=== PATIENT | male | born 1940 | race Caucasian/White ===

== ENCOUNTER 2016-10-28 09:34 | Emergency (ER) | payer MEDICARE, OTHER ==
[~2016-10-28] VITALS: Ht 177.8 cm; Wt 84.0 kg
[~2016-10-28 09:34] MED LIST: ALBU17I INH; AMIO200T PO; ATEN-102 PO; LEVA750T9 PO; RIVA20 PO; SM A81CH CHEW
[2016-10-28 09:35] VITALS: BP 172/98; PULSE 98; RESP 20; TEMP 97.5; O2SAT 95
[2016-10-28 10:19] VITALS: BP 131/88; PULSE 80; RESP 15; TEMP 98.4; O2SAT 97
--- NOTE | 2016-10-28 10:35 | PD ---
HPI Chief Complaint: Back/ Neck Pain or Injury Time Seen by Provider: 10:19 Travel History International Travel<30 days: No Contact w/Intl Traveler<30days: No Traveled to known affect area: No History of Present Illness HPI 75yo M with PMH of afib on eliquis presents to the ED with c/o right lower back pain for 5 days. Pt was pushing and lifting heavy furniture 5 days ago and then felt pain in right lower back that radiates to right hip. Pain is sharp, worst with movement. Denies any fever, trauma, weakness, numbness, chest pain, sob, n/v, abdominal pain. Pt took advil with no relief. PFSH Past Medical History Hx Anticoagulant Therapy: Yes (Eliquis) Asthma: Yes Atrial Fibrillation: Yes Cardiovascular Problems: Yes (atrial fibrillation) Diminished Hearing: No Hypertension: Yes Social History Alcohol Use: Yes (6 BEERS A DAY) Tobacco Use: No Substance Use: No Allergies-Medications (Allergen,Severity, Reaction): Coded Allergies: No Known Allergies (Verified , 05/29/13) Reported Meds & Prescriptions Reported Meds & Active Scripts Active Reported Eliquis (Apixaban) 2.5 Mg Tab 2.5 PO BID Review of Systems Except as stated in HPI: all other systems reviewed are Neg Physical Exam Narrative GENERAL: 75yo M not in distress. SKIN: Warm and dry. HEAD: Atraumatic. Normocephalic. CARDIOVASCULAR: Regular rate and rhythm. No murmur appreciated. RESPIRATORY: No accessory muscle use. Clear to auscultation. Breath sounds equal bilaterally. GASTROINTESTINAL: Abdomen soft, non-tender, nondistended. BACK: No midline ttp thoracic or lumbar spine. +TTP right paraspinal L4-5 with movement. MUSCULOSKELETAL: Right hip: No ttp. No ecchymoses or erythema. However, pt states pain is there with movement. Sensation intact. Distal pulses intact. NEUROLOGICAL: Awake and alert. No obvious cranial nerve deficits. Motor grossly within normal limits. Normal speech. Negative straight leg test. PSYCHIATRIC: Appropriate mood and affect; insight and judgment normal. Data Data Last Documented VS Vital Signs Date Time Temp Pulse Resp B/P Pulse Ox O2 Delivery O2 Flow Rate FiO2 10/28/16 10:19 98.4 80 15 131/88 97 10/28/16 09:35 Room Air Orders Spine, Lumbar - Ltd (Ap & Lat) (10/28/16 ) Hip, Uni(Ap&Lat) W Ap Pelvis (10/28/16 ) Diazepam (Valium) (10/28/16 10:45) Ketorolac Inj (Toradol Inj) (10/28/16 10:45) MDM Medical Decision Making Medical Screen Exam Complete: Yes Emergency Medical Condition: Yes Differential Diagnosis Muscle sprain vs. osteoarthritis vs. occult fracture Narrative Course 75yo M with right back pain that seems very musculoskeletal after moving heavy furniture. Xray right hip showed moderate degenerative changes. No fracture. Xray LS showed moderate degenerative changes. No fracture. Pt given toradol 15mg IM and valium 2mg PO with little relieve. Lortab 5mg given. Return precautions given. Diagnosis Primary Impression: Back pain Qualified Code: M54.5 - Acute right-sided low back pain without sciatica Patient Instructions: General Instructions Departure Forms: Tests/Procedures Additional Instructions: Please follow up with your PMD in 1-2 days. Return to the ED if symptoms worsen. Med/Other Pt SpecificInfo: Prescription(s) given Scripts Ibuprofen 600 Mg Pml700 Mg PO Q8HR PRN (PAIN) #20 TAB Ref 0 Prov:Martha Singh DO 10/28/16 Disposition: 01 DISCHARGE HOME Condition: Stable Martha Singh DO Oct 28, 2016 10:35
[2016-10-28] MEDS ORDERED: DIAZEPAM 2 MG TAB PO ONE (10:45)
[2016-10-28] MEDS ORDERED: KETOROLAC TROMETHAMINE 60 MG/2 ML (IM) VIAL IM ONE (10:45)
[2016-10-28] MEDS ORDERED: APIX2.5T PO (11:23)
--- NOTE | 2016-10-28 11:36 | RADRPT ---
EXAM DATE/TIME: 10/28/2016 10:59 [facility] COMPARISON: No previous studies available for comparison. INDICATIONS : Patient moved furniture five days ago and now back and hip have pain. MEDICAL HISTORY : None. SURGICAL HISTORY : Knee surgery. ENCOUNTER: Initial ACUITY: 4 - 6 days PAIN SCORE: 10/10 LOCATION: Right Hip FINDINGS: Examination of the right hip was performed with AP Pelvis. The primary and secondary trabecular karly roseanna of the femoral neck is intact. Degenerative changes present at the lumbosacral junction. There is enthesopathy at the level of the iliac wings bilaterally. The hip joint is of normal width without significant sclerosis or bony hypertrophy on the right. The acetabulum is grossly intact. On the le ft side there is superior narrowing of the joint space with sclerosis characteristic of osteoarthriti s. CONCLUSION: 1. Moderate degenerative changes as described above. There is no evidence of acute fracture. Aramis Sheets MD on October 28, 2016 at 11:33 Board Certified Radiologist. This report was verified electronically.
--- NOTE | 2016-10-28 11:37 | RADRPT ---
EXAM DATE/TIME: 10/28/2016 11:03 [facility] COMPARISON: No previous studies available for comparison. INDICATIONS : Patient moved furniture five days ago and now back and hip have pain. MEDICAL HISTORY : None. SURGICAL HISTORY : Knee surgery. ENCOUNTER: Initial ACUITY: 4 - 6 days PAIN SCORE: 6/10 LOCATION: L-spine. FINDINGS: There is anterolisthesis likely related to facet arthritis at L3-L4 4-5 mm. There is multilevel disc space narrowing and marginal osteophyte formation maximal at L5-S1. There is multilevel facet arthrit is maximal at L5-S1. There is no evidence of acute fracture. Bony mineralization is normal. CONCLUSION: 1. Moderate degenerative changes as described above. There is no evidence of acute fracture. Aramis Sheets MD on October 28, 2016 at 11:35 Board Certified Radiologist. This report was verified electronically.
[2016-10-28] MEDS ORDERED: ACETAMINOPHEN/HYDROcodone 325 MG/5 MG TAB PO ONE (13:00)
[2016-10-28] MEDS ORDERED: IBUP-232 PO (13:01)
== END 2016-10-28 13:38 | disposition home or self-care (01) ==
LOC: NEPC 09:34
DX: M54.5 Low back pain (principal); M25.551 Pain in right hip; I48.91 Unspecified atrial fibrillation; I10 Essential (primary) hypertension; Z79.01 Long term (current) use of anticoagulants; Z87.09 Personal history of other diseases of the respiratory system; X50.9XXA Other and unspecified overexertion or strenuous movements or postures, initial encounter
CPT/HCPCS: 72100; 73502; 96372; 99283; J1885

== ENCOUNTER 2017-02-15 11:48 | Day surgery (SDC) | payer MEDICARE, OTHER ==
[~2017-02-15 11:48] MED LIST changes: -ALBU17I INH; -AMIO200T PO; +APIX2.5T PO; -ATEN-102 PO; +IBUP-232 PO; -LEVA750T9 PO; -RIVA20 PO; -SM A81CH CHEW
[2017-02-15] MEDS ORDERED: LACTATED RINGER'S 1000 ML IV PRN (12:15)
[2017-02-15] MEDS ORDERED: METOPROLOL TARTRATE 25 MG TAB PO PRN (12:15)
[2017-02-15] MEDS ORDERED: CHLORHEXIDINE GLUCONATE 2 % 1 PACK (2 CLOTHS) TOPICAL PRN (12:15)
[2017-02-15] MEDS ORDERED: SODIUM CHLORID 0.9% 500 ML IV PRN (12:15)
[2017-02-15] MEDS ORDERED: POVIDONE IODINE 5% (ANTISEPSIS KIT) 4 APPLICATIONS EACH NARE PRN (12:15)
[2017-02-15] MEDS ORDERED: INSULIN HUMAN REGULAR 1,000 UNITS/10 ML VIAL SQ PRN (12:15)
[2017-02-15] MEDS ORDERED: AMIO1TAB (13:02)
[2017-02-15] MEDS ORDERED: MULTTAB26 (13:02)
[2017-02-15] MEDS ORDERED: LIDOCAINE HCL 1% 50 ML VIAL ONE (14:17)
[2017-02-15] MEDS ORDERED: LIDOCAINE HCL 2% 100 MG/5 ML SYRINGE ONE (14:17)
--- NOTE | 2017-02-16 13:06 | CF ---
cc: TASNEEM MCKAY M.D.[facility] DATE February 15, 2017 PROCEDURE PERFORMED Transesophageal echocardiogram. INDICATION Atrial fibrillation. PLAN Plan to proceed with cardioversion. CONSENT A full, informed consent was obtained prior to the procedure. The risks of , bleeding, myocardial infarction, perforation, aspiration, foreseen and unforeseen complications were reviewed. The patient fully appeared to understand the risks. PROCEDURE The patient was prepped and draped in the usual manner. A full JONA was performed. Anesthesia was given as per the Anesthesia Department. FINDINGS 1. The interatrial septum was intact. 2. The mitral valve moved normally. 3. The tricuspid valve moved normally. 4. There was evidence of mild mitral regurgitation. 5. The left atrial appendage was free of thrombus. CONCLUSION No evidence of left atrial appendage thrombus. PLAN Proceed with cardioversion. Tasneem Mckay MD, FRCP,[facility]AL[facility] /2:49 PM /1:01 PM
--- NOTE | 2017-02-16 13:06 | MR ---
cc: MADONNA JACOBO HUMAYUN A. M.D. DATE 02/15/2017 PROCEDURE PERFORMED Cardioversion INDICATION Atrial fibrillation PROCEDURE The patient had a full JONA performed. Left atrial appendage was free of thrombus. The patient was given a synchronized 200 joules shock and was converted to sinus rhythm. CONCLUSIONS Successful cardioversion from atrial fibrillation to sinus rhythm. Tasneem Mckay MD, CP,[facility] /2:51 PM /1:01 PM
--- NOTE | 2017-02-16 14:02 | EKG ---
Date Performed: 02/15/2017 Time Performed: 12:10:46 PTAGE: 76 years EKG: Atrial fibrillation ST junctional depression is nonspecific Compared to prior tracing no si gnificant change Abnormal ECG PREVIOUS TRACING : 03/25/2016 16.55 DOCTOR: Irma Taylor Interpretating Date/Time 02/16/2017 13:53:31
--- NOTE | 2017-02-16 14:33 | EKG ---
Date Performed: 02/15/2017 Time Performed: 14:39:02 PTAGE: 76 years EKG: Sinus rhythm Normal ECG Compared to PREVIOUS TRACING , atrial fibrillation has resolved. The ST segment change has resolved. Clinical correlation advised. PREVIOUS TRACIN02/15/2017 12.10 DOCTOR: Irma Taylor Interpretating Date/Time 02/16/2017 14:32:39
== END 2017-02-15 15:14 | disposition home or self-care (01) ==
LOC: HSDC 11:48 → HDIC 11:50 → HSDC 15:14
PROVIDERS: ATTEND Internal Medicine Cardiovascular Disease
DX: I48.91 Unspecified atrial fibrillation (principal)
CPT/HCPCS: 92960; 93005; 93312; 93320; 93325

== ENCOUNTER 2017-09-06 12:33 | Emergency (ER) | payer MEDICARE, OTHER ==
[~2017-09-06 12:33] MED LIST changes: +AMIO1TAB; +MULTTAB26
[2017-09-06 12:57] VITALS: BP 148/75; PULSE 94; RESP 20; TEMP 101; O2SAT 98
[2017-09-06 14:23] LABS: BILIRUBIN, URINE NEG (NEG); BLOOD, URINE NEG (NEG); GLUCOSE,URINE NEG (NEG); KETONE, URINE 15 mg/dL (NEG); NITRITE,URINE NEG (NEG); URINE LEUKOCYTE ESTERASE NEG (NEG)
[2017-09-06 14:32] LABS: URINE COLOR YELLOW (YELLW/STRAW)
[2017-09-06 14:33] LABS: AMORPHOUS SEDIMENT, URINE FEW; RBC, URINE 0-3 /hpf (0-3); SQUAMOUS EPITHELIAL CELL URINE 0-5 /hpf (0-5); WBC, URINE 0-2 /hpf (0-5)
[2017-09-06] MEDS ORDERED: ACETAMINOPHEN 500 MG CPLT PO ONE (15:15)
--- NOTE | 2017-09-06 15:22 | PD ---
HPI Chief Complaint: Cold / Flu Symptoms Time Seen by Provider: 15:00 Travel History International Travel<30 days: No Contact w/Intl Traveler<30days: No Traveled to known affect area: No History of Present Illness HPI This patient has had 3 days of cough and congestion and fever. He complains of generalized weakness. Symptoms severity is moderate. No alleviating factors. No exacerbating factors. He has some dementia and his provides history and review of systems. No vomiting or diarrhea or abdominal pain or chest pain. PFSH Past Medical History Hx Anticoagulant Therapy: Yes (ELIQUIS ) Asthma: Yes Atrial Fibrillation: Yes Cardiovascular Problems: Yes (atrial fibrillation) Diminished Hearing: No Hypertension: Yes Social History Alcohol Use: Yes (daily) Tobacco Use: No Substance Use: No Allergies-Medications (Allergen,Severity, Reaction): Coded Allergies: No Known Allergies (Verified Adverse Reaction, Unknown, 09/06/17) Reported Meds & Prescriptions Reported Meds & Active Scripts Active Ventolin Hfa 18 GM Inh (Albuterol Sulfate) 90 Mcg/Act Aer 2 Puff INH Q4H PRN Reported Ferrous Sulfate 325 Mg (65 Mg Iron) Tablet 325 Mg PO TIDPC Calcium Carbonate (Antacid) 500 Mg Chew 500 Mg CHEW PRN Vitamin B-1 (Thiamine HCl) 100 Mg Tab 100 Mg PO DAILY Docusate Sodium 100 Mg Cap 100 Mg PO BID Multaq (Dronedarone) 400 Mg Tab 400 Mg PO BID Multi Complete/Iron (Multiple Vitamins W/ Minerals) 1 Tab Tab Eliquis (Apixaban) 2.5 Mg Tab 2.5 PO BID Review of Systems General / Constitutional: Positive: Fever Eyes: No: Visual changes HENT: Positive: Congestion, No: Headaches Cardiovascular: No: Chest Pain or Discomfort Respiratory: Positive: Cough, No: Shortness of Breath Gastrointestinal: No: Abdominal Pain Genitourinary: No: Dysuria Musculoskeletal: Positive: Weakness, No: Pain Skin: No Rash Neurologic: Positive: Weakness Psychiatric: No: Depression Endocrine: No: Polydipsia Hematologic/Lymphatic: No: Easy Bruising Physical Exam Narrative GENERAL: Well-nourished, well-developed patient in no apparent distress. SKIN: Focused skin assessment reveals no rash and nodules. Skin is Warm and dry. HEAD: Atraumatic. Normocephalic. EYES: Pupils equal and round. No scleral icterus. No injection or drainage. ENT: No nasal bleeding or discharge. Mucous membranes pink and moist. Throat clear NECK: Trachea midline. No JVD. No meningeal signs CARDIOVASCULAR: Regular rate and rhythm. No murmur appreciated. RESPIRATORY: No accessory muscle use. Clear to auscultation. Breath sounds equal bilaterally. GASTROINTESTINAL: Abdomen soft, non-tender, nondistended. Hepatic and splenic margins not palpable. MUSCULOSKELETAL: No obvious deformities. No clubbing. No cyanosis. No edema. NEUROLOGICAL: Awake and alert. No obvious cranial nerve deficits. Motor grossly within normal limits. Normal speech. PSYCHIATRIC: Appropriate mood and affect; insight and judgment reduced from dementia . Data Data Last Documented VS Vital Signs Date Time Temp Pulse Resp B/P (MAP) Pulse Ox O2 Delivery O2 Flow Rate FiO2 09/06/17 17:26 99.5 88 18 120/60 (80) 94 09/06/17 15:44 Room Air Orders Orders Urinalysis - C+S If Indicated (09/06/17 14:07) Influenzae A/B Antigen (09/06/17 14:42) Iv Access Insert/Monitor (09/06/17 15:14) Complete Blood Count With Diff (09/06/17 15:14) Comprehensive Metabolic Panel (09/06/17 15:14) Acetaminophen (Tylenol) (09/06/17 15:15) Chest, Single Ap (09/06/17 ) Labs Laboratory Tests Test 09/06/17 14:15 09/06/17 15:30 Urine Collection Type CLEAN CATCH Urine Color YELLOW Urine Turbidity CLEAR Urine pH 7.0 Urine Specific Bradford 1.021 Urine Protein TRACE mg/dL Urine Glucose (UA) NEG mg/dL Urine Ketones 15 mg/dL Urine Occult Blood NEG Urine Nitrite NEG Urine Bilirubin NEG Urine Leukocyte Esterase NEG Urine RBC 0-3 /hpf Urine WBC 0-2 /hpf Urine Squamous Epithelial Cells 0-5 /hpf Urine Amorphous Sediment FEW Microscopic Urinalysis Comment CULT NOT INDICATED Urine Collection Time 1415 White Blood Count 7.6 TH/MM3 Red Blood Count 4.02 MIL/MM3 Hemoglobin 11.8 GM/DL Hematocrit 35.9 % Mean Corpuscular Volume 89.2 FL Mean Corpuscular Hemoglobin 29.2 PG Mean Corpuscular Hemoglobin Concent 32.8 % Red Cell Distribution Width 16.2 % Platelet Count 238 TH/MM3 Mean Platelet Volume 7.0 FL Neutrophils (%) (Auto) 87.9 % Lymphocytes (%) (Auto) 4.3 % Monocytes (%) (Auto) 5.8 % Eosinophils (%) (Auto) 1.3 % Basophils (%) (Auto) 0.7 % Neutrophils # (Auto) 6.7 TH/MM3 Lymphocytes # (Auto) 0.3 TH/MM3 Monocytes # (Auto) 0.4 TH/MM3 Eosinophils # (Auto) 0.1 TH/MM3 Basophils # (Auto) 0.1 TH/MM3 CBC Comment DIFF FINAL Differential Comment Blood Urea Nitrogen 10 MG/DL Creatinine 0.89 MG/DL Random Glucose 102 MG/DL Total Protein 7.5 GM/DL Albumin 3.2 GM/DL Calcium Level 8.3 MG/DL Alkaline Phosphatase 81 U/L Aspartate Amino Transf (AST/SGOT) 27 U/L Alanine Aminotransferase (ALT/SGPT) 24 U/L Total Bilirubin 0.6 MG/DL Sodium Level 133 MEQ/L Potassium Level 3.6 MEQ/L Chloride Level 98 MEQ/L Carbon Dioxide Level 28.4 MEQ/L Anion Gap 7 MEQ/L Estimat Glomerular Filtration Rate 83 ML/MIN [facility] Medical Decision Making Medical Screen Exam Complete: Yes Emergency Medical Condition: Yes Medical Record Reviewed: Yes Differential Diagnosis Pneumonia, flu syndrome, electrolyte abnormality Narrative Course I have reviewed the patient's electronic medical record. IV placed CBC is normal metabolic profile normal LFTs are normal I reviewed his chest x-ray which is negative I gave him Tylenol for fever Urinalysis is normal Influenza swab is positive for influenza A This would explain his congestion cough fever etc. No indication for antibiotics Supportive care discussed I did write him an albuterol inhaler to use as needed The patient was advised to follow up with their physician and return if they worsen. Diagnosis Primary Impression: Influenza Additional Impression: Generalized weakness Additional Instructions: The patient was advised to follow up with their physician and return if they worsen. Med/Other Pt SpecificInfo: Prescription(s) given Scripts Albuterol 18 GM Inh (Ventolin Hfa 18 GM Inh) 90 Mcg/Act Aer 2 PUFF INH Q4H Y for SHORTNESS OF BREATH, #1 INHALER 0 Refills Prov: Thai Elliott MD 09/06/17 Disposition: 01 DISCHARGE HOME Condition: Stable Thai Elliott MD Sep 06, 2017 15:22
--- NOTE | 2017-09-06 15:28 | RADRPT ---
EXAM DATE/TIME: 09/06/2017 15:17 [facility] COMPARISON: No previous studies available for comparison. INDICATIONS : Fever. MEDICAL HISTORY : Cardiovascular disease. Hypertension. SURGICAL HISTORY : None. ENCOUNTER: Initial ACUITY: 1 day PAIN SCORE: 0/10 LOCATION: Bilateral chest FINDINGS: A single view of the chest demonstrates the lungs to be symmetrically aerated without evidence of mas s, infiltrate or effusion. The cardiomediastinal contours are unremarkable. Osseous structures are intact. CONCLUSION: No acute disease. Abhinav Allen MD on September 06, 2017 at 15:25 Board Certified Radiologist. This report was verified electronically.
[2017-09-06 15:37] LABS: AUTOMATED NEUTROPHIL # 6.7 TH/MM3 (1.8-7.7); BASOPHIL # 0.1 TH/MM3 (0-0.2); BASOPHIL % 0.7 % (0.0-2.0); EOSINOPHIL # 0.1 TH/MM3 (0-0.4); EOSINOPHIL % 1.3 % (0.0-4.0); HEMATOCRIT 35.9 % (39.0-51.0); HEMOGLOBIN 11.8 GM/DL (13.0-17.0); LYMPH % 4.3 % (9.0-44.0); LYMPHOCYTE # 0.3 TH/MM3 (1.0-4.8); MEAN CELL VOLUME 89.2 FL (80.0-100.0); MEAN CORPUSCULAR HEMOGLOBIN 29.2 PG (27.0-34.0); MEAN CORPUSCULAR HGB CONC 32.8 % (32.0-36.0); MONO % 5.8 % (0.0-8.0); MONOCYTE # 0.4 TH/MM3 (0-0.9); NEUT % 87.9 % (16.0-70.0); PLATELET COUNT 238 TH/MM3 (150-450); RED BLOOD COUNT 4.02 MIL/MM3 (4.50-5.90); RED CELL DISTRIBUTION WIDTH 16.2 % (11.6-17.2); WHITE BLOOD COUNT 7.6 TH/MM3 (4.0-11.0)
[2017-09-06 15:44] VITALS: BP 142/77; PULSE 93; RESP 18; TEMP 100.9; O2SAT 95
[2017-09-06 15:45] LABS: CHLORIDE 98 MEQ/L (98-107); SODIUM (NA) 133 MEQ/L (136-145)
[2017-09-06 15:48] LABS: CALCIUM 8.3 MG/DL (8.5-10.1)
[2017-09-06 15:49] LABS: ALBUMIN 3.2 GM/DL (3.4-5.0); BICARBONATE 28.4 MEQ/L (21.0-32.0); BLOOD UREA NITROGEN 10 MG/DL (7-18); GLUCOSE,RANDOM 102 MG/DL (74-106)
[2017-09-06 15:52] LABS: ALT (GPT) 24 U/L (12-78); AST (GOT) 27 U/L (15-37); CREATININE 0.89 MG/DL (0.60-1.30); GLOMERULAR FILTRATION RATE 83 ML/MIN (>89)
[2017-09-06 15:54] LABS: TOTAL BILIRUBIN ADULT 0.6 MG/DL (0.2-1.0); TOTAL PROTEIN 7.5 GM/DL (6.4-8.2)
[2017-09-06 15:55] LABS: ALKALINE PHOSPHATASE 81 U/L (45-117)
[2017-09-06] MEDS ORDERED: VITA100T54 PO (15:56)
[2017-09-06] MEDS ORDERED: MULT400T PO (15:56)
[2017-09-06] MEDS ORDERED: DOCU100C15 PO (15:56)
[2017-09-06] MEDS ORDERED: FERR325T18 PO (15:56)
[2017-09-06] MEDS ORDERED: CALC500C16 CHEW (15:56)
[2017-09-06 17:26] VITALS: BP 120/60; TEMP 99.5
[2017-09-06] MEDS ORDERED: VENTAER INH (17:29)
== END 2017-09-06 17:45 | disposition home or self-care (01) ==
LOC: PHED 12:33
DX: J11.1 Influenza due to unidentified influenza virus with other respiratory manifestations (principal); R53.1 Weakness; J45.909 Unspecified asthma, uncomplicated; I48.91 Unspecified atrial fibrillation; Z79.01 Long term (current) use of anticoagulants
CPT/HCPCS: 71045; 80053; 81001; 85025; 87804; 99284

== ENCOUNTER 2017-09-11 14:55 | Inpatient (IN) | payer MEDICARE ==
[~2017-09-11] VITALS: Ht 177.8 cm; Wt 77.8 kg
[2017-09-11] VITALS (7 sets, daily range): BP systolic 107–194; BP diastolic 51–93; PULSE 87–100; RESP 18–22; TEMP 98.2–103.1; O2SAT 91–96
[~2017-09-11 14:55] MED LIST changes: -AMIO1TAB; +CALC500C16 CHEW; +DOCU100C15 PO; +FERR325T18 PO; -IBUP-232 PO; +MULT400T PO; +VENTAER INH; +VITA100T54 PO
[2017-09-11] MEDS ORDERED: CO Q100C9 PO (15:31)
[2017-09-11] MEDS ORDERED: ONDANSETRON HCL 4 MG/2 ML VIAL IV PUSH ONE (16:15)
[2017-09-11] MEDS ORDERED: SODIUM CHLOR 0.9% 1000 ML INJ 1,000 ML IV ONE (16:15)
--- NOTE | 2017-09-11 16:29 | RADRPT ---
EXAM DATE/TIME: 09/11/2017 16:11 [facility] COMPARISON: CHEST SINGLE AP, September 06, 2017, 15:17. INDICATIONS : Cough, weakness. MEDICAL HISTORY : Hypertension. Cardiovascular disease. SURGICAL HISTORY : None. ENCOUNTER: Initial ACUITY: 1 week PAIN SCORE: 0/10 LOCATION: Bilateral chest FINDINGS: A single view of the chest demonstrates the lungs to be symmetrically aerated without evidence of mas s, infiltrate or effusion. The cardiomediastinal contours are unremarkable. Osseous structures are intact. CONCLUSION: No acute disease. No significant change has occurred. Gregory Campbell MD on September 11, 2017 at 16:26 Board Certified Radiologist. This report was verified electronically.
[2017-09-11] MEDS: RESP: ALBUTEROL 2.5 MG/IPRATROPIUM 0.5 MG NEB (SCH) INH (16:32)
[2017-09-11 16:51] LABS: CHLORIDE 101 MEQ/L (98-107); SODIUM (NA) 137 MEQ/L (136-145)
[2017-09-11 16:54] LABS: CALCIUM 7.9 MG/DL (8.5-10.1)
[2017-09-11 16:55] LABS: ALBUMIN 2.9 GM/DL (3.4-5.0); BICARBONATE 25.1 MEQ/L (21.0-32.0); BLOOD UREA NITROGEN 7 MG/DL (7-18); GLUCOSE,RANDOM 121 MG/DL (74-106)
[2017-09-11 16:57] LABS: AUTOMATED NEUTROPHIL # 8.1 TH/MM3 (1.8-7.7); BASOPHIL % 0.4 % (0.0-2.0); EOSINOPHIL % 0.2 % (0.0-4.0); HEMATOCRIT 35.2 % (39.0-51.0); HEMOGLOBIN 11.6 GM/DL (13.0-17.0); LYMPHOCYTE # 0.4 TH/MM3 (1.0-4.8); MEAN CELL VOLUME 88.6 FL (80.0-100.0); MEAN CORPUSCULAR HEMOGLOBIN 29.1 PG (27.0-34.0); MEAN CORPUSCULAR HGB CONC 32.9 % (32.0-36.0); MEAN PLATELET VOLUME 7.4 FL (7.0-11.0); MONO % 4.8 % (0.0-8.0); MONOCYTE # 0.4 TH/MM3 (0-0.9); NEUT % 89.6 % (16.0-70.0); PLATELET COUNT 235 TH/MM3 (150-450); RED BLOOD COUNT 3.97 MIL/MM3 (4.50-5.90); RED CELL DISTRIBUTION WIDTH 15.4 % (11.6-17.2); WHITE BLOOD COUNT 8.9 TH/MM3 (4.0-11.0)
[2017-09-11 16:58] LABS: ALT (GPT) 32 U/L (12-78); AST (GOT) 62 U/L (15-37); CREATININE 0.68 MG/DL (0.60-1.30); GLOMERULAR FILTRATION RATE 113 ML/MIN (>89)
[2017-09-11 17:00] LABS: TOTAL BILIRUBIN ADULT 0.4 MG/DL (0.2-1.0)
[2017-09-11 17:01] LABS: ALKALINE PHOSPHATASE 69 U/L (45-117)
[2017-09-11 17:03] LABS: TROPONIN I LESS THAN 0.02 NG/ML (0.02-0.05)
[2017-09-11] MEDS ORDERED: ACETAMINOPHEN 325 MG TAB PO ONE (17:15)
[2017-09-11] MEDS ORDERED: POTASSIUM CHLORIDE 10 MEQ CONTROLLED RELEASE TAB PO ONE (17:30)
--- NOTE | 2017-09-11 18:26 | PD ---
HPI Chief Complaint: Cold / Flu Symptoms Time Seen by Provider: 15:40 Travel History International Travel<30 days: No Contact w/Intl Traveler<30days: No Traveled to known affect area: No History of Present Illness HPI Patient is a 76-year-old male who comes in complaining of fevers, body aches, shortness of breath, cough. He was here on September 06 and was positive for the flu. He was discharged with an albuterol inhaler. He does have history of asthma. He says he has been feeling as if he is getting worse and set of better. He says his shortness of breath and his coughing has increased. He has tried [id number] cough medicines, without relief. He denies nausea or vomiting, but has not been eating or drinking much. PFSH Past Medical History Hx Anticoagulant Therapy: Yes (ELIQUIS ) Anemia: Yes Asthma: Yes Atrial Fibrillation: Yes Cardiovascular Problems: Yes (atrial fibrillation) Diminished Hearing: Yes (bilat aids) Hypertension: Yes Tetanus Vaccination: Unknown Influenza Vaccination: No Past Surgical History Joint Replacement: Yes (right knee ) Social History Alcohol Use: Yes (daily, moderate) Tobacco Use: No Substance Use: No Allergies-Medications (Allergen,Severity, Reaction): Coded Allergies: No Known Allergies (Verified Adverse Reaction, Unknown, 09/11/17) Reported Meds & Prescriptions Reported Meds & Active Scripts Active Ventolin Hfa 18 GM Inh (Albuterol Sulfate) 90 Mcg/Act Aer 2 Puff INH Q4H PRN Reported Co Q 10 (Coenzyme Q10 (Ubidecarenone)) 100 Mg-5 Unit Cap 1 Tab PO DAILY Ferrous Sulfate 325 Mg (65 Mg Iron) Tablet 325 Mg PO TIDPC Calcium Carbonate (Antacid) 500 Mg Chew 500 Mg CHEW PRN Docusate Sodium 100 Mg Cap 100 Mg PO BID Multaq (Dronedarone) 400 Mg Tab 400 Mg PO BID Multi Complete/Iron (Multiple Vitamins W/ Minerals) 1 Tab Tab Review of Systems Except as stated in HPI: all other systems reviewed are Neg General / Constitutional: Positive: Fever, Chills HENT: No: Headaches, Lightheadedness Cardiovascular: No: Chest Pain or Discomfort Respiratory: Positive: Cough, Shortness of Breath Gastrointestinal: No: Vomiting, Abdominal Pain Genitourinary: No: Dysuria Musculoskeletal: Positive: Myalgias Skin: No Rash, No Change in Pigmentation Neurologic: No: Weakness, Dizziness Physical Exam Narrative GENERAL: Awake and alert, in no acute distress. SKIN: Focused skin assessment warm/dry. HEAD: Atraumatic. Normocephalic. EYES: Pupils equal and round. No scleral icterus. ENT:Mucous membranes pink and moist. NECK: Trachea midline. No JVD. CARDIOVASCULAR: Regular rate and rhythm. No murmur appreciated. RESPIRATORY: No accessory muscle use. Decreased breath sounds and diffuse wheezing. Breath sounds equal bilaterally. GASTROINTESTINAL: Abdomen soft, non-tender, nondistended. MUSCULOSKELETAL: No obvious deformities. No clubbing. No cyanosis. No edema. NEUROLOGICAL: Awake and alert. No obvious cranial nerve deficits. Motor grossly within normal limits. Normal speech. PSYCHIATRIC: Appropriate mood and affect; insight and judgment normal. Data Data Last Documented VS Vital Signs Date Time Temp Pulse Resp B/P (MAP) Pulse Ox O2 Delivery O2 Flow Rate FiO2 09/11/17 18:18 95 Nasal Cannula 2.00 09/11/17 18:06 100.7 95 19 119/52 (74) Orders Orders Electrocardiogram (09/11/17 16:05) Complete Blood Count With Diff (09/11/17 16:05) Comprehensive Metabolic Panel (09/11/17 16:05) Lactic Acid Sepsis Protocol (09/11/17 16:05) Troponin I (09/11/17 16:05) Urinalysis - C+S If Indicated (09/11/17 16:05) Blood Culture (09/11/17 16:05) Chest, Single Ap (09/11/17 16:05) Blood Glucose (09/11/17 16:05) Ecg Monitoring (09/11/17 16:05) Iv Access Insert/Monitor (09/11/17 16:05) Oximetry (09/11/17 16:05) Oxygen Administration (09/11/17 16:05) Albuterol-Ipratropium Neb (Duoneb Neb) (09/11/17 16:15) Sodium Chlor 0.9% 1000 Ml Inj (Ns 1000 M (09/11/17 16:15) Ondansetron Inj (Zofran Inj) (09/11/17 16:15) Lactic Acid (09/11/17 17:02) Acetaminophen (Tylenol) (09/11/17 17:15) Potassium Chloride (Kcl) (09/11/17 17:30) Admit Order (Ed Use Only) (09/11/17 ) Labs Laboratory Tests Test 09/11/17 16:30 09/11/17 18:15 White Blood Count 8.9 TH/MM3 Red Blood Count 3.97 MIL/MM3 Hemoglobin 11.6 GM/DL Hematocrit 35.2 % Mean Corpuscular Volume 88.6 FL Mean Corpuscular Hemoglobin 29.1 PG Mean Corpuscular Hemoglobin Concent 32.9 % Red Cell Distribution Width 15.4 % Platelet Count 235 TH/MM3 Mean Platelet Volume 7.4 FL Neutrophils (%) (Auto) 89.6 % Lymphocytes (%) (Auto) 5.0 % Monocytes (%) (Auto) 4.8 % Eosinophils (%) (Auto) 0.2 % Basophils (%) (Auto) 0.4 % Neutrophils # (Auto) 8.1 TH/MM3 Lymphocytes # (Auto) 0.4 TH/MM3 Monocytes # (Auto) 0.4 TH/MM3 Eosinophils # (Auto) 0.0 TH/MM3 Basophils # (Auto) 0.0 TH/MM3 CBC Comment DIFF FINAL Differential Comment Blood Urea Nitrogen 7 MG/DL Creatinine 0.68 MG/DL Random Glucose 121 MG/DL Total Protein 7.0 GM/DL Albumin 2.9 GM/DL Calcium Level 7.9 MG/DL Alkaline Phosphatase 69 U/L Aspartate Amino Transf (AST/SGOT) 62 U/L Alanine Aminotransferase (ALT/SGPT) 32 U/L Total Bilirubin 0.4 MG/DL Sodium Level 137 MEQ/L Potassium Level 3.0 MEQ/L Chloride Level 101 MEQ/L Carbon Dioxide Level 25.1 MEQ/L Anion Gap 11 MEQ/L Estimat Glomerular Filtration Rate 113 ML/MIN Lactic Acid Level 1.2 mmol/L 1.7 mmol/L Troponin I LESS THAN 0.02 NG/ML MDM Medical Decision Making Medical Screen Exam Complete: Yes Emergency Medical Condition: Yes Medical Record Reviewed: Yes Interpretation(s) ECG shows normal sinus rhythm at 85, no ST elevation or depression Differential Diagnosis Influenza versus pneumonia versus electrolyte abnormality versus dehydration versus sepsis Narrative Course Patient is a 76-year-old male comes in complaining of fever, cough, shortness of breath. He was previously diagnosed with the flu. IV established, labs sent. Labs show a potassium of 3.0, this was replaced. Chest x-ray shows no acute abnormalities. Patient was given 3 duo nebs as well as Solu-Medrol with some improvement of his symptoms. His oxygen saturation is still 91% on room air. Patient IV fluids and Tylenol. I believe the influenza is triggering his asthma. I believe as this is his second visit for the same thing, he would benefit from an observation stay and continue treatment of his asthma flare. He'll be placed in observation for further management. Diagnosis Primary Impression: Influenza Additional Impression: Asthma Qualified Codes: J45.901 - Unspecified asthma with (acute) exacerbation Admitting Information Admitting Physician Requests: Observation Francheska Harding MD Sep 11, 2017 18:26
[2017-09-11] MEDS ORDERED: ACETAMINOPHEN 325 MG TAB PO PRN (19:00)
[2017-09-11] MEDS: RESP: ALBUTEROL 2.5 MG/IPRATROPIUM 0.5 MG NEB (SCH) NEB (19:21)
[2017-09-11] MEDS: THIAMINE HCL 100 MG TAB PO SCH (19:48)
[2017-09-11] MEDS: D5-1/2 NS + KCL 20 MEQ INJ 1,000 ML IV SCH (19:51)
--- NOTE | 2017-09-11 20:29 | MH ---
cc: VANDANA SANCHEZ M.D. DATE OF ADMISSION 09/11/2017 ADMISSION DIAGNOSES 1. Influenza with persistent fever and weakness. 2. Asthma with mild exacerbation and slight hypoxia. 3. Paroxysmal atrial fibrillation on antiarrhythmic medication and Eliquis. 4. Chronic alcohol abuse. PERTINENT HISTORY This is a 76-year-old white male who was diagnosed in the ED on 09/06/2017 with influenza type A. He came in then with about a 3-day history of cough, congestion, fever, weakness. He had no vomiting or diarrhea. He was sent home then on no medication, a temperature of 101 in the ED then his white count was 7.6, hemoglobin 11.8, sodium 133, potassium 3.6. He was sent home with a Ventolin inhaler. He however, over the next 5 days has still had persistent cough and has been having a little bit of trouble breathing even with the inhaler. It helps for awhile when he uses it. He had asthma when he was younger but used to use Primatene Mist for several years but had not used any medication in awhile until he came to the ED the other day. He is still running a fever and had a temperature up to 103.1 in the ED. His white count though is only 8.9 with little change from of the other day when it was 7.6. His BUN and creatinine are good. He is not dehydrated. He states he has had some loose bowel movements last couple days, just still feeling weak. He in the ED has been given some breathing treatments because his O2 sat was down to 91%. That seems to help some but he is being admitted for more breathing treatments and some IV steroids. A blood culture was drawn but is preliminary diagnosis is persistent influenza type A. In regard to his fever or infectious symptoms his chest x-ray showed no acute process. MEDICAL HISTORY 1. He has had atrial fibrillation and had cardioversion twice. The second time he was able to be cardioverted and then he has been on an antiarrhythmic drug Multaq 400 mg twice a day. He sees Dr. Mckay. He is on Eliquis as well. He denies any heart attack, angina, diabetes. Denies any hypertension, liver disease, kidney disease. Denies any stroke or seizures. No colon disease or peptic ulcer disease. 2. He is a heavy drinker, has drank alcohol for years. 3. He apparently had some knee replacement back in May and he was just a little confused for a couple days after the surgery. 4. He has never had any alcohol withdrawal seizure. He states he had not had any alcohol this past week. PAST SURGICAL HISTORY 1. He has had arthroscopy of the right knee in 1991. 2. And a right total knee replacement May 2017. He has had no other surgeries. ALLERGIES None. MEDICATIONS 1. He is on Multaq 400 milligrams twice a day. 2. Eliquis 2.5 mg twice a day. 3. Ferrous sulfate 325 mg one a day. He was put on it three times after his knee surgery. 4. He is on docusate 100 milligrams twice a day for bowel regularity. 5. Multivitamin once a day. 6. Recently given a Ventolin inhaler. FAMILY HISTORY His mother in her 70s heart disease. Father in his 70s sounds like COPD. SOCIAL HISTORY He is retired. 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 He has not smoked since around age 28. He smoked from up to three packs per day at one time, started smoking age 14, quit around age 28. He drinks six to eight beers a day, one to two glasses of wine a day and two drinks of either scotch or bourbon a day. REVIEW OF SYSTEMS GENERAL: He had generalized weakness, fever, chills at times. He has had cough. HEENT: He has had no sore throat. No current runny nose. CARDIOVASCULAR: No chest pain, orthopnea, PND. PULMONARY He has had the cough, gets a little bit of mucus up. He has had no hemoptysis. He has been wheezing a little bit. GASTROINTESTINAL: No nausea, no vomiting. No abdominal pain. He has had some loose bowels the last couple days. No rectal bleeding. GENITOURINARY: Without complaints. SKIN: Without rash. NEUROLOGIC: No headache. No focal weakness or confusion. Denies any history of dementia or stroke. PHYSICAL EXAMINATION GENERAL: Pleasant, white male who is alert and oriented. VITAL SIGNS: His O2 saturation is down as low as 91%. He is now on room air and is 95%. His temperature when he came in the ED earlier was 100.5, then at one time it was 103.1. The most recent measurement was 100.7. His BP has ranged from 194/93 on admission now down to 119/52. His pulse is been in the 90s, respirations 18-20. HEENT: TMs clear. Nose negative. Mouth without inflammation. NECK: Without bruits, JVD. HEART: Regular rate and rhythm with some premature beats on the monitor. It looks like sinus was some PACs. LUNGS: Just some slight decreased breath sounds and some occasional rhonchi that improved with a little cough, just some slight wheeze. ABDOMEN: Soft, nontender, no masses. EXTREMITIES: No edema. Pulses are palpated. SKIN: Negative. NEUROLOGIC: Oriented x3. Motor strength symmetrical, sensation intact. LABORATORY DATA White count 8.9, hemoglobin 11.6, hematocrit 35.2, platelets were 235. He had 89.6 neutrophils, 5% lymphocytes. Sodium 137. His potassium was 3.0. Lactic acid 1.2, 1.7. Glucose 121. AST was 62, ALT 32, alkaline phosphatase normal. Troponin less than 0.02. Protein was 7.0, albumin 2.9, GFR 113, BUN 7, creatinine 0.68. ASSESSMENT As noted. PLAN He will be given some potassium for his low potassium. We will give him some IV fluids at a gentle rate. He will be maintained on Eliquis which will cover him for DVT prophylaxis as well. We will give him acetaminophen for his fever. Will give him some Solu-Medrol for his breathing and DuoNeb nebulizer treatments. He will be maintained on oxygen for now. A blood culture was ordered but this appears to be all still persistent influenza infection, especially since his white count has not gone up any. MD JORDAN Al/JAYY /7:10 PM /7:53 PM
[2017-09-11] MEDS: APIXABAN 2.5 MG TABLET PO SCH (22:11)
[2017-09-11] MEDS: DRONEDARONE 400 MG TAB PO SCH (22:11)
[2017-09-11] MEDS: DOCUSATE SODIUM 100 MG CAP PO SCH (22:12)
[2017-09-11 22:46] LABS: BILIRUBIN, URINE NEG (NEG); BLOOD, URINE NEG (NEG); GLUCOSE,URINE NEG (NEG); KETONE, URINE 40 mg/dL (NEG); NITRITE,URINE NEG (NEG); URINE LEUKOCYTE ESTERASE NEG (NEG)
[2017-09-11 22:54] LABS: URINE COLOR YELLOW (YELLW/STRAW)
[2017-09-11 22:56] LABS: MUCUS URINE FEW /lpf (OCC)
[2017-09-11 22:57] LABS: RBC, URINE 0-3 /hpf (0-3); SQUAMOUS EPITHELIAL CELL URINE 0-5 /hpf (0-5); WBC, URINE 0-2 /hpf (0-5)
[2017-09-12] VITALS (8 sets, daily range): BP systolic 124–145; BP diastolic 69–81; PULSE 75–95; RESP 18–22; TEMP 96.7–99.9; O2SAT 91–97
[2017-09-12] MEDS: methylPREDNISolone SOD SUCC 40 MG/1 ML VIAL IV PUSH SCH ×5 (00:10→23:10)
[2017-09-12 06:23] LABS: AUTOMATED NEUTROPHIL # 9.4 TH/MM3 (1.8-7.7); EOSINOPHIL % 0.1 % (0.0-4.0); HEMATOCRIT 32.8 % (39.0-51.0); HEMOGLOBIN 10.7 GM/DL (13.0-17.0); LYMPHOCYTE # 0.6 TH/MM3 (1.0-4.8); MEAN CELL VOLUME 88.7 FL (80.0-100.0); MEAN CORPUSCULAR HEMOGLOBIN 28.9 PG (27.0-34.0); MEAN CORPUSCULAR HGB CONC 32.6 % (32.0-36.0); MEAN PLATELET VOLUME 7.6 FL (7.0-11.0); MONO % 2.8 % (0.0-8.0); MONOCYTE # 0.3 TH/MM3 (0-0.9); NEUT % 91.1 % (16.0-70.0); PLATELET COUNT 221 TH/MM3 (150-450); RED CELL DISTRIBUTION WIDTH 15.5 % (11.6-17.2); WHITE BLOOD COUNT 10.3 TH/MM3 (4.0-11.0)
[2017-09-12 06:41] LABS: CALCIUM 7.8 MG/DL (8.5-10.1)
[2017-09-12 06:45] LABS: CREATININE 0.58 MG/DL (0.60-1.30)
[2017-09-12] MEDS: RESP: ALBUTEROL 2.5 MG/IPRATROPIUM 0.5 MG NEB (SCH) NEB ×4 (07:29→19:16)
[2017-09-12] MEDS: D5-1/2 NS + KCL 20 MEQ INJ 1,000 ML IV SCH ×3 (07:54→23:10)
--- NOTE | 2017-09-12 08:12 | HHI.PR ---
Subjective Remarks Patient still having trouble coughing up mucus and congestion in his chest. Still a little short of breath. His fever is improved. Objective Vitals Vital Signs Date Time Temp Pulse Resp B/P (MAP) Pulse Ox O2 Delivery O2 Flow Rate FiO2 09/12/17 07:33 97 Nasal Cannula 2.00 09/12/17 00:00 99.9 89 22 142/81 (101) 93 09/11/17 21:15 98.2 99 22 161/84 (109) 96 09/11/17 20:50 09/11/17 20:05 87 20 107/51 (69) 95 Nasal Cannula 2.00 09/11/17 19:05 99.9 100 20 115/52 (73) 96 Nasal Cannula 2.00 09/11/17 18:18 95 Nasal Cannula 2.00 09/11/17 18:06 100.7 95 19 119/52 (74) 91 Room Air 09/11/17 16:43 103.1 93 18 154/74 (100) 94 09/11/17 16:33 94 Room Air 09/11/17 16:33 94 09/11/17 15:31 90 18 90 Room Air 09/11/17 15:02 100.5 94 20 194/93 (126) 91 Result Diagram: 09/12/17 0507 09/12/17 0507 Other Results Laboratory Tests Test 09/11/17 16:30 09/11/17 18:15 09/11/17 20:35 09/12/17 05:07 White Blood Count 8.9 TH/MM3 10.3 TH/MM3 Red Blood Count 3.97 MIL/MM3 3.70 MIL/MM3 Hemoglobin 11.6 GM/DL 10.7 GM/DL Hematocrit 35.2 % 32.8 % Mean Corpuscular Volume 88.6 FL 88.7 FL Mean Corpuscular Hemoglobin 29.1 PG 28.9 PG Mean Corpuscular Hemoglobin Concent 32.9 % 32.6 % Red Cell Distribution Width 15.4 % 15.5 % Platelet Count 235 TH/MM3 221 TH/MM3 Mean Platelet Volume 7.4 FL 7.6 FL Neutrophils (%) (Auto) 89.6 % 91.1 % Lymphocytes (%) (Auto) 5.0 % 6.0 % Monocytes (%) (Auto) 4.8 % 2.8 % Eosinophils (%) (Auto) 0.2 % 0.1 % Basophils (%) (Auto) 0.4 % 0.0 % Neutrophils # (Auto) 8.1 TH/MM3 9.4 TH/MM3 Lymphocytes # (Auto) 0.4 TH/MM3 0.6 TH/MM3 Monocytes # (Auto) 0.4 TH/MM3 0.3 TH/MM3 Eosinophils # (Auto) 0.0 TH/MM3 0.0 TH/MM3 Basophils # (Auto) 0.0 TH/MM3 0.0 TH/MM3 CBC Comment DIFF FINAL DIFF FINAL Differential Comment Blood Urea Nitrogen 7 MG/DL 6 MG/DL Creatinine 0.68 MG/DL 0.58 MG/DL Random Glucose 121 MG/DL 148 MG/DL Total Protein 7.0 GM/DL Albumin 2.9 GM/DL Calcium Level 7.9 MG/DL 7.8 MG/DL Alkaline Phosphatase 69 U/L Aspartate Amino Transf (AST/SGOT) 62 U/L Alanine Aminotransferase (ALT/SGPT) 32 U/L Total Bilirubin 0.4 MG/DL Sodium Level 137 MEQ/L 138 MEQ/L Potassium Level 3.0 MEQ/L 3.5 MEQ/L Chloride Level 101 MEQ/L 104 MEQ/L Carbon Dioxide Level 25.1 MEQ/L 27.0 MEQ/L Anion Gap 11 MEQ/L 7 MEQ/L Estimat Glomerular Filtration Rate 113 ML/MIN 136 ML/MIN Lactic Acid Level 1.2 mmol/L 1.7 mmol/L Troponin I LESS THAN 0.02 NG/ML Urine Color YELLOW Urine Turbidity CLEAR Urine pH 6.0 Urine Specific [place] 1.016 Urine Protein 30 mg/dL Urine Glucose (UA) NEG mg/dL Urine Ketones 40 mg/dL Urine Occult Blood NEG Urine Nitrite NEG Urine Bilirubin NEG Urine Leukocyte Esterase NEG Urine RBC 0-3 /hpf Urine WBC 0-2 /hpf Urine Squamous Epithelial Cells 0-5 /hpf Urine Mucus FEW /lpf Microscopic Urinalysis Comment CULT NOT INDICATED Urine Collection Time Imaging Last Impressions Chest X-Ray 09/11/17 1605 Signed Impressions: Service Date/Time: Monday, September 11, 2017 16:11 - CONCLUSION: No acute disease. No significant change has occurred. Gregory Campbell MD Objective Remarks Exam: Pleasant white male in no distress. HEENT: pupils equal, no scleral icterus, mouth negative Neck: No JVD Heart: RRR with occasional premature beat Lungs: Scattered rhonchi and occasional wheeze Abdomen: Soft,nontender Ext: No edema Neuro: Alert, oriented A/P Assessment and Plan Assessment: --Influenza type A --Asthma exacerbation with slight hypoxia --Paroxysmal atrial fibrillation --Chronic alcohol abuse Plan: Continue oxygen Continue Duoneb treatments Continue Solu-Medrol IV Patient on Eliquis for his a-fib and will also cover for DVT prophylaxis. Will add Pantoprazole because of the steroids Will give Mucinex Eric Macdonald MD Sep 12, 2017 08:11
[2017-09-12] MEDS: DOCUSATE SODIUM 100 MG CAP PO SCH ×2 (09:00→20:40)
[2017-09-12] MEDS: DRONEDARONE 400 MG TAB PO SCH ×2 (09:17→20:40)
[2017-09-12] MEDS: THIAMINE HCL 100 MG TAB PO SCH (09:17)
[2017-09-12] MEDS: APIXABAN 2.5 MG TABLET PO SCH ×2 (09:17→20:39)
[2017-09-12] MEDS: guaiFENesin E.R. 600 MG TAB PO SCH ×2 (09:18→20:39)
[2017-09-12] MEDS ORDERED: PNEUMOCOCCAL POLYVALENT INJ 25 MCG/0.5 ML SYR IM ONE (10:00)
[2017-09-12] MEDS ORDERED: INFLUENZA VIRUS VACCINE (QUADRIVALENT) 0.5 ML SYR IM ONE (10:00)
--- NOTE | 2017-09-12 16:02 | EKG ---
Date Performed: 09/11/2017 Time Performed: 16:24:06 PTAGE: 76 years EKG: Sinus rhythm WITH OCCASIONAL ECTOPIC PREMATURE COMPLEXES Since previous tracing, no significant change noted [facility] ECG PREVIOUS TRACING : 02/15/2017 14.39 DOCTOR: Irma Taylor Interpretating Date/Time 09/12/2017 16:00:46
[2017-09-13] VITALS (7 sets, daily range): BP systolic 127–144; BP diastolic 63–77; PULSE 83–98; RESP 18–20; TEMP 96.2–98.2; O2SAT 92–96
[2017-09-13] MEDS: LORazepam 1 MG TAB PO PRN ×2 (04:18→20:21)
[2017-09-13] MEDS: methylPREDNISolone SOD SUCC 40 MG/1 ML VIAL IV PUSH SCH (06:13)
--- NOTE | 2017-09-13 06:55 | HHI.PR ---
Subjective Remarks Patient agitated and confused during the night. Given Lorazepam. Has history of drinking 10-12 drinks of alcohol a day. His reported that when he was in the hospital for knee surgery last year he may have had some alcohol withdrawal because he got confused then. Still confused this morning. Objective Vitals Vital Signs Date Time Temp Pulse Resp B/P (MAP) Pulse Ox O2 Delivery O2 Flow Rate FiO2 09/13/17 00:00 96.2 89 20 144/75 (98) 94 09/12/17 20:40 91 Nasal Cannula 2.00 09/12/17 20:40 91 Nasal Cannula 2.00 09/12/17 20:00 96.7 95 20 133/69 (90) 91 09/12/17 19:16 94 21 09/12/17 16:00 98.5 75 18 124/78 (93) 94 09/12/17 12:00 97.7 81 18 145/79 (101) 96 09/12/17 08:00 97.8 90 18 137/73 (94) 93 09/12/17 07:33 97 Nasal Cannula 2.00 Result Diagram: 09/12/17 0507 09/12/17 0507 Other Results Laboratory Tests Test 09/11/17 16:30 09/11/17 18:15 09/11/17 20:35 09/12/17 05:07 White Blood Count 8.9 TH/MM3 10.3 TH/MM3 Red Blood Count 3.97 MIL/MM3 3.70 MIL/MM3 Hemoglobin 11.6 GM/DL 10.7 GM/DL Hematocrit 35.2 % 32.8 % Mean Corpuscular Volume 88.6 FL 88.7 FL Mean Corpuscular Hemoglobin 29.1 PG 28.9 PG Mean Corpuscular Hemoglobin Concent 32.9 % 32.6 % Red Cell Distribution Width 15.4 % 15.5 % Platelet Count 235 TH/MM3 221 TH/MM3 Mean Platelet Volume 7.4 FL 7.6 FL Neutrophils (%) (Auto) 89.6 % 91.1 % Lymphocytes (%) (Auto) 5.0 % 6.0 % Monocytes (%) (Auto) 4.8 % 2.8 % Eosinophils (%) (Auto) 0.2 % 0.1 % Basophils (%) (Auto) 0.4 % 0.0 % Neutrophils # (Auto) 8.1 TH/MM3 9.4 TH/MM3 Lymphocytes # (Auto) 0.4 TH/MM3 0.6 TH/MM3 Monocytes # (Auto) 0.4 TH/MM3 0.3 TH/MM3 Eosinophils # (Auto) 0.0 TH/MM3 0.0 TH/MM3 Basophils # (Auto) 0.0 TH/MM3 0.0 TH/MM3 CBC Comment DIFF FINAL DIFF FINAL Differential Comment Blood Urea Nitrogen 7 MG/DL 6 MG/DL Creatinine 0.68 MG/DL 0.58 MG/DL Random Glucose 121 MG/DL 148 MG/DL Total Protein 7.0 GM/DL Albumin 2.9 GM/DL Calcium Level 7.9 MG/DL 7.8 MG/DL Alkaline Phosphatase 69 U/L Aspartate Amino Transf (AST/SGOT) 62 U/L Alanine Aminotransferase (ALT/SGPT) 32 U/L Total Bilirubin 0.4 MG/DL Sodium Level 137 MEQ/L 138 MEQ/L Potassium Level 3.0 MEQ/L 3.5 MEQ/L Chloride Level 101 MEQ/L 104 MEQ/L Carbon Dioxide Level 25.1 MEQ/L 27.0 MEQ/L Anion Gap 11 MEQ/L 7 MEQ/L Estimat Glomerular Filtration Rate 113 ML/MIN 136 ML/MIN Lactic Acid Level 1.2 mmol/L 1.7 mmol/L Troponin I LESS THAN 0.02 NG/ML Urine Color YELLOW Urine Turbidity CLEAR Urine pH 6.0 Urine Specific [place] 1.016 Urine Protein 30 mg/dL Urine Glucose (UA) NEG mg/dL Urine Ketones 40 mg/dL Urine Occult Blood NEG Urine Nitrite NEG Urine Bilirubin NEG Urine Leukocyte Esterase NEG Urine RBC 0-3 /hpf Urine WBC 0-2 /hpf Urine Squamous Epithelial Cells 0-5 /hpf Urine Mucus FEW /lpf Microscopic Urinalysis Comment CULT NOT INDICATED Urine Collection Time Imaging Last Impressions Chest X-Ray 09/11/17 1605 Signed Impressions: Service Date/Time: Monday, September 11, 2017 16:11 - CONCLUSION: No acute disease. No significant change has occurred. Gregory Campbell MD Objective Remarks Exam: Confused white male HEENT: pupils equal, no scleral icterus, mouth negative Neck: No JVD Heart: RRR with occasional premature beat Lungs: Rhonchi and wheezes better Abdomen: Soft,nontender Ext: No edema Neuro: He is confused this morning and shaky A/P Assessment and Plan Assessment: --Influenza type A --Asthma exacerbation with slight hypoxia --Paroxysmal atrial fibrillation --Chronic alcohol abuse with likely withdrawal symptoms Plan: Continue oxygen Continue Duoneb treatments Change Solu-Medrol IV to oral Prednisone Patient on Eliquis for his a-fib and will also cover for DVT prophylaxis. Continue Pantoprazole because of the steroids Will give Mucinex I will put him on Librium 25mg three times a day Eric Macdonald MD Sep 13, 2017 06:55
[2017-09-13] MEDS: RESP: ALBUTEROL 2.5 MG/IPRATROPIUM 0.5 MG NEB (SCH) NEB ×4 (07:35→20:45)
[2017-09-13] MEDS ORDERED: LORazepam 2 MG TAB PO PRN (08:30)
[2017-09-13] MEDS ORDERED: LORazepam 1 MG TAB PO PRN (08:30)
[2017-09-13] MEDS ORDERED: FLUMAZENIL 0.5 MG/5 ML VIAL IV PUSH PRN (08:30)
[2017-09-13] MEDS ORDERED: LORazepam 2 MG/ML VIAL IV PUSH PRN (08:30)
[2017-09-13 08:35] LABS: AUTOMATED NEUTROPHIL # 10.5 TH/MM3 (1.8-7.7); BASOPHIL % 0.1 % (0.0-2.0); CALCIUM 8.2 MG/DL (8.5-10.1); HEMATOCRIT 32.8 % (39.0-51.0); HEMOGLOBIN 10.6 GM/DL (13.0-17.0); LYMPH % 6.7 % (9.0-44.0); LYMPHOCYTE # 0.8 TH/MM3 (1.0-4.8); MEAN CELL VOLUME 90.7 FL (80.0-100.0); MEAN CORPUSCULAR HEMOGLOBIN 29.2 PG (27.0-34.0); MEAN CORPUSCULAR HGB CONC 32.2 % (32.0-36.0); MEAN PLATELET VOLUME 7.6 FL (7.0-11.0); MONO % 3.1 % (0.0-8.0); MONOCYTE # 0.4 TH/MM3 (0-0.9); NEUT % 90.1 % (16.0-70.0); PLATELET COUNT 226 TH/MM3 (150-450); RED BLOOD COUNT 3.62 MIL/MM3 (4.50-5.90); RED CELL DISTRIBUTION WIDTH 16.1 % (11.6-17.2); WHITE BLOOD COUNT 11.7 TH/MM3 (4.0-11.0)
[2017-09-13 08:36] LABS: BICARBONATE 25.5 MEQ/L (21.0-32.0)
[2017-09-13 08:39] LABS: CREATININE 0.59 MG/DL (0.60-1.30)
[2017-09-13] MEDS: THIAMINE HCL 100 MG TAB PO SCH (08:51)
[2017-09-13] MEDS: predniSONE 20 MG TAB PO SCH (08:51)
[2017-09-13] MEDS: chlordiazePOXIDE 25 MG CAP PO SCH ×3 (08:51→18:25)
[2017-09-13] MEDS: DOCUSATE SODIUM 100 MG CAP PO SCH ×2 (08:51→21:23)
[2017-09-13] MEDS: guaiFENesin E.R. 600 MG TAB PO SCH ×2 (08:51→21:23)
[2017-09-13] MEDS: APIXABAN 2.5 MG TABLET PO SCH ×2 (08:51→21:23)
[2017-09-13] MEDS: DRONEDARONE 400 MG TAB PO SCH ×2 (08:51→21:23)
[2017-09-13 12:19] LABS: FOLATE 16.1 NG/ML (3.1-17.5)
[2017-09-13] MEDS: D5-1/2 NS + KCL 20 MEQ INJ 1,000 ML IV SCH (13:04)
[2017-09-14] VITALS (9 sets, daily range): BP systolic 125–167; BP diastolic 64–96; PULSE 87–109; RESP 18–27; TEMP 96.7–101.1; O2SAT 92–97
[2017-09-14] MEDS: guaiFENesin/CODEINE SYRUP 200 MG/20 MG/10 ML CUP PO PRN ×2 (01:47→04:35)
[2017-09-14] MEDS: LORazepam 1 MG TAB PO PRN (03:43)
[2017-09-14] MEDS: RESP: ALBUTEROL 2.5 MG/IPRATROPIUM 0.5 MG NEB (SCH) NEB ×4 (07:18→21:28)
[2017-09-14 08:28] LABS: AUTOMATED NEUTROPHIL # 10.2 TH/MM3 (1.8-7.7); BASOPHIL % 0.3 % (0.0-2.0); HEMATOCRIT 32.5 % (39.0-51.0); HEMOGLOBIN 10.5 GM/DL (13.0-17.0); LYMPH % 10.8 % (9.0-44.0); LYMPHOCYTE # 1.3 TH/MM3 (1.0-4.8); MEAN CELL VOLUME 90.6 FL (80.0-100.0); MEAN CORPUSCULAR HEMOGLOBIN 29.2 PG (27.0-34.0); MEAN CORPUSCULAR HGB CONC 32.2 % (32.0-36.0); MEAN PLATELET VOLUME 7.4 FL (7.0-11.0); MONO % 6.2 % (0.0-8.0); MONOCYTE # 0.8 TH/MM3 (0-0.9); NEUT % 82.7 % (16.0-70.0); PLATELET COUNT 296 TH/MM3 (150-450); RED BLOOD COUNT 3.59 MIL/MM3 (4.50-5.90); RED CELL DISTRIBUTION WIDTH 16.4 % (11.6-17.2); WHITE BLOOD COUNT 12.3 TH/MM3 (4.0-11.0)
[2017-09-14 08:48] LABS: BICARBONATE 27.7 MEQ/L (21.0-32.0); CALCIUM 8.2 MG/DL (8.5-10.1)
[2017-09-14 08:51] LABS: CREATININE 0.65 MG/DL (0.60-1.30)
[2017-09-14] MEDS: DOCUSATE SODIUM 100 MG CAP PO SCH ×2 (09:00→21:00)
[2017-09-14] MEDS: guaiFENesin E.R. 600 MG TAB PO SCH ×2 (09:00→21:00)
[2017-09-14] MEDS: predniSONE 20 MG TAB PO SCH (09:00)
[2017-09-14] MEDS: THIAMINE HCL 100 MG TAB PO SCH (09:00)
[2017-09-14] MEDS: APIXABAN 2.5 MG TABLET PO SCH ×2 (09:00→21:00)
[2017-09-14] MEDS: chlordiazePOXIDE 25 MG CAP PO SCH ×3 (09:00→16:43)
[2017-09-14] MEDS: DRONEDARONE 400 MG TAB PO SCH ×2 (09:00→21:00)
--- NOTE | 2017-09-14 10:11 | RADRPT ---
EXAM DATE/TIME: 09/14/2017 09:55 [facility] COMPARISON: CHEST SINGLE AP, September 06, 2017, 15:17. CHEST SINGLE AP, September 11, 2017, 16:11. INDICATIONS : Cough, congestion, possible aspiration. MEDICAL HISTORY : Hypertension. Cardiovascular disease. SURGICAL HISTORY : None. ENCOUNTER: Subsequent ACUITY: 1 week PAIN SCORE: 0/10 LOCATION: Bilateral chest FINDINGS: There is a rounded slightly less than 2 cm nodular density overlying the left lateral midlung. This w as not seen previously and may be an area of the developing infiltrate. Parenchymal mass is not exclu ded. The cardiac mediastinal contours are stable and satisfactory. There is no evidence of effusion. CONCLUSION: Left lung density. Recommend CT chest for further evaluation Jayant Soto MD on September 14, 2017 at 10:07 Board Certified Radiologist. This report was verified electronically.
[2017-09-14] MEDS ORDERED: Vancomycin Consult Pharmacy 1 EA OTHER SCH (12:30)
[2017-09-14] MEDS: LORazepam 2 MG/ML VIAL IV PUSH PRN ×3 (12:47→20:58)
--- NOTE | 2017-09-14 13:41 | RADRPT ---
EXAM DATE/TIME: 09/14/2017 13:00 [facility] COMPARISON: CHEST SINGLE AP, September 14, 2017, 9:55. INDICATIONS : Short of breath. Cough. Abnormal chest x-ray. RADIATION DOSE: 16.99 CTDIvol (mGy) MEDICAL HISTORY : Cardiovascular disease. Hypertension. Asthma. SURGICAL HISTORY : None. ENCOUNTER: Initial ACUITY: 4 - 6 days PAIN SCALE: 0/10 LOCATION: Left chest TECHNIQUE: Volumetric scanning of the chest was performed. Using automated exposure control and adjustment of t he mA and/or kV according to patient size, radiation dose was kept as low as reasonably achievable to obtain optimal diagnostic quality images. DICOM format image data is available electronically for r eview and comparison. Follow-up recommendations for detected pulmonary nodules are based at a minimum on nodule size and pa tient risk factors according to Fleischner Society Guidelines. FINDINGS: LUNGS: There a few small patchy areas of infiltrate in the left lung. There is a small nodular area of infil trate in the lingula. There is small nodule infiltrate the left lung base measuring 2 cm across. The apices are relatively clear. PLEURAE: There is no pleural thickening or pleural effusion. MEDIASTINUM: The heart and great vessels demonstrate no acute abnormality. There is no mediastinal or hilar lymph adenopathy. AXILLAE: Within normal limits. No lymphadenopathy. MUSCULOSKELETAL: Within normal limits for patient age. MISCELLANEOUS: The visualized upper abdominal organs demonstrate no acute abnormality. CONCLUSION: Small nodular areas of airspace disease both in the lingula and the left lung base. Right lung is rel atively clear. The mediastinum is unremarkable. Adrian Martinez MD on September 14, 2017 at 13:37 Board Certified Radiologist. This report was verified electronically.
[2017-09-14] MEDS: LEVOFLOXACIN 500 MG PREMIX INJ 100 ML IV SCH (15:16)
--- NOTE | 2017-09-14 16:12 | HHI.PR ---
Subjective Remarks I saw the patient earlier this morning and again at noon today. He had increased pulmonary congestion this morning and very confused. The nurse had received a report at shift change this morning from his night nurse who was concerned he may have choked when given some medication this morning. I sent him for a chest x-ray which showed a questionable mass vs infiltrate which was new from his admission chest x-ray. I was concerned about aspiration so I started him on Vancomycin, Levaquin, and Zosyn IV. I have consulted Dr Naylor also. Objective Vitals Vital Signs Date Time Temp Pulse Resp B/P (MAP) Pulse Ox O2 Delivery O2 Flow Rate FiO2 09/14/17 12:00 99.5 91 20 165/91 (115) 95 09/14/17 11:10 94 Nasal Cannula 2.00 09/14/17 08:00 96.7 87 20 144/78 (100) 95 09/14/17 07:20 92 Nasal Cannula 2.00 09/14/17 04:20 89 20 147/87 (107) 97 09/14/17 00:48 92 09/14/17 00:00 97.2 93 18 125/70 (88) 94 09/13/17 20:45 94 Nasal Cannula 2.00 09/13/17 20:00 96.9 98 19 127/63 (84) 93 Result Diagram: 09/14/17 0815 09/14/17 0815 Other Results Laboratory Tests Test 09/13/17 08:20 09/14/17 08:15 White Blood Count 11.7 TH/MM3 12.3 TH/MM3 Red Blood Count 3.62 MIL/MM3 3.59 MIL/MM3 Hemoglobin 10.6 GM/DL 10.5 GM/DL Hematocrit 32.8 % 32.5 % Mean Corpuscular Volume 90.7 FL 90.6 FL Mean Corpuscular Hemoglobin 29.2 PG 29.2 PG Mean Corpuscular Hemoglobin Concent 32.2 % 32.2 % Red Cell Distribution Width 16.1 % 16.4 % Platelet Count 226 TH/MM3 296 TH/MM3 Mean Platelet Volume 7.6 FL 7.4 FL Neutrophils (%) (Auto) 90.1 % 82.7 % Lymphocytes (%) (Auto) 6.7 % 10.8 % Monocytes (%) (Auto) 3.1 % 6.2 % Eosinophils (%) (Auto) 0.0 % 0.0 % Basophils (%) (Auto) 0.1 % 0.3 % Neutrophils # (Auto) 10.5 TH/MM3 10.2 TH/MM3 Lymphocytes # (Auto) 0.8 TH/MM3 1.3 TH/MM3 Monocytes # (Auto) 0.4 TH/MM3 0.8 TH/MM3 Eosinophils # (Auto) 0.0 TH/MM3 0.0 TH/MM3 Basophils # (Auto) 0.0 TH/MM3 0.0 TH/MM3 CBC Comment DIFF FINAL DIFF FINAL Differential Comment Blood Urea Nitrogen 7 MG/DL 8 MG/DL Creatinine 0.59 MG/DL 0.65 MG/DL Random Glucose 167 MG/DL 88 MG/DL Calcium Level 8.2 MG/DL 8.2 MG/DL Sodium Level 141 MEQ/L 143 MEQ/L Potassium Level 3.4 MEQ/L 3.6 MEQ/L Chloride Level 108 MEQ/L 109 MEQ/L Carbon Dioxide Level 25.5 MEQ/L 27.7 MEQ/L Anion Gap 8 MEQ/L 6 MEQ/L Estimat Glomerular Filtration Rate 133 ML/MIN 119 ML/MIN Vitamin B12 Level 825 PG/ML Folate 16.1 NG/ML Imaging Last Impressions Chest X-Ray 09/14/17 0000 Signed Impressions: Service Date/Time: August 09:55 - CONCLUSION: Left lung density. Recommend CT chest for further evaluation Jayant Soto MD Chest CT 09/14/17 0000 Signed Impressions: Service Date/Time: August 13:00 - CONCLUSION: Small nodular areas of airspace disease both in the lingula and the left lung base. Right lung is relatively clear. The mediastinum is unremarkable. Adrian Martinez MD Last Impressions Chest X-Ray 09/11/17 1605 Signed Impressions: Service Date/Time: Monday, September 11, 2017 16:11 - CONCLUSION: No acute disease. No significant change has occurred. Gregory Campbell MD Objective Remarks Exam: Confused white male HEENT: pupils equal, no scleral icterus, mouth negative Neck: No JVD Heart: RRR with occasional premature beat Lungs: Increased rhonchi and occasional wheezes Abdomen: Soft,nontender Ext: No edema Neuro: He is confused this morning and shaky A/P Assessment and Plan Assessment: --Influenza type A --New pulmonary infiltrates--possible aspiration pneumonia --Asthma exacerbation with slight hypoxia --Paroxysmal atrial fibrillation --Chronic alcohol abuse with alcohol withdrawal symptoms Plan: Continue oxygen Continue Duoneb treatments. Change back to Solumedrol IV Patient on Eliquis for his a-fib and will also cover for DVT prophylaxis. Continue Pantoprazole because of steroid use Patient started on Vancomycin, Levaquin, Zosyn Pulmonary consult ordered. Eric Macdonald MD Sep 14, 2017 16:12
[2017-09-14] MEDS: VANCOMYCIN INJ 1,500 MG in SODIUM CHLORID 0.9% 500 ML INJ 500 ML IV SCH (16:40)
[2017-09-14] MEDS: PIPERACIL-TAZO 3.375 GM PREMIX 50 ML IV SCH ×2 (16:40→20:59)
[2017-09-14] MEDS: methylPREDNISolone SOD SUCC 40 MG/1 ML VIAL IV PUSH SCH (16:40)
--- NOTE | 2017-09-14 19:23 | MB ---
cc: XUAN PICHARDO DATE OF CONSULTATION 09/14/[address] Eric Macdonald REASON FOR CONSULTATION Pneumonia and possible aspiration. HISTORY OF PRESENT ILLNESS Mr. Benedict is a 76-year-old male with a history of paroxysmal atrial fibrillation, asthma, alcohol use and history of right knee replacement. The patient was brought to the hospital with complaint of not feeling well for more than eight days or so. About eight days ago he was seen in the emergency room and was told that he had the flu and was let go on inhaler. He did not get better, kept on having congestion in his chest, difficulty breathing and had fever. Because of this, he brought back to the emergency room. He had a workup done. CBC - white cell count 12.3, hemoglobin 10.5, hematocrit 32.5, MCV 90, platelet count 121. Sodium 140, potassium 3.2, chloride 109, CO2 27, BUN 8, creatinine 0.65. Blood cultures so far are negative. Last night, he had an episode of possible choking and he had a CT scan of the chest done which showed that he has small patchy infiltrate in the left lung and small nodular area of infiltrate in the lingula. Currently, the patient is confused. His daughter and son are at the bedside. He does admit that the patient has history of drinking and he has been through much worse delirium tremens before. PAST MEDICAL HISTORY 1. Hypertension, 2. Paroxysmal atrial fibrillation. 3. Bronchial asthma. 4. Delirium tremens 5. Alcohol use. 6. Knee surgery. MEDICATIONS Currently taking 1. Vancomycin IV 2. Solu-Medrol 40 mg q 8 hr. 3. Zosyn IV. 4. Levaquin IV. 5. Robitussin AC cough syrup. 6. Librium 25 mg three times a day. 7. Colace twice a day 8. Ativan p.r.n. 9. Eliquis 2.5 mg twice a day. 10. Albuterol Atrovent nebulizer treatment ALLERGIES NO KNOWN DRUG ALLERGIES. SOCIAL HISTORY He is , has history of smoking which he quit 30 years ago. He used to drink heavily up to 18 pack of beer a day which he has cut down to a few beers, wine and a shot of scotch. FAMILY HISTORY He had five children, one . REVIEW OF SYSTEMS Normally the patient is up, around and active. 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 No DVT or pulmonary embolism, no seizure, stroke or epilepsy. No malignancy. PHYSICAL EXAMINATION GENERAL: An elderly male confused, congested and sleepy. VITAL SIGNS: Blood pressure 165/91, heart rate 91, respirations 20, temperature 98.5 HEENT: Pupils are equal and reactive to light. oral mucosa, nasal mucosa normal. NECK: Supple. JVP not raised. CHEST: He has rhonchi and rales. CARDIOVASCULAR: S1 and S2 normal ABDOMEN: Benign. EXTREMITIESl: No edema. MEDICAL COORDINATOR PESTICIDE USE: He is confused and agitated, restrained. IMPRESSION 1. Lingular lung infiltrate which is new, possible aspiration. 2. Delirium tremens 3. Bronchial asthma 4. atrial defibrillation 5. Hypertension. PLAN I discussed with the patient's daughter and son at the bedside. We will get speech therapy evaluation. Continue present antibiotic, aerosol treatment. I will add Femotidine 20 mg twice a day. Continue Eliquis. Supplement oxygen to keep the saturation greater than 92%. Further treatment will depend on the course in the hospital. Thank you, Dr. Eric Macdonald, for this consultation. MD RAS Garnett/ /5:08 PM /6:57 PM MTDD
[2017-09-14] MEDS: FAMOTIDINE 20 MG/2 ML VIAL IV PUSH SCH (20:58)
[2017-09-15] VITALS (18 sets, daily range): BP systolic 87–185; BP diastolic 53–102; PULSE 90–120; RESP 23–46; TEMP 98.3–98.9; O2SAT 92–98
[2017-09-15] MEDS: methylPREDNISolone SOD SUCC 40 MG/1 ML VIAL IV PUSH SCH ×3 (00:35→17:00)
[2017-09-15] MEDS: SODIUM CHLOR 0.9% 1000 ML INJ 1,000 ML IV SCH ×2 (01:15→14:35)
[2017-09-15] MEDS: PIPERACIL-TAZO 3.375 GM PREMIX 50 ML IV SCH ×2 (02:39→08:35)
[2017-09-15] MEDS: LORazepam 2 MG/ML VIAL IV PUSH PRN ×2 (04:41→08:31)
[2017-09-15 05:02] LABS: AUTOMATED NEUTROPHIL # 8.6 TH/MM3 (1.8-7.7); BASOPHIL % 0.1 % (0.0-2.0); HEMATOCRIT 34.6 % (39.0-51.0); HEMOGLOBIN 11.3 GM/DL (13.0-17.0); LYMPH % 5.7 % (9.0-44.0); LYMPHOCYTE # 0.5 TH/MM3 (1.0-4.8); MEAN CELL VOLUME 88.1 FL (80.0-100.0); MEAN CORPUSCULAR HEMOGLOBIN 28.7 PG (27.0-34.0); MEAN CORPUSCULAR HGB CONC 32.6 % (32.0-36.0); MEAN PLATELET VOLUME 7.3 FL (7.0-11.0); MONO % 2.4 % (0.0-8.0); MONOCYTE # 0.2 TH/MM3 (0-0.9); NEUT % 91.8 % (16.0-70.0); PLATELET COUNT 322 TH/MM3 (150-450); RED BLOOD COUNT 3.92 MIL/MM3 (4.50-5.90); RED CELL DISTRIBUTION WIDTH 15.6 % (11.6-17.2); WHITE BLOOD COUNT 9.3 TH/MM3 (4.0-11.0)
[2017-09-15 05:14] LABS: CALCIUM 8.2 MG/DL (8.5-10.1)
[2017-09-15 05:19] LABS: BICARBONATE 28.4 MEQ/L (21.0-32.0); CREATININE 0.55 MG/DL (0.60-1.30)
[2017-09-15] MEDS: VANCOMYCIN INJ 1,500 MG in SODIUM CHLORID 0.9% 500 ML INJ 500 ML IV SCH ×2 (05:57→18:00)
--- NOTE | 2017-09-15 07:09 | HHI.PR ---
Subjective Remarks The nurse mentioned she suctioned a lot of food particles from the back of his throat and lungs during the night. He is resting this morning but was still confused during the night according to the nurse. The nurse stated that after she suctioned his lung sounds improved considerably. Objective Vitals Vital Signs Date Time Temp Pulse Resp B/P (MAP) Pulse Ox O2 Delivery O2 Flow Rate FiO2 09/15/17 04:00 111 09/15/17 04:00 98.8 111 37 185/82 (116) 93 09/15/17 00:00 98.7 117 31 182/92 (122) 92 09/15/17 00:00 117 09/14/17 21:28 94 Nasal Cannula 4.00 09/14/17 20:00 109 09/14/17 20:00 94 Nasal Cannula 3.00 09/14/17 20:00 99.0 109 27 161/64 (96) 94 09/14/17 16:00 101.1 101 20 167/96 (119) 95 09/14/17 12:00 99.5 91 20 165/91 (115) 95 09/14/17 11:10 94 Nasal Cannula 2.00 09/14/17 08:00 96.7 87 20 144/78 (100) 95 09/14/17 07:20 92 Nasal Cannula 2.00 Result Diagram: 09/15/17 0441 09/15/17 0441 Other Results Laboratory Tests Test 09/13/17 08:20 09/14/17 08:15 09/15/17 04:41 White Blood Count 11.7 TH/MM3 12.3 TH/MM3 9.3 TH/MM3 Red Blood Count 3.62 MIL/MM3 3.59 MIL/MM3 3.92 MIL/MM3 Hemoglobin 10.6 GM/DL 10.5 GM/DL 11.3 GM/DL Hematocrit 32.8 % 32.5 % 34.6 % Mean Corpuscular Volume 90.7 FL 90.6 FL 88.1 FL Mean Corpuscular Hemoglobin 29.2 PG 29.2 PG 28.7 PG Mean Corpuscular Hemoglobin Concent 32.2 % 32.2 % 32.6 % Red Cell Distribution Width 16.1 % 16.4 % 15.6 % Platelet Count 226 TH/MM3 296 TH/MM3 322 TH/MM3 Mean Platelet Volume 7.6 FL 7.4 FL 7.3 FL Neutrophils (%) (Auto) 90.1 % 82.7 % 91.8 % Lymphocytes (%) (Auto) 6.7 % 10.8 % 5.7 % Monocytes (%) (Auto) 3.1 % 6.2 % 2.4 % Eosinophils (%) (Auto) 0.0 % 0.0 % 0.0 % Basophils (%) (Auto) 0.1 % 0.3 % 0.1 % Neutrophils # (Auto) 10.5 TH/MM3 10.2 TH/MM3 8.6 TH/MM3 Lymphocytes # (Auto) 0.8 TH/MM3 1.3 TH/MM3 0.5 TH/MM3 Monocytes # (Auto) 0.4 TH/MM3 0.8 TH/MM3 0.2 TH/MM3 Eosinophils # (Auto) 0.0 TH/MM3 0.0 TH/MM3 0.0 TH/MM3 Basophils # (Auto) 0.0 TH/MM3 0.0 TH/MM3 0.0 TH/MM3 CBC Comment DIFF FINAL DIFF FINAL DIFF FINAL Differential Comment Blood Urea Nitrogen 7 MG/DL 8 MG/DL 10 MG/DL Creatinine 0.59 MG/DL 0.65 MG/DL 0.55 MG/DL Random Glucose 167 MG/DL 88 MG/DL 104 MG/DL Calcium Level 8.2 MG/DL 8.2 MG/DL 8.2 MG/DL Sodium Level 141 MEQ/L 143 MEQ/L 138 MEQ/L Potassium Level 3.4 MEQ/L 3.6 MEQ/L 3.3 MEQ/L Chloride Level 108 MEQ/L 109 MEQ/L 101 MEQ/L Carbon Dioxide Level 25.5 MEQ/L 27.7 MEQ/L 28.4 MEQ/L Anion Gap 8 MEQ/L 6 MEQ/L 9 MEQ/L Estimat Glomerular Filtration Rate 133 ML/MIN 119 ML/MIN 144 ML/MIN Vitamin B12 Level 825 PG/ML Folate 16.1 NG/ML Imaging Last Impressions Chest X-Ray 09/14/17 0000 Signed Impressions: Service Date/Time: August 09:55 - CONCLUSION: Left lung density. Recommend CT chest for further evaluation Jayant Soto MD Chest CT 09/14/17 0000 Signed Impressions: Service Date/Time: August 13:00 - CONCLUSION: Small nodular areas of airspace disease both in the lingula and the left lung base. Right lung is relatively clear. The mediastinum is unremarkable. Adrian Martinez MD Last Impressions Chest X-Ray 09/11/17 1605 Signed Impressions: Service Date/Time: Monday, September 11, 2017 16:11 - CONCLUSION: No acute disease. No significant change has occurred. Gregory Campbell MD Objective Remarks Exam: Patient is currently sleeping comfortably so I did no awaken him. HEENT: pupils equal, no scleral icterus, mouth negative Neck: No JVD Heart: RRR with occasional premature beat Lungs: breath sounds not near as congested this morning. Only an occasional wheeze. Abdomen: Soft,nontender Ext: No edema Neuro: Sleeping currently A/P Assessment and Plan Assessment: --Influenza type A --New pulmonary infiltrates-- aspiration pneumonia --Asthma exacerbation with slight hypoxia --Paroxysmal atrial fibrillation --Chronic alcohol abuse with alcohol withdrawal symptoms and delirium Plan: Continue oxygen Continue Duoneb treatments. Continue Solumedrol IV Patient on Eliquis for his a-fib and will also cover for DVT prophylaxis. Continue Pantoprazole because of steroid use Continue on Vancomycin, Levaquin, Zosyn Eric Macdonald MD Sep 15, 2017 07:09
[2017-09-15] MEDS: RESP: ALBUTEROL 2.5 MG/IPRATROPIUM 0.5 MG NEB (SCH) NEB ×4 (07:53→19:53)
[2017-09-15] MEDS: FAMOTIDINE 20 MG/2 ML VIAL IV PUSH SCH ×2 (08:31→21:34)
[2017-09-15] MEDS: DOCUSATE SODIUM 100 MG CAP PO SCH ×2 (08:31→21:00)
[2017-09-15] MEDS: DRONEDARONE 400 MG TAB PO SCH ×2 (08:32→21:00)
[2017-09-15] MEDS: guaiFENesin E.R. 600 MG TAB PO SCH ×2 (08:32→21:00)
[2017-09-15] MEDS: chlordiazePOXIDE 25 MG CAP PO SCH ×3 (08:32→18:00)
[2017-09-15] MEDS: THIAMINE HCL 100 MG TAB PO SCH (08:32)
[2017-09-15] MEDS: APIXABAN 2.5 MG TABLET PO SCH ×2 (08:32→21:00)
--- NOTE | 2017-09-15 11:23 | EKG ---
Date Performed: 09/15/2017 Time Performed: 05:43:21 PTAGE: 76 years EKG: There is significant artifact present. I think the underlying rhythm is probably Sinus rhyt hm with premature atrial and ventricular contractions. ABNORMAL RHYTHM ECG Within the constraints of ar tifact, I think there is probably no significant change but rhythm is difficult to assess. PREVIOUS TRACING : 09/11/2017 16.24 DOCTOR: Pacheco Guerrero Interpretating Date/Time 09/15/2017 11:22:37
[2017-09-15] MEDS: LEVOFLOXACIN 500 MG PREMIX INJ 100 ML IV SCH (13:46)
[2017-09-15] MEDS: PIPERACILLIN/TAZ 3.375 GM VIAL 3.375 GM in SODIUM CHLORIDE 0.9% INJ 100 ML IV SCH ×2 (15:09→21:26)
--- NOTE | 2017-09-15 16:38 | HHI.PR ---
Subjective Remarks 76 YOWM with Br Asthma, Flu, Pn, Aspiration Was tr to [facility] noted food particles on coughing, suctioning Daughter at BS pt Confused, gets agitated Objective Vital Signs Vital Signs Date Time Temp Pulse Resp B/P (MAP) Pulse Ox O2 Delivery O2 Flow Rate FiO2 09/15/17 14:00 94 09/15/17 14:00 94 46 100/62 (75) 09/15/17 13:00 110 32 141/77 (98) 09/15/17 13:00 110 09/15/17 12:00 102 23 177/97 (123) 97 09/15/17 12:00 102 09/15/17 08:00 110 09/15/17 08:00 98.9 110 32 177/97 (123) 98 09/15/17 07:56 98 Nasal Cannula 4.00 09/15/17 07:00 95 Nasal Cannula 3.00 09/15/17 04:00 111 09/15/17 04:00 98.8 111 37 185/82 (116) 93 09/15/17 00:00 98.7 117 31 182/92 (122) 92 09/15/17 00:00 117 09/14/17 21:28 94 Nasal Cannula 4.00 09/14/17 20:00 109 09/14/17 20:00 94 Nasal Cannula 3.00 09/14/17 20:00 99.0 109 27 161/64 (96) 94 I/O 09/14/17 09/14/17 09/14/17 09/15/17 09/15/17 09/15/17 06:59 14:59 22:59 06:59 14:59 22:59 Intake Total 200 ml 576 ml 500 ml Output Total 300 ml Balance -100 ml 576 ml 500 ml Intake Oral 0 ml IV Total 200 ml 576 ml 500 ml Output Urine Total 300 ml # Voids 2 1 10 # Bowel Movements 1 Result Diagram: 09/15/1744009/15/17440 Objective Remarks GENERAL: Elderly male, mild sob, congested SKIN: Warm and dry. HEAD: Normocephalic. EYES: No scleral icterus. No injection or drainage. NECK: Supple, trachea midline. No JVD or lymphadenopathy. CARDIOVASCULAR: Regular rate and rhythm without murmurs, gallops, or rubs. RESPIRATORY: Breath sounds equal bilaterally. No accessory muscle use. Scattered coarse rhonchi GASTROINTESTINAL: Abdomen soft, non-tender, nondistended. MUSCULOSKELETAL: No cyanosis, or edema. BACK: Nontender without obvious deformity. No CVA tenderness. A/P Assessment and Plan Pneumonia Aspiration Bronchial asthma Alcohal withdrawl AF HTN PLAN: DW Daughter at BS Abx Zosyn, vanco and Levaquin Aerosol nbes Librium for alcohal withdrawl [employer] eval Supplement 02 Beltran Naylor MD Sep 15, 2017 16:38
[2017-09-16] VITALS (15 sets, daily range): BP systolic 94–175; BP diastolic 53–89; PULSE 86–114; RESP 22–35; TEMP 97.6–98.1; O2SAT 92–98
[2017-09-16] MEDS: methylPREDNISolone SOD SUCC 40 MG/1 ML VIAL IV PUSH SCH ×3 (00:26→16:52)
[2017-09-16] MEDS: SODIUM CHLOR 0.9% 1000 ML INJ 1,000 ML IV SCH (01:56)
[2017-09-16] MEDS: PIPERACILLIN/TAZ 3.375 GM VIAL 3.375 GM in SODIUM CHLORIDE 0.9% INJ 100 ML IV SCH ×4 (03:01→19:27)
[2017-09-16] MEDS: LORazepam 2 MG/ML VIAL IV PUSH PRN ×6 (03:05→21:25)
[2017-09-16] MEDS: VANCOMYCIN INJ 1,500 MG in SODIUM CHLORID 0.9% 500 ML INJ 500 ML IV SCH ×2 (05:42→16:52)
[2017-09-16] MEDS ORDERED: PHARMACY ORDERED LAB ONE (05:45)
[2017-09-16] MEDS: guaiFENesin E.R. 600 MG TAB PO SCH ×2 (07:29→19:27)
[2017-09-16] MEDS: APIXABAN 2.5 MG TABLET PO SCH (07:29)
[2017-09-16] MEDS: chlordiazePOXIDE 25 MG CAP PO SCH ×3 (07:29→16:50)
[2017-09-16] MEDS: DOCUSATE SODIUM 100 MG CAP PO SCH ×2 (07:29→19:27)
[2017-09-16] MEDS: DRONEDARONE 400 MG TAB PO SCH ×2 (07:29→19:28)
[2017-09-16] MEDS: THIAMINE HCL 100 MG TAB PO SCH (07:29)
[2017-09-16] MEDS: FAMOTIDINE 20 MG/2 ML VIAL IV PUSH SCH ×2 (08:01→19:26)
--- NOTE | 2017-09-16 08:04 | HHI.PR ---
Subjective Remarks Pt still somewhat sedated with Ativan re: alcohol w/d as he becomes agitated easily. He is easily rousable this AM and is asking for water. Doesn't comprehend when I try to explain to him about his trouble swallowing. BP still a bit erratic. Objective Vitals Vital Signs Date Time Temp Pulse Resp B/P (MAP) Pulse Ox O2 Delivery O2 Flow Rate FiO2 09/16/17 07:00 94 Nasal Cannula 2.00 09/16/17 04:00 101 09/16/17 04:00 98.0 86 30 94/53 (67) 95 09/16/17 02:00 106 28 148/81 (103) 09/16/17 00:00 100 09/16/17 00:00 97.6 100 24 143/76 (98) 94 09/15/17 23:00 100 24 128/76 (93) 09/15/17 22:04 90 23 112/67 (82) 09/15/17 22:00 90 23 87/53 (64) 09/15/17 22:00 90 09/15/17 21:00 100 33 113/53 (73) 09/15/17 20:00 120 09/15/17 20:00 98.3 106 28 136/72 (93) 95 09/15/17 20:00 95 Nasal Cannula 2.00 09/15/17 19:53 95 Nasal Cannula 2.00 09/15/17 19:00 112 29 184/98 (126) 09/15/17 18:00 28 159/88 (111) 09/15/17 17:51 106 35 150/86 (107) 09/15/17 17:00 108 38 181/93 (122) 09/15/17 16:00 114 46 173/102 (125) 09/15/17 16:00 102 09/15/17 14:00 94 09/15/17 14:00 94 46 100/62 (75) 09/15/17 13:00 110 32 141/77 (98) 09/15/17 13:00 110 09/15/17 12:00 102 23 177/97 (123) 97 09/15/17 12:00 102 09/15/17 08:00 110 09/15/17 08:00 98.9 110 32 177/97 (123) 98 09/15/17 07:56 98 Nasal Cannula 4.00 GENERAL: awake, easily agitated, lying in bed, soft restraints on UE. SKIN: Warm and dry. HEAD: Normocephalic. EYES: No scleral icterus. No injection or drainage. NECK: Supple, trachea midline. No JVD or lymphadenopathy. CARDIOVASCULAR: Regular rate and rhythm without murmurs, gallops, or rubs. RESPIRATORY: Breath sounds equal bilaterally. Few bronchovesicular sounds bilat with some improvement with cough. GASTROINTESTINAL: Abdomen soft, non-tender, nondistended. BS wnl. MUSCULOSKELETAL: No cyanosis, or edema. soft restraints in place UE. BACK: Nontender without obvious deformity. No CVA tenderness. Result Diagram: 09/15/17 0441 09/15/17 0441 Imaging Last Impressions Chest X-Ray 09/14/17 0000 Signed Impressions: Service Date/Time: August 09:55 - CONCLUSION: Left lung density. Recommend CT chest for further evaluation Jayant Soto MD Chest CT 09/14/17 0000 Signed Impressions: Service Date/Time: August 13:00 - CONCLUSION: Small nodular areas of airspace disease both in the lingula and the left lung base. Right lung is relatively clear. The mediastinum is unremarkable. Adrian Martinez MD Last Impressions Chest X-Ray 09/11/17 1605 Signed Impressions: Service Date/Time: Monday, September 11, 2017 16:11 - CONCLUSION: No acute disease. No significant change has occurred. Gregory Campbell MD Urinary Catheter: Yes Assessment to: Continue Lyons insert reason: Prolonged Immobilization Vascular Central Line Catheter: No A/P Problem List: (1) Influenza ICD Codes: J11.1 - Influenza due to unidentified influenza virus with other respiratory manifestations Status: Acute Plan: Influenza A with secondary pneumonia. Continue abx (vanco, levo, zosyn) No recent fever. Continue supportive care. (2) Asthma ICD Codes: J45.909 - Unspecified asthma, uncomplicated Status: Acute Plan: continue current tx. Minimal wheeze on exam. Appreciate pulm input. (3) Alcohol withdrawal delirium ICD Codes: F10.231 - Alcohol dependence with withdrawal delirium Status: Acute Plan: Still with periods of agitation and risk for aspiration. Swallow eval pending, but pt too sedated at this point. Will provide IVF. May need NGT for nutrition if not improving over next 24 hrs. Continue CIWA protocol. If more sedation needed, will d/w CCM. Currently on Pepcid IV for GI prophylaxis. (4) Chronic alcohol abuse ICD Codes: F10.10 - Alcohol abuse, uncomplicated Status: Chronic Plan: Discussed need for cessation, but pt not coherent. I did d/w his family yesterday afternoon (2 daughters and ). (5) Paroxysmal atrial fibrillation ICD Codes: I48.0 - Paroxysmal atrial fibrillation Status: Chronic Plan: Continue Eliquis. Rate relatively well controlled currently. Some tachycardia likely a/w his w/d. Eliquis will provide DVT proph as well. Discharge Planning will d/c when more stable from EtOH w/d Problem Qualifiers (1) Asthma: Qualified Codes: J45.901 - Unspecified asthma with (acute) exacerbation Melecio Kelly MD PhD Sep 16, 2017 08:04
[2017-09-16] MEDS: D5-1/2 NS + KCL 10 MEQ INJ 1,000 ML IV SCH ×2 (09:58→19:27)
[2017-09-16] MEDS: LEVOFLOXACIN 500 MG PREMIX INJ 100 ML IV SCH (12:38)
--- NOTE | 2017-09-16 13:46 | HHI.PR ---
Subjective Remarks 76 YOWM with Br Asthma, Flu, Pn, Aspiration Was tr to [facility] noted food particles on coughing, suctioning pt Confused, gets agitated On RA Objective Vital Signs Vital Signs Date Time Temp Pulse Resp B/P (MAP) Pulse Ox O2 Delivery O2 Flow Rate FiO2 09/16/17 12:00 110 09/16/17 12:00 108 31 159/78 (105) 95 09/16/17 10:35 110 33 159/80 (106) 94 09/16/17 10:00 106 28 166/84 (111) 93 09/16/17 08:00 114 09/16/17 08:00 92 22 131/89 (103) 94 09/16/17 07:17 97.6 102 35 162/89 (113) 09/16/17 07:00 94 Nasal Cannula 2.00 09/16/17 04:00 101 09/16/17 04:00 98.0 86 30 94/53 (67) 95 09/16/17 02:00 106 28 148/81 (103) 09/16/17 00:00 100 09/16/17 00:00 97.6 100 24 143/76 (98) 94 09/15/17 23:00 100 24 128/76 (93) 09/15/17 22:04 90 23 112/67 (82) 09/15/17 22:00 90 23 87/53 (64) 09/15/17 22:00 90 09/15/17 21:00 100 33 113/53 (73) 09/15/17 20:00 120 09/15/17 20:00 98.3 106 28 136/72 (93) 95 09/15/17 20:00 95 Nasal Cannula 2.00 09/15/17 19:53 95 Nasal Cannula 2.00 09/15/17 19:00 112 29 184/98 (126) 09/15/17 18:00 28 159/88 (111) 09/15/17 17:51 106 35 150/86 (107) 09/15/17 17:00 108 38 181/93 (122) 09/15/17 16:00 114 46 173/102 (125) 09/15/17 16:00 102 09/15/17 14:00 94 09/15/17 14:00 94 46 100/62 (75) I/O 09/15/17 09/15/17 09/15/17 09/16/17 09/16/17 09/16/17 06:59 14:59 22:59 06:59 14:59 22:59 Intake Total 576 ml 500 ml 0 ml 0 ml 2332 ml Balance 576 ml 500 ml 0 ml 0 ml 2332 ml Intake Oral 0 ml 0 ml 0 ml IV Total 576 ml 500 ml 2332 ml # Voids 10 2 6 # Bowel Movements 1 0 Result Diagram: 09/15/1744009/15/17440 Objective Remarks GENERAL: Elderly male, mild sob, congested SKIN: Warm and dry. HEAD: Normocephalic. EYES: No scleral icterus. No injection or drainage. NECK: Supple, trachea midline. No JVD or lymphadenopathy. CARDIOVASCULAR: Regular rate and rhythm without murmurs, gallops, or rubs. RESPIRATORY: Breath sounds equal bilaterally. No accessory muscle use. Scattered coarse rhonchi GASTROINTESTINAL: Abdomen soft, non-tender, nondistended. MUSCULOSKELETAL: No cyanosis, or edema. BACK: Nontender without obvious deformity. No CVA tenderness. A/P Assessment and Plan Pneumonia Aspiration Bronchial asthma Alcohal withdrawl AF HTN PLAN: Abx Zosyn, vanco and Levaquin Aerosol nbes Librium for alcohal withdrawl ROUND UP RING HAND eval Supplement 02 eBltran Naylor MD Sep 16, 2017 13:46
[2017-09-16] MEDS: ENALAPRILAT 1.25 MG/ML VIAL IV PUSH PRN (13:54)
[2017-09-16] MEDS: ENOXAPARIN SODIUM 80 MG/0.8 ML SYRINGE SQ SCH (16:52)
[2017-09-16] MEDS ORDERED: DEXMEDETOMIDINE 200 MCG in NS 48 ML IV PRN (21:00)
[2017-09-16 22:09] LABS: BILIRUBIN, URINE NEG (NEG); BLOOD, URINE SMALL (NEG); GLUCOSE,URINE NEG (NEG); KETONE, URINE 40 mg/dL (NEG); NITRITE,URINE NEG (NEG); URINE LEUKOCYTE ESTERASE NEG (NEG)
[2017-09-16 22:16] LABS: URINE COLOR STRAW (YELLW/STRAW)
[2017-09-16 22:17] LABS: SQUAMOUS EPITHELIAL CELL URINE 0-5 /hpf (0-5); WBC, URINE 0-2 /hpf (0-5)
[2017-09-16] MEDS: DEXMEDETOMIDINE INJ 400 MCG in SODIUM CHLORIDE 0.9% INJ 96 ML IV PRN (23:31)
[2017-09-17] VITALS (11 sets, daily range): BP systolic 145–195; BP diastolic 74–93; PULSE 36–110; RESP 13–43; TEMP 97.9–98.5; O2SAT 94–98
[2017-09-17] MEDS: methylPREDNISolone SOD SUCC 40 MG/1 ML VIAL IV PUSH SCH ×3 (00:21→20:34)
[2017-09-17] MEDS: PIPERACILLIN/TAZ 3.375 GM VIAL 3.375 GM in SODIUM CHLORIDE 0.9% INJ 100 ML IV SCH ×4 (02:35→20:34)
[2017-09-17] MEDS: DEXMEDETOMIDINE INJ 400 MCG in SODIUM CHLORIDE 0.9% INJ 96 ML IV PRN ×2 (04:32→22:00)
[2017-09-17] MEDS: VANCOMYCIN INJ 1,500 MG in SODIUM CHLORID 0.9% 500 ML INJ 500 ML IV SCH ×2 (04:33→17:19)
[2017-09-17 06:50] LABS: ALBUMIN 2.3 GM/DL (3.4-5.0); ALKALINE PHOSPHATASE 55 U/L (45-117); ALT (GPT) 39 U/L (12-78); AST (GOT) 29 U/L (15-37); BICARBONATE 29.9 MEQ/L (21.0-32.0); BLOOD UREA NITROGEN 13 MG/DL (7-18); CALCIUM 8.1 MG/DL (8.5-10.1); CHLORIDE 109 MEQ/L (98-107); CREATININE 0.51 MG/DL (0.60-1.30); GLOMERULAR FILTRATION RATE 157 ML/MIN (>89); GLUCOSE,RANDOM 200 MG/DL (74-106); SODIUM (NA) 146 MEQ/L (136-145); TOTAL BILIRUBIN ADULT 0.9 MG/DL (0.2-1.0); TOTAL PROTEIN 6.5 GM/DL (6.4-8.2)
--- NOTE | 2017-09-17 07:06 | HHI.PR ---
Subjective Remarks A she remained somewhat agitated yesterday Presedex drip was initiated. This has helped with his agitation quite well. Low heart rate noted since on drip. Lyons added as pt was having trouble with leakage around condom cath. Objective Vitals Vital Signs Date Time Temp Pulse Resp B/P (MAP) Pulse Ox O2 Delivery O2 Flow Rate FiO2 09/17/17 04:00 97.9 42 21 166/93 (117) 96 09/17/17 00:00 98.4 50 24 158/74 (102) 96 09/16/17 22:48 96 Nasal Cannula 2.00 09/16/17 20:36 95 21 09/16/17 20:00 100 09/16/17 20:00 98.1 100 26 175/87 (116) 93 09/16/17 19:00 Nasal Cannula 2.00 21 09/16/17 16:01 102 25 152/79 (103) 92 09/16/17 16:00 101 09/16/17 14:06 112 34 155/89 (111) 95 09/16/17 13:40 114 31 172/85 (114) 09/16/17 12:00 110 09/16/17 12:00 108 31 159/78 (105) 95 09/16/17 10:35 110 33 159/80 (106) 94 09/16/17 10:00 106 28 166/84 (111) 93 09/16/17 08:00 98 Nasal Cannula 2.00 09/16/17 08:00 114 09/16/17 08:00 92 22 131/89 (103) 94 09/16/17 07:17 97.6 102 35 162/89 (113) GENERAL: Sedated, her strength 4 extremities, resting well. SKIN: Warm and dry. No obvious wounds or rash noted around restraints. HEAD: Normocephalic. EYES: No scleral icterus. No injection or drainage. NECK: Supple, trachea midline. No JVD or lymphadenopathy. CARDIOVASCULAR: Regular rate and rhythm without murmurs, gallops, or rubs. RESPIRATORY: Breath sounds equal bilaterally. Good air movement. No wheeze or crackle. GASTROINTESTINAL: Abdomen soft, non-tender, nondistended. BS wnl. MUSCULOSKELETAL: No cyanosis, or edema. soft restraints in place UE. Had been moving all 4 extremities prior to sedation drip. Result Diagram: 09/15/17 0441 09/17/17 0605 Imaging Last Impressions Chest X-Ray 09/14/17 0000 Signed Impressions: Service Date/Time: August 09:55 - CONCLUSION: Left lung density. Recommend CT chest for further evaluation Jayant Soto MD Chest CT 09/14/17 0000 Signed Impressions: Service Date/Time: August 13:00 - CONCLUSION: Small nodular areas of airspace disease both in the lingula and the left lung base. Right lung is relatively clear. The mediastinum is unremarkable. Adrian Martinez MD Last Impressions Chest X-Ray 09/11/17 1605 Signed Impressions: Service Date/Time: Monday, September 11, 2017 16:11 - CONCLUSION: No acute disease. No significant change has occurred. Gregory Campbell MD Urinary Catheter: Yes Assessment to: Continue Vascular Central Line Catheter: No A/P Problem List: (1) Influenza ICD Codes: J11.1 - Influenza due to unidentified influenza virus with other respiratory manifestations Status: Acute Plan: Influenza A with secondary pneumonia. Continue abx (vanco, levo, zosyn) No recent fever. Continue supportive care. Respiratory status is improved greatly. (2) Asthma ICD Codes: J45.909 - Unspecified asthma, uncomplicated Status: Acute Plan: continue current tx. Minimal wheeze on exam. We will decrease prednisone dose. Appreciate pulm input. (3) Alcohol withdrawal delirium ICD Codes: F10.231 - Alcohol dependence with withdrawal delirium Status: Acute Plan: Still with periods of agitation and risk for aspiration. Swallow eval pending, but pt too sedated at this point. Will provide IVF. Will try sedation vacation later today. If still not able to take by mouth, we'll have to place an NG tube. Currently on Pepcid IV for GI prophylaxis. (4) Chronic alcohol abuse ICD Codes: F10.10 - Alcohol abuse, uncomplicated Status: Chronic Plan: Discussed need for cessation, but pt not coherent. I did d/w his again yesterday. (5) Paroxysmal atrial fibrillation ICD Codes: I48.0 - Paroxysmal atrial fibrillation Status: Chronic Plan: Currently using Lovenox as patient is not able to take oral input. Rate relatively well controlled currently. Rate somewhat bradycardic on current drip. Not on Mutlaq as he isn't taking by mouth. Discharge Planning will d/c when more stable from EtOH w/d Problem Qualifiers (1) Asthma: Qualified Codes: J45.901 - Unspecified asthma with (acute) exacerbation Melecio Kelly MD PhD Sep 17, 2017 07:06
[2017-09-17] MEDS: NS + KCL 20 MEQ INJ 1,000 ML IV SCH ×2 (07:51→20:33)
[2017-09-17] MEDS: FAMOTIDINE 20 MG/2 ML VIAL IV PUSH SCH ×2 (07:54→20:34)
[2017-09-17] MEDS ORDERED: POTASSIUM CHLOR 20 MEQ PREMIX 100 ML IV ONE ×2 (08:00→11:30)
[2017-09-17] MEDS: chlordiazePOXIDE 25 MG CAP PO SCH ×3 (08:05→17:19)
[2017-09-17] MEDS: DOCUSATE SODIUM 100 MG CAP PO SCH ×2 (08:05→20:34)
[2017-09-17] MEDS: guaiFENesin E.R. 600 MG TAB PO SCH ×2 (08:05→20:34)
[2017-09-17] MEDS: DRONEDARONE 400 MG TAB PO SCH ×2 (08:06→20:34)
[2017-09-17] MEDS: THIAMINE HCL 100 MG TAB PO SCH (08:06)
--- NOTE | 2017-09-17 11:40 | HHI.PR ---
Subjective Remarks 76 YOWM with Br Asthma, Flu, Pn, Aspiration noted food particles on coughing, suctioning Pt Confused, gets agitated On Precedex, sedated Had Bradycardia, better now Objective Vital Signs Vital Signs Date Time Temp Pulse Resp B/P (MAP) Pulse Ox O2 Delivery O2 Flow Rate FiO2 09/17/17 04:00 97.9 42 21 166/93 (117) 96 09/17/17 00:00 98.4 50 24 158/74 (102) 96 09/16/17 22:48 96 Nasal Cannula 2.00 09/16/17 20:36 95 21 09/16/17 20:00 100 09/16/17 20:00 98.1 100 26 175/87 (116) 93 09/16/17 19:00 Nasal Cannula 2.00 21 09/16/17 16:01 102 25 152/79 (103) 92 09/16/17 16:00 101 09/16/17 14:06 112 34 155/89 (111) 95 09/16/17 13:40 114 31 172/85 (114) 09/16/17 12:00 110 09/16/17 12:00 108 31 159/78 (105) 95 I/O 09/16/17 09/16/17 09/16/17 09/17/17 09/17/17 09/17/17 07:00 15:00 23:00 07:00 15:00 23:00 Intake Total 0 ml 2432 ml 772 ml 1670 ml Output Total 1600 ml Balance 0 ml 2432 ml 772 ml 70 ml Intake Oral 0 ml IV Total 2432 ml 772 ml 1670 ml Output Urine Total 1600 ml # Voids 6 5 # Bowel Movements 0 Result Diagram: 09/15/17 0441 09/17/17 0605 Objective Remarks GENERAL: Elderly male, mild sob, congested SKIN: Warm and dry. HEAD: Normocephalic. EYES: No scleral icterus. No injection or drainage. NECK: Supple, trachea midline. No JVD or lymphadenopathy. CARDIOVASCULAR: Regular rate and rhythm without murmurs, gallops, or rubs. RESPIRATORY: Breath sounds equal bilaterally. No accessory muscle use. Scattered coarse rhonchi GASTROINTESTINAL: Abdomen soft, non-tender, nondistended. MUSCULOSKELETAL: No cyanosis, or edema. BACK: Nontender without obvious deformity. No CVA tenderness. A/P Assessment and Plan Pneumonia Aspiration Bronchial asthma Alcohal withdrawl AF HTN PLAN: Abx Zosyn, vanco and Levaquin Aerosol nbes Librium for alcohal withdrawl Precedex for sedation Supplement 02 Beltran Naylor MD Sep 17, 2017 11:40
[2017-09-17] MEDS: LEVOFLOXACIN 500 MG PREMIX INJ 100 ML IV SCH (14:20)
[2017-09-17] MEDS: ENALAPRILAT 1.25 MG/ML VIAL IV PUSH PRN (14:21)
[2017-09-17 15:50] LABS: MAGNESIUM 2.2 MG/DL (1.5-2.5)
[2017-09-17] MEDS ORDERED: POTASSIUM CHLORIDE 10 MEQ CONTROLLED RELEASE TAB PO ONE (16:45)
[2017-09-17] MEDS: ENOXAPARIN SODIUM 80 MG/0.8 ML SYRINGE SQ SCH (17:18)
[2017-09-17] MEDS: LORazepam 2 MG/ML VIAL IV PUSH PRN (20:32)
[2017-09-17] MEDS ORDERED: POTASSIUM CHLORIDE 20 MEQ PWD PACKET NG ONE (22:15)
--- NOTE | 2017-09-17 22:58 | RADRPT ---
EXAM DATE/TIME: 09/17/2017 22:34 [facility] COMPARISON: No previous studies available for comparison. INDICATIONS : NG tube placement. MEDICAL HISTORY : None. SURGICAL HISTORY : None. ENCOUNTER: Initial ACUITY: 1 day PAIN SCORE: Non-responsive. LOCATION: upper quadrant abdomen. FINDINGS: Examination of the abdomen demonstrates a normal bowel gas pattern. Nasogastric tube with tip coiled in stomach. No free air is identified. No organomegaly is evident. Osseous structures are intact. CONCLUSION: Nasogastric tube with tip coiled in stomach. Abhinav Allen MD on September 17, 2017 at 22:55 Board Certified Radiologist. This report was verified electronically.
[2017-09-18] VITALS (32 sets, daily range): BP systolic 118–185; BP diastolic 59–101; PULSE 60–110; RESP 14–32; TEMP 97.2–99.4; O2SAT 92–100
[2017-09-18] MEDS ORDERED: LACTULOSE SYRUP 20 GM/30 ML CUP PO ONE (00:30)
[2017-09-18] MEDS: PIPERACILLIN/TAZ 3.375 GM VIAL 3.375 GM in SODIUM CHLORIDE 0.9% INJ 100 ML IV SCH ×4 (02:59→21:34)
[2017-09-18 05:34] LABS: BICARBONATE 27.2 MEQ/L (21.0-32.0)
[2017-09-18 05:38] LABS: AUTOMATED NEUTROPHIL # 9.8 TH/MM3 (1.8-7.7); BASOPHIL # 0.1 TH/MM3 (0-0.2); BASOPHIL % 0.8 % (0.0-2.0); CREATININE 0.83 MG/DL (0.60-1.30); HEMATOCRIT 36.5 % (39.0-51.0); LYMPH % 5.8 % (9.0-44.0); LYMPHOCYTE # 0.6 TH/MM3 (1.0-4.8); MEAN CELL VOLUME 88.5 FL (80.0-100.0); MEAN CORPUSCULAR HEMOGLOBIN 29.1 PG (27.0-34.0); MEAN CORPUSCULAR HGB CONC 32.9 % (32.0-36.0); MEAN PLATELET VOLUME 7.7 FL (7.0-11.0); MONO % 3.9 % (0.0-8.0); MONOCYTE # 0.4 TH/MM3 (0-0.9); NEUT % 89.5 % (16.0-70.0); PLATELET COUNT 443 TH/MM3 (150-450); RED BLOOD COUNT 4.12 MIL/MM3 (4.50-5.90); RED CELL DISTRIBUTION WIDTH 15.5 % (11.6-17.2); WHITE BLOOD COUNT 10.9 TH/MM3 (4.0-11.0)
[2017-09-18] MEDS: VANCOMYCIN INJ 1,500 MG in SODIUM CHLORID 0.9% 500 ML INJ 500 ML IV SCH ×2 (05:39→17:52)
--- NOTE | 2017-09-18 07:41 | HHI.PR ---
Subjective Remarks Still a bit agitated at times when not on sedation. Attempted swallow eval yesterday when sedation was held and patient still had some coughing after attempting to swallow. NG tube was placed overnight. Objective Vitals Vital Signs Date Time Temp Pulse Resp B/P (MAP) Pulse Ox O2 Delivery O2 Flow Rate FiO2 09/18/17 06:00 66 09/18/17 06:00 66 20 159/88 (111) 99 09/18/17 05:00 64 27 147/81 (103) 99 09/18/17 04:00 97.4 64 19 167/92 (117) 99 09/18/17 04:00 64 09/18/17 03:00 64 32 140/59 (86) 99 09/18/17 02:00 62 14 176/90 (118) 98 09/18/17 02:00 62 09/18/17 01:00 60 21 138/65 (89) 95 09/18/17 00:00 107 09/18/17 00:00 98.3 80 26 164/87 (112) 92 09/17/17 23:00 110 28 163/80 (107) 96 09/17/17 22:00 102 39 195/88 (123) 95 09/17/17 21:01 104 27 183/82 (115) 94 09/17/17 20:35 97 Nasal Cannula 2.00 09/17/17 20:00 98.5 100 43 145/78 (100) 97 09/17/17 20:00 97 Nasal Cannula 2.00 09/17/17 20:00 103 09/17/17 16:00 98.5 56 18 152/83 (106) 95 09/17/17 16:00 72 09/17/17 12:00 98.4 56 18 152/83 (106) 95 09/17/17 12:00 56 09/17/17 08:00 36 09/17/17 08:00 98.5 37 13 178/85 (116) 97 09/17/17 07:55 98 Nasal Cannula 2.00 GENERAL: Partially Sedated, soft restraints 4 extremities, resting well. Appears a bit restless at times moving lower extremities. SKIN: Warm and dry. No obvious wounds or rash noted around restraints. HEAD: Normocephalic. EYES: No scleral icterus. No injection or drainage. Extraocular motions intact. Pupils equal bilaterally. NECK: Supple, trachea midline. No JVD or lymphadenopathy. CARDIOVASCULAR: Regular rate and rhythm without murmurs, gallops, or rubs. RESPIRATORY: Breath sounds equal bilaterally. Good air movement. No wheeze or crackle. GASTROINTESTINAL: Abdomen soft, non-tender, nondistended. BS wnl. MUSCULOSKELETAL: No cyanosis, or edema. soft restraints in place 4 extremities. Moves all extremities Result Diagram: 09/18/17 0450 09/18/17 0450 Imaging Last Impressions Chest X-Ray 09/14/17 0000 Signed Impressions: Service Date/Time: August 09:55 - CONCLUSION: Left lung density. Recommend CT chest for further evaluation Jayant Soto MD Chest CT 09/14/17 0000 Signed Impressions: Service Date/Time: August 13:00 - CONCLUSION: Small nodular areas of airspace disease both in the lingula and the left lung base. Right lung is relatively clear. The mediastinum is unremarkable. Adrian Martinez MD Last Impressions Chest X-Ray 09/11/17 1605 Signed Impressions: Service Date/Time: Monday, September 11, 2017 16:11 - CONCLUSION: No acute disease. No significant change has occurred. Gregory Campbell MD Urinary Catheter: Yes Assessment to: Continue Lyons insert reason: Measure Accurate Output Vascular Central Line Catheter: No A/P Problem List: (1) Influenza ICD Codes: J11.1 - Influenza due to unidentified influenza virus with other respiratory manifestations Status: Acute Plan: Influenza A with secondary pneumonia. Continue abx (vanco, levo, zosyn) No recent fever. Continue supportive care. Respiratory status is improved greatly. Decrease steroids dose yesterday. (2) Asthma ICD Codes: J45.909 - Unspecified asthma, uncomplicated Status: Acute Plan: continue current tx. Minimal wheeze on exam. We will decrease prednisone dose. Appreciate pulm input. (3) Alcohol withdrawal delirium ICD Codes: F10.231 - Alcohol dependence with withdrawal delirium Status: Acute Plan: Still with periods of agitation and risk for aspiration. Swallow eval pending, but pt too sedated at this point. NG tube placed. Medication list reviewed and adjusted for oral intake as appropriate. We'll continue Precedex for now. Higher doses tend to generate significant bradycardia in this patient so we'll continue mild sedation. (4) Chronic alcohol abuse ICD Codes: F10.10 - Alcohol abuse, uncomplicated Status: Chronic Plan: Discussed need for cessation, but pt not coherent. I did d/w his again yesterday. (5) Paroxysmal atrial fibrillation ICD Codes: I48.0 - Paroxysmal atrial fibrillation Status: Chronic Plan: We'll convert Lovenox back to Eliquis as he has NG tube in place now. Rate somewhat bradycardic on current drip. Hold Multaq due to some bradycardic episodes. Discharge Planning will d/c when more stable from EtOH w/d Problem Qualifiers (1) Asthma: Qualified Codes: J45.901 - Unspecified asthma with (acute) exacerbation Melecio Kelly MD PhD Sep 18, 2017 07:41
[2017-09-18] MEDS ORDERED: POTASSIUM CHLORIDE 25 MEQ EFFERVESCENT TAB PO ONE (08:00)
[2017-09-18] MEDS: DEXMEDETOMIDINE INJ 400 MCG in SODIUM CHLORIDE 0.9% INJ 96 ML IV PRN (08:02)
[2017-09-18] MEDS: THIAMINE HCL 100 MG TAB PO SCH (08:35)
[2017-09-18] MEDS: LACTULOSE SYRUP 20 GM/30 ML CUP PO SCH (08:35)
[2017-09-18] MEDS: FAMOTIDINE 40 MG/5 ML LIQ 50 ML BTL NG SCH ×2 (08:36→21:00)
[2017-09-18] MEDS: methylPREDNISolone SOD SUCC 40 MG/1 ML VIAL IV PUSH SCH ×2 (08:36→21:33)
[2017-09-18] MEDS: chlordiazePOXIDE 25 MG CAP PO SCH ×3 (08:36→21:34)
[2017-09-18] MEDS: ENALAPRILAT 1.25 MG/ML VIAL IV PUSH PRN (11:13)
[2017-09-18] MEDS: LEVOFLOXACIN 500 MG PREMIX INJ 100 ML IV SCH (13:18)
[2017-09-18] MEDS: amLODIPine BESYLATE 5 MG TAB NG SCH (15:00)
[2017-09-18] MEDS ORDERED: LACTULOSE SYRUP 20 GM/30 ML CUP NG ONE (17:45)
[2017-09-18] MEDS ORDERED: BETHANECHOL CHL 10 MG TAB NG ONE (17:45)
[2017-09-18] MEDS: APIXABAN 2.5 MG TABLET PO SCH (21:42)
[2017-09-19] VITALS (31 sets, daily range): BP systolic 105–167; BP diastolic 56–91; PULSE 60–148; RESP 16–27; TEMP 98–100.4; O2SAT 95–100
[2017-09-19] MEDS: DEXMEDETOMIDINE INJ 400 MCG in SODIUM CHLORIDE 0.9% INJ 96 ML IV PRN (00:46)
[2017-09-19] MEDS: PIPERACILLIN/TAZ 3.375 GM VIAL 3.375 GM in SODIUM CHLORIDE 0.9% INJ 100 ML IV SCH ×4 (02:39→21:57)
[2017-09-19] MEDS: chlordiazePOXIDE 25 MG CAP PO SCH ×3 (05:08→22:17)
[2017-09-19] MEDS: VANCOMYCIN INJ 1,500 MG in SODIUM CHLORID 0.9% 500 ML INJ 500 ML IV SCH ×2 (05:09→18:47)
--- NOTE | 2017-09-19 06:17 | HHI.PR ---
Subjective Remarks Less agitated this AM. Precedex stopped earlier this AM due to bradycardia. Pt more arousable and alert. +BM x2. Good UOP. Still with some residuals on TF. Objective Vitals Vital Signs Date Time Temp Pulse Resp B/P (MAP) Pulse Ox O2 Delivery O2 Flow Rate FiO2 09/19/17 05:07 60 18 115/75 (88) 100 09/19/17 04:07 98.4 60 20 120/65 (83) 100 09/19/17 04:00 66 09/19/17 03:07 64 23 105/61 (76) 98 09/19/17 02:07 68 24 137/72 (93) 98 09/19/17 02:00 72 09/19/17 01:20 88 Nasal Cannula 2.00 09/19/17 01:07 86 24 140/70 (93) 96 09/19/17 00:02 100.4 88 22 140/74 (96) 97 09/19/17 00:00 88 09/18/17 23:07 110 25 165/82 (109) 98 09/18/17 22:01 104 23 131/78 (95) 98 09/18/17 22:00 104 09/18/17 21:24 99 21 09/18/17 21:01 96 26 150/90 (110) 98 09/18/17 20:01 99.4 98 19 140/88 (105) 99 09/18/17 20:00 96 Room Air 09/18/17 20:00 98 09/18/17 19:01 100 20 118/83 (95) 100 09/18/17 18:00 82 09/18/17 18:00 82 18 173/90 (117) 98 09/18/17 17:01 84 18 159/85 (109) 97 09/18/17 16:00 97.2 78 19 166/94 (118) 96 09/18/17 16:00 78 09/18/17 15:01 72 20 174/101 (125) 97 09/18/17 14:01 68 18 159/78 (105) 99 09/18/17 14:00 68 09/18/17 13:01 64 15 178/88 (118) 93 09/18/17 12:00 62 09/18/17 12:00 97.5 64 14 169/98 (121) 97 09/18/17 11:01 66 15 183/90 (121) 97 09/18/17 10:00 66 20 172/92 (118) 95 09/18/17 10:00 66 09/18/17 09:01 70 14 150/81 (104) 94 09/18/17 08:39 97 21 09/18/17 08:01 64 22 155/89 (111) 99 09/18/17 08:00 64 09/18/17 08:00 96 Room Air 09/18/17 07:01 97.6 64 19 165/91 (115) 97 GENERAL: Less sedated, more responsive. Follows some simple commands. Cough noted. SKIN: Warm and dry. No wounds or rash noted around restraints. HEAD: Normocephalic. EYES: No scleral icterus. No injection or drainage. Extraocular motions intact. Pupils equal bilaterally. NECK: Supple, trachea midline. No JVD or lymphadenopathy. CARDIOVASCULAR: Regular rate and rhythm without murmurs, gallops, or rubs. RESPIRATORY: Breath sounds equal bilaterally. Good air movement. Course BS in bases. GASTROINTESTINAL: Abdomen soft, non-tender, nondistended. BS wnl. MUSCULOSKELETAL: No cyanosis, or edema. soft restraints in place 2 upper extremities. Moves all extremities to command. Dry Ice Maker bilat to command. Opened eyes to command. Result Diagram: 09/18/17 0450 09/18/17 0450 Imaging Last Impressions Chest X-Ray 09/14/17 0000 Signed Impressions: Service Date/Time: August 09:55 - CONCLUSION: Left lung density. Recommend CT chest for further evaluation Jayant Soto MD Chest CT 09/14/17 0000 Signed Impressions: Service Date/Time: August 13:00 - CONCLUSION: Small nodular areas of airspace disease both in the lingula and the left lung base. Right lung is relatively clear. The mediastinum is unremarkable. Adrian Martinez MD Last Impressions Chest X-Ray 09/11/17 1605 Signed Impressions: Service Date/Time: Monday, September 11, 2017 16:11 - CONCLUSION: No acute disease. No significant change has occurred. Gregory Campbell MD Urinary Catheter: Yes Assessment to: Continue Lyons insert reason: Measure Accurate Output Vascular Central Line Catheter: No A/P Problem List: (1) Influenza ICD Codes: J11.1 - Influenza due to unidentified influenza virus with other respiratory manifestations Status: Acute Plan: Influenza A with secondary pneumonia. Continue abx (vanco, levo, zosyn) No recent fever. Continue supportive care. Respiratory status is improved greatly, but he has dry cough likely a/w NGT irritation. Decreased steroids on 09/17/17. (2) Asthma ICD Codes: J45.909 - Unspecified asthma, uncomplicated Status: Acute Plan: continue current tx. No wheeze today. Appreciate pulm input. (3) Alcohol withdrawal delirium ICD Codes: F10.231 - Alcohol dependence with withdrawal delirium Status: Acute Plan: Still with periods of agitation and risk for aspiration. NGT in place now. Some residuals with TF. Will continue to run slowly. Good UOP. Continue free water. Medication list reviewed and adjusted for oral intake as appropriate. Precedex stopped. Continue librium. Seems to be awakening a bit more and less agitated today. MAEW. Following simple commands. Reportedly had significant w/d in the past after he had knee surgery per family report. (4) Chronic alcohol abuse ICD Codes: F10.10 - Alcohol abuse, uncomplicated Status: Chronic Plan: Discussed need for cessation, but pt not coherent. (5) Paroxysmal atrial fibrillation ICD Codes: I48.0 - Paroxysmal atrial fibrillation Status: Chronic Plan: converted Lovenox back to Eliquis as he has NG tube in place now. Hold Multaq due to some bradycardic episodes. Discharge Planning will d/c when more stable from EtOH w/d Problem Qualifiers (1) Asthma: Qualified Codes: J45.901 - Unspecified asthma with (acute) exacerbation Melecio Kelly MD PhD Sep 19, 2017 06:17
[2017-09-19 06:27] LABS: ALBUMIN 2.3 GM/DL (3.4-5.0); ALKALINE PHOSPHATASE 51 U/L (45-117); ALT (GPT) 49 U/L (12-78); AST (GOT) 30 U/L (15-37); BICARBONATE 30.8 MEQ/L (21.0-32.0); BLOOD UREA NITROGEN 25 MG/DL (7-18); CHLORIDE 110 MEQ/L (98-107); CREATININE 0.94 MG/DL (0.60-1.30); GLOMERULAR FILTRATION RATE 78 ML/MIN (>89); GLUCOSE,RANDOM 168 MG/DL (74-106); SODIUM (NA) 147 MEQ/L (136-145); TOTAL BILIRUBIN ADULT 1.4 MG/DL (0.2-1.0); TOTAL PROTEIN 6.1 GM/DL (6.4-8.2)
[2017-09-19] MEDS ORDERED: POTASSIUM CHLORIDE 25 MEQ EFFERVESCENT TAB PO ONE (07:00)
[2017-09-19] MEDS: methylPREDNISolone SOD SUCC 40 MG/1 ML VIAL IV PUSH SCH ×2 (08:32→19:37)
[2017-09-19] MEDS: FAMOTIDINE 40 MG/5 ML LIQ 50 ML BTL NG SCH ×2 (08:32→19:36)
[2017-09-19] MEDS: amLODIPine BESYLATE 5 MG TAB NG SCH (08:33)
[2017-09-19] MEDS: THIAMINE HCL 100 MG TAB PO SCH (08:33)
[2017-09-19] MEDS: LACTULOSE SYRUP 20 GM/30 ML CUP PO SCH (09:00)
[2017-09-19] MEDS: guaiFENesin/CODEINE SYRUP 200 MG/20 MG/10 ML CUP PO PRN (10:04)
[2017-09-19] MEDS: APIXABAN 2.5 MG TABLET PO SCH ×2 (10:05→19:37)
[2017-09-19] MEDS: LORazepam 2 MG/ML VIAL IV PUSH PRN (13:19)
[2017-09-19] MEDS: LEVOFLOXACIN 500 MG PREMIX INJ 100 ML IV SCH (13:20)
[2017-09-19] MEDS: DRONEDARONE 400 MG TAB PO SCH ×2 (14:43→21:57)
[2017-09-19] MEDS: ICU - POTASSIUM CHLORIDE/AQUEOUS SOLN 20 MEQ/100 ML IVPB IV PRN ×4 (14:44→21:36)
[2017-09-19] MEDS ORDERED: ICU - MAGNESIUM SULFATE 4 GM/NS 100 ML IV PRN ×2 (15:00)
[2017-09-19] MEDS ORDERED: ICU - MAGNESIUM SULFATE 2 GM/NS 100 ML IV PRN ×2 (15:00)
[2017-09-19] MEDS ORDERED: ICU - POTASSIUM PHOSPHATE 30 MMOL/NS 250 ML IV PRN ×2 (15:00)
[2017-09-19] MEDS ORDERED: ICU - D/C ICU ELECTROLYTE ORDERS PRN (15:00)
[2017-09-19] MEDS ORDERED: ICU - POTASSIUM CHLORIDE/AQUEOUS SOLN 40 MEQ/100 ML IVPB IV PRN (15:00)
[2017-09-19] MEDS ORDERED: ICU - MAGNESIUM OXIDE 400 MG TAB PO PRN (15:00)
[2017-09-19] MEDS ORDERED: ICU - POTASSIUM PHOSPHATE MONOBASIC 500 MG TAB PO PRN (15:00)
[2017-09-19] MEDS ORDERED: ICU - CALL ORDERING PHYSICIAN PRN (15:00)
[2017-09-19] MEDS ORDERED: ICU - SODIUM PHOSPHATE 30 MMOL/NS 250 ML IV PRN ×2 (15:00)
[2017-09-19] MEDS ORDERED: POTASSIUM CHLORIDE 25 MEQ EFFERVESCENT TAB PO PRN (15:00)
--- NOTE | 2017-09-19 17:39 | MB ---
cc: HARSHAL JOHNS M.D. DATE OF CONSULTATION: 09/19/2017 REASON FOR REFERRAL High residual on tube feeding. HISTORY OF PRESENT ILLNESS: Thank you for the consultation 76-year-old male who came to the emergency room with cough, fever, weakness and found to have flu. The patient had with look like alcohol withdrawal and he was transferred to the ICU. He is a heavy drinker in the past even though he said he according to the chart. He did not drink the last week but seems that he is in DT now, he is in the ICU. I was asked to see him because he has high residuals tube feeding on NG tube. The patient unable to give any history. He has a NG tube, he is lethargic. ALLERGIES NONE. MEDICATIONS Reviewed in the chart. FAMILY HISTORY Significant for coronary artery disease, COPD. SOCIAL HISTORY He denied tobacco for at least 30 years according to the chart and he drinks six to eight beers a day, one to two glasses of wine a day and [place] or [place]. REVIEW OF SYSTEMS The patient is laying in bed, seems to be comfortable but he is lethargic, unable to obtain more than that from him. PAST MEDICAL HISTORY: Significant for atrial fibrillation. 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 PHYSICAL EXAMINATION The patient is laying in bed, seems to be comfortable, confused. VITAL SIGNS: Vital signs: Stable. HEENT: Clear to auscultation. Pupils are round and reactive. NECK: Supple: CHEST: Decreased breathing sounds bilaterally. ABDOMEN: Soft, nondistended, nontender. EXTREMITIES: No edema, clubbing or cyanosis. NEUROLOGICALLY: Arousable but lethargic. The patient has a nasogastric tube in place. LABORATORY DATA White count 10.9, hemoglobin 12.0, platelets 443, potassium 2.8 that was yesterday. ASSESSMENT AND PLAN: 76-year-old male was who is here because of respiratory infection. The patient also has significant alcohol withdrawal. He is lethargic, I was asked to see him because apparently he had high gastric output from NG tube. Most likely this is related to his medication and his current status, I would not give him Reglan or anything else, I might reduce the flow basked on trying to avoid residual or hold it from time to time. The patient has DT with alcohol withdrawal. He seems to be lethargic but is slightly doing better according to what I read in the note and from the nursing staff. He will need to be watched and once he is more awake the tube feeding can be stopped and a regular diet can be started. We will follow up with you and see how he is doing. MD RYLEY Lynn/gera /4:42 PM /5:27 PM
[2017-09-19] MEDS ORDERED: DILTIAZEM HCL 25 MG/5 ML VIAL IV ONE (18:00)
--- NOTE | 2017-09-19 19:09 | HHI.PR ---
Subjective Remarks 76 YOWM with Br Asthma, Flu, Pn, Aspiration noted food particles on coughing, suctioning Pt Confused, gets agitated Had Bradycardia, Precedex dc'd has Tachcardia, getting cardiazem bolus Objective Vital Signs Vital Signs Date Time Temp Pulse Resp B/P (MAP) Pulse Ox O2 Delivery O2 Flow Rate FiO2 09/19/17 18:00 136 21 105/68 (80) 99 09/19/17 18:00 136 09/19/17 17:00 146 22 127/75 (92) 100 09/19/17 16:00 98.7 148 21 133/91 (105) 100 09/19/17 16:00 136 09/19/17 15:00 136 23 142/71 (94) 98 09/19/17 14:00 124 09/19/17 14:00 124 21 121/56 (77) 95 09/19/17 13:00 130 18 140/76 (97) 97 09/19/17 12:00 112 09/19/17 12:00 98.0 120 19 159/79 (105) 95 09/19/17 11:00 94 20 167/86 (113) 97 09/19/17 10:00 88 09/19/17 10:00 110 27 135/76 (95) 95 09/19/17 09:00 96 17 131/73 (92) 100 09/19/17 08:00 76 09/19/17 08:00 86 27 148/60 (89) 100 09/19/17 07:00 100 Nasal Cannula 2.00 09/19/17 07:00 98.9 80 16 157/69 (98) 100 09/19/17 06:07 68 19 128/59 (82) 100 09/19/17 06:00 65 09/19/17 05:07 60 18 115/75 (88) 100 09/19/17 04:07 98.4 60 20 120/65 (83) 100 09/19/17 04:00 66 09/19/17 03:07 64 23 105/61 (76) 98 09/19/17 02:07 68 24 137/72 (93) 98 09/19/17 02:00 72 09/19/17 01:20 88 Nasal Cannula 2.00 09/19/17 01:07 86 24 140/70 (93) 96 09/19/17 00:02 100.4 88 22 140/74 (96) 97 09/19/17 00:00 88 09/18/17 23:07 110 25 165/82 (109) 98 09/18/17 22:01 104 23 131/78 (95) 98 09/18/17 22:00 104 09/18/17 21:24 99 21 09/18/17 21:01 96 26 150/90 (110) 98 09/18/17 20:01 99.4 98 19 140/88 (105) 99 09/18/17 20:00 96 Room Air 09/18/17 20:00 98 I/O 09/18/17 09/18/17 09/18/17 09/19/17 09/19/17 09/19/17 07:00 15:00 23:00 07:00 15:00 23:00 Intake Total 1987 ml 239 ml 1200 ml 1330 ml 200 ml 515 ml Output Total 650 ml 1450 ml 2950.0 ml 950 ml 200.0 ml 1150 ml Balance 1337 ml -1211 ml -1750.0 ml 380 ml 0 ml -635 ml Intake Oral 0 ml IV Total 1624 ml 239 ml 615 ml 715 ml 200 ml 100 ml Tube Feeding 163 ml 265 ml 415 ml 215 ml Other 200 ml 320 ml 200 ml 200 ml Output Urine Total 650 ml 1450 ml 1950 ml 950 ml 1150 ml Gastric Drainage Total 500 ml 0 ml Tube Feeding Residual Discard 500.0 ml 200.0 ml # Bowel Movements 1 1 4 Result Diagram: 09/18/17 0450 09/19/17 1326 Objective Remarks GENERAL: Elderly male, mild sob, congested SKIN: Warm and dry. HEAD: Normocephalic. EYES: No scleral icterus. No injection or drainage. NECK: Supple, trachea midline. No JVD or lymphadenopathy. CARDIOVASCULAR: Regular rate and rhythm without murmurs, gallops, or rubs. RESPIRATORY: Breath sounds equal bilaterally. No accessory muscle use. Scattered coarse rhonchi GASTROINTESTINAL: Abdomen soft, non-tender, nondistended. MUSCULOSKELETAL: No cyanosis, or edema. BACK: Nontender without obvious deformity. No CVA tenderness. A/P Assessment and Plan Pneumonia Aspiration Bronchial asthma Alcohal withdrawl AF HTN PLAN: Abx Zosyn, vanco and Levaquin Aerosol nbes Librium for alcohal withdrawl Cardiazem for rate controll Supplement 02 DW [facility] at [facility] N[facility] MD Sep 19, 2017 19:09
[2017-09-19] MEDS ORDERED: HALOPERIDOL LACTATE 5 MG/ML AMP IV ONE (20:00)
[2017-09-19] MEDS ORDERED: cloNIDine HCL 0.1 MG TAB NG ONE (21:15)
[2017-09-20] VITALS (25 sets, daily range): BP systolic 81–160; BP diastolic 53–92; PULSE 64–88; RESP 18–33; TEMP 97.9–98.9; O2SAT 94–100
[2017-09-20] MEDS: PIPERACILLIN/TAZ 3.375 GM VIAL 3.375 GM in SODIUM CHLORIDE 0.9% INJ 100 ML IV SCH ×4 (02:53→21:48)
[2017-09-20 03:04] LABS: PHOSPHORUS 2.5 MG/DL (2.5-4.9)
[2017-09-20] MEDS: ICU - POTASSIUM CHLORIDE/AQUEOUS SOLN 20 MEQ/100 ML IVPB IV PRN ×4 (03:18→09:54)
[2017-09-20] MEDS: chlordiazePOXIDE 25 MG CAP PO SCH ×3 (05:23→23:53)
[2017-09-20] MEDS: VANCOMYCIN INJ 1,500 MG in SODIUM CHLORID 0.9% 500 ML INJ 500 ML IV SCH ×2 (05:24→18:10)
--- NOTE | 2017-09-20 06:10 | HHI.PR ---
Subjective Remarks Patient had episodes of loose stool yesterday with high residual. His tube feed rate has been turned down somewhat and he has no residual currently. Patient had episodes of agitation with tachycardia last night. He responded well to one dose of Haldol and clonidine. We'll use clonidine per NG tube as blood pressure allows. Vitals look good this morning. Patient slept well with less cough overnight. Objective Vitals Vital Signs Date Time Temp Pulse Resp B/P (MAP) Pulse Ox O2 Delivery O2 Flow Rate FiO2 09/20/17 04:00 64 09/20/17 03:00 98.9 72 19 93/55 (68) 97 09/20/17 02:00 78 19 130/85 (100) 100 09/20/17 02:00 84 09/20/17 01:19 78 19 138/78 (98) 100 09/20/17 00:19 98.0 68 20 86/53 (64) 99 09/20/17 00:00 80 09/19/17 23:19 88 21 125/64 (84) 100 09/19/17 22:30 96 21 121/87 (98) 99 09/19/17 22:00 94 09/19/17 21:19 100 23 138/74 (95) 100 09/19/17 21:00 100 21 09/19/17 20:37 99.7 90 24 140/77 (98) 100 09/19/17 20:00 125 09/19/17 19:00 99 Room Air 09/19/17 19:00 128 20 134/72 (92) 100 09/19/17 18:00 136 21 105/68 (80) 99 09/19/17 18:00 136 09/19/17 17:00 146 22 127/75 (92) 100 09/19/17 16:00 98.7 148 21 133/91 (105) 100 09/19/17 16:00 136 09/19/17 15:00 136 23 142/71 (94) 98 09/19/17 14:00 124 09/19/17 14:00 124 21 121/56 (77) 95 09/19/17 13:00 130 18 140/76 (97) 97 09/19/17 12:00 112 09/19/17 12:00 98.0 120 19 159/79 (105) 95 09/19/17 11:00 94 20 167/86 (113) 97 09/19/17 10:00 88 09/19/17 10:00 110 27 135/76 (95) 95 09/19/17 09:00 96 17 131/73 (92) 100 09/19/17 08:00 76 09/19/17 08:00 86 27 148/60 (89) 100 09/19/17 07:00 100 Nasal Cannula 2.00 09/19/17 07:00 98.9 80 16 157/69 (98) 100 09/19/17 06:07 68 19 128/59 (82) 100 GENERAL: Arouses to voice and tactile stimulation. Intermittently Follows some simple commands. Less cough appreciated. SKIN: Warm and dry. No wounds or rash noted around restraints. HEAD: Normocephalic. NG tube remains in place. EYES: No scleral icterus. No injection or drainage. Extraocular motions intact. Pupils equal bilaterally. NECK: Supple, trachea midline. No JVD or lymphadenopathy. CARDIOVASCULAR: Regular rate and rhythm without murmurs, gallops, or rubs. RESPIRATORY: Breath sounds equal bilaterally. Good air movement. Course BS in bases. No wheeze. GASTROINTESTINAL: Abdomen soft, non-tender, nondistended. BS wnl. MUSCULOSKELETAL: No cyanosis, or edema. soft restraints in place 4extremities. Moves all extremities to command. Manager Integrated bilat with more strength on the right. Opens eyes to command. Result Diagram: 09/18/17 0450 09/20/17 0230 Imaging Last Impressions Chest X-Ray 09/14/17 0000 Signed Impressions: Service Date/Time: August 09:55 - CONCLUSION: Left lung density. Recommend CT chest for further evaluation Jayant Soto MD Chest CT 09/14/17 0000 Signed Impressions: Service Date/Time: August 13:00 - CONCLUSION: Small nodular areas of airspace disease both in the lingula and the left lung base. Right lung is relatively clear. The mediastinum is unremarkable. Adrian Martinez MD Last Impressions Chest X-Ray 09/11/17 1605 Signed Impressions: Service Date/Time: Monday, September 11, 2017 16:11 - CONCLUSION: No acute disease. No significant change has occurred. Gregory Campbell MD Urinary Catheter: Yes Assessment to: Continue Lyons insert reason: Measure Accurate Output Vascular Central Line Catheter: No A/P Problem List: (1) Influenza ICD Codes: J11.1 - Influenza due to unidentified influenza virus with other respiratory manifestations Status: Acute Plan: Influenza A with secondary pneumonia. Continue abx (vanco, levo, zosyn) No recent fever. Continue supportive care. Respiratory status is improved greatly, but he has dry cough likely a/w NGT irritation and reactive airway. Decreased steroids on 09/17/17. Pulmonary input appreciated. Can likely stop some of the antibiotics tomorrow. (2) Asthma ICD Codes: J45.909 - Unspecified asthma, uncomplicated Status: Acute Plan: continue current tx. No wheeze today. Appreciate pulm input. (3) Alcohol withdrawal delirium ICD Codes: F10.231 - Alcohol dependence with withdrawal delirium Status: Acute Plan: Still with periods of agitation and risk for aspiration. NGT in place now. Some residuals with TF but improving. Will continue to run slowly. Good UOP. Continue free water. Medication list reviewed and adjusted for oral intake as appropriate. Continue librium. Seems to be awakening a bit more day by day. MAEW. Intermittently following simple commands. Reportedly had significant w/d in the past after he had knee surgery per family report. (4) Chronic alcohol abuse ICD Codes: F10.10 - Alcohol abuse, uncomplicated Status: Chronic Plan: Discussed need for cessation. Patient a bit more coherent last 2 days. (5) Paroxysmal atrial fibrillation ICD Codes: I48.0 - Paroxysmal atrial fibrillation Status: Chronic Plan: converted Lovenox back to Eliquis as he has NG tube in place now. Multaq resumed September 19. We will try to keep potassium and for above. Discharge Planning will d/c when more stable from EtOH w/d Problem Qualifiers (1) Asthma: Qualified Codes: J45.901 - Unspecified asthma with (acute) exacerbation Melecio Kelly MD PhD Sep 20, 2017 06:10
[2017-09-20] MEDS: amLODIPine BESYLATE 5 MG TAB NG SCH ×2 (07:31→09:00)
[2017-09-20] MEDS ORDERED: amLODIPine BESYLATE 5 MG TAB NG SCH (09:00)
[2017-09-20] MEDS: FAMOTIDINE 40 MG/5 ML LIQ 50 ML BTL NG SCH ×2 (09:54→21:49)
[2017-09-20] MEDS: predniSONE 20 MG TAB PO SCH ×2 (09:54→21:49)
[2017-09-20] MEDS: cloNIDine HCL 0.1 MG TAB PO SCH ×2 (09:55→21:49)
[2017-09-20] MEDS: THIAMINE HCL 100 MG TAB PO SCH (09:55)
[2017-09-20] MEDS: APIXABAN 2.5 MG TABLET PO SCH ×2 (09:59→21:49)
[2017-09-20] MEDS: DRONEDARONE 400 MG TAB PO SCH ×2 (09:59→21:49)
[2017-09-20 12:04] LABS: CHLORIDE 116 MEQ/L (98-107); SODIUM (NA) 148 MEQ/L (136-145)
[2017-09-20 12:07] LABS: CALCIUM 7.8 MG/DL (8.5-10.1)
[2017-09-20 12:08] LABS: ALBUMIN 1.9 GM/DL (3.4-5.0); BICARBONATE 26.9 MEQ/L (21.0-32.0); BLOOD UREA NITROGEN 30 MG/DL (7-18); GLUCOSE,RANDOM 122 MG/DL (74-106)
[2017-09-20 12:11] LABS: ALT (GPT) 46 U/L (12-78); AST (GOT) 25 U/L (15-37); CREATININE 0.93 MG/DL (0.60-1.30); GLOMERULAR FILTRATION RATE 79 ML/MIN (>89)
[2017-09-20 12:13] LABS: TOTAL BILIRUBIN ADULT 0.7 MG/DL (0.2-1.0); TOTAL PROTEIN 5.3 GM/DL (6.4-8.2)
[2017-09-20 12:14] LABS: ALKALINE PHOSPHATASE 47 U/L (45-117)
[2017-09-20] MEDS: LEVOFLOXACIN 500 MG PREMIX INJ 100 ML IV SCH (15:49)
--- NOTE | 2017-09-20 19:41 | HHI.GIFU ---
Subjective Remarks Patient is laying in bed, still agitated and lethargic, NG tube in place, at bedside, nursing staff stated that did not have any residual as far as feeding today and yesterday evening Objective Vitals I&O Vital Signs Date Time Temp Pulse Resp B/P (MAP) Pulse Ox O2 Delivery O2 Flow Rate FiO2 09/20/17 16:00 97.9 09/20/17 12:00 80 09/20/17 11:00 98.5 09/20/17 10:00 80 09/20/17 08:00 74 09/20/17 08:00 99 21 09/20/17 08:00 97.9 09/20/17 07:00 80 30 118/66 (83) 100 09/20/17 06:27 70 09/20/17 06:00 82 23 91/54 (66) 98 09/20/17 05:00 88 26 134/87 (103) 99 09/20/17 04:00 64 09/20/17 04:00 64 20 96/60 (72) 94 09/20/17 03:00 98.9 72 19 93/55 (68) 97 09/20/17 02:00 78 19 130/85 (100) 100 09/20/17 02:00 84 09/20/17 01:19 78 19 138/78 (98) 100 09/20/17 00:19 98.0 68 20 86/53 (64) 99 09/20/17 00:00 80 09/19/17 23:19 88 21 125/64 (84) 100 09/19/17 22:30 96 21 121/87 (98) 99 09/19/17 22:00 94 09/19/17 21:19 100 23 138/74 (95) 100 09/19/17 21:00 100 21 09/19/17 20:37 99.7 90 24 140/77 (98) 100 09/19/17 20:00 125 I/O 09/19/17 09/19/17 09/19/17 09/20/17 09/20/17 09/20/17 07:00 15:00 23:00 07:00 15:00 23:00 Intake Total 1330 ml 200 ml 1130 ml 600 ml 1220 ml Output Total 950 ml 200.0 ml 1600 ml 350 ml 900 ml Balance 380 ml 0 ml -470 ml 250 ml 1220 ml -900 ml Intake Oral 0 ml 0 ml IV Total 715 ml 200 ml 715 ml 100 ml 1220 ml Tube Feeding 415 ml 215 ml 300 ml Other 200 ml 200 ml 200 ml Output Urine Total 950 ml 1600 ml 350 ml 900 ml Gastric Drainage Total 0 ml Tube Feeding Residual Discard 200.0 ml # Bowel Movements 1 4 1 Laboratory Laboratory Tests Test 09/20/17 02:30 09/20/17 11:41 Potassium Level 3.1 3.7 Phosphorus Level 2.5 Blood Urea Nitrogen 30 Creatinine 0.93 Random Glucose 122 Total Protein 5.3 Albumin 1.9 Calcium Level 7.8 Alkaline Phosphatase 47 Aspartate Amino Transf (AST/SGOT) 25 Alanine Aminotransferase (ALT/SGPT) 46 Total Bilirubin 0.7 Sodium Level 148 Chloride Level 116 Carbon Dioxide Level 26.9 Anion Gap 5 Estimat Glomerular Filtration Rate 79 Date/Time Source Procedure Growth Status 09/11/17 16:40 Blood Peripheral Aerobic Blood Culture - Final NO GROWTH IN 5 DAYS Complete 09/11/17 16:40 Blood Peripheral Anaerobic Blood Culture - Final NO GROWTH IN 5 DAYS Complete Physical Exam HEENT: Pupils round and reactive to light; normocephalic; atraumatic; no jaundice. Throat is clear. NECK: Neck is supple, no JVD, no lymphadenopathy. CHEST: Chest is clear to auscultation and percussion. CARDIAC: Regular rate and rhythm with no murmur gallop or rubs. ABDOMEN: Soft, nondistended, nontender; no hepatosplenomegaly; bowel sounds are present in all four quadrants. EXTREMITIES: No clubbing, cyanosis, or edema. SKIN: Normal; no rash; no jaundice. ASSOCIATE MERCHANT: No focal deficits; alert and oriented times three. Assessment and Plan Plan Patient is a 76-year-old came with flu patient also has alcohol withdrawal secondary to severe alcohol abuse with large amounts on a daily basis consult was initiated initially for possible gastroparesis, but the pt tolerating feeding well recommend continue feeding and watch for DT we will FU as needed, Penelope Holden MD Sep 20, 2017 19:41
[2017-09-21] VITALS (31 sets, daily range): BP systolic 107–184; BP diastolic 58–125; PULSE 56–79; RESP 16–34; TEMP 97.2–98.2; O2SAT 92–100
[2017-09-21] MEDS: PIPERACILLIN/TAZ 3.375 GM VIAL 3.375 GM in SODIUM CHLORIDE 0.9% INJ 100 ML IV SCH (02:26)
[2017-09-21] MEDS ORDERED: PHARMACY ORDERED LAB ONE (05:45)
[2017-09-21 05:51] LABS: CALCIUM 8.3 MG/DL (8.5-10.1)
--- NOTE | 2017-09-21 06:32 | HHI.PR ---
Subjective Remarks Appears more alert this morning. Arouses to voice. Follows simple commands. Tracks with his eyes better. Objective Vitals Vital Signs Date Time Temp Pulse Resp B/P (MAP) Pulse Ox O2 Delivery O2 Flow Rate FiO2 09/21/17 04:00 68 20 137/77 (97) 98 09/21/17 02:00 97.2 64 16 126/80 (95) 98 09/21/17 01:00 62 17 107/65 (79) 97 09/21/17 00:00 98.2 78 26 154/77 (102) 99 09/20/17 23:18 21 09/20/17 23:14 74 26 160/87 (111) 100 09/20/17 22:00 68 28 146/73 (97) 99 09/20/17 20:00 98 Room Air 09/20/17 20:00 98.0 82 21 160/88 (112) 98 09/20/17 19:00 78 27 139/84 (102) 96 09/20/17 18:00 74 21 131/92 (105) 99 09/20/17 18:00 74 09/20/17 17:00 74 27 142/68 (92) 97 09/20/17 16:00 97.9 72 18 138/75 (96) 99 09/20/17 16:00 97.9 09/20/17 16:00 72 09/20/17 15:00 76 23 140/77 (98) 99 09/20/17 14:00 76 09/20/17 14:00 76 21 132/66 (88) 99 09/20/17 13:00 74 24 117/64 (81) 96 09/20/17 12:00 98.5 80 33 138/72 (94) 100 09/20/17 12:00 80 09/20/17 11:00 98.5 09/20/17 10:00 80 09/20/17 10:00 80 21 129/72 (91) 98 09/20/17 09:00 86 24 145/76 (99) 99 09/20/17 08:00 97.9 74 19 81/59 (66) 96 09/20/17 08:00 74 09/20/17 08:00 99 21 09/20/17 08:00 97.9 09/20/17 07:00 98 Room Air 09/20/17 07:00 80 30 118/66 (83) 100 09/20/17 06:27 70 GENERAL: Arouses to voice. More alert. Reproducibly follows some simple commands. SKIN: Warm and dry. No wounds or rash noted around restraints. HEAD: Normocephalic. NG tube remains in place. EYES: No scleral icterus. No injection or drainage. Extraocular motions intact. Pupils equal bilaterally, still myotic. NECK: Supple, trachea midline. No JVD or lymphadenopathy. CARDIOVASCULAR: Regular rate and rhythm without murmurs, gallops, or rubs. RESPIRATORY: Breath sounds equal bilaterally. Good air movement. Course BS in bases. No wheeze. GASTROINTESTINAL: Abdomen soft, non-tender, nondistended. BS wnl. MUSCULOSKELETAL: No cyanosis, or edema. soft restraints in place 4extremities. Moves all extremities to command. Airflight Attendants Supervisor bilat to command. Opens eyes to command. Result Diagram: 09/18/17 0450 09/21/17 0455 Imaging Last Impressions Chest X-Ray 09/14/17 0000 Signed Impressions: Service Date/Time: August 09:55 - CONCLUSION: Left lung density. Recommend CT chest for further evaluation Jayant Soto MD Chest CT 09/14/17 0000 Signed Impressions: Service Date/Time: August 13:00 - CONCLUSION: Small nodular areas of airspace disease both in the lingula and the left lung base. Right lung is relatively clear. The mediastinum is unremarkable. Adrian Martinez MD Last Impressions Chest X-Ray 09/11/17 1605 Signed Impressions: Service Date/Time: Monday, September 11, 2017 16:11 - CONCLUSION: No acute disease. No significant change has occurred. Gregory Campbell MD Urinary Catheter: Yes Assessment to: Continue Lyons insert reason: Prolonged Immobilization Vascular Central Line Catheter: No A/P Problem List: (1) Influenza ICD Codes: J11.1 - Influenza due to unidentified influenza virus with other respiratory manifestations Status: Acute Plan: Influenza A with secondary pneumonia. No recent fever. Continue supportive care. Respiratory status is improved greatly, but he has dry cough likely a/w NGT irritation and reactive airway. Decreased steroids on 09/17/17. Pulmonary input appreciated. (2) Asthma ICD Codes: J45.909 - Unspecified asthma, uncomplicated Status: Acute Plan: continue current tx. No wheeze today. Appreciate pulm input. Steroids have been reduced. (3) Alcohol withdrawal delirium ICD Codes: F10.231 - Alcohol dependence with withdrawal delirium Status: Acute Plan: Still with periods of agitation and risk for aspiration. NGT in place now. Tolerating tube feed better now with much less residual. Good UOP. Increase free water due to slight hypernatremia. Medication list reviewed and adjusted for oral intake as appropriate. Decrease Librium dosing. MAEW. More reproducibly following commands today. Reportedly had significant w/d in the past after he had knee surgery per family report. (4) Chronic alcohol abuse ICD Codes: F10.10 - Alcohol abuse, uncomplicated Status: Chronic Plan: Discussed need for cessation. Patient a bit more coherent last 3 days. (5) Paroxysmal atrial fibrillation ICD Codes: I48.0 - Paroxysmal atrial fibrillation Status: Chronic Plan: converted Lovenox back to Eliquis as he has NG tube in place now. Multaq resumed September 19. We will try to keep potassium above 4. Discharge Planning will d/c when more stable from EtOH w/d Problem Qualifiers (1) Asthma: Qualified Codes: J45.901 - Unspecified asthma with (acute) exacerbation Melecio Kelly MD PhD Sep 21, 2017 06:32
[2017-09-21] MEDS: ICU - POTASSIUM CHLORIDE/AQUEOUS SOLN 20 MEQ/100 ML IVPB IV PRN ×2 (06:34→11:27)
[2017-09-21 08:23] LABS: VANCOMYCIN TROUGH 28.2 MCG/ML (5.0-10.0)
[2017-09-21] MEDS: DRONEDARONE 400 MG TAB PO SCH ×2 (11:24→20:53)
[2017-09-21] MEDS: predniSONE 20 MG TAB PO SCH ×2 (11:24→20:53)
[2017-09-21] MEDS: APIXABAN 2.5 MG TABLET PO SCH ×2 (11:24→20:53)
[2017-09-21] MEDS: THIAMINE HCL 100 MG TAB PO SCH (11:24)
[2017-09-21] MEDS: cloNIDine HCL 0.1 MG TAB PO SCH ×2 (11:24→20:53)
[2017-09-21] MEDS: LACTOBACILLUS ACIDOPHILUS TAB PO SCH ×2 (11:24→20:53)
[2017-09-21] MEDS: amLODIPine BESYLATE 5 MG TAB NG SCH (11:25)
[2017-09-21] MEDS: LORazepam 2 MG/ML VIAL IV PUSH PRN ×3 (13:49→23:00)
[2017-09-21] MEDS: FAMOTIDINE 40 MG/5 ML LIQ 50 ML BTL NG SCH ×2 (15:00→20:52)
--- NOTE | 2017-09-21 19:56 | HHI.PR ---
Subjective Remarks 76 YOWM with Br Asthma, Flu, Pn, Aspiration noted food particles on coughing, suctioning Pt Confused, gets agitated calmer today on Librium Required Ativan once Objective Vital Signs Vital Signs Date Time Temp Pulse Resp B/P (MAP) Pulse Ox O2 Delivery O2 Flow Rate FiO2 09/21/17 18:01 74 23 144/73 (96) 97 09/21/17 17:10 76 34 140/68 (92) 97 09/21/17 17:01 76 26 184/69 (107) 98 09/21/17 16:29 70 21 144/78 (100) 98 09/21/17 15:00 60 18 93 09/21/17 14:43 64 21 126/58 (80) 92 09/21/17 14:00 74 24 171/84 (113) 100 09/21/17 14:00 64 09/21/17 13:43 72 22 166/97 (120) 09/21/17 13:00 76 21 179/125 (143) 99 09/21/17 12:14 99 21 09/21/17 12:00 97.6 62 17 149/77 (101) 99 09/21/17 12:00 69 09/21/17 11:00 70 18 156/96 (116) 98 09/21/17 10:00 97.6 72 27 170/85 (113) 98 09/21/17 10:00 79 09/21/17 09:00 68 25 142/83 (102) 100 09/21/17 08:00 68 25 140/70 (93) 99 09/21/17 08:00 69 09/21/17 07:00 94 Room Air 09/21/17 07:00 78 26 149/82 (104) 99 09/21/17 06:42 78 09/21/17 06:00 56 20 124/58 (80) 98 09/21/17 05:00 70 27 151/75 (100) 99 09/21/17 04:00 68 20 137/77 (97) 98 09/21/17 04:00 68 09/21/17 02:00 97.2 64 16 126/80 (95) 98 09/21/17 01:00 62 17 107/65 (79) 97 09/21/17 00:00 98.2 78 26 154/77 (102) 99 09/21/17 00:00 78 09/20/17 23:18 21 09/20/17 23:14 74 26 160/87 (111) 100 09/20/17 22:00 68 28 146/73 (97) 99 09/20/17 22:00 68 09/20/17 20:00 98 Room Air 09/20/17 20:00 98.0 82 21 160/88 (112) 98 09/20/17 20:00 82 I/O 09/20/17 09/20/17 09/20/17 09/21/17 09/21/17 09/21/17 07:00 15:00 23:00 07:00 15:00 23:00 Intake Total 600 ml 1220 ml 620 ml 1080 ml 100 ml 907 ml Output Total 350 ml 900 ml 2200 ml 1000 ml Balance 250 ml 1220 ml -280 ml -1120 ml 100 ml -93 ml Intake Oral 0 ml IV Total 100 ml 1220 ml 620 ml 200 ml 100 ml Tube Feeding 300 ml 680 ml 707 ml Other 200 ml 200 ml 200 ml Output Urine Total 350 ml 900 ml 2200 ml 1000 ml # Bowel Movements 1 2 Result Diagram: 09/18/17 0450 09/21/17 0455 Objective Remarks GENERAL: Elderly male, mild sob, congested SKIN: Warm and dry. HEAD: Normocephalic. EYES: No scleral icterus. No injection or drainage. NECK: Supple, trachea midline. No JVD or lymphadenopathy. CARDIOVASCULAR: Regular rate and rhythm without murmurs, gallops, or rubs. RESPIRATORY: Breath sounds equal bilaterally. No accessory muscle use. Scattered coarse rhonchi GASTROINTESTINAL: Abdomen soft, non-tender, nondistended. MUSCULOSKELETAL: No cyanosis, or edema. BACK: Nontender without obvious deformity. No CVA tenderness. A/P Assessment and Plan Pneumonia Aspiration Bronchial asthma Alcohal withdrawl AF HTN PLAN: Cont Abx Aerosol nbes Librium for alcohal withdrawl Supplement 02 Tube feeding Beltran Naylor MD Sep 21, 2017 19:56
[2017-09-22] VITALS (35 sets, daily range): BP systolic 90–159; BP diastolic 51–99; PULSE 60–84; RESP 16–38; TEMP 97.2–98.7; O2SAT 88–99
[2017-09-22 05:00] LABS: CHLORIDE 110 MEQ/L (98-107); SODIUM (NA) 146 MEQ/L (136-145)
[2017-09-22 05:03] LABS: CALCIUM 7.9 MG/DL (8.5-10.1)
[2017-09-22 05:04] LABS: ALBUMIN 2.1 GM/DL (3.4-5.0); BICARBONATE 31.1 MEQ/L (21.0-32.0); BLOOD UREA NITROGEN 32 MG/DL (7-18); GLUCOSE,RANDOM 166 MG/DL (74-106)
[2017-09-22 05:07] LABS: ALT (GPT) 70 U/L (12-78); AST (GOT) 37 U/L (15-37); GLOMERULAR FILTRATION RATE 72 ML/MIN (>89)
[2017-09-22 05:09] LABS: TOTAL BILIRUBIN ADULT 0.5 MG/DL (0.2-1.0); TOTAL PROTEIN 5.8 GM/DL (6.4-8.2)
[2017-09-22 05:10] LABS: ALKALINE PHOSPHATASE 48 U/L (45-117)
--- NOTE | 2017-09-22 06:57 | HHI.PR ---
Subjective Remarks Required 2 mg of Ativan late last night. Has been sleeping soundly since that time. Still moves all extremities in attempts to dislodge Lyons. Failed swallow eval yesterday. Hopefully will be more arousable today. We'll hold clonidine. Objective Vitals Vital Signs Date Time Temp Pulse Resp B/P (MAP) Pulse Ox O2 Delivery O2 Flow Rate FiO2 09/22/17 06:01 62 18 90/56 (67) 95 09/22/17 06:00 62 09/22/17 05:01 62 18 97/55 (69) 97 09/22/17 04:01 97.8 62 17 103/61 (75) 94 09/22/17 04:00 62 09/22/17 03:01 60 18 102/51 (68) 95 09/22/17 02:01 64 17 107/61 (76) 95 09/22/17 02:00 64 09/22/17 01:01 68 16 105/62 (76) 93 09/22/17 00:01 97.6 64 26 104/62 (76) 94 09/22/17 00:00 66 09/21/17 23:01 70 23 164/84 (110) 96 09/21/17 22:01 60 19 135/64 (87) 95 09/21/17 22:00 62 09/21/17 21:10 98 21 09/21/17 21:01 74 17 163/77 (105) 97 09/21/17 20:01 97.8 72 29 150/77 (101) 96 09/21/17 20:00 70 09/21/17 19:01 72 25 157/64 (95) 97 09/21/17 19:00 Room Air 09/21/17 18:01 74 23 144/73 (96) 97 09/21/17 17:10 76 34 140/68 (92) 97 09/21/17 17:01 76 26 184/69 (107) 98 09/21/17 16:29 70 21 144/78 (100) 98 09/21/17 15:00 60 18 93 09/21/17 14:43 64 21 126/58 (80) 92 09/21/17 14:00 74 24 171/84 (113) 100 09/21/17 14:00 64 09/21/17 13:43 72 22 166/97 (120) 1/25/18 13:00 76 21 179/125 (143) 99 09/21/17 12:14 99 21 09/21/17 12:00 97.6 62 17 149/77 (101) 99 09/21/17 12:00 69 09/21/17 11:00 70 18 156/96 (116) 98 09/21/17 10:00 97.6 72 27 170/85 (113) 98 09/21/17 10:00 79 09/21/17 09:00 68 25 142/83 (102) 100 09/21/17 08:00 68 25 140/70 (93) 99 09/21/17 08:00 69 09/21/17 07:00 94 Room Air 09/21/17 07:00 78 26 149/82 (104) 99 GENERAL: Sleeping soundly. Difficult to arouse this morning. Moves all extremities. SKIN: Warm and dry. No wounds or rash noted around restraints. HEAD: Normocephalic. NG tube remains in place. EYES: No scleral icterus. No injection or drainage. Extraocular motions intact. Pupils equal bilaterally, still myotic. NECK: Supple, trachea midline. No JVD or lymphadenopathy. CARDIOVASCULAR: Regular rate and rhythm without murmurs, gallops, or rubs. RESPIRATORY: Breath sounds equal bilaterally. Good air movement. Course BS in bases. No wheeze. GASTROINTESTINAL: Abdomen soft, non-tender, nondistended. BS wnl. MUSCULOSKELETAL: No cyanosis, or edema. soft restraints in place 2 upper extremities. Moves all extremities. Opens eyes to tactile stimulation. Result Diagram: 09/18/17 0450 09/22/17 0415 Imaging Last Impressions Chest X-Ray 09/14/17 0000 Signed Impressions: Service Date/Time: August 09:55 - CONCLUSION: Left lung density. Recommend CT chest for further evaluation Jayant Soto MD Chest CT 09/14/17 0000 Signed Impressions: Service Date/Time: August 13:00 - CONCLUSION: Small nodular areas of airspace disease both in the lingula and the left lung base. Right lung is relatively clear. The mediastinum is unremarkable. Adrian Martinez MD Last Impressions Chest X-Ray 09/11/17 1605 Signed Impressions: Service Date/Time: Monday, September 11, 2017 16:11 - CONCLUSION: No acute disease. No significant change has occurred. Gregory Campbell MD Urinary Catheter: Yes Assessment to: Continue Lyons insert reason: Measure Accurate Output Vascular Central Line Catheter: No A/P Problem List: (1) Influenza ICD Codes: J11.1 - Influenza due to unidentified influenza virus with other respiratory manifestations Status: Acute Plan: Influenza A with secondary pneumonia. No recent fever. Continue supportive care. Respiratory status is improved greatly, but he has dry cough likely a/w NGT irritation and reactive airway. Decreased steroids on 09/17/17, will decrease again 09/22. Pulmonary input appreciated. (2) Asthma ICD Codes: J45.909 - Unspecified asthma, uncomplicated Status: Acute Plan: continue current tx. No wheeze today. Appreciate pulm input. Steroids have been reduced. (3) Alcohol withdrawal delirium ICD Codes: F10.231 - Alcohol dependence with withdrawal delirium Status: Acute Plan: Still with periods of agitation and risk for aspiration. NGT in place now. Tolerating tube feed better now with much less residual. Goal rate is 60. will advance as tolerated. Good UOP. Increased free water due to slight hypernatremia. Medication list reviewed and adjusted for oral intake as appropriate. Decreased Librium dosing 09/21. MARQUEZ. Reportedly had significant w/d in the past after he had knee surgery per family report. Will check noncontrast CT brain as it seems to be taking prolonged time to get back to baseline. (4) Chronic alcohol abuse ICD Codes: F10.10 - Alcohol abuse, uncomplicated Status: Chronic Plan: Discussed need for cessation. Patient a bit more coherent last 3 days. (5) Paroxysmal atrial fibrillation ICD Codes: I48.0 - Paroxysmal atrial fibrillation Status: Chronic Plan: converted Lovenox back to Eliquis as he has NG tube in place now. Multaq resumed September 19. We will try to keep potassium above 4. Discharge Planning will d/c when more stable from EtOH w/d Problem Qualifiers (1) Asthma: Qualified Codes: J45.901 - Unspecified asthma with (acute) exacerbation Melecio Kelly MD PhD Sep 22, 2017 06:57
[2017-09-22] MEDS ORDERED: POTASSIUM CHLORIDE 25 MEQ EFFERVESCENT TAB PO ONE (07:00)
[2017-09-22] MEDS: LEVOFLOXACIN ORAL SOLN 2500 MG/100 ML BOTTLE NG SCH ×2 (09:00→12:47)
[2017-09-22] MEDS: predniSONE 20 MG TAB PO SCH (12:35)
[2017-09-22] MEDS: amLODIPine BESYLATE 5 MG TAB NG SCH (12:36)
[2017-09-22] MEDS: LACTOBACILLUS ACIDOPHILUS TAB PO SCH ×2 (12:37→20:30)
[2017-09-22] MEDS: APIXABAN 2.5 MG TABLET PO SCH ×2 (12:38→20:30)
[2017-09-22] MEDS: THIAMINE HCL 100 MG TAB PO SCH (12:39)
[2017-09-22] MEDS: DRONEDARONE 400 MG TAB PO SCH ×2 (12:45→20:30)
[2017-09-22] MEDS: FAMOTIDINE 40 MG/5 ML LIQ 50 ML BTL NG SCH ×2 (12:48→20:30)
--- NOTE | 2017-09-22 16:42 | HHI.PR ---
Subjective Remarks 76 YOWM with Br Asthma, Flu, Pn, Aspiration noted food particles on coughing, suctioning Pt Confused, gets agitated calmer today on Librium Required Ativan Last night Restless, keeps moving extremities, does't open eyes at BS Objective Vital Signs Vital Signs Date Time Temp Pulse Resp B/P (MAP) Pulse Ox O2 Delivery O2 Flow Rate FiO2 09/22/17 10:37 95 21 09/22/17 06:01 62 18 90/56 (67) 95 09/22/17 06:00 62 09/22/17 05:01 62 18 97/55 (69) 97 09/22/17 04:01 97.8 62 17 103/61 (75) 94 09/22/17 04:00 62 09/22/17 03:01 60 18 102/51 (68) 95 09/22/17 02:01 64 17 107/61 (76) 95 09/22/17 02:00 64 09/22/17 01:01 68 16 105/62 (76) 93 09/22/17 00:01 97.6 64 26 104/62 (76) 94 09/22/17 00:00 66 09/21/17 23:01 70 23 164/84 (110) 96 09/21/17 22:01 60 19 135/64 (87) 95 09/21/17 22:00 62 09/21/17 21:10 98 21 09/21/17 21:01 74 17 163/77 (105) 97 09/21/17 20:01 97.8 72 29 150/77 (101) 96 09/21/17 20:00 70 09/21/17 19:01 72 25 157/64 (95) 97 09/21/17 19:00 Room Air 09/21/17 18:01 74 23 144/73 (96) 97 09/21/17 17:10 76 34 140/68 (92) 97 09/21/17 17:01 76 26 184/69 (107) 98 I/O 09/21/17 09/21/17 09/21/17 09/22/17 09/22/17 09/22/17 07:00 15:00 23:00 07:00 15:00 23:00 Intake Total 1080 ml 100 ml 907 ml Output Total 2200 ml 1000 ml 650 ml Balance -1120 ml 100 ml -93 ml -650 ml IV Total 200 ml 100 ml Tube Feeding 680 ml 707 ml Other 200 ml 200 ml Output Urine Total 2200 ml 1000 ml 650 ml # Bowel Movements 2 Result Diagram: 09/18/17 0450 09/22/17 0415 Objective Remarks GENERAL: Elderly male, mild sob, congested SKIN: Warm and dry. HEAD: Normocephalic. EYES: No scleral icterus. No injection or drainage. NECK: Supple, trachea midline. No JVD or lymphadenopathy. CARDIOVASCULAR: Regular rate and rhythm without murmurs, gallops, or rubs. RESPIRATORY: Breath sounds equal bilaterally. No accessory muscle use. Scattered coarse rhonchi GASTROINTESTINAL: Abdomen soft, non-tender, nondistended. MUSCULOSKELETAL: No cyanosis, or edema. BACK: Nontender without obvious deformity. No CVA tenderness. A/P Assessment and Plan Pneumonia Aspiration Bronchial asthma Alcohal withdrawl AF HTN PLAN: Cont Abx Aerosol nbes Librium for alcohal withdrawl Supplement 02 Tube feeding DW and Family at BS Beltran Naylor MD Sep 22, 2017 16:42
[2017-09-22] MEDS: LORazepam 2 MG/ML VIAL IV PUSH PRN ×2 (17:43→21:03)
--- NOTE | 2017-09-22 22:05 | RADRPT ---
EXAM DATE/TIME: 09/22/2017 21:31 [facility] COMPARISON: No previous studies available for comparison. INDICATIONS : Encephalopathy. RADIATION DOSE: 58.56 CTDIvol (mGy) MEDICAL HISTORY : Cardiovascular disease. Cardiovascular disease Asthma. SURGICAL HISTORY : None. ENCOUNTER: Initial ACUITY: 1 day PAIN SCALE: 5/10 LOCATION: cranial TECHNIQUE: Multiple contiguous axial images were obtained of the head. Using automated exposure control and adj ustment of the mA and/or kV according to patient size, radiation dose was kept as low as reasonably a chievable to obtain optimal diagnostic quality images. DICOM format image data is available electro nically for review and comparison. FINDINGS: CEREBRUM: The ventricles are normal for age. No evidence of midline shift, mass lesion, hemorrhage or acute in farction. No extra-axial fluid collections are seen. POSTERIOR FOSSA: The cerebellum and brainstem are intact. The 4th ventricle is midline. The cerebellopontine angle i s unremarkable. EXTRACRANIAL: The visualized portion of the orbits is intact. SKULL: The calvaria is intact. No evidence of skull fracture. CONCLUSION: 1. No acute intracranial abnormalities. Terrance Murillo MD on September 22, 2017 at 22:02 Board Certified Radiologist. This report was verified electronically.
[2017-09-23] VITALS (82 sets, daily range): BP systolic 65–170; BP diastolic 40–101; PULSE 64–98; RESP 12–49; TEMP 96.9–99.9; O2SAT 91–99
[2017-09-23] MEDS: ENALAPRILAT 1.25 MG/ML VIAL IV PUSH PRN (03:09)
[2017-09-23 06:54] LABS: AUTOMATED NEUTROPHIL # 18.5 TH/MM3 (1.8-7.7); BASOPHIL # 0.2 TH/MM3 (0-0.2); BASOPHIL % 1.1 % (0.0-2.0); EOSINOPHIL # 0.1 TH/MM3 (0-0.4); EOSINOPHIL % 0.4 % (0.0-4.0); HEMATOCRIT 40.8 % (39.0-51.0); HEMOGLOBIN 13.2 GM/DL (13.0-17.0); LYMPH % 7.3 % (9.0-44.0); LYMPHOCYTE # 1.5 TH/MM3 (1.0-4.8); MEAN CELL VOLUME 87.7 FL (80.0-100.0); MEAN CORPUSCULAR HEMOGLOBIN 28.4 PG (27.0-34.0); MEAN CORPUSCULAR HGB CONC 32.4 % (32.0-36.0); MEAN PLATELET VOLUME 8.7 FL (7.0-11.0); MONO % 3.9 % (0.0-8.0); MONOCYTE # 0.8 TH/MM3 (0-0.9); NEUT % 87.3 % (16.0-70.0); PLATELET COUNT 332 TH/MM3 (150-450); RED BLOOD COUNT 4.65 MIL/MM3 (4.50-5.90); RED CELL DISTRIBUTION WIDTH 16.7 % (11.6-17.2); WHITE BLOOD COUNT 21.1 TH/MM3 (4.0-11.0)
[2017-09-23 07:11] LABS: CHLORIDE 109 MEQ/L (98-107); SODIUM (NA) 148 MEQ/L (136-145)
[2017-09-23 07:18] LABS: ALBUMIN 2.5 GM/DL (3.4-5.0); CALCIUM 8.6 MG/DL (8.5-10.1)
[2017-09-23 07:19] LABS: BICARBONATE 29.8 MEQ/L (21.0-32.0); BLOOD UREA NITROGEN 34 MG/DL (7-18); GLUCOSE,RANDOM 80 MG/DL (74-106)
[2017-09-23 07:22] LABS: ALT (GPT) 132 U/L (12-78); AST (GOT) 67 U/L (15-37); GLOMERULAR FILTRATION RATE 65 ML/MIN (>89)
[2017-09-23 07:25] LABS: ALKALINE PHOSPHATASE 68 U/L (45-117); TOTAL BILIRUBIN ADULT 0.9 MG/DL (0.2-1.0)
[2017-09-23] MEDS: LEVOFLOXACIN ORAL SOLN 2500 MG/100 ML BOTTLE NG SCH (09:54)
[2017-09-23] MEDS: FAMOTIDINE 40 MG/5 ML LIQ 50 ML BTL NG SCH ×2 (09:54→20:13)
[2017-09-23] MEDS: LACTOBACILLUS ACIDOPHILUS TAB PO SCH ×2 (09:55→20:12)
[2017-09-23] MEDS: APIXABAN 2.5 MG TABLET PO SCH ×2 (09:55→20:12)
[2017-09-23] MEDS: DRONEDARONE 400 MG TAB PO SCH ×2 (09:56→20:12)
[2017-09-23] MEDS: predniSONE 20 MG TAB PO SCH (09:56)
[2017-09-23] MEDS: THIAMINE HCL 100 MG TAB PO SCH (09:56)
[2017-09-23] MEDS: amLODIPine BESYLATE 5 MG TAB NG SCH (09:56)
--- NOTE | 2017-09-23 10:46 | RADRPT ---
EXAM DATE/TIME: 09/23/2017 09:47 [facility] COMPARISON: CHEST SINGLE AP, September 14, 2017, 9:55. INDICATIONS : Congestion MEDICAL HISTORY : Hypertension. Cardiovascular disease. SURGICAL HISTORY : None. ENCOUNTER: Subsequent ACUITY: 1 week PAIN SCORE: Non-responsive. LOCATION: Bilateral chest FINDINGS: A single view of the chest demonstrates the lungs to be symmetrically aerated without evidence of mas s, infiltrate or effusion. There is an orogastric tube overlying the stomach. The cardiomediastinal contours are unremarkable. Osseous structures are intact. CONCLUSION: No evidence of acute cardiopulmonary disease. The previously noted airspace opacity overlying the lef t hemithorax on the exam of September 14, 2017 does not persist.. Brigitte Sanchez MD on September 23, 2017 at 10:43 Board Certified Radiologist. This report was verified electronically.
--- NOTE | 2017-09-23 11:54 | HHI.PR ---
Subjective Remarks Patient this am more lethargic ,gurgling and became hypotensive [place] [address] <family concerned will consult Bucket Pusher for input start IV bolus fluid chest xray at bedside unremarkable as was CT head patient did get librium for hx DT,s does move arms but no verbal response. Objective Vitals GENERAL: SKIN: Warm and dry. HEAD: Atraumatic. Normocephalic. EYES: Pupils equal and round. No scleral icterus. No injection or drainage. ENT: No nasal bleeding or discharge. Mucous membranes pink and moist. NECK: Trachea midline. No JVD. CARDIOVASCULAR: IREGR rate and rhythm. RESPIRATORY: No accessory muscle use. Clear to auscultation. Breath sounds equal bilaterally. GASTROINTESTINAL: Abdomen soft, non-tender, nondistended. Hepatic and splenic margins not palpable. MUSCULOSKELETAL: Extremities without clubbing, cyanosis, or edema. No obvious deformities. NEUROLOGICAL: not alert moves arms randomly unable to follow any commands but able to follow command to hold thomas Vital Signs Date Time Temp Pulse Resp B/P (MAP) Pulse Ox O2 Delivery O2 Flow Rate FiO2 09/23/17 10:45 82 31 79/48 (58) 09/23/17 10:37 82 24 65/40 (48) 09/23/17 10:35 86 21 66/42 (50) 93 09/23/17 10:32 84 12 81/43 (56) 96 09/23/17 10:30 84 17 75/45 (55) 09/23/17 10:29 84 23 82/57 (65) 09/23/17 10:02 92 24 92/55 (67) 92 09/23/17 10:00 88 25 90/61 (71) 92 09/23/17 09:00 99.9 88 29 117/66 (83) 97 09/23/17 09:00 88 29 117/66 (83) 97 09/23/17 08:37 98 09/23/17 08:00 88 19 115/67 (83) 96 09/23/17 07:00 98 23 146/78 (100) 94 09/23/17 06:35 96 27 149/83 (105) 98 09/23/17 06:00 92 09/23/17 05:00 80 13 120/70 (87) 98 09/23/17 04:00 82 09/23/17 04:00 97.8 82 22 157/68 (97) 97 09/23/17 03:00 86 32 170/81 (110) 97 09/23/17 02:00 74 09/23/17 02:00 74 32 143/83 (103) 96 09/23/17 01:00 72 21 120/83 (95) 94 09/23/17 00:00 68 09/23/17 00:00 98.0 68 39 98/67 (77) 94 09/22/17 22:00 72 09/22/17 21:01 98.6 82 23 159/99 (119) 99 09/22/17 20:39 94 21 09/22/17 20:00 82 09/22/17 19:01 76 26 149/75 (99) 97 09/22/17 19:00 Room Air 09/22/17 18:01 78 09/22/17 18:01 78 16 145/70 (95) 98 09/22/17 17:01 78 19 148/81 (103) 98 09/22/17 17:00 78 09/22/17 16:01 98.7 84 32 159/83 (108) 96 09/22/17 16:00 82 09/22/17 15:01 76 09/22/17 15:01 76 17 149/87 (107) 99 09/22/17 14:01 74 16 156/86 (109) 99 09/22/17 14:00 74 09/22/17 13:01 80 30 146/67 (93) 88 09/22/17 13:00 82 09/22/17 12:01 98.2 80 19 150/85 (106) 98 09/22/17 12:01 80 Result Diagram: 09/23/17 0544 09/23/17 0544 Imaging Last Impressions Chest X-Ray 09/14/17 0000 Signed Impressions: Service Date/Time: August 09:55 - CONCLUSION: Left lung density. Recommend CT chest for further evaluation Jayant Soto MD Chest CT 09/14/17 0000 Signed Impressions: Service Date/Time: August 13:00 - CONCLUSION: Small nodular areas of airspace disease both in the lingula and the left lung base. Right lung is relatively clear. The mediastinum is unremarkable. Adrian Martinez MD Last Impressions Chest X-Ray 09/11/17 1605 Signed Impressions: Service Date/Time: Monday, September 11, 2017 16:11 - CONCLUSION: No acute disease. No significant change has occurred. Gregory Campbell MD A/P Problem List: (1) Influenza ICD Codes: J11.1 - Influenza due to unidentified influenza virus with other respiratory manifestations Status: Acute Plan: Influenza A with secondary pneumonia. No recent fever. Continue supportive care. Respiratory status is improved greatly, but he has dry cough likely a/w NGT irritation and reactive airway. Decreased steroids on 09/17/17, will decrease again 09/22. Pulmonary input appreciated. (2) Asthma ICD Codes: J45.909 - Unspecified asthma, uncomplicated Status: Acute Plan: continue current tx. No wheeze today. Appreciate pulm input. Steroids have been reduced. (3) Alcohol withdrawal delirium ICD Codes: F10.231 - Alcohol dependence with withdrawal delirium Status: Acute Plan: Still with periods of agitation and risk for aspiration. NGT in place now. Tolerating tube feed better now with much less residual. Goal rate is 60. will advance as tolerated. Good UOP. Increased free water due to slight hypernatremia. Medication list reviewed and adjusted for oral intake as appropriate. Decreased Librium dosing 09/21. MARQUEZ. Reportedly had significant w/d in the past after he had knee surgery per family report. Will check noncontrast CT brain as it seems to be taking prolonged time to get back to baseline. (4) Chronic alcohol abuse ICD Codes: F10.10 - Alcohol abuse, uncomplicated Status: Chronic Plan: Discussed need for cessation. Patient a bit more coherent last 3 days. but this am not (5) Paroxysmal atrial fibrillation ICD Codes: I48.0 - Paroxysmal atrial fibrillation Status: Chronic Plan: converted Lovenox back to Eliquis as he has NG tube in place now. Multaq resumed September 19. We will try to keep potassium above 4. (6) Hypotension ICD Codes: I95.9 - Hypotension, unspecified Status: Acute Plan: will try IV bolus and ask product manufacturing professional input also WBC increased will change antibiotic to IV and await input. Discharge Planning will d/c when more stable from EtOH w/d Problem Qualifiers (1) Asthma: Qualified Codes: J45.901 - Unspecified asthma with (acute) exacerbation Carlos Littlejohn MD Sep 23, 2017 11:54
[2017-09-23] MEDS ORDERED: SODIUM CHLOR 0.9% 1000 ML INJ 1,000 ML IV ONE (12:15)
[2017-09-23] MEDS ORDERED: Vancomycin Consult Pharmacy 1 EA OTHER SCH (12:15)
[2017-09-23] MEDS ORDERED: VANCOMYCIN INJ 1,000 MG in SODIUM CHLOR 0.9% 250 ML INJ 250 ML IV ONE (13:00)
[2017-09-23 13:21] LABS: AUTOMATED NEUTROPHIL # 18.8 TH/MM3 (1.8-7.7); BASOPHIL # 0.2 TH/MM3 (0-0.2); BASOPHIL % 0.7 % (0.0-2.0); EOSINOPHIL # 0.1 TH/MM3 (0-0.4); EOSINOPHIL % 0.4 % (0.0-4.0); HEMATOCRIT 39.4 % (39.0-51.0); HEMOGLOBIN 12.9 GM/DL (13.0-17.0); LYMPH % 3.5 % (9.0-44.0); LYMPHOCYTE # 0.8 TH/MM3 (1.0-4.8); MEAN CORPUSCULAR HEMOGLOBIN 28.9 PG (27.0-34.0); MEAN CORPUSCULAR HGB CONC 32.8 % (32.0-36.0); MEAN PLATELET VOLUME 8.4 FL (7.0-11.0); MONO % 7.2 % (0.0-8.0); MONOCYTE # 1.5 TH/MM3 (0-0.9); NEUT % 88.2 % (16.0-70.0); PLATELET COUNT 294 TH/MM3 (150-450); RED BLOOD COUNT 4.47 MIL/MM3 (4.50-5.90); RED CELL DISTRIBUTION WIDTH 16.7 % (11.6-17.2); WHITE BLOOD COUNT 21.4 TH/MM3 (4.0-11.0)
[2017-09-23 13:23] LABS: BLOOD, URINE LARGE (NEG); GLUCOSE,URINE NEG (NEG); KETONE, URINE NEG (NEG); NITRITE,URINE NEG (NEG); URINE LEUKOCYTE ESTERASE TRACE (NEG)
[2017-09-23 13:25] LABS: BILIRUBIN, URINE NEG (NEG)
[2017-09-23] MEDS: DEXT 5%-NACL 0.45% 1000 ML INJ 1,000 ML IV SCH (13:26)
[2017-09-23 13:29] LABS: CHLORIDE 111 MEQ/L (98-107); SODIUM (NA) 148 MEQ/L (136-145)
[2017-09-23 13:32] LABS: CALCIUM 8.3 MG/DL (8.5-10.1)
[2017-09-23 13:33] LABS: URINE COLOR AMBER (YELLW/STRAW)
[2017-09-23 13:33] LABS: ALBUMIN 2.3 GM/DL (3.4-5.0); BLOOD UREA NITROGEN 36 MG/DL (7-18); GLUCOSE,RANDOM 90 MG/DL (74-106); MAGNESIUM 2.6 MG/DL (1.5-2.5)
[2017-09-23 13:34] LABS: RBC, URINE INNUM /hpf (0-3)
[2017-09-23 13:34] LABS: INTERNATIONAL NORMALIZED RATIO 1.1 RATIO; PROTHROMBIN TIME - PATIENT 11.3 SEC (9.8-11.6)
[2017-09-23 13:35] LABS: AMORPHOUS SEDIMENT, URINE FEW
[2017-09-23] MEDS: LEVOFLOXACIN 500 MG PREMIX INJ 100 ML IV SCH (13:35)
[2017-09-23 13:36] LABS: ALT (GPT) 168 U/L (12-78); AST (GOT) 101 U/L (15-37); GLOMERULAR FILTRATION RATE 53 ML/MIN (>89); PHOSPHORUS 2.9 MG/DL (2.5-4.9)
[2017-09-23 13:38] LABS: TOTAL BILIRUBIN ADULT 1.3 MG/DL (0.2-1.0); TOTAL PROTEIN 6.6 GM/DL (6.4-8.2)
[2017-09-23 13:39] LABS: ALKALINE PHOSPHATASE 79 U/L (45-117)
--- NOTE | 2017-09-23 15:30 | RADRPT ---
EXAM DATE/TIME: 09/23/2017 14:12 [facility] COMPARISON: No previous studies available for comparison. INDICATIONS : Increased lab values. MEDICAL HISTORY : Hypertension. Gastroesophageal reflux disease. Bilateral hearing aids. Anticoagulant therapy, eliqu is. Atrial fibrillation. Asthma. Skin cancer. SURGICAL HISTORY : Right knee replacement. ENCOUNTER: Initial ACUITY: 1 day PAIN SCORE: Nonresponsive. LOCATION: Bilateral upper quadrant MEASUREMENTS: LIVER: 14.5 cm length COMMON DUCT: 3 mm RIGHT KIDNEY: 11.3 x 4.4 x 5.6 cm SPLEEN: 10.0 cm length FINDINGS: LIVER: Normal echotexture without focal lesion or ductal dilatation. COMMON DUCT: No intraluminal mass or stone visualized. GALLBLADDER: Contains no stones, demonstrates no wall thickening or pericholecystic fluid. PANCREAS: The visualized portions are within normal limits. RIGHT KIDNEY: No hydronephrosis, stone or mass. SPLEEN: No focal lesion. CONCLUSION: Right upper quadrant abdominal ultrasound within normal limits. Vinod Pelletier MD on September 23, 2017 at 15:27 Board Certified Radiologist. This report was verified electronically.
[2017-09-23] MEDS: PIPERACIL-TAZO 4.5 GM PREMIX 100 ML IV SCH ×2 (16:02→18:30)
--- NOTE | 2017-09-23 16:11 | RADRPT ---
EXAM DATE/TIME: 09/23/2017 15:21 [place] COMPARISON: No previous studies available for comparison. INDICATIONS : Encephalopathy. MEDICAL HISTORY : Hypertension. SURGICAL HISTORY : Total knee replacement, right. ENCOUNTER: Initial ACUITY: 1 day PAIN SCORE: 0/10 LOCATION: cranial TECHNIQUE: Multiplanar, multisequence MRI of the brain was performed without contrast. FINDINGS: CEREBRUM: Diffuse prominence of ventricles, sulci, and cisterns indicating diffuse atrophy. No evidence of mid line shift, mass lesion, hemorrhage or acute infarction. No extraaxial fluid collections are seen. The pituitary gland and suprasellar cistern are normal in configuration. WHITE MATTER: No significant signal abnormalities are seen in the white matter. POSTERIOR FOSSA: The cerebellum and brainstem are intact. The 4th ventricle is midline. The cerebellopontine angle is unremarkable. The cerebellar tonsils are normal in position. DIFFUSION IMAGING: No focal areas of restricted diffusion are seen. No evidence of acute infarction. EXTRACRANIAL: The visualized portions of the orbits and paranasal sinuses are unremarkable. CONCLUSION: Diffuse atrophy. No acute intracranial findings. Vinod Pelletier MD on September 23, 2017 at 16:06 Board Certified Radiologist. This report was verified electronically.
[2017-09-23] MEDS ORDERED: GLUCAGON 1 MG/ML VIAL OTHER PRN (16:45)
[2017-09-23] MEDS: INSULIN NovoLIN REGULAR SUPPLEMENTAL SCALE SQ SCH ×2 (16:45→20:14)
[2017-09-23] MEDS ORDERED: DEXTROSE 50% IN WATER 50 ML VIAL(D50) IV PUSH PRN (16:45)
[2017-09-23] MEDS ORDERED: RESP: ALBUTEROL 2.5 MG/IPRATROPIUM 0.5 MG NEB (PRN) NEB (16:45)
--- NOTE | 2017-09-23 17:41 | PD.CONS ---
History of Present Illness Service ID CONSULT DR REYNOLDS Consult Requested By PNEUMONIA Primary Care Physician No Primary Care Physician Diagnoses: (1) Back pain (2) Influenza (3) Leukocytosis (4) Respiratory failure History of Present Illness THIS IS A 76 YR OLD MAN ADMITTED WITH SHORTNESS OF BREATH AND ENCEPHALAPATHY. HE HAS A H/O ETOH USE AND WAS SEEN IN ER 09/06/17 AND DIAGNOSED WITH INFULENZA A/ B AND WAS SENT HOME WITH ORDERS TO HYDRATE AND REST. HE RETURNED WITH DECLINE IN RESPIRATORY AND MENTAL STATUS09/11/17. ACCORDING TO NURSING HE ASPIRATED ON HIS MEAL AND HIS CONDITION WORSENED. HE WAS STARTED ON ZOSYN/VANCOMYCIN/ LEVAQUIN 09/23 AND ID CONSULTED. HE WAS SEEN BY NEUROLOGY TODAY. CT SCAN OF HEAD AND MRI HAVE BEEN NEGATIVE. CHEST SCAN / XRAYS SHOW INFILTRATES. HIS FAMILY IS AT THE BEDSIDE AND STATE HE WAS INDEPENDENT UP UNTIL THIS EPISODE. RECENTLY HAD RTKA A FEW MONTHS AGO AND DID HAVE A PERIOD WHERE HE WAS LETHARGIC AND DECLINED MENTAL STATUS HOWEVER HE REBOUNDED. HE HAD NO POST OP COMPLICATION. Review of Systems ROS Limitations: Altered Mental Status Constitutional: COMPLAINS OF: Fatigue, DENIES: Fever Musculoskeletal: DENIES: Joint Swelling Integumentary: DENIES: Pruritus Neurologic: DENIES: Headache, Localized weakness Past Family Social History Allergies: Coded Allergies: No Known Allergies (Verified Adverse Reaction, Unknown, 09/11/17) Past Medical History ETOH USE ARTHRITIS A FIB Past Surgical History KNEE SURGERY IN 2017 Family History COPD CAD Social History NO TOBACCO ABUSE ETOH USE DAILY Physical Exam Vital Signs Vital Signs Date Time Temp Pulse Resp B/P (MAP) Pulse Ox O2 Delivery O2 Flow Rate FiO2 09/23/17 13:36 98.5 09/23/17 13:30 72 20 91/50 (64) 94 09/23/17 13:20 78 24 115/67 (83) 93 09/23/17 13:10 74 34 136/66 (89) 09/23/17 13:05 70 24 09/23/17 13:00 78 30 103/72 (82) 09/23/17 12:50 99.9 74 30 119/95 (103) 09/23/17 12:50 74 30 119/95 (103) 09/23/17 12:40 74 30 117/70 (86) 09/23/17 12:30 74 24 116/65 (82) 09/23/17 12:20 72 26 111/62 (78) 09/23/17 12:10 70 22 121/70 (87) 94 09/23/17 12:00 72 27 124/62 (82) 97 09/23/17 11:50 76 24 118/67 (84) 95 09/23/17 11:45 78 31 99 09/23/17 11:40 78 21 112/60 (77) 99 09/23/17 11:30 78 18 100/64 (76) 98 09/23/17 11:21 76 23 84/60 (68) 96 09/23/17 11:15 80 25 99 09/23/17 11:00 80 24 96 09/23/17 10:59 80 23 75/50 (58) 95 09/23/17 10:45 82 31 79/48 (58) 09/23/17 10:45 82 31 09/23/17 10:37 82 24 65/40 (48) 09/23/17 10:35 86 21 66/42 (50) 93 09/23/17 10:32 84 12 81/43 (56) 96 09/23/17 10:30 84 17 75/45 (55) 09/23/17 10:29 84 23 82/57 (65) 09/23/17 10:02 92 24 92/55 (67) 92 09/23/17 10:00 88 25 90/61 (71) 92 09/23/17 09:00 99.9 88 29 117/66 (83) 97 09/23/17 09:00 88 29 117/66 (83) 97 09/23/17 08:37 98 09/23/17 08:00 88 19 115/67 (83) 96 09/23/17 07:00 98 23 146/78 (100) 94 09/23/17 06:35 96 27 149/83 (105) 98 09/23/17 06:00 92 09/23/17 05:00 80 13 120/70 (87) 98 09/23/17 04:00 82 09/23/17 04:00 97.8 82 22 157/68 (97) 97 09/23/17 03:00 86 32 170/81 (110) 97 09/23/17 02:00 74 09/23/17 02:00 74 32 143/83 (103) 96 09/23/17 01:00 72 21 120/83 (95) 94 09/23/17 00:00 68 09/23/17 00:00 98.0 68 39 98/67 (77) 94 09/22/17 22:00 72 09/22/17 21:01 98.6 82 23 159/99 (119) 99 09/22/17 20:39 94 21 09/22/17 20:00 82 09/22/17 19:01 76 26 149/75 (99) 97 09/22/17 19:00 Room Air 09/22/17 18:01 78 09/22/17 18:01 78 16 145/70 (95) 98 Physical Exam GENERAL: This is a obtunded chronically ill patient, in no apparent distress. SKIN: No rashes, ecchymoses or lesions. Cool and dry. HEAD: Atraumatic. Normocephalic. No temporal or scalp tenderness. EYES: Pupils equal round and reactive. Extraocular motions intact. No scleral icterus. No injection or drainage. ENT: Nose without bleeding, purulent drainage or septal hematoma. Throat without erythema, tonsillar hypertrophy or exudate. Uvula midline. Airway patent. NECK: Trachea midline. No JVD or lymphadenopathy. Supple, nontender, no meningeal signs. CARDIOVASCULAR: Regular rate and rhythm without murmurs, gallops, or rubs. RESPIRATORY: Coarse breath sounds with rhonchi GASTROINTESTINAL: Abdomen soft, non-tender, nondistended. No hepato-splenomegaly , or palpable masses. No guarding. MUSCULOSKELETAL: Extremities without clubbing, cyanosis, or edema. No joint tenderness, effusion, or edema noted. No calf tenderness. Negative Homans sign bilaterally. NEUROLOGICAL: . weak, obtunded not verbal moving edtremities Laboratory Laboratory Tests Test 09/23/17 05:44 09/23/17 12:18 09/23/17 12:50 09/23/17 12:59 White Blood Count 21.1 21.4 Red Blood Count 4.65 4.47 Hemoglobin 13.2 12.9 Hematocrit 40.8 39.4 Mean Corpuscular Volume 87.7 88.0 Mean Corpuscular Hemoglobin 28.4 28.9 Mean Corpuscular Hemoglobin Concent 32.4 32.8 Red Cell Distribution Width 16.7 16.7 Platelet Count 332 294 Mean Platelet Volume 8.7 8.4 Neutrophils (%) (Auto) 87.3 88.2 Lymphocytes (%) (Auto) 7.3 3.5 Monocytes (%) (Auto) 3.9 7.2 Eosinophils (%) (Auto) 0.4 0.4 Basophils (%) (Auto) 1.1 0.7 Neutrophils # (Auto) 18.5 18.8 Lymphocytes # (Auto) 1.5 0.8 Monocytes # (Auto) 0.8 1.5 Eosinophils # (Auto) 0.1 0.1 Basophils # (Auto) 0.2 0.2 CBC Comment AUTO DIFF AUTO DIFF Differential Comment AUTO DIFF CONFIRMED AUTO DIFF CONFIRMED Blood Urea Nitrogen 34 36 Creatinine 1.10 1.30 Random Glucose 80 90 Total Protein 7.0 6.6 Albumin 2.5 2.3 Calcium Level 8.6 8.3 Alkaline Phosphatase 68 79 Aspartate Amino Transf (AST/SGOT) 67 101 Alanine Aminotransferase (ALT/SGPT) 132 168 Total Bilirubin 0.9 1.3 Sodium Level 148 148 Potassium Level 3.4 4.0 Chloride Level 109 111 Carbon Dioxide Level 29.8 30.0 Anion Gap 9 7 Estimat Glomerular Filtration Rate 65 53 Magnesium Level 2.6 2.6 Blood Gas Puncture Site RT RADIAL Blood Gas Patient Temperature 37.0 Blood Gas HCO3 27 Blood Gas Base Excess 3.6 Blood Gas Oxygen Saturation 93 Arterial Blood pH 7.48 Arterial Blood Partial Pressure CO2 37 Arterial Blood Partial Pressure O2 72 Arterial Blood Oxygen Content 15.9 Arterial Blood Carboxyhemoglobin 1.2 Arterial Blood Methemoglobin 0.9 Blood Gas Hemoglobin 12.2 Oxygen Delivery Device ROOM AIR Blood Gas Inspired Oxygen 21 Urine Collection Type CATH Urine Color PRAMOD Urine Turbidity MOD Urine pH 8.0 Urine Specific [place] 1.016 Urine Protein 100 Urine Glucose (UA) NEG Urine Ketones NEG Urine Occult Blood LARGE Urine Nitrite NEG Urine Bilirubin NEG Urine Leukocyte Esterase TRACE Urine RBC INNUM Urine WBC 9-14 Urine Amorphous Sediment FEW Microscopic Urinalysis Comment CATH-CULTURE IND Urine Collection Time 1250 Prothrombin Time 11.3 Prothromb Time International Ratio 1.1 Phosphorus Level 2.9 Ammonia LESS THAN 10 Date/Time Source Procedure Growth Status 09/23/17 13:10 Blood Peripheral Aerobic Blood Culture Pending Received 09/23/17 13:10 Blood Peripheral Anaerobic Blood Culture Pending Received 09/23/17 12:50 Nasal Washing Influenza Types A,B Antigen (RAOUL) - Final NEGATIVE FOR FLU A AND B ANTIGEN.... Complete 09/23/17 12:50 Urine Catheterized Urine Urine Culture Pending Received Result Diagram: 09/23/17 1259 09/23/17 1259 Assessment and Plan Problem List: (1) Influenza ICD Codes: J11.1 - Influenza due to unidentified influenza virus with other respiratory manifestations Status: Acute (2) Alcohol withdrawal ICD Codes: F10.239 - Alcohol dependence with withdrawal, unspecified (3) Alcohol withdrawal delirium ICD Codes: F10.231 - Alcohol dependence with withdrawal delirium Status: Acute (4) Chronic alcohol abuse ICD Codes: F10.10 - Alcohol abuse, uncomplicated Status: Chronic Plan: continue levaquin / vancomycin/ zosyn pt may have aspirated pulmonary following cultures reviewed prognosis guarded Problem Qualifiers (1) Respiratory failure: Maeve Currie Sep 23, 2017 17:41
[2017-09-23] MEDS: MULTIVITAMIN TAB PO SCH (18:38)
[2017-09-23] MEDS: FOLIC ACID 1 MG TAB PO SCH (18:38)
[2017-09-23] MEDS: RESP: ALBUTEROL 2.5 MG/IPRATROPIUM 0.5 MG NEB (SCH) NEB ×2 (19:43→23:11)
--- NOTE | 2017-09-23 19:44 | HHI.PR ---
Subjective Remarks 76 YOWM with Br Asthma, Flu, Pn, Aspiration noted food particles on coughing, suctioning calmer today on Librium Restless, keeps moving extremities, does't open eyes Family at BS Objective Vital Signs Vital Signs Date Time Temp Pulse Resp B/P (MAP) Pulse Ox O2 Delivery O2 Flow Rate FiO2 09/23/17 19:01 74 19 113/60 (77) 91 09/23/17 18:46 82 24 143/69 (93) 91 09/23/17 18:31 82 35 147/67 (93) 92 09/23/17 18:16 78 27 136/71 (92) 92 09/23/17 18:01 72 14 126/65 (85) 98 09/23/17 18:00 72 09/23/17 17:46 74 28 133/69 (90) 93 09/23/17 17:30 72 27 129/76 (93) 98 09/23/17 17:15 78 36 132/78 (96) 98 09/23/17 17:00 80 27 135/72 (93) 99 09/23/17 16:45 74 20 114/69 (84) 94 09/23/17 16:30 82 30 123/71 (88) 98 09/23/17 16:15 84 38 144/75 (98) 99 09/23/17 16:00 97.6 78 39 141/68 (92) 09/23/17 16:00 78 39 141/68 (92) 09/23/17 16:00 78 09/23/17 15:45 72 18 135/75 (95) 09/23/17 15:43 72 49 148/64 (92) 09/23/17 15:01 68 24 82/57 (65) 94 09/23/17 14:50 68 19 89/56 (67) 94 09/23/17 14:40 68 18 96/53 (67) 95 09/23/17 14:30 66 17 90/59 (69) 93 09/23/17 14:20 74 23 117/59 (78) 94 09/23/17 14:10 78 31 119/76 (90) 93 09/23/17 14:00 78 09/23/17 14:00 78 20 114/58 (76) 91 09/23/17 13:50 76 26 129/68 (88) 91 09/23/17 13:40 78 24 132/61 (84) 95 09/23/17 13:36 98.5 09/23/17 13:36 76 19 93 09/23/17 13:30 72 20 91/50 (64) 94 09/23/17 13:20 78 24 115/67 (83) 93 09/23/17 13:10 74 34 136/66 (89) 09/23/17 13:05 70 24 09/23/17 13:00 78 30 103/72 (82) 09/23/17 12:50 99.9 74 30 119/95 (103) 09/23/17 12:50 74 30 119/95 (103) 09/23/17 12:40 74 30 117/70 (86) 09/23/17 12:30 74 24 116/65 (82) 09/23/17 12:20 72 26 111/62 (78) 09/23/17 12:10 70 22 121/70 (87) 94 09/23/17 12:00 72 27 124/62 (82) 97 09/23/17 12:00 72 09/23/17 11:50 76 24 118/67 (84) 95 09/23/17 11:45 78 31 99 09/23/17 11:40 78 21 112/60 (77) 99 09/23/17 11:30 78 18 100/64 (76) 98 09/23/17 11:21 76 23 84/60 (68) 96 09/23/17 11:15 80 25 99 09/23/17 11:00 80 24 96 09/23/17 10:59 80 23 75/50 (58) 95 09/23/17 10:45 82 31 79/48 (58) 09/23/17 10:45 82 31 09/23/17 10:37 82 24 65/40 (48) 09/23/17 10:35 86 21 66/42 (50) 93 09/23/17 10:32 84 12 81/43 (56) 96 09/23/17 10:30 84 17 75/45 (55) 09/23/17 10:29 84 23 82/57 (65) 09/23/17 10:02 92 24 92/55 (67) 92 09/23/17 10:00 88 25 90/61 (71) 92 09/23/17 10:00 88 09/23/17 09:00 99.9 88 29 117/66 (83) 97 09/23/17 09:00 88 29 117/66 (83) 97 09/23/17 09:00 88 09/23/17 08:37 98 09/23/17 08:00 88 09/23/17 08:00 88 19 115/67 (83) 96 09/23/17 07:00 98 23 146/78 (100) 94 09/23/17 07:00 Room Air 09/23/17 06:35 96 27 149/83 (105) 98 09/23/17 06:00 92 09/23/17 05:00 80 13 120/70 (87) 98 09/23/17 04:00 82 09/23/17 04:00 97.8 82 22 157/68 (97) 97 09/23/17 03:00 86 32 170/81 (110) 97 09/23/17 02:00 74 09/23/17 02:00 74 32 143/83 (103) 96 09/23/17 01:00 72 21 120/83 (95) 94 09/23/17 00:00 68 09/23/17 00:00 98.0 68 39 98/67 (77) 94 09/22/17 22:00 72 09/22/17 21:01 98.6 82 23 159/99 (119) 99 09/22/17 20:39 94 21 09/22/17 20:00 82 I/O 09/22/17 09/22/17 09/22/17 09/23/17 09/23/17 09/23/17 07:00 15:00 23:00 07:00 15:00 23:00 Intake Total 1000 ml 435 ml Output Total 650 ml 900 ml 1050 ml Balance -650 ml -900 ml 1000 ml -615 ml IV Total 1000 ml 435 ml Output Urine Total 650 ml 900 ml 1050 ml # Bowel Movements 2 Result Diagram: 09/23/17 1259 09/23/17 1259 Objective Remarks GENERAL: Elderly male, mild sob, congested SKIN: Warm and dry. HEAD: Normocephalic. EYES: No scleral icterus. No injection or drainage. NECK: Supple, trachea midline. No JVD or lymphadenopathy. CARDIOVASCULAR: Regular rate and rhythm without murmurs, gallops, or rubs. RESPIRATORY: Breath sounds equal bilaterally. No accessory muscle use. Scattered coarse rhonchi GASTROINTESTINAL: Abdomen soft, non-tender, nondistended. MUSCULOSKELETAL: No cyanosis, or edema. BACK: Nontender without obvious deformity. No CVA tenderness. A/P Assessment and Plan Pneumonia Aspiration Bronchial asthma Alcohal withdrawl AF HTN PLAN: Cont Abx Aerosol nbes Librium for alcohal withdrawl Supplement 02 Tube feeding DW Family at [facility] Naylor MD Sep 23, 2017 19:44
--- NOTE | 2017-09-23 19:52 | MB ---
cc: FIGUEROA BRYSON MD DATE OF CONSULTATION 09/24/17 He is a 76-year-old with history of being in the hospital since 09/11. The patient apparently was diagnosed with influenza/flu syndrome back on 09/06. He has been having cough, congestion and weakness by the time he was diagnosed. He has now been in the hospital with some apparent delirium, some agitation and restlessness. The patient is a heavy drinker. He has a history of atrial fibrillation on Eliquis. MEDICATIONS Current include 1. Vancomycin. 2. Piperacillin. 3. Levaquin. 4. Prednisone. 5. Librium 10 mg three times a day. 6. Amlodipine 7. Multaq 8. Ativan on multiple occasions in the past few days. 9. Eliquis. 10. Thiamine 100 mg daily. NEUROLOGIC EXAM Showed the patient to be restless, small pupils, eyes are in primary position. The patient is pulling his leg back and forth, especially [id number]. Initially, the right leg was more functional and then the left leg was noted to be in the same frequent posturing type of movement. There is some arm movement as well. When I asked him, he did follow commands but he did not verbalize. He started gripping. His reflexes were absent throughout and plantar response is probably flexor. The neck appeared supple. IMAGING STUDIES He just came back from an MRI brain which is reported as unremarkable. LABORATORY DATA Current labs include sodium 148, potassium 4.0, BUN 36, creatinine 1.3, AST and ALT elevated to 101 and 168 respectively. White count has come up to 21.4 today, on the it was 10.9. Hemoglobin is 12.9 and platelets 294. ASSESSMENT Subacute encephalopathy. The patient has been in the hospital for several days with the flu and there has been some agitation and delirium, perhaps from a combination of flu and alcohol withdrawal, as he is a heavy drinker. On the other hand, any withdrawal should have been significantly improved by this time. He is on multiple antibiotics. He does not look like having an intracranial infectious process and today he had a max temperature of 99.9. PLAN Continue aggressive medical and pulmonary care. We will consider a lumbar puncture for additional evaluation, although again I doubt associated meningitis. He had been on anticoagulation because of the chronic atrial fibrillation. Therefore, a lumbar puncture would have to be deferred accordingly. We will discuss with the data integration architect. Thank you for asking us to assist in his care. MD FAUSTINA Hahn/ /4:32 PM /7:30 PM
--- NOTE | 2017-09-23 20:31 | MB ---
cc: EARLE BAKER DATE OF CONSULTATION 09/23/17 38 HISTORY OF PRESENT ILLNESS The patient is a 76-year-old male with a past medical history of atrial fibrillation with previous cardioversion, ETOH abuse and bronchial asthma. The patient was admitted on September 11 for signs of generalized weakness. He had a CT scan of the chest on September 14 which showed small nodular areas of airspace disease in the lingula and left lung base. He was admitted to ICU for alcohol withdrawal and was placed on CIWA protocol. During his hospital course, the patient was seen by pulmonary and GI services. Due to altered mental status, he had a CT scan of the brain on September 22 which showed no acute intracranial findings. Critical care medicine was consulted for hypotension earlier today as the patient was found to have systolic blood pressure in the 70s to 80s. He responded to fluid resuscitation and with current blood pressure 148/64 with a pulse of 72. ABG was performed on room air which showed a pH of 7.48, CO2 37, pAO2 72, bicarb of 27 and saturation 93%. He also had an MRI of the brain this afternoon which showed diffuse atrophy, otherwise, no acute intracranial findings. The patient failed speech evaluation and NG tube was inserted where nutrition support was provided via tube feeds. His laboratory data today showed worsening leukocytosis with WBC increased to 21.1 from 10.9. In addition, the patient is hypernatremic with a sodium level of 148 and increased creatinine level of 1.30 from 1.1. His ammonia level measured less than 10. Most of the history was obtained from reviewing the medical records as patient is a poor historian. He had a positive flu antigen on September 06. PAST MEDICAL HISTORY Atrial fibrillation with previous cardioversion. PAST SURGICAL HISTORY 1. Previous arthroscopy of the right knee in 1991. 2. Previous right total knee replacement May 2017. ALLERGIES None MEDICATIONS Reported medications 1. Multaq 2. Eliquis 3. Ferrous sulfate. FAMILY HISTORY COPD and coronary artery disease runs in the family. SOCIAL HISTORY Remote history of tobacco use. The patient drinks 6-8 beers a day, one to two glasses of wine a day. REVIEW OF SYSTEMS As per HPI. The rest of review of system limited as patient is a poor historian. PHYSICAL EXAMINATION GENERAL: A 76-year-old male lying in bed in no acute distress. VITAL SIGNS: Temperature 99.9, pulse of 72, blood pressure 148/64, saturation 94%. HEENT: Atraumatic, normocephalic. Pupils are equal, round, reactive to light and accommodation. Extraocular muscles intact. Conjunctivae pink. Nonicteric sclerae. Oral mucosa within normal. NECK: Supple. No JVD, adenopathy or thyromegaly. Trachea in the midline CARDIOVASCULAR: Regular rate and rhythm. Normal S1, S2. No murmurs, rubs or gallops noted. PULMONARY: Bilateral equal entry. No rales or wheezing. ABDOMEN: Soft, nontender, no distension. Positive bowel sounds. EXTREMITIES: No cyanosis, clubbing or edema. NEUROLOGIC: No focal sensory deficit. LABORATORY DATA WBC 21, hemoglobin 12.9, hematocrit 39, platelet count 294. Sodium 148, potassium 4, chloride 111, CO2 30, BUN 36, creatinine 1.30, glucose 90, total bilirubin 1.3, AST 101, ALT 168, ammonia level less than 10, albumin 2.3. ABG on room air showed a pH of 7.48, CO2 37, pAO2 72, bicarb 27, saturation 93%. IMAGING STUDIES MRI of the brain today showed diffuse atrophy, otherwise, no acute intracranial abnormalities. A chest x-ray showed no evidence of any acute cardiopulmonary disease. Ultrasound of liver within normal. CT head showed no acute intracranial abnormalities. IMPRESSION 1. Respiratory insufficiency. 2. Altered mental status. 3. ETOH abuse. 4. Leukocytosis 5. Elevated liver enzymes likely secondary to ETOH use. 6. Hyponatremia and hypokalemia. 7. History of atrial fibrillation. RECOMMENDATIONS 1. Monitor neuro status closely and avoid any sedatives. Monitor for signs of DTs. A CT and MRI of the brain showed no acute intracranial process. We will consult neurology service. His ammonia level less than 10. 2. Continue with oxygen and maintain sats above 92%. 3. Bronchodilators in the form of DuoNeb q. 6 + q. 2 p.r.n. for shortness of breath. 4. Continue with thiamine 100 mg p.o. daily. We will add multivitamins and folic acid. 5. Monitor heart rate and blood pressure closely and maintain MAP greater than 65 mmHg. The patient responded to IV hydration. We will place on maintenance fluids D5 half NS at 84 mL an hour. His lactic acid measured at 1.7 on Coby 15 and the patient's current blood pressure is 148/64. 6. Monitor renal function, Is and Os and electrolyte replacement per protocol. Continue with IV fluids as stated above. 7. Keep n.p.o. for now. Monitor LFTs. His ultrasound of liver is within normal limits. Continue with tube feeds via NG tube. He is on Jevity 1.5 with goal rate of 60 mL an hour as ordered. 8. Monitor for signs of infections which include fever and WBC. We will check blood cultures x2 sets. Urinalysis with culture if indicated. Chest x-ray earlier today showed no evidence of acute cardiopulmonary disease. We will place on broad-spectrum antibiotics in the form of vancomycin and Zosyn. Monitor for signs of infections which include fever and WBC. His initial nasal washing for influenza was positive on September 06, however, repeat nasal washing today is negative for flu A and B antigen. Infectious disease service consulted. 9. Monitor CBC 10. Sliding scale insulin with Accu-Cheks to maintain euglycemia. 11. GI prophylaxis with Pepcid 20 mg b.i.d. and DVT prophylaxis with SCDs. In addition, the patient is on Eliquis 2.5 mg p.o. b.i.d. Further recommendations will be based on hospital course. MD EFRAIN Sampson/ /4:29 PM /8:00 PM
[2017-09-24] VITALS (42 sets, daily range): BP systolic 81–178; BP diastolic 48–100; PULSE 64–120; RESP 14–56; TEMP 97–97.8; O2SAT 90–100
[2017-09-24] MEDS: INSULIN NovoLIN REGULAR SUPPLEMENTAL SCALE SQ SCH ×6 (00:17→20:08)
[2017-09-24] MEDS: DEXT 5%-NACL 0.45% 1000 ML INJ 1,000 ML IV SCH ×2 (00:20→17:35)
[2017-09-24] MEDS: PIPERACIL-TAZO 4.5 GM PREMIX 100 ML IV SCH ×4 (00:21→18:37)
[2017-09-24] MEDS: RESP: ALBUTEROL 2.5 MG/IPRATROPIUM 0.5 MG NEB (SCH) NEB ×6 (03:33→23:37)
[2017-09-24 06:38] LABS: AUTOMATED NEUTROPHIL # 17.6 TH/MM3 (1.8-7.7); BASOPHIL # 0.3 TH/MM3 (0-0.2); BASOPHIL % 1.6 % (0.0-2.0); EOSINOPHIL # 0.2 TH/MM3 (0-0.4); EOSINOPHIL % 0.9 % (0.0-4.0); HEMATOCRIT 36.7 % (39.0-51.0); HEMOGLOBIN 12.1 GM/DL (13.0-17.0); LYMPH % 7.4 % (9.0-44.0); LYMPHOCYTE # 1.6 TH/MM3 (1.0-4.8); MEAN CELL VOLUME 87.7 FL (80.0-100.0); MEAN CORPUSCULAR HEMOGLOBIN 28.8 PG (27.0-34.0); MEAN CORPUSCULAR HGB CONC 32.8 % (32.0-36.0); MEAN PLATELET VOLUME 8.5 FL (7.0-11.0); MONOCYTE # 1.3 TH/MM3 (0-0.9); NEUT % 84.1 % (16.0-70.0); PLATELET COUNT 255 TH/MM3 (150-450); RED BLOOD COUNT 4.18 MIL/MM3 (4.50-5.90); RED CELL DISTRIBUTION WIDTH 17.1 % (11.6-17.2)
[2017-09-24 06:53] LABS: CALCIUM 7.6 MG/DL (8.5-10.1)
[2017-09-24 06:54] LABS: BICARBONATE 24.8 MEQ/L (21.0-32.0); MAGNESIUM 2.4 MG/DL (1.5-2.5)
[2017-09-24 06:57] LABS: CREATININE 1.1 MG/DL (0.60-1.30)
[2017-09-24 06:58] LABS: PHOSPHORUS 3.2 MG/DL (2.5-4.9)
[2017-09-24] MEDS: VANCOMYCIN 1,000 MG/NS 250 ML IV SCH ×2 (08:00)
[2017-09-24] MEDS ORDERED: ETOMIDATE 40 MG/20 ML VIAL IV PUSH ONE (08:15)
[2017-09-24] MEDS ORDERED: ACETAMINOPHEN 650 MG/20.3 ML UDC OG-TUBE PRN (08:30)
[2017-09-24] MEDS ORDERED: RESP: ALBUTEROL 2.5 MG/3 ML NEB (PRN) NEB (08:45)
[2017-09-24] MEDS ORDERED: ROCURONIUM INJ 50 MG/5 ML VIAL IV ONE (08:45)
[2017-09-24] MEDS: APIXABAN 2.5 MG TABLET PO SCH (09:00)
[2017-09-24] MEDS: FAMOTIDINE 40 MG/5 ML LIQ 50 ML BTL NG SCH ×2 (09:00→20:00)
[2017-09-24] MEDS ORDERED: NOREPINEPHRINE-DEXTROSE DRIP 250 ML IV ONE (09:12)
[2017-09-24] MEDS ORDERED: SODIUM CHLORIDE 0.9% FLUSH 10 ML FLUSH IV FLUSH PRN (09:45)
--- NOTE | 2017-09-24 09:55 | HHI.CCPN ---
Subjective Remarks/Hospital Course The patient is a 76-year-old male with a past medical history of atrial fibrillation with previous cardioversion, ETOH abuse and bronchial asthma. The patient was admitted on September 11 for signs of generalized weakness. He had a CT scan of the chest on September 14 which showed small nodular areas of airspace disease in the lingula and left lung base. He was admitted to ICU for alcohol withdrawal and was placed on CIWA protocol. During his hospital course, the patient was seen by pulmonary and GI services. Due to altered mental status, he had a CT scan of the brain on September 22 which showed no acute intracranial findings. Critical care medicine was consulted for hypotension earlier today as the patient was found to have systolic blood pressure in the 70s to 80s. He responded to fluid resuscitation and with current blood pressure 148/64 with a pulse of 72. ABG was performed on room air which showed a pH of 7.48, CO2 37, pAO2 72, bicarb of 27 and saturation 93% . He also had an MRI of the brain this afternoon which showed diffuse atrophy, otherwise, no acute intracranial findings. The patient failed speech evaluation and NG tube was inserted where nutrition support was provided via tube feeds. His laboratory data today showed worsening leukocytosis with WBC increased to 21.1 from 10.9. In addition, the patient is hypernatremic with a sodium level of 148 and increased creatinine level of 1.30 from 1.1. His ammonia level measured less than 10. Most of the history was obtained from reviewing the medical records as patient is a poor historian. He had a positive flu antigen on September 06. Subjective 09/24: Currently afebrile. Intubated for obvious aspiration. Central line placed due to very poor IV access. Will start TPN if unable to tolerate tube feeding. Currently resting in bed Objective Vital Signs Date Time Temp Pulse Resp B/P (MAP) Pulse Ox O2 Delivery O2 Flow Rate FiO2 09/24/17 07:07 92 36 145/71 (95) 90 09/24/17 04:07 97.8 09/23/17 19:43 Nasal Cannula 2.00 09/22/17 20:39 21 Intake and Output 09/24/17 09/24/17 09/25/17 08:00 16:00 00:00 Intake Total 1233 ml Output Total 900 ml Balance 333 ml Result Diagram: 09/24/1762009/24/17620 Other Results Date/Time Source Procedure Growth Status 09/23/17 13:10 Blood Peripheral Aerobic Blood Culture Pending Received 09/23/17 13:10 Blood Peripheral Anaerobic Blood Culture Pending Received 09/23/17 12:59 Blood Peripheral Aerobic Blood Culture Pending Received 09/23/17 12:59 Blood Peripheral Anaerobic Blood Culture Pending Received 09/23/17 12:50 Nasal Washing Influenza Types A,B Antigen (RAOUL) - Final NEGATIVE FOR FLU A AND B ANTIGEN.... Complete 09/23/17 12:50 Urine Catheterized Urine Urine Culture Pending Received Microbiology Date/Time Source Procedure Growth Status 09/23/17 12:50 Nasal Washing Influenza Types A,B Antigen (RAUOL) - Final NEGATIVE FOR FLU A AND B ANTIGEN.... Complete Laboratory Tests Test 09/23/17 12:18 Blood Gas Puncture Site RT RADIAL Blood Gas Patient Temperature 37.0 Blood Gas HCO3 27 mmol/L (22-26) Blood Gas Base Excess 3.6 mmol/L (-2-2) Blood Gas Oxygen Saturation 93 % (90-100) Arterial Blood pH 7.48 (7.380-7.420) Arterial Blood Partial Pressure CO2 37 mmHg (38-42) Arterial Blood Partial Pressure O2 72 mmHg (61-120) Arterial Blood Oxygen Content 15.9 Vol % (12.0-20.0) Arterial Blood Carboxyhemoglobin 1.2 % (0-4) Arterial Blood Methemoglobin 0.9 % (0-2) Blood Gas Hemoglobin 12.2 G/DL (12.0-16.0) Oxygen Delivery Device ROOM AIR Blood Gas Inspired Oxygen 21 % Imaging Last Impressions Liver Ultrasound 09/23/17 0000 Signed Impressions: Service Date/Time: Saturday, September 23, 2017 14:12 - CONCLUSION: Right upper quadrant abdominal ultrasound within normal limits. Vinod Pelletier MD Chest X-Ray 09/23/17 0000 Signed Impressions: Service Date/Time: Saturday, September 23, 2017 09:47 - CONCLUSION: No evidence of acute cardiopulmonary disease. The previously noted airspace opacity overlying the left hemithorax on the exam of September 14, 2017 does not persist.. Brigitte Sanchez MD Brain MRI 09/23/17 0000 Signed Impressions: Service Date/Time: Saturday, September 23, 2017 15:21 - CONCLUSION: Diffuse atrophy. No acute intracranial findings. Vinod Pelletier MD Head CT 09/22/17 0000 Signed Impressions: Service Date/Time: Friday, September 22, 2017 21:31 - CONCLUSION: 1. No acute intracranial abnormalities. Terrance Murillo MD Abdomen X-Ray 09/17/17 0000 Signed Impressions: Service Date/Time: Sunday, September 17, 2017 22:34 - CONCLUSION: Nasogastric tube with tip coiled in stomach. Abhinav Allen MD Chest CT 09/14/17 0000 Signed Impressions: Service Date/Time: August 13:00 - CONCLUSION: Small nodular areas of airspace disease both in the lingula and the left lung base. Right lung is relatively clear. The mediastinum is unremarkable. Adrian Martinez MD Objective Remarks GENERAL: This is a 76-year-old male currently orotracheally intubated SKIN: Warm and dry. No rash HEAD: Atraumatic. Normocephalic. EYES: Pupils equal and round. No scleral icterus. No injection or drainage. ENT: No nasal bleeding or discharge. Mucous membranes pink and moist. NG tube in left nares NECK: Trachea midline. No JVD. Left IJ CVL is clean dry and intact CARDIOVASCULAR: Regular rate and rhythm. S1, S2. No S4. Without murmur RESPIRATORY: Transmitted upper airway sounds. Coarse crackles appreciated throughout all lung hester anterior and posteriorly.. Breath sounds equal bilaterally. GASTROINTESTINAL: Abdomen soft, non-tender, nondistended. Hypoactive bowel sounds are appreciated. MUSCULOSKELETAL: Extremities without significant peripheral edema. No obvious deformities. NEUROLOGICAL: Moving all 4 extremities spontaneously. Positive gag. Positive corneal reflex. Urinary Catheter: Yes Assessment to: Continue Lyons insert reason: Prolonged Immobilization Vascular Central Line Catheter: Yes Assessment to: Continue Date of Insertion: Sep 24, 2017 Line: Central Venous Catheter Side: Left Location: Internal, Jugular A/P Assessment and Plan Neuro/Psych: Subacute encephalopathy EtOH use Currently on propofol/fentanyl drips for sedation/analgesia while intubated Goal of RA SS -2 Daily sedation vacation Continue thiamine, folate and multivitamin daily Discontinued CIWA protocol while intubated Evaluated by neurology - Dr. Rojas. Possibly will need lumbar puncture however currently on Apixaban.. This be on hold. Likely can order lumbar puncture on Monday MRI brain 09/23 revealed no acute intracranial findings. EEG ordered CV: Atrial fibrillation/rate controlled Seen by Dr. Mckay in the past. Status post failed cardioversion the past Currently on Dronderone 400 mg BID Currently on D5 1 half normal saline at 84 cc an hour As needed hydralazine/labetalol for hypertension Resp: Acute respiratory failure secondary to aspiration PRVC 14/500/1//100 Ventilator bundle Albuterol/ipratropium aerosols every 4 hours with albuterol aerosols every 2 hours. Dyspnea Spontaneous breathing trials when clinically indicated Follow post intubation chest x-ray and ABG Pulmonology - Dr. Naylor following GI: Elevated transaminases Currently on Jevity 1.5 goal 60 cc an hour currently on hold due to high tube feed residuals KUB pending Start on prokinetic metoclopramide 5 mill grams IV every 8 hours Famotidine 20 mg twice a day for GI prophylaxis Docusate sodium/senna 1 tablet twice a day for bowel regimen Liver ultrasound this hospitalization within normal limits Normal ammonia Hepatitis panel pending : Lyons catheter has been placed for accurate I's and O's in a critically ill patient Endo: SSI with Novulog with Accu-Cheks every 4 hours to maintain glycemia/low regimen Renal: Monitor urine output Accurate I's and O's Monitor BMP daily Heme: Leukocytosis Normocytic anemia History of skin cancer Chronic apixaban use Continue iron sulfate 325 mg by mouth 3 times a day Monitor CBC daily. Follow trends Will hold NOAC for possible lumbar puncture ID: Currently piperacillin/tazobactam and vancomycin for aspiration pneumonia Pertinent cultures 09/23 - blood cultures 2 - no growth 09/23 - urine cultures - no growth Influenza negative 09/11 - blood cultures 2 - no growth MSK: PT evaluate and treat FEN: Hypernatremia Hypopotassemia Currently on D5 1/2 saline at 84 cc an hour Replace electrolytes as clinically indicated per ICU electrolyte protocol Access - Left IJ CVL day 1 placed 09/24 Prophylaxis - GI - famotidine - DVT - SCD/holding Apixaban for possible lumbar puncture Critical Care: The total critical care time was 35 minutes. Time to perform other separately billable procedures was not included in the critical care time. Aldair Castillo MD Sep 24, 2017 09:55
[2017-09-24] MEDS ORDERED: POTASSIUM CHLORIDE 25 MEQ EFFERVESCENT TAB PO PRN (10:00)
[2017-09-24] MEDS ORDERED: MAGNESIUM OXIDE 400 MG TAB PO PRN (10:00)
[2017-09-24] MEDS ORDERED: SODIUM PHOSPHATE INJ 30 MMOL in SODIUM CHLOR 0.9% 250 ML INJ 240 ML IV PRN (10:00)
[2017-09-24] MEDS ORDERED: POTASSIUM CHLOR 40 MEQ PREMIX 100 ML IV-CENTRAL PRN (10:00)
[2017-09-24] MEDS ORDERED: MAGNESIUM SULFATE INJ 4 GM in SODIUM CHLORIDE 0.9% INJ 92 ML IV PRN (10:00)
[2017-09-24] MEDS ORDERED: POTASSIUM PHOSPHATE MONOBASIC 500 MG TAB PO/TUBE PRN (10:00)
[2017-09-24] MEDS ORDERED: POTASSIUM CHLOR 20 MEQ PREMIX 100 ML IV PRN ×2 (10:00)
[2017-09-24] MEDS ORDERED: MAGNESIUM SULFATE INJ 2 GM in SODIUM CHLORIDE 0.9% INJ 96 ML IV PRN (10:00)
[2017-09-24] MEDS ORDERED: POTASSIUM PHOSPHATE INJ 30 MMOL in SODIUM CHLOR 0.9% 250 ML INJ 250 ML IV PRN (10:00)
[2017-09-24] MEDS ORDERED: POTASSIUM PHOSPHATE MONOBASIC 500 MG TAB PO PRN (10:00)
--- NOTE | 2017-09-24 10:03 | PD.PROCEDR ---
Central Line Procedure REASON FOR PROCEDURE Central venous access PROCEDURE PERFORMED Central line placement: Left IJ CVL CONSENT Informed consent for procedure was obtained. The risks and benefits of the procedure were discussed to include but limited to bleeding, clot formation, infection, and even . ANESTHESIA Local injection of 1% Lidocaine DESCRIPTION OF THE PROCEDURE The patient was placed in supine, mild Trendelenburg position. The area was exposed and cleansed with ChloraPrep, times two. Large sterile drape was used to cover the patient, with the site exposed, under sterile conditions including cap, face mask, sterile gown, and sterile gloves. On single attempt, the introducer needle was inserted with negative pressure in syringe and venous flash was obtained. The guide wire was then advanced without any restriction and the needle was removed. The dilator was used without any complications. Using Seldinger technique the antibiotic coated triple-lumen catheter was advanced over the guide wire to a depth of 20 centimeters. The guide wire was removed. All ports were aspirated with dark venous blood return and flushed easily with sterile saline. All ports were capped. Antibiotic disc was placed around central line at puncture site. The central line was secured to the skin with two interrupted 2.0 silk sutures. The area was bandaged with sterile see- through central line bandage. RADIOLOGICAL DATA Ultrasound guidance was used to locate left internal jugular vein. Doppler/ color flow was used to confirm venous flow. COMPLICATIONS: No apparent complications ESTIMATED BLOOD LOSS: Less than 1 cc. Aldair Castillo MD Sep 24, 2017 10:03
--- NOTE | 2017-09-24 10:04 | PD.PROCEDR ---
Procedure Note Procedure DATE: 09/24/2017 PROCEDURE: Orotracheal intubation INDICATION: Respiratory failure DETAILS OF PROCEDURE The patient was placed in optimal position and preoxygenated with 100% FiO2 via bag valve mask. At the start oxygen saturation was 100%. The patient was administered 20 mg etomidate IV and 50 milligrams rocuronium IV. I entered the oropharynx with a size 4 laryngoscope blade and obtained a grade 2 view of the airway. On single attempt a size 8.0 cuffed endotracheal tube was passed through the vocal cords. Correct tube location was confirmed with end tidal CO2 detector and by auscultating over bilateral lung hester. The endotracheal tube was secured with adhesive tape at a depth of 24 cm at the lips. The patient was connected to the ventilator. The patient tolerated the procedure well without any apparent complications. Oxygen saturations were maintained greater than 95% all times. STAT chest x-ray pending at time of dictation. Aldair Castillo MD Sep 24, 2017 10:04
--- NOTE | 2017-09-24 10:04 | RADRPT ---
EXAM DATE/TIME: 09/24/2017 09:45 [facility] COMPARISON: CHEST SINGLE AP, September 23, 2017, 9:47. INDICATIONS : Central line placement MEDICAL HISTORY : Hypertension. Cardiovascular disease. SURGICAL HISTORY : None. ENCOUNTER: Subsequent ACUITY: 1 week PAIN SCORE: Non-responsive. LOCATION: Bilateral chest FINDINGS: There is a central line placed from the left with the tip overlying the mid SVC. New endotracheal tub e with the tip overlying the level of the clavicles. The lungs appear clear. Heart size is normal. CONCLUSION: Appropriate placement of a endotracheal tube and central line. No evidence of complication. Brigitte Sanchez MD on September 24, 2017 at 10:00 Board Certified Radiologist. This report was verified electronically.
[2017-09-24] MEDS ORDERED: NITROGLYCERIN 2% OINT 1 GM PACKET TOPICAL PRN (10:15)
[2017-09-24 11:00] LABS: ALBUMIN 1.9 GM/DL (3.4-5.0)
[2017-09-24 11:02] LABS: DIRECT BILIRUBIN ADULT 0.4 MG/DL (0.0-0.2)
[2017-09-24 11:04] LABS: INDIRECT BILIRUBIN 0.7 MG/DL (0.0-0.8); TOTAL BILIRUBIN ADULT 1.1 MG/DL (0.2-1.0); TOTAL PROTEIN 5.7 GM/DL (6.4-8.2)
[2017-09-24] MEDS ORDERED: TERBUTALINE INJ 1 MG/ML AMP SQ PRN (11:30)
--- NOTE | 2017-09-24 12:07 | HHI.PR ---
Review/Management Daily Summary 09/24 intubated and sedated but follows some simple commands family(daughter?) at bedside spoke with RN met encephalopathy, expect good neuro recovery along with medical and resp impovement Subjective Active Medications Current Medications Medications (Trade) Dose Ordered Sig/Casandra Route Start Time Stop Time Status Last Admin (Eliquis) 2.5 mg BID PO 09/11/17 21:00 Future Hold 09/23/17 20:12 (Vitamin B1) 100 mg DAILY PO 09/11/17 19:15 09/23/17 09:56 (Vasotec Inj) 1.25 mg Q6H PRN IV PUSH 09/15/17 19:00 09/23/17 03:09 (Pepcid Liq) 20 mg BID NG 09/18/17 09:00 09/23/17 20:13 (Multaq) 400 mg BID PO 09/19/17 15:00 09/23/17 20:12 (Lactinex) 1 tab Q12HR PO 09/21/17 09:00 09/23/17 20:12 Levofloxacin/ Dextrose 100 ml @ 100 mls/hr Q24H IV 09/23/17 12:00 09/23/17 13:35 Pharmacy Profile Note 0 ml @ 0 mls/hr UNSCH OTHER 09/23/17 12:15 Piperacillin Sod/ Tazobactam Sod 100 ml @ 200 mls/hr Q6H IV 09/23/17 13:00 09/24/17 06:35 Dextrose/Sodium Chloride 1,000 ml @ 84 mls/hr [id number] IV 09/23/17 12:15 09/24/17 00:20 Vancomycin HCl 1000 mg/Sodium Chloride 250 ml @ 250 mls/hr Q18H IV 09/24/17 08:00 Miscellaneous Information SPECIFIC LAB TO BE IGNACIO... ONCE ONCE .XX 09/25/17 19:45 09/25/17 19:46 (D50w (Vial) Inj) 50 ml UNSCH PRN IV PUSH 09/23/17 16:45 (Glucagon Inj) 1 mg UNSCH PRN OTHER 09/23/17 16:45 (NovoLIN R SUPPLEMENTAL SCALE) 1 Q4H SQ 09/23/17 16:45 (Duoneb Neb) 1 ampule Q4HR NEB NEB 09/23/17 20:00 09/24/17 11:26 (Theragran) 1 tab DAILY PO 09/23/17 16:45 09/23/17 18:38 (Folate) 1 mg DAILY PO 09/23/17 16:45 09/23/17 18:38 (Peridex 0.12% Liq) 15 ml BID@08,20 MT 09/24/17 20:00 Propofol 100 ml @ 0 mls/hr TITRATE PRN IV 09/24/17 08:15 Fentanyl Citrate 250 ml @ 5 mls/hr TITRATE PRN IV 09/24/17 08:15 (Tylenol 650 Mg/ 20 ml Liq) 650 mg Q6H PRN OG-TUBE 09/24/17 08:30 (Albuterol Neb) 2.5 mg Q2HR NEB PRN NEB 09/24/17 08:45 (Tears Naturale Opth Soln) 1 drop Q8HR EACH EYE 09/24/17 14:00 (SoluMEDROL INJ) 40 mg Q8HR IV PUSH 09/24/17 14:00 (Reglan Inj) 5 mg Q8HR IV PUSH 09/24/17 14:00 (NS Flush) DAILY IV FLUSH 09/25/17 09:00 (NS Flush) UNSCH PRN IV FLUSH 09/24/17 09:45 Potassium Chloride 100 ml @ 50 mls/hr Q2H PRN IV-CENTRAL 09/24/17 10:00 Potassium Chloride 100 ml @ 50 mls/hr Q2H PRN IV 09/24/17 10:00 (K-Lyte Cl Eff) 50 meq UNSCH PRN PO 09/24/17 10:00 Potassium Chloride 100 ml @ 25 mls/hr UNSCH PRN IV-CENTRAL 09/24/17 10:00 Potassium Chloride 100 ml @ 50 mls/hr Q2H PRN IV 09/24/17 10:00 Magnesium Sulfate 4 gm/Sodium Chloride 100 ml @ 50 mls/hr UNSCH PRN IV 09/24/17 10:00 (Mag-Ox) 800 mg UNSCH PRN PO 09/24/17 10:00 Magnesium Sulfate 2 gm/Sodium Chloride 100 ml @ 50 mls/hr UNSCH PRN IV 09/24/17 10:00 (K-Phos) 2,000 mg Q4H PRN PO 09/24/17 10:00 Sodium Phosphate 30 mmol/Sodium Chloride 250 ml @ 42 mls/hr UNSCH PRN IV 09/24/17 10:00 (K-Phos) 2,000 mg UNSCH PRN PO/TUBE 09/24/17 10:00 Potassium Phosphate 30 mmol/ Sodium Chloride 260 ml @ 42 mls/hr UNSCH PRN IV 09/24/17 10:00 (Trandate Inj) 10 mg Q1HR PRN IV PUSH 09/24/17 10:15 (Nitroglycerin 2% Oint) 2 inch Q6HR PRN TOPICAL 09/24/17 10:15 Norepinephrine Bitartrate 4 mg/ Sodium Chloride 250 ml @ 7.5 mls/hr TITRATE PRN IV 09/24/17 11:30 (Brethine Inj) 1 mg UNSCH PRN SQ 09/24/17 11:30 Allergies Allergies Coded Allergies No Known Allergies (Verified Adverse Reaction, Unknown, 09/11/17) Exam I&O / VS Vital Signs Date Time Temp Pulse Resp B/P (MAP) Pulse Ox O2 Delivery O2 Flow Rate FiO2 09/24/17 09:00 100 100 09/24/17 07:07 92 36 145/71 (95) 90 09/24/17 06:07 84 16 115/66 (82) 99 09/24/17 06:00 94 09/24/17 05:07 98 33 119/53 (75) 99 09/24/17 04:07 97.8 110 24 104/51 (68) 99 09/24/17 04:00 86 09/24/17 03:07 90 16 114/70 (85) 96 09/24/17 02:07 94 18 132/67 (88) 97 09/24/17 02:00 82 09/24/17 01:07 108 27 140/74 (96) 96 09/24/17 00:07 97.5 120 14 123/73 (90) 98 09/24/17 00:00 90 09/23/17 23:14 98 42 155/88 (110) 95 09/23/17 23:14 98 42 155/88 (110) 95 09/23/17 23:07 96 33 131/101 (111) 96 09/23/17 23:07 96 33 131/101 (111) 96 09/23/17 22:07 94 32 165/79 (107) 91 09/23/17 22:07 94 32 165/79 (107) 91 09/23/17 22:00 96 37 94 09/23/17 22:00 87 09/23/17 21:07 86 33 141/79 (99) 98 09/23/17 20:49 86 21 123/77 (92) 98 09/23/17 20:44 92 31 137/80 (99) 09/23/17 20:42 96 33 130/75 (93) 09/23/17 20:16 64 16 115/69 (84) 99 09/23/17 20:01 96.9 68 15 120/64 (82) 98 09/23/17 20:00 88 09/23/17 19:46 64 15 122/62 (82) 93 09/23/17 19:43 99 Nasal Cannula 2.00 09/23/17 19:31 64 17 100/57 (71) 93 09/23/17 19:16 68 15 101/56 (71) 92 09/23/17 19:01 74 19 113/60 (77) 91 09/23/17 19:01 74 19 113/60 (77) 91 09/23/17 19:00 98 Nasal Cannula 3.00 09/23/17 19:00 78 19 91 09/23/17 18:46 82 24 143/69 (93) 91 09/23/17 18:31 82 35 147/67 (93) 92 09/23/17 18:16 78 27 136/71 (92) 92 09/23/17 18:01 72 14 126/65 (85) 98 09/23/17 18:00 72 09/23/17 17:46 74 28 133/69 (90) 93 09/23/17 17:30 72 27 129/76 (93) 98 09/23/17 17:15 78 36 132/78 (96) 98 09/23/17 17:00 80 27 135/72 (93) 99 09/23/17 16:45 74 20 114/69 (84) 94 09/23/17 16:30 82 30 123/71 (88) 98 09/23/17 16:15 84 38 144/75 (98) 99 09/23/17 16:00 97.6 78 39 141/68 (92) 09/23/17 16:00 78 39 141/68 (92) 09/23/17 16:00 78 09/23/17 15:45 72 18 135/75 (95) 09/23/17 15:43 72 49 148/64 (92) 09/23/17 15:01 68 24 82/57 (65) 94 09/23/17 14:50 68 19 89/56 (67) 94 09/23/17 14:40 68 18 96/53 (67) 95 09/23/17 14:30 66 17 90/59 (69) 93 09/23/17 14:20 74 23 117/59 (78) 94 09/23/17 14:10 78 31 119/76 (90) 93 09/23/17 14:00 78 09/23/17 14:00 78 20 114/58 (76) 91 09/23/17 13:50 76 26 129/68 (88) 91 09/23/17 13:40 78 24 132/61 (84) 95 09/23/17 13:36 98.5 09/23/17 13:36 76 19 93 09/23/17 13:30 72 20 91/50 (64) 94 09/23/17 13:20 78 24 115/67 (83) 93 09/23/17 13:10 74 34 136/66 (89) 09/23/17 13:05 70 24 09/23/17 13:00 78 30 103/72 (82) 09/23/17 12:50 99.9 74 30 119/95 (103) 09/23/17 12:50 74 30 119/95 (103) 09/23/17 12:40 74 30 117/70 (86) 09/23/17 12:30 74 24 116/65 (82) 09/23/17 12:20 72 26 111/62 (78) 09/23/17 12:10 70 22 121/70 (87) 94 Objective Radiology Results Last 48 hours Impressions Chest X-Ray 09/24/17 0934 Signed Impressions: Service Date/Time: Sunday, September 24, 2017 09:45 - CONCLUSION: Appropriate placement of a endotracheal tube and central line. No evidence of complication. Brigitte Sanchez MD Liver Ultrasound 09/23/17 0000 Signed Impressions: Service Date/Time: Saturday, September 23, 2017 14:12 - CONCLUSION: Right upper quadrant abdominal ultrasound within normal limits. Vinod Pelletier MD Chest X-Ray 09/23/17 0000 Signed Impressions: Service Date/Time: Saturday, September 23, 2017 09:47 - CONCLUSION: No evidence of acute cardiopulmonary disease. The previously noted airspace opacity overlying the left hemithorax on the exam of September 14, 2017 does not persist.. Brigitte Sanchez MD Brain MRI 09/23/17 0000 Signed Impressions: Service Date/Time: Saturday, September 23, 2017 15:21 - CONCLUSION: Diffuse atrophy. No acute intracranial findings. Vinod Pelletier MD Micro and Labs Laboratory Tests Test 09/23/17 12:18 09/23/17 12:50 09/23/17 12:59 09/23/17 18:55 Blood Gas Puncture Site RT RADIAL Blood Gas Patient Temperature 37.0 Blood Gas HCO3 27 Blood Gas Base Excess 3.6 Blood Gas Oxygen Saturation 93 Arterial Blood pH 7.48 Arterial Blood Partial Pressure CO2 37 Arterial Blood Partial Pressure O2 72 Arterial Blood Oxygen Content 15.9 Arterial Blood Carboxyhemoglobin 1.2 Arterial Blood Methemoglobin 0.9 Blood Gas Hemoglobin 12.2 Oxygen Delivery Device ROOM AIR Blood Gas Inspired Oxygen 21 Urine Collection Type CATH Urine Color PRAMOD Urine Turbidity MOD Urine pH 8.0 Urine Specific [place] 1.016 Urine Protein 100 Urine Glucose (UA) NEG Urine Ketones NEG Urine Occult Blood LARGE Urine Nitrite NEG Urine Bilirubin NEG Urine Leukocyte Esterase TRACE Urine RBC INNUM Urine WBC 9-14 Urine Amorphous Sediment FEW Microscopic Urinalysis Comment CATH-CULTURE IND Urine Collection Time 1250 White Blood Count 21.4 Red Blood Count 4.47 Hemoglobin 12.9 Hematocrit 39.4 Mean Corpuscular Volume 88.0 Mean Corpuscular Hemoglobin 28.9 Mean Corpuscular Hemoglobin Concent 32.8 Red Cell Distribution Width 16.7 Platelet Count 294 Mean Platelet Volume 8.4 Neutrophils (%) (Auto) 88.2 Lymphocytes (%) (Auto) 3.5 Monocytes (%) (Auto) 7.2 Eosinophils (%) (Auto) 0.4 Basophils (%) (Auto) 0.7 Neutrophils # (Auto) 18.8 Lymphocytes # (Auto) 0.8 Monocytes # (Auto) 1.5 Eosinophils # (Auto) 0.1 Basophils # (Auto) 0.2 CBC Comment AUTO DIFF Differential Comment AUTO DIFF CONFIRMED Prothrombin Time 11.3 Prothromb Time International Ratio 1.1 Blood Urea Nitrogen 36 Creatinine 1.30 Random Glucose 90 Total Protein 6.6 Albumin 2.3 Calcium Level 8.3 Phosphorus Level 2.9 Magnesium Level 2.6 Alkaline Phosphatase 79 Aspartate Amino Transf (AST/SGOT) 101 Alanine Aminotransferase (ALT/SGPT) 168 Total Bilirubin 1.3 Sodium Level 148 Potassium Level 4.0 Chloride Level 111 Carbon Dioxide Level 30.0 Anion Gap 7 Estimat Glomerular Filtration Rate 53 Ammonia LESS THAN 10 Test 09/24/17 06:21 09/24/17 09:46 09/24/17 10:31 White Blood Count 21.0 Red Blood Count 4.18 Hemoglobin 12.1 Hematocrit 36.7 Mean Corpuscular Volume 87.7 Mean Corpuscular Hemoglobin 28.8 Mean Corpuscular Hemoglobin Concent 32.8 Red Cell Distribution Width 17.1 Platelet Count 255 Mean Platelet Volume 8.5 Neutrophils (%) (Auto) 84.1 Lymphocytes (%) (Auto) 7.4 Monocytes (%) (Auto) 6.0 Eosinophils (%) (Auto) 0.9 Basophils (%) (Auto) 1.6 Neutrophils # (Auto) 17.6 Lymphocytes # (Auto) 1.6 Monocytes # (Auto) 1.3 Eosinophils # (Auto) 0.2 Basophils # (Auto) 0.3 CBC Comment AUTO DIFF Differential Comment AUTO DIFF CONFIRMED Blood Urea Nitrogen 26 Creatinine 1.10 Random Glucose 126 Calcium Level 7.6 Phosphorus Level 3.2 Magnesium Level 2.4 Sodium Level 146 Potassium Level 3.2 Chloride Level 113 Carbon Dioxide Level 24.8 Anion Gap 8 Estimat Glomerular Filtration Rate 65 Blood Gas Puncture Site LT RADIAL Blood Gas Patient Temperature 37.0 Blood Gas HCO3 24 Blood Gas Base Excess 1.0 Blood Gas Oxygen Saturation 98 Arterial Blood pH 7.50 Arterial Blood Partial Pressure CO2 31 Arterial Blood Partial Pressure O2 420 Arterial Blood Oxygen Content 20.6 Arterial Blood Carboxyhemoglobin 0.8 Arterial Blood Methemoglobin 0.9 Blood Gas Hemoglobin 14.2 Oxygen Delivery Device VENTILATOR Blood Gas Ventilator Setting 500/16/PEEP 5 Blood Gas Inspired Oxygen 100 Total Bilirubin 1.1 Direct Bilirubin 0.4 Indirect Bilirubin 0.7 Aspartate Amino Transf (AST/SGOT) 50 Alanine Aminotransferase (ALT/SGPT) 124 Alkaline Phosphatase 68 Total Protein 5.7 Albumin 1.9 Amylase Level 117 Lipase 119 Date/Time Source Procedure Growth Status 09/23/17 13:10 Blood Peripheral Aerobic Blood Culture - Preliminary NO GROWTH IN 1 DAY Resulted 09/23/17 13:10 Blood Peripheral Anaerobic Blood Culture - Preliminary NO GROWTH IN 1 DAY Resulted 09/23/17 12:50 Nasal Washing Influenza Types A,B Antigen (RAOUL) - Final NEGATIVE FOR FLU A AND B ANTIGEN.... Complete 09/23/17 12:50 Urine Catheterized Urine Urine Culture Pending Received Deondre Rojas MD Sep 24, 2017 12:07
[2017-09-24] MEDS: LACTOBACILLUS ACIDOPHILUS TAB PO SCH ×2 (12:30→19:58)
[2017-09-24] MEDS: THIAMINE HCL 100 MG TAB PO SCH (12:30)
[2017-09-24] MEDS: FOLIC ACID 1 MG TAB PO SCH (12:30)
[2017-09-24] MEDS: DRONEDARONE 400 MG TAB PO SCH ×2 (12:30→20:02)
[2017-09-24] MEDS: MULTIVITAMIN TAB PO SCH (12:30)
--- NOTE | 2017-09-24 12:31 | HHI.PR ---
Subjective Remarks Patient yesterday had increased WBC count and remained poorly responsive and had low blood pressure ,Radiology Services Manager consulted ,medications changed librium held started on broad spectrum antibiotics neuro and ID consulted . Patient this am required intubation due to difficulty breathing. Objective Vitals GENERAL: SKIN: Warm and dry. HEAD: Atraumatic. Normocephalic. EYES: Pupils equal and round. No scleral icterus. No injection or drainage. ENT: No nasal bleeding or discharge. Mucous membranes pink and moist. NECK: Trachea midline. No JVD. CARDIOVASCULAR: Regular rate and rhythm. RESPIRATORY: No accessory muscle use. Clear to auscultation. Breath sounds equal bilaterally. GASTROINTESTINAL: Abdomen soft, non-tender, nondistended. Hepatic and splenic margins not palpable. MUSCULOSKELETAL: Extremities without clubbing, cyanosis, or edema. No obvious deformities. NEUROLOGICAL: Intubated Motor grossly decreased. 3 out of 5 muscle strength in the arms and legs. Intubated Vital Signs Date Time Temp Pulse Resp B/P (MAP) Pulse Ox O2 Delivery O2 Flow Rate FiO2 09/24/17 09:00 100 100 09/24/17 07:07 92 36 145/71 (95) 90 09/24/17 06:07 84 16 115/66 (82) 99 09/24/17 06:00 94 09/24/17 05:07 98 33 119/53 (75) 99 09/24/17 04:07 97.8 110 24 104/51 (68) 99 09/24/17 04:00 86 09/24/17 03:07 90 16 114/70 (85) 96 09/24/17 02:07 94 18 132/67 (88) 97 09/24/17 02:00 82 09/24/17 01:07 108 27 140/74 (96) 96 09/24/17 00:07 97.5 120 14 123/73 (90) 98 09/24/17 00:00 90 09/23/17 23:14 98 42 155/88 (110) 95 09/23/17 23:14 98 42 155/88 (110) 95 09/23/17 23:07 96 33 131/101 (111) 96 09/23/17 23:07 96 33 131/101 (111) 96 09/23/17 22:07 94 32 165/79 (107) 91 1/27/18 22:07 94 32 165/79 (107) 91 09/23/17 22:00 96 37 94 09/23/17 22:00 87 09/23/17 21:07 86 33 141/79 (99) 98 09/23/17 20:49 86 21 123/77 (92) 98 09/23/17 20:44 92 31 137/80 (99) 09/23/17 20:42 96 33 130/75 (93) 09/23/17 20:16 64 16 115/69 (84) 99 09/23/17 20:01 96.9 68 15 120/64 (82) 98 09/23/17 20:00 88 09/23/17 19:46 64 15 122/62 (82) 93 09/23/17 19:43 99 Nasal Cannula 2.00 09/23/17 19:31 64 17 100/57 (71) 93 09/23/17 19:16 68 15 101/56 (71) 92 09/23/17 19:01 74 19 113/60 (77) 91 09/23/17 19:01 74 19 113/60 (77) 91 09/23/17 19:00 98 Nasal Cannula 3.00 09/23/17 19:00 78 19 91 09/23/17 18:46 82 24 143/69 (93) 91 09/23/17 18:31 82 35 147/67 (93) 92 09/23/17 18:16 78 27 136/71 (92) 92 09/23/17 18:01 72 14 126/65 (85) 98 09/23/17 18:00 72 09/23/17 17:46 74 28 133/69 (90) 93 09/23/17 17:30 72 27 129/76 (93) 98 09/23/17 17:15 78 36 132/78 (96) 98 09/23/17 17:00 80 27 135/72 (93) 99 09/23/17 16:45 74 20 114/69 (84) 94 09/23/17 16:30 82 30 123/71 (88) 98 09/23/17 16:15 84 38 144/75 (98) 99 09/23/17 16:00 97.6 78 39 141/68 (92) 09/23/17 16:00 78 39 141/68 (92) 09/23/17 16:00 78 1/27/18 15:45 72 18 135/75 (95) 09/23/17 15:43 72 49 148/64 (92) 09/23/17 15:01 68 24 82/57 (65) 94 09/23/17 14:50 68 19 89/56 (67) 94 09/23/17 14:40 68 18 96/53 (67) 95 09/23/17 14:30 66 17 90/59 (69) 93 09/23/17 14:20 74 23 117/59 (78) 94 09/23/17 14:10 78 31 119/76 (90) 93 09/23/17 14:00 78 09/23/17 14:00 78 20 114/58 (76) 91 09/23/17 13:50 76 26 129/68 (88) 91 09/23/17 13:40 78 24 132/61 (84) 95 09/23/17 13:36 98.5 09/23/17 13:36 76 19 93 09/23/17 13:30 72 20 91/50 (64) 94 09/23/17 13:20 78 24 115/67 (83) 93 09/23/17 13:10 74 34 136/66 (89) 09/23/17 13:05 70 24 09/23/17 13:00 78 30 103/72 (82) 09/23/17 12:50 99.9 74 30 119/95 (103) 09/23/17 12:50 74 30 119/95 (103) 09/23/17 12:40 74 30 117/70 (86) 09/23/17 12:30 74 24 116/65 (82) Result Diagram: 09/24/1721 09/24/1721 Imaging Last Impressions Chest X-Ray 09/14/17 0000 Signed Impressions: Service Date/Time: August 09:55 - CONCLUSION: Left lung density. Recommend CT chest for further evaluation Jayant Soto MD Chest CT 09/14/17 0000 Signed Impressions: Service Date/Time: August 13:00 - CONCLUSION: Small nodular areas of airspace disease both in the lingula and the left lung base. Right lung is relatively clear. The mediastinum is unremarkable. Adrian Martinez MD Last Impressions Chest X-Ray 09/11/17 1605 Signed Impressions: Service Date/Time: Monday, September 11, 2017 16:11 - CONCLUSION: No acute disease. No significant change has occurred. Gregory Campbell MD Date of Insertion: Sep 24, 2017 Line: Central Venous Catheter Side: Left Location: Internal, Jugular A/P Problem List: (1) Asthma ICD Codes: J45.909 - Unspecified asthma, uncomplicated Status: Acute Plan: continue current tx. No wheeze today. Appreciate pulm input. Steroids have been reduced. (2) Influenza ICD Codes: J11.1 - Influenza due to unidentified influenza virus with other respiratory manifestations Status: Acute Plan: Influenza A with secondary pneumonia. No recent fever. Continue supportive care. Respiratory status is improved greatly, but he has dry cough likely a/w NGT irritation and reactive airway. Decreased steroids on 09/17/17, will decrease again 09/22. Pulmonary input appreciated. (3) Alcohol withdrawal delirium ICD Codes: F10.231 - Alcohol dependence with withdrawal delirium Status: Acute Plan: Still with periods of agitation and risk for aspiration. NGT in place now. Tolerating tube feed better now with much less residual. Goal rate is 60. will advance as tolerated. Good UOP. Increased free water due to slight hypernatremia. Medication list reviewed and adjusted for oral intake as appropriate. Decreased Librium dosing 09/21. MARQUEZ. Reportedly had significant w/d in the past after he had knee surgery per family report. Will check noncontrast CT brain as it seems to be taking prolonged time to get back to baseline. (4) Chronic alcohol abuse ICD Codes: F10.10 - Alcohol abuse, uncomplicated Status: Chronic Plan: Discussed need for cessation. Patient a bit more coherent last 3 days. but this am not (5) Paroxysmal atrial fibrillation ICD Codes: I48.0 - Paroxysmal atrial fibrillation Status: Chronic Plan: converted Lovenox back to Eliquis as he has NG tube in place now. Multaq resumed September 19. We will try to keep potassium above 4. (6) Hypotension ICD Codes: I95.9 - Hypotension, unspecified Status: Acute Plan: Radiology Services Manager caring for patient (7) Respiratory failure ICD Codes: J96.90 - Respiratory failure, unspecified, unspecified whether with hypoxia or hypercapnia Plan: on ventilator followed by pet ambassador and pulmonary (8) Leukocytosis ICD Codes: D72.829 - Elevated white blood cell count, unspecified Status: Acute Plan: on broad spectrum antibiotics ID consulted Discharge Planning as per response to treatment Problem Qualifiers (1) Asthma: Qualified Codes: J45.901 - Unspecified asthma with (acute) exacerbation (2) Respiratory failure: Carlos Littlejohn MD Sep 24, 2017 12:31
[2017-09-24] MEDS ORDERED: ARTIFICIAL TEARS OPTH SOLN 15 ML BTL EACH EYE SCH (14:00)
[2017-09-24] MEDS: ARTIFICIAL TEARS OPTH SOLN 15 ML BTL EACH EYE SCH ×2 (14:33→22:00)
[2017-09-24] MEDS: METOCLOPRAMIDE HCL 10 MG/2 ML VIAL IV PUSH SCH ×2 (14:34→22:01)
[2017-09-24] MEDS: LEVOFLOXACIN 500 MG PREMIX INJ 100 ML IV SCH (14:36)
[2017-09-24] MEDS: methylPREDNISolone SOD SUCC 40 MG/1 ML VIAL IV PUSH SCH ×2 (14:36→22:01)
--- NOTE | 2017-09-24 17:19 | HHI.PR ---
Subjective Remarks 76 YOWM with Br Asthma, Flu, Pn, Aspiration Got worse, Intubatyed On Fentanyl and Diprivan On Levophed Objective Vital Signs Vital Signs Date Time Temp Pulse Resp B/P (MAP) Pulse Ox O2 Delivery O2 Flow Rate FiO2 09/24/17 16:35 100 40 09/24/17 16:00 86 09/24/17 16:00 97.0 86 20 86/59 (68) 100 09/24/17 15:00 76 36 136/66 (89) 100 09/24/17 14:10 100 60 09/24/17 14:00 84 32 119/64 (82) 100 09/24/17 14:00 84 09/24/17 13:00 78 20 87/48 (61) 100 09/24/17 12:00 64 09/24/17 12:00 64 24 117/53 (74) 100 09/24/17 11:30 100 60 09/24/17 11:00 66 23 92/57 (69) 100 09/24/17 10:00 74 09/24/17 10:00 74 41 81/57 (65) 98 09/24/17 09:00 100 100 09/24/17 09:00 86 28 166/86 (112) 96 09/24/17 08:00 96 09/24/17 08:00 97.5 96 31 178/100 (126) 96 09/24/17 07:07 92 36 145/71 (95) 90 09/24/17 07:00 97 Nasal Cannula 3.00 09/24/17 06:07 84 16 115/66 (82) 99 09/24/17 06:00 94 09/24/17 05:07 98 33 119/53 (75) 99 09/24/17 04:07 97.8 110 24 104/51 (68) 99 09/24/17 04:00 86 09/24/17 03:07 90 16 114/70 (85) 96 09/24/17 02:07 94 18 132/67 (88) 97 09/24/17 02:00 82 09/24/17 01:07 108 27 140/74 (96) 96 09/24/17 00:07 97.5 120 14 123/73 (90) 98 09/24/17 00:00 90 09/23/17 23:14 98 42 155/88 (110) 95 09/23/17 23:14 98 42 155/88 (110) 95 09/23/17 23:07 96 33 131/101 (111) 96 09/23/17 23:07 96 33 131/101 (111) 96 09/23/17 22:07 94 32 165/79 (107) 91 09/23/17 22:07 94 32 165/79 (107) 91 09/23/17 22:00 96 37 94 09/23/17 22:00 87 09/23/17 21:07 86 33 141/79 (99) 98 09/23/17 20:49 86 21 123/77 (92) 98 09/23/17 20:44 92 31 137/80 (99) 09/23/17 20:42 96 33 130/75 (93) 09/23/17 20:16 64 16 115/69 (84) 99 09/23/17 20:01 96.9 68 15 120/64 (82) 98 09/23/17 20:00 88 09/23/17 19:46 64 15 122/62 (82) 93 09/23/17 19:43 99 Nasal Cannula 2.00 09/23/17 19:31 64 17 100/57 (71) 93 09/23/17 19:16 68 15 101/56 (71) 92 09/23/17 19:01 74 19 113/60 (77) 91 09/23/17 19:01 74 19 113/60 (77) 91 09/23/17 19:00 98 Nasal Cannula 3.00 09/23/17 19:00 78 19 91 09/23/17 18:46 82 24 143/69 (93) 91 09/23/17 18:31 82 35 147/67 (93) 92 09/23/17 18:16 78 27 136/71 (92) 92 09/23/17 18:01 72 14 126/65 (85) 98 09/23/17 18:00 72 09/23/17 17:46 74 28 133/69 (90) 93 09/23/17 17:30 72 27 129/76 (93) 98 I/O 09/23/17 09/23/17 09/23/17 09/24/17 09/24/17 09/24/17 07:00 15:00 23:00 07:00 15:00 23:00 Intake Total 1000 ml 435 ml 1233 ml Output Total 900 ml 1050 ml 900 ml Balance -900 ml 1000 ml -615 ml 333 ml Intake Oral 0 ml IV Total 1000 ml 435 ml 1113 ml Other 120 ml Output Urine Total 900 ml 1050 ml 900 ml # Bowel Movements 2 1 Result Diagram: 09/24/1762009/24/17620 Objective Remarks GENERAL: Elderly male, mild sob, congested SKIN: Warm and dry. HEAD: Normocephalic. EYES: No scleral icterus. No injection or drainage. NECK: Supple, trachea midline. No JVD or lymphadenopathy. CARDIOVASCULAR: Regular rate and rhythm without murmurs, gallops, or rubs. RESPIRATORY: Breath sounds equal bilaterally. No accessory muscle use. Scattered coarse rhonchi GASTROINTESTINAL: Abdomen soft, non-tender, nondistended. MUSCULOSKELETAL: No cyanosis, or edema. BACK: Nontender without obvious deformity. No CVA tenderness. A/P Assessment and Plan VDRF Pneumonia Aspiration Bronchial asthma Alcohal withdrawl AF HTN PLAN: Vent Support Levophed to Keep MAP >65 Fentanyl and Propofol for sedation Cont Abx Aerosol nbes Tube feeding DW Family at BS Beltran Naylor MD Sep 24, 2017 17:19
--- NOTE | 2017-09-24 18:58 | HHI.IDPN ---
Subjective Subjective Remarks ID FU DR REYNOLDS PT BRONCHED AND INTUBATED TODAY NO FEVERS RESTING FAMILY AT BEDSIDE Lines RIGHT IJ Allergies: Coded Allergies: No Known Allergies (Verified Adverse Reaction, Unknown, 09/11/17) Review of Systems Constitutional Constitutional: Fatigue Objective . Vital Signs Date Time Temp Pulse Resp B/P (MAP) Pulse Ox O2 Delivery O2 Flow Rate FiO2 09/24/17 18:37 72 55 124/63 (83) 100 09/24/17 18:30 82 51 100 09/24/17 18:00 76 51 100 09/24/17 17:43 78 48 114/69 (84) 100 09/24/17 17:30 82 45 100 09/24/17 17:00 82 46 09/24/17 16:35 100 40 09/24/17 16:00 86 09/24/17 16:00 97.0 86 20 86/59 (68) 100 09/24/17 15:00 76 36 136/66 (89) 100 09/24/17 14:10 100 60 09/24/17 14:00 84 32 119/64 (82) 100 09/24/17 14:00 84 09/24/17 13:00 78 20 87/48 (61) 100 09/24/17 12:00 64 09/24/17 12:00 64 24 117/53 (74) 100 09/24/17 11:30 100 60 09/24/17 11:00 66 23 92/57 (69) 100 09/24/17 10:00 74 09/24/17 10:00 74 41 81/57 (65) 98 09/24/17 09:00 100 100 09/24/17 09:00 86 28 166/86 (112) 96 09/24/17 08:00 96 09/24/17 08:00 97.5 96 31 178/100 (126) 96 09/24/17 07:07 92 36 145/71 (95) 90 09/24/17 07:00 97 Nasal Cannula 3.00 09/24/17 06:07 84 16 115/66 (82) 99 09/24/17 06:00 94 09/24/17 05:07 98 33 119/53 (75) 99 09/24/17 04:07 97.8 110 24 104/51 (68) 99 09/24/17 04:00 86 09/24/17 03:07 90 16 114/70 (85) 96 09/24/17 02:07 94 18 132/67 (88) 97 09/24/17 02:00 82 09/24/17 01:07 108 27 140/74 (96) 96 09/24/17 00:07 97.5 120 14 123/73 (90) 98 09/24/17 00:00 90 09/23/17 23:14 98 42 155/88 (110) 95 09/23/17 23:14 98 42 155/88 (110) 95 09/23/17 23:07 96 33 131/101 (111) 96 09/23/17 23:07 96 33 131/101 (111) 96 09/23/17 22:07 94 32 165/79 (107) 91 09/23/17 22:07 94 32 165/79 (107) 91 09/23/17 22:00 96 37 94 09/23/17 22:00 87 09/23/17 21:07 86 33 141/79 (99) 98 09/23/17 20:49 86 21 123/77 (92) 98 09/23/17 20:44 92 31 137/80 (99) 09/23/17 20:42 96 33 130/75 (93) 09/23/17 20:16 64 16 115/69 (84) 99 09/23/17 20:01 96.9 68 15 120/64 (82) 98 09/23/17 20:00 88 09/23/17 19:46 64 15 122/62 (82) 93 09/23/17 19:43 99 Nasal Cannula 2.00 09/23/17 19:31 64 17 100/57 (71) 93 09/23/17 19:16 68 15 101/56 (71) 92 09/23/17 19:01 74 19 113/60 (77) 91 09/23/17 19:01 74 19 113/60 (77) 91 09/23/17 19:00 98 Nasal Cannula 3.00 09/23/17 19:00 78 19 91 . Laboratory Tests Test 09/23/17 05:44 09/23/17 12:59 09/24/17 06:21 White Blood Count 21.1 TH/MM3 21.4 TH/MM3 21.0 TH/MM3 Red Blood Count 4.65 MIL/MM3 4.47 MIL/MM3 4.18 MIL/MM3 Hemoglobin 13.2 GM/DL 12.9 GM/DL 12.1 GM/DL Hematocrit 40.8 % 39.4 % 36.7 % Mean Corpuscular Volume 87.7 FL 88.0 FL 87.7 FL Mean Corpuscular Hemoglobin 28.4 PG 28.9 PG 28.8 PG Mean Corpuscular Hemoglobin Concent 32.4 % 32.8 % 32.8 % Red Cell Distribution Width 16.7 % 16.7 % 17.1 % Platelet Count 332 TH/MM3 294 TH/MM3 255 TH/MM3 Mean Platelet Volume 8.7 FL 8.4 FL 8.5 FL Neutrophils (%) (Auto) 87.3 % 88.2 % 84.1 % Lymphocytes (%) (Auto) 7.3 % 3.5 % 7.4 % Monocytes (%) (Auto) 3.9 % 7.2 % 6.0 % Eosinophils (%) (Auto) 0.4 % 0.4 % 0.9 % Basophils (%) (Auto) 1.1 % 0.7 % 1.6 % Neutrophils # (Auto) 18.5 TH/MM3 18.8 TH/MM3 17.6 TH/MM3 Lymphocytes # (Auto) 1.5 TH/MM3 0.8 TH/MM3 1.6 TH/MM3 Monocytes # (Auto) 0.8 TH/MM3 1.5 TH/MM3 1.3 TH/MM3 Eosinophils # (Auto) 0.1 TH/MM3 0.1 TH/MM3 0.2 TH/MM3 Basophils # (Auto) 0.2 TH/MM3 0.2 TH/MM3 0.3 TH/MM3 CBC Comment AUTO DIFF AUTO DIFF AUTO DIFF Differential Comment AUTO DIFF CONFIRMED AUTO DIFF CONFIRMED AUTO DIFF CONFIRMED Laboratory Tests Test 09/23/17 05:44 09/23/17 12:59 09/24/17 06:21 09/24/17 10:31 Blood Urea Nitrogen 34 MG/DL 36 MG/DL 26 MG/DL Creatinine 1.10 MG/DL 1.30 MG/DL 1.10 MG/DL Random Glucose 80 MG/DL 90 MG/DL 126 MG/DL Total Protein 7.0 GM/DL 6.6 GM/DL 5.7 GM/DL Albumin 2.5 GM/DL 2.3 GM/DL 1.9 GM/DL Calcium Level 8.6 MG/DL 8.3 MG/DL 7.6 MG/DL Alkaline Phosphatase 68 U/L 79 U/L 68 U/L Aspartate Amino Transf (AST/SGOT) 67 U/L 101 U/L 50 U/L Alanine Aminotransferase (ALT/SGPT) 132 U/L 168 U/L 124 U/L Total Bilirubin 0.9 MG/DL 1.3 MG/DL 1.1 MG/DL Sodium Level 148 MEQ/L 148 MEQ/L 146 MEQ/L Potassium Level 3.4 MEQ/L 4.0 MEQ/L 3.2 MEQ/L Chloride Level 109 MEQ/L 111 MEQ/L 113 MEQ/L Carbon Dioxide Level 29.8 MEQ/L 30.0 MEQ/L 24.8 MEQ/L Anion Gap 9 MEQ/L 7 MEQ/L 8 MEQ/L Estimat Glomerular Filtration Rate 65 ML/MIN 53 ML/MIN 65 ML/MIN Magnesium Level 2.6 MG/DL 2.6 MG/DL 2.4 MG/DL Phosphorus Level 2.9 MG/DL 3.2 MG/DL Ammonia LESS THAN 10 MCMOL/L Direct Bilirubin 0.4 MG/DL Indirect Bilirubin 0.7 MG/DL Amylase Level 117 U/L Lipase 119 U/L Microbiology Date/Time Source Procedure Growth Status 09/23/17 13:10 Blood Peripheral Aerobic Blood Culture - Preliminary NO GROWTH IN 1 DAY Resulted 09/23/17 13:10 Blood Peripheral Anaerobic Blood Culture - Preliminary NO GROWTH IN 1 DAY Resulted 09/23/17 12:59 Blood Peripheral Aerobic Blood Culture - Preliminary NO GROWTH IN 1 DAY Resulted 09/23/17 12:59 Blood Peripheral Anaerobic Blood Culture - Preliminary NO GROWTH IN 1 DAY Resulted 09/23/17 12:50 Nasal Washing Influenza Types A,B Antigen (RAOUL) - Final NEGATIVE FOR FLU A AND B ANTIGEN.... Complete 09/23/17 12:50 Urine Catheterized Urine Urine Culture - Preliminary NO GROWTH IN 24 HOURS. Resulted Physical Exam SEDATED ON VENT PERRL CHEST COARSE RHONCHI EQUAL CARDIAC: RRR ABDOMEN: QUIET EXT NO EDEMA Assessment & Plan Diagnosis: (1) Influenza ICD Codes: J11.1 - Influenza due to unidentified influenza virus with other respiratory manifestations Status: Acute (2) Alcohol withdrawal ICD Codes: F10.239 - Alcohol dependence with withdrawal, unspecified (3) Alcohol withdrawal delirium ICD Codes: F10.231 - Alcohol dependence with withdrawal delirium Status: Acute Plan: PLAN TO CONTINUE VANCO/ZOSYN. LEVAQUIN AND FOLLOW CULTURES WILL FU CLOSELY (4) Chronic alcohol abuse ICD Codes: F10.10 - Alcohol abuse, uncomplicated Status: Chronic Maeve Currie Sep 24, 2017 18:58
[2017-09-24] MEDS: PROPOFOL 1000 MG/100 ML INJ 100 ML IV PRN (19:28)
[2017-09-24] MEDS: CHLORHEXIDINE 0.12% (ORAL KIT) 15 ML CUP MT SCH (19:58)
--- NOTE | 2017-09-24 20:38 | MG ---
cc: FIGUEROA ROJAS M.D. Lab No: Date: 09/24/2017 Age: Sex: M Race: REQUESTING PHYSICIAN Dr. Stallings INTRODUCTION An EEG was obtained on this 76-year-old patient intubated, sedated on Diprivan and fentanyl. DESCRIPTION The EEG shows low amplitude beta activity diffusely. There are some associated 12-14 per second activity alpha rhythms posteriorly. The patient at times is clearly in a sleep state when the theta and delta activities evolve bilaterally and symmetrically. When awake there is artifact. Photic stimulation showed no change. INTERPRETATION This EEG is showing normal awake and asleep features. No epileptiform features present specifically. Figueroa Rojas MD OF[facility]/KK /8:08 PM /8:31 PM
[2017-09-24] MEDS: NOREPINEPHRINE INJ 4 MG in SODIUM CHLOR 0.9% 250 ML INJ 246 ML IV PRN (22:05)
[2017-09-24] MEDS: fentaNYL DRIP 250 ML IV PRN (22:08)
[2017-09-25] VITALS (62 sets, daily range): BP systolic 54–185; BP diastolic 32–82; PULSE 56–102; RESP 14–52; TEMP 97.7–98.5; O2SAT 95–100
[2017-09-25] MEDS: INSULIN NovoLIN REGULAR SUPPLEMENTAL SCALE SQ SCH ×6 (00:10→21:00)
[2017-09-25] MEDS: PIPERACIL-TAZO 4.5 GM PREMIX 100 ML IV SCH ×4 (00:10→20:21)
[2017-09-25] MEDS: DEXT 5%-NACL 0.45% 1000 ML INJ 1,000 ML IV SCH ×3 (00:11→22:34)
[2017-09-25] MEDS: VANCOMYCIN 1,000 MG/NS 250 ML IV SCH ×4 (02:20→20:51)
[2017-09-25] MEDS: RESP: ALBUTEROL 2.5 MG/IPRATROPIUM 0.5 MG NEB (SCH) NEB ×6 (03:17→23:13)
[2017-09-25] MEDS: PROPOFOL 1000 MG/100 ML INJ 100 ML IV PRN ×2 (03:23→20:20)
[2017-09-25 05:21] LABS: AUTOMATED NEUTROPHIL # 22.6 TH/MM3 (1.8-7.7); BASOPHIL # 0.1 TH/MM3 (0-0.2); BASOPHIL % 0.3 % (0.0-2.0); EOSINOPHIL % 0.1 % (0.0-4.0); HEMATOCRIT 35.2 % (39.0-51.0); HEMOGLOBIN 11.6 GM/DL (13.0-17.0); LYMPH % 2.3 % (9.0-44.0); LYMPHOCYTE # 0.5 TH/MM3 (1.0-4.8); MEAN CORPUSCULAR HEMOGLOBIN 29.6 PG (27.0-34.0); MEAN CORPUSCULAR HGB CONC 32.9 % (32.0-36.0); MEAN PLATELET VOLUME 9.1 FL (7.0-11.0); MONO % 1.2 % (0.0-8.0); MONOCYTE # 0.3 TH/MM3 (0-0.9); NEUT % 96.1 % (16.0-70.0); PLATELET COUNT 325 TH/MM3 (150-450); RED BLOOD COUNT 3.92 MIL/MM3 (4.50-5.90); RED CELL DISTRIBUTION WIDTH 17.6 % (11.6-17.2); WHITE BLOOD COUNT 23.5 TH/MM3 (4.0-11.0)
[2017-09-25] MEDS: ARTIFICIAL TEARS OPTH SOLN 15 ML BTL EACH EYE SCH ×3 (05:27→21:01)
[2017-09-25] MEDS: METOCLOPRAMIDE HCL 10 MG/2 ML VIAL IV PUSH SCH ×3 (05:28→20:50)
[2017-09-25] MEDS: methylPREDNISolone SOD SUCC 40 MG/1 ML VIAL IV PUSH SCH ×3 (05:28→20:50)
[2017-09-25 05:32] LABS: CHLORIDE 111 MEQ/L (98-107); SODIUM (NA) 145 MEQ/L (136-145)
[2017-09-25 05:39] LABS: CALCIUM 7.6 MG/DL (8.5-10.1)
[2017-09-25 05:40] LABS: ALBUMIN 1.9 GM/DL (3.4-5.0)
[2017-09-25 06:00] LABS: ALKALINE PHOSPHATASE 64 U/L (45-117); ALT (GPT) 101 U/L (12-78); AST (GOT) 26 U/L (15-37); BLOOD UREA NITROGEN 21 MG/DL (7-18); GLOMERULAR FILTRATION RATE 53 ML/MIN (>89); GLUCOSE,RANDOM 254 MG/DL (74-106); MAGNESIUM 2.6 MG/DL (1.5-2.5); PHOSPHORUS 2.2 MG/DL (2.5-4.9); TOTAL BILIRUBIN ADULT 0.6 MG/DL (0.2-1.0)
[2017-09-25] MEDS: NOREPINEPHRINE INJ 4 MG in SODIUM CHLOR 0.9% 250 ML INJ 246 ML IV PRN (08:15)
[2017-09-25] MEDS: THIAMINE HCL 100 MG TAB PO SCH (08:36)
[2017-09-25] MEDS: FOLIC ACID 1 MG TAB PO SCH (08:36)
[2017-09-25] MEDS: DRONEDARONE 400 MG TAB PO SCH ×2 (08:36→21:00)
[2017-09-25] MEDS: FAMOTIDINE 40 MG/5 ML LIQ 50 ML BTL NG SCH ×2 (08:36→20:50)
[2017-09-25] MEDS: MULTIVITAMIN TAB PO SCH (08:36)
--- NOTE | 2017-09-25 08:36 | HHI.IDPN ---
Subjective Subjective Remarks Sedated on ventilator No fevers Antibiotics Vancomycin, Zosyn and Levofloxacin Lines Left IJ line and Peripheral IV Past Medical History Asthma, Alcoholism , Afib Allergies: Coded Allergies: No Known Allergies (Verified Adverse Reaction, Unknown, 09/11/17) Review of Systems Constitutional Constitutional Remarks No fevers Objective . Vital Signs Date Time Temp Pulse Resp B/P (MAP) Pulse Ox O2 Delivery O2 Flow Rate FiO2 09/25/17 08:15 90 138/65 09/25/17 06:31 84 46 135/68 (90) 98 09/25/17 06:25 86 33 137/69 (91) 98 09/25/17 06:08 102 49 166/73 (104) 96 09/25/17 06:07 100 42 175/76 (109) 98 09/25/17 06:05 102 33 181/81 (114) 98 09/25/17 06:01 90 33 185/82 (116) 98 09/25/17 06:00 82 09/25/17 06:00 85 119/56 09/25/17 05:33 88 16 119/71 (87) 97 09/25/17 05:32 90 20 63/38 (46) 09/25/17 05:31 90 24 54/39 (44) 97 09/25/17 04:31 86 16 138/67 (90) 98 09/25/17 04:13 99 35 09/25/17 04:01 97.7 80 16 134/67 (89) 99 09/25/17 04:00 95 09/25/17 03:31 76 16 126/69 (88) 99 09/25/17 03:01 76 16 150/74 (99) 98 09/25/17 02:31 78 16 139/65 (89) 98 09/25/17 02:01 76 16 148/69 (95) 99 09/25/17 02:00 76 09/25/17 01:31 76 37 142/70 (94) 99 09/25/17 01:21 99 35 09/25/17 01:00 76 16 137/72 (93) 99 09/25/17 00:30 74 16 126/67 (86) 99 09/25/17 00:00 97.7 80 16 135/64 (87) 99 09/25/17 00:00 74 09/24/17 23:30 74 16 146/64 (91) 99 09/24/17 23:00 74 16 122/59 (80) 99 09/24/17 22:30 74 16 107/56 (73) 99 09/24/17 22:12 99 40 09/24/17 22:05 93 113/61 09/24/17 22:00 74 16 113/61 (78) 99 09/24/17 22:00 88 09/24/17 21:30 74 16 98/56 (70) 100 09/24/17 21:00 74 16 136/69 (91) 99 09/24/17 20:30 82 16 111/53 (72) 99 09/24/17 20:00 68 09/24/17 20:00 97.5 68 16 116/68 (84) 99 09/24/17 19:42 98 40 09/24/17 19:30 70 16 137/66 (89) 99 09/24/17 19:00 70 56 132/65 (87) 99 09/24/17 19:00 98 Mechanical Ventilator 40 09/24/17 19:00 70 16 132/65 (87) 99 09/24/17 18:37 72 55 124/63 (83) 100 09/24/17 18:30 82 51 100 09/24/17 18:00 76 51 100 09/24/17 18:00 76 09/24/17 17:43 78 48 114/69 (84) 100 09/24/17 17:30 82 45 100 09/24/17 17:00 82 46 09/24/17 16:35 100 40 09/24/17 16:00 86 09/24/17 16:00 97.0 86 20 86/59 (68) 100 09/24/17 15:00 76 36 136/66 (89) 100 09/24/17 14:10 100 60 09/24/17 14:00 84 32 119/64 (82) 100 09/24/17 14:00 84 09/24/17 13:00 78 20 87/48 (61) 100 09/24/17 12:00 64 09/24/17 12:00 64 24 117/53 (74) 100 09/24/17 11:30 100 60 09/24/17 11:00 66 23 92/57 (69) 100 09/24/17 10:00 74 09/24/17 10:00 74 41 81/57 (65) 98 09/24/17 09:00 100 100 09/24/17 09:00 86 28 166/86 (112) 96 . Laboratory Tests Test 09/23/17 12:59 09/24/17 06:21 09/25/17 04:35 White Blood Count 21.4 TH/MM3 21.0 TH/MM3 23.5 TH/MM3 Red Blood Count 4.47 MIL/MM3 4.18 MIL/MM3 3.92 MIL/MM3 Hemoglobin 12.9 GM/DL 12.1 GM/DL 11.6 GM/DL Hematocrit 39.4 % 36.7 % 35.2 % Mean Corpuscular Volume 88.0 FL 87.7 FL 90.0 FL Mean Corpuscular Hemoglobin 28.9 PG 28.8 PG 29.6 PG Mean Corpuscular Hemoglobin Concent 32.8 % 32.8 % 32.9 % Red Cell Distribution Width 16.7 % 17.1 % 17.6 % Platelet Count 294 TH/MM3 255 TH/MM3 325 TH/MM3 Mean Platelet Volume 8.4 FL 8.5 FL 9.1 FL Neutrophils (%) (Auto) 88.2 % 84.1 % 96.1 % Lymphocytes (%) (Auto) 3.5 % 7.4 % 2.3 % Monocytes (%) (Auto) 7.2 % 6.0 % 1.2 % Eosinophils (%) (Auto) 0.4 % 0.9 % 0.1 % Basophils (%) (Auto) 0.7 % 1.6 % 0.3 % Neutrophils # (Auto) 18.8 TH/MM3 17.6 TH/MM3 22.6 TH/MM3 Lymphocytes # (Auto) 0.8 TH/MM3 1.6 TH/MM3 0.5 TH/MM3 Monocytes # (Auto) 1.5 TH/MM3 1.3 TH/MM3 0.3 TH/MM3 Eosinophils # (Auto) 0.1 TH/MM3 0.2 TH/MM3 0.0 TH/MM3 Basophils # (Auto) 0.2 TH/MM3 0.3 TH/MM3 0.1 TH/MM3 CBC Comment AUTO DIFF AUTO DIFF AUTO DIFF Differential Comment AUTO DIFF CONFIRMED AUTO DIFF CONFIRMED AUTO DIFF CONFIRMED Laboratory Tests Test 09/23/17 12:59 09/24/17 06:21 09/24/17 10:31 09/25/17 04:35 Blood Urea Nitrogen 36 MG/DL 26 MG/DL 21 MG/DL Creatinine 1.30 MG/DL 1.10 MG/DL 1.30 MG/DL Random Glucose 90 MG/DL 126 MG/DL 254 MG/DL Total Protein 6.6 GM/DL 5.7 GM/DL 6.0 GM/DL Albumin 2.3 GM/DL 1.9 GM/DL 1.9 GM/DL Calcium Level 8.3 MG/DL 7.6 MG/DL 7.6 MG/DL Phosphorus Level 2.9 MG/DL 3.2 MG/DL 2.2 MG/DL Magnesium Level 2.6 MG/DL 2.4 MG/DL 2.6 MG/DL Alkaline Phosphatase 79 U/L 68 U/L 64 U/L Aspartate Amino Transf (AST/SGOT) 101 U/L 50 U/L 26 U/L Alanine Aminotransferase (ALT/SGPT) 168 U/L 124 U/L 101 U/L Total Bilirubin 1.3 MG/DL 1.1 MG/DL 0.6 MG/DL Sodium Level 148 MEQ/L 146 MEQ/L 145 MEQ/L Potassium Level 4.0 MEQ/L 3.2 MEQ/L 3.6 MEQ/L Chloride Level 111 MEQ/L 113 MEQ/L 111 MEQ/L Carbon Dioxide Level 30.0 MEQ/L 24.8 MEQ/L 27.0 MEQ/L Anion Gap 7 MEQ/L 8 MEQ/L 7 MEQ/L Estimat Glomerular Filtration Rate 53 ML/MIN 65 ML/MIN 53 ML/MIN Ammonia LESS THAN 10 MCMOL/L Direct Bilirubin 0.4 MG/DL Indirect Bilirubin 0.7 MG/DL Amylase Level 117 U/L Lipase 119 U/L Microbiology Date/Time Source Procedure Growth Status 09/23/17 13:10 Blood Peripheral Aerobic Blood Culture - Preliminary NO GROWTH IN 1 DAY Resulted 09/23/17 13:10 Blood Peripheral Anaerobic Blood Culture - Preliminary NO GROWTH IN 1 DAY Resulted 09/23/17 12:59 Blood Peripheral Aerobic Blood Culture - Preliminary NO GROWTH IN 1 DAY Resulted 09/23/17 12:59 Blood Peripheral Anaerobic Blood Culture - Preliminary NO GROWTH IN 1 DAY Resulted 09/24/17 15:25 Sputum Endotracheal Gram Stain Pending Received 09/24/17 15:25 Sputum Endotracheal Sputum Culture Pending Received 09/23/17 12:50 Nasal Washing Influenza Types A,B Antigen (RAOUL) - Final NEGATIVE FOR FLU A AND B ANTIGEN.... Complete 09/23/17 12:50 Urine Catheterized Urine Urine Culture - Preliminary NO GROWTH IN 24 HOURS. Resulted Physical Exam GENERAL: This is a chronically ill patient sedated on the ventilator SKIN: Multiple, ecchymoses . Cool and dry. HEAD: Atraumatic. Normocephalic. No temporal or scalp tenderness. EYES: Pupils equal round and reactive. . No scleral icterus. No injection or drainage. ENT: Nose without bleeding, purulent drainage or septal hematoma. Patient with ET tube NECK: Trachea midline. No JVD or lymphadenopathy. Supple, nontender, no meningeal signs.Left IJ line CARDIOVASCULAR: Tachycardia. RESPIRATORY: . Breath sounds equal bilaterally.Some rhonchi. GASTROINTESTINAL: Abdomen soft, non-tender, nondistended. No hepato-splenomegaly , or palpable masses. No guarding. MUSCULOSKELETAL: Extremities without clubbing, cyanosis, or edema. No joint tenderness, effusion, or edema noted. No calf tenderness. Negative Homans sign bilaterally. NEUROLOGICAL: Patient sedated on ventilator Assessment & Plan Diagnosis: (1) Respiratory failure ICD Codes: J96.90 - Respiratory failure, unspecified, unspecified whether with hypoxia or hypercapnia Status: Acute Plan: Patient on ventilator (2) Leukocytosis ICD Codes: D72.829 - Elevated white blood cell count, unspecified Status: Acute Plan: Likely secondary to steroid use but will follow cultures Continue IV Vancomycin , Zosyn and Levofloxacin for now If cultures ok then will josh down antibiotics (3) Asthma ICD Codes: J45.909 - Unspecified asthma, uncomplicated Status: Acute (4) Paroxysmal atrial fibrillation ICD Codes: I48.0 - Paroxysmal atrial fibrillation Status: Chronic (5) Chronic alcohol abuse ICD Codes: F10.10 - Alcohol abuse, uncomplicated Status: Chronic Problem Qualifiers (1) Respiratory failure: (2) Asthma: Qualified Codes: J45.901 - Unspecified asthma with (acute) exacerbation Svetlana Balderrama MD Sep 25, 2017 08:36
[2017-09-25] MEDS: CHLORHEXIDINE 0.12% (ORAL KIT) 15 ML CUP MT SCH ×2 (08:38→19:58)
[2017-09-25] MEDS: SODIUM CHLORIDE 0.9% FLUSH 10 ML FLUSH IV FLUSH SCH (08:39)
--- NOTE | 2017-09-25 08:50 | HHI.CCPN ---
Subjective Remarks/Hospital Course The patient is a 76-year-old male with a past medical history of atrial fibrillation with previous cardioversion, ETOH abuse and bronchial asthma. The patient was admitted on September 11 for signs of generalized weakness. He had a CT scan of the chest on September 14 which showed small nodular areas of airspace disease in the lingula and left lung base. He was admitted to ICU for alcohol withdrawal and was placed on CIWA protocol. During his hospital course, the patient was seen by pulmonary and GI services. Due to altered mental status, he had a CT scan of the brain on September 22 which showed no acute intracranial findings. Critical care medicine was consulted for hypotension earlier today as the patient was found to have systolic blood pressure in the 70s to 80s. He responded to fluid resuscitation and with current blood pressure 148/64 with a pulse of 72. ABG was performed on room air which showed a pH of 7.48, CO2 37, pAO2 72, bicarb of 27 and saturation 93% . He also had an MRI of the brain this afternoon which showed diffuse atrophy, otherwise, no acute intracranial findings. The patient failed speech evaluation and NG tube was inserted where nutrition support was provided via tube feeds. His laboratory data today showed worsening leukocytosis with WBC increased to 21.1 from 10.9. In addition, the patient is hypernatremic with a sodium level of 148 and increased creatinine level of 1.30 from 1.1. His ammonia level measured less than 10. Most of the history was obtained from reviewing the medical records as patient is a poor historian. He had a positive flu antigen on September 06. 09/24: Currently afebrile. Intubated for obvious aspiration. Central line placed due to very poor IV access. Will start TPN if unable to tolerate tube feeding. Currently resting in bed Subjective 09/25: Afebrile. Currently resting in bed will strictly intubated. Was previously on Apixaban but currently hold since yesterday. Tube feeds will be restarted today. Objective Vital Signs Date Time Temp Pulse Resp B/P (MAP) Pulse Ox O2 Delivery O2 Flow Rate FiO2 09/25/17 08:15 90 138/65 09/25/17 07:25 99 35 09/25/17 06:31 46 09/25/17 04:01 97.7 09/24/17 19:00 Mechanical Ventilator 09/24/17 07:00 3.00 Intake and Output 09/25/17 09/25/17 09/26/17 08:00 16:00 00:00 Intake Total 2160 ml Output Total 900 ml Balance 1260 ml Result Diagram: 09/25/17 0435 09/25/17 0435 Other Results Microbiology Date/Time Source Procedure Growth Status 09/23/17 13:10 Blood Peripheral Aerobic Blood Culture - Preliminary NO GROWTH IN 1 DAY Resulted 09/23/17 13:10 Blood Peripheral Anaerobic Blood Culture - Preliminary NO GROWTH IN 1 DAY Resulted 09/24/17 15:25 Sputum Endotracheal Gram Stain Pending Received 09/24/17 15:25 Sputum Endotracheal Sputum Culture Pending Received 09/23/17 12:50 Urine Catheterized Urine Urine Culture - Preliminary NO GROWTH IN 24 HOURS. Resulted Imaging Last Impressions Chest X-Ray 09/24/17 0934 Signed Impressions: Service Date/Time: Sunday, September 24, 2017 09:45 - CONCLUSION: Appropriate placement of a endotracheal tube and central line. No evidence of complication. Brigitte Sanchez MD Liver Ultrasound 09/23/17 0000 Signed Impressions: Service Date/Time: Saturday, September 23, 2017 14:12 - CONCLUSION: Right upper quadrant abdominal ultrasound within normal limits. Vinod Pelletier MD Brain MRI 09/23/17 0000 Signed Impressions: Service Date/Time: Saturday, September 23, 2017 15:21 - CONCLUSION: Diffuse atrophy. No acute intracranial findings. Vinod Pelletier MD Head CT 09/22/17 0000 Signed Impressions: Service Date/Time: Friday, September 22, 2017 21:31 - CONCLUSION: 1. No acute intracranial abnormalities. Terrance Murillo MD Abdomen X-Ray 09/17/17 0000 Signed Impressions: Service Date/Time: Sunday, September 17, 2017 22:34 - CONCLUSION: Nasogastric tube with tip coiled in stomach. Abhinav Allen MD Chest CT 09/14/17 0000 Signed Impressions: Service Date/Time: August 13:00 - CONCLUSION: Small nodular areas of airspace disease both in the lingula and the left lung base. Right lung is relatively clear. The mediastinum is unremarkable. Adrian Martinez MD Objective Remarks GENERAL: This is a 76-year-old male currently orotracheally intubated SKIN: Warm and dry. No rash HEAD: Atraumatic. Normocephalic. EYES: Pupils equal and round. No scleral icterus. No injection or drainage. ENT: No nasal bleeding or discharge. Mucous membranes pink and moist. NG tube in left nares NECK: Trachea midline. No JVD. Left IJ CVL is clean dry and intact CARDIOVASCULAR: Regular rate and rhythm. S1, S2. No S4. Without murmur RESPIRATORY: Transmitted upper airway sounds. Coarse crackles appreciated throughout all lung hester anterior and posteriorly.. Breath sounds equal bilaterally. GASTROINTESTINAL: Abdomen soft, non-tender, nondistended. Hypoactive bowel sounds are appreciated. MUSCULOSKELETAL: Extremities without significant peripheral edema. No obvious deformities. NEUROLOGICAL: Moving all 4 extremities spontaneously. Positive gag. Positive corneal reflex. Urinary Catheter: Yes Assessment to: Continue Vascular Central Line Catheter: Yes Assessment to: Continue Date of Insertion: Sep 24, 2017 Line: Central Venous Catheter Side: Left Location: Internal, Jugular A/P Assessment and Plan Neuro/Psych: Subacute encephalopathy EtOH use Currently on propofol/fentanyl drips for sedation/analgesia while intubated Goal of RASS -2 Daily sedation vacation Continue thiamine, folate and multivitamin daily Discontinued CIWA protocol while intubated Evaluated by neurology - Dr. Rojas. Possibly will need lumbar puncture however holding 09/24 Apixaban.. This be on hold. Today ordered lumbar puncture on Monday MRI brain 09/23 revealed no acute intracranial findings. EEG 09/16 showing normal awake and asleep features. No epileptiform features present specifically. CV: Atrial fibrillation/rate controlled Seen by Dr. Mckay in the past. Status post failed cardioversion the past Currently on Dronedarone 400 mg BID Currently on D5 1 half normal saline at 84 cc an hour As needed hydralazine/labetalol for hypertension Resp: Acute respiratory failure secondary to aspiration PRVC 14/500/09/01/50 Ventilator bundle Albuterol/ipratropium aerosols every 4 hours with albuterol aerosols every 2 hours. Dyspnea Spontaneous breathing trials when clinically indicated Follow post intubation chest x-ray and ABG Pulmonology - Dr. Naylor following GI: Elevated transaminases Currently on Jevity 1.5 goal 60 cc an hour currently on hold due to high tube feed residuals Restart today. Residuals were "40" Start on prokinetic metoclopramide 5 mill grams IV every 8 hours Famotidine 20 mg twice a day for GI prophylaxis Docusate sodium/senna 1 tablet twice a day for bowel regimen Liver ultrasound this hospitalization within normal limits Normal ammonia Hepatitis panel pending : Lyons catheter has been placed for accurate I's and O's in a critically ill patient Endo: SSI with Novulog with Accu-Cheks every 4 hours to maintain glycemia/low regimen Renal: Monitor urine output Accurate I's and O's Monitor BMP daily Heme: Leukocytosis Normocytic anemia History of skin cancer Chronic apixaban use Continue iron sulfate 325 mg by mouth Monitor CBC daily. Follow trends Will hold NOAC for possible lumbar puncture ID: Currently piperacillin/tazobactam and vancomycin for aspiration pneumonia Pertinent cultures 09/23 - blood cultures 2 - no growth 09/23 - urine cultures - no growth Influenza negative 09/11 - blood cultures 2 - no growth MSK: PT evaluate and treat FEN: Hypophosphatemia Currently on D5 1/ saline at 84 cc an hour Replace electrolytes as clinically indicated per ICU electrolyte protocol Access - Left IJ CVL day 2 placed 09/24 Prophylaxis - GI - famotidine - DVT - SCD/holding Apixaban for possible lumbar puncture Critical Care: The total critical care time was 35 minutes. Time to perform other separately billable procedures was not included in the critical care time. Aldair Castillo MD Sep 25, 2017 08:50
[2017-09-25] MEDS: LACTOBACILLUS ACIDOPHILUS TAB PO SCH ×2 (09:00→21:00)
[2017-09-25] MEDS ORDERED: POTASSIUM PHOSPHATE INJ 30 MMOL in SODIUM CHLOR 0.9% 250 ML INJ 250 ML IV ONE (11:00)
--- NOTE | 2017-09-25 14:38 | HHI.PR ---
Subjective Remarks Patient about the same on ventilator followed by vaccine customer representative. MRI head and EEG unremarkable on vancomycin,zyosin,levaquin ,and will be under going LP tomorrow Objective Vitals GENERAL: SKIN: Warm and dry. HEAD: Atraumatic. Normocephalic. EYES: Pupils equal and round. No scleral icterus. No injection or drainage. ENT: No nasal bleeding or discharge. Mucous membranes pink and moist. NECK: Trachea midline. No JVD. CARDIOVASCULAR: Regular rate and rhythm. RESPIRATORY: No accessory muscle use. Clear to auscultation. Breath sounds equal bilaterally. GASTROINTESTINAL: Abdomen soft, non-tender, nondistended. Hepatic and splenic margins not palpable. MUSCULOSKELETAL: Extremities without clubbing, cyanosis, or edema. No obvious deformities. NEUROLOGICAL: Awake and alert. No obvious cranial nerve deficits. Motor grossly within normal limits. Five out of 5 muscle strength in the arms and legs. On ventilato Vital Signs Date Time Temp Pulse Resp B/P (MAP) Pulse Ox O2 Delivery O2 Flow Rate FiO2 09/25/17 11:07 95 35 09/25/17 08:15 90 138/65 09/25/17 07:25 99 35 09/25/17 06:31 84 46 135/68 (90) 98 09/25/17 06:25 86 33 137/69 (91) 98 09/25/17 06:08 102 49 166/73 (104) 96 09/25/17 06:07 100 42 175/76 (109) 98 09/25/17 06:05 102 33 181/81 (114) 98 09/25/17 06:01 90 33 185/82 (116) 98 09/25/17 06:00 82 09/25/17 06:00 85 119/56 09/25/17 05:33 88 16 119/71 (87) 97 09/25/17 05:32 90 20 63/38 (46) 09/25/17 05:31 90 24 54/39 (44) 97 09/25/17 04:31 86 16 138/67 (90) 98 09/25/17 04:13 99 35 09/25/17 04:01 97.7 80 16 134/67 (89) 99 09/25/17 04:00 95 09/25/17 03:31 76 16 126/69 (88) 99 09/25/17 03:01 76 16 150/74 (99) 98 09/25/17 02:31 78 16 139/65 (89) 98 09/25/17 02:01 76 16 148/69 (95) 99 09/25/17 02:00 76 09/25/17 01:31 76 37 142/70 (94) 99 09/25/17 01:21 99 35 09/25/17 01:00 76 16 137/72 (93) 99 09/25/17 00:30 74 16 126/67 (86) 99 09/25/17 00:00 97.7 80 16 135/64 (87) 99 09/25/17 00:00 74 09/24/17 23:30 74 16 146/64 (91) 99 09/24/17 23:00 74 16 122/59 (80) 99 09/24/17 22:30 74 16 107/56 (73) 99 09/24/17 22:12 99 40 09/24/17 22:05 93 113/61 09/24/17 22:00 74 16 113/61 (78) 99 09/24/17 22:00 88 09/24/17 21:30 74 16 98/56 (70) 100 09/24/17 21:00 74 16 136/69 (91) 99 09/24/17 20:30 82 16 111/53 (72) 99 09/24/17 20:00 68 09/24/17 20:00 97.5 68 16 116/68 (84) 99 09/24/17 19:42 98 40 09/24/17 19:30 70 16 137/66 (89) 99 09/24/17 19:00 70 56 132/65 (87) 99 09/24/17 19:00 98 Mechanical Ventilator 40 09/24/17 19:00 70 16 132/65 (87) 99 09/24/17 18:37 72 55 124/63 (83) 100 09/24/17 18:30 82 51 100 09/24/17 18:00 76 51 100 09/24/17 18:00 76 09/24/17 17:43 78 48 114/69 (84) 100 09/24/17 17:30 82 45 100 09/24/17 17:00 82 46 09/24/17 16:35 100 40 09/24/17 16:00 86 09/24/17 16:00 97.0 86 20 86/59 (68) 100 09/24/17 15:00 76 36 136/66 (89) 100 09/25/17 09/25/17 09/26/17 15:00 23:00 07:00 Output Total 300 ml Balance -300 ml Output Urine Total 300 ml Result Diagram: 09/25/17 0435 09/25/17 0435 Imaging Last Impressions Chest X-Ray 09/14/17 0000 Signed Impressions: Service Date/Time: August 09:55 - CONCLUSION: Left lung density. Recommend CT chest for further evaluation Jayant Soto MD Chest CT 09/14/17 0000 Signed Impressions: Service Date/Time: August 13:00 - CONCLUSION: Small nodular areas of airspace disease both in the lingula and the left lung base. Right lung is relatively clear. The mediastinum is unremarkable. Adrian Martinez MD Last Impressions Chest X-Ray 09/11/17 1605 Signed Impressions: Service Date/Time: Monday, September 11, 2017 16:11 - CONCLUSION: No acute disease. No significant change has occurred. Gregory Campbell MD Date of Insertion: Sep 24, 2017 Line: Central Venous Catheter Side: Left Location: Internal, Jugular A/P Problem List: (1) Asthma ICD Codes: J45.909 - Unspecified asthma, uncomplicated Status: Acute Plan: asthma followed by pulmonary (2) Influenza ICD Codes: J11.1 - Influenza due to unidentified influenza virus with other respiratory manifestations Status: Acute Plan: Influenza A with secondary pneumonia. No recent fever. Patient with decrease breathing and was intubated last cxr was stable (3) Alcohol withdrawal delirium ICD Codes: F10.231 - Alcohol dependence with withdrawal delirium Status: Acute Plan: Still with periods of agitation and risk for aspiration. NGT in place now. sedation med held (4) Chronic alcohol abuse ICD Codes: F10.10 - Alcohol abuse, uncomplicated Status: Chronic Plan: previous Discussed need for cessation. (5) Paroxysmal atrial fibrillation ICD Codes: I48.0 - Paroxysmal atrial fibrillation Status: Chronic Plan: apizaban on hold as will be having LP is on dronedarone 400 bid (6) Hypotension ICD Codes: I95.9 - Hypotension, unspecified Status: Acute Plan: Setter Out caring for patient (7) Respiratory failure ICD Codes: J96.90 - Respiratory failure, unspecified, unspecified whether with hypoxia or hypercapnia Status: Acute Plan: on ventilator followed by vaccine customer representative and pulmonary (8) Leukocytosis ICD Codes: D72.829 - Elevated white blood cell count, unspecified Status: Acute Plan: on broad spectrum antibiotics ID consulted Discharge Planning as per response to treatment Problem Qualifiers (1) Asthma: Qualified Codes: J45.901 - Unspecified asthma with (acute) exacerbation (2) Respiratory failure: Carlos Littlejohn MD Sep 25, 2017 14:38
[2017-09-25 15:02] LABS: HEPATITIS A AB IGM NEGATIVE (NEGATIVE); HEPATITIS B CORE AB IGM NEGATIVE (NEGATIVE); HEPATITIS B SURFACE ANTIGEN NEGATIVE (NEGATIVE); HEPATITIS C AB IgG NEGATIVE (NEGATIVE)
[2017-09-25] MEDS: fentaNYL DRIP 250 ML IV PRN (15:20)
[2017-09-25] MEDS: LEVOFLOXACIN 500 MG PREMIX INJ 100 ML IV SCH (15:26)
--- NOTE | 2017-09-25 16:17 | HHI.PR ---
Subjective Remarks 76 YOWM with Br Asthma, Flu, Pn, Aspiration Remains intubated On Fentanyl and Diprivan On Levophed No fever Objective Vital Signs Vital Signs Date Time Temp Pulse Resp B/P (MAP) Pulse Ox O2 Delivery O2 Flow Rate FiO2 09/25/17 15:31 64 26 113/58 (76) 98 09/25/17 15:00 60 31 143/64 (90) 98 09/25/17 14:31 60 33 144/32 (69) 98 09/25/17 14:00 60 28 140/61 (87) 98 09/25/17 14:00 99 35 09/25/17 14:00 75 09/25/17 13:31 56 28 137/69 (91) 98 09/25/17 13:01 60 30 152/61 (91) 98 09/25/17 12:00 58 20 128/63 (84) 99 09/25/17 12:00 75 09/25/17 12:00 35 09/25/17 11:31 60 31 123/66 (85) 98 09/25/17 11:07 95 35 09/25/17 11:01 62 34 141/65 (90) 98 09/25/17 11:00 66 37 141/65 (90) 98 09/25/17 10:31 60 35 126/66 (86) 98 09/25/17 10:01 72 30 138/66 (90) 98 09/25/17 10:00 70 36 138/66 (90) 98 09/25/17 10:00 75 09/25/17 09:31 72 37 133/63 (86) 98 09/25/17 09:01 74 42 121/62 (81) 98 09/25/17 08:31 74 38 109/59 (76) 97 09/25/17 08:30 82 36 119/61 (80) 98 09/25/17 08:15 90 138/65 09/25/17 08:14 86 35 138/65 (89) 99 09/25/17 08:01 82 36 152/66 (94) 99 09/25/17 08:00 35 09/25/17 08:00 63 09/25/17 07:25 99 35 09/25/17 07:00 Mechanical Ventilator 3.00 35 09/25/17 07:00 82 14 138/72 (94) 99 09/25/17 06:31 84 46 135/68 (90) 98 09/25/17 06:25 86 33 137/69 (91) 98 09/25/17 06:08 102 49 166/73 (104) 96 09/25/17 06:07 100 42 175/76 (109) 98 09/25/17 06:05 102 33 181/81 (114) 98 09/25/17 06:01 90 33 185/82 (116) 98 09/25/17 06:00 82 09/25/17 06:00 85 119/56 09/25/17 05:33 88 16 119/71 (87) 97 09/25/17 05:32 90 20 63/38 (46) 09/25/17 05:31 90 24 54/39 (44) 97 09/25/17 04:31 86 16 138/67 (90) 98 09/25/17 04:13 99 35 09/25/17 04:01 97.7 80 16 134/67 (89) 99 09/25/17 04:00 95 09/25/17 03:31 76 16 126/69 (88) 99 09/25/17 03:01 76 16 150/74 (99) 98 09/25/17 02:31 78 16 139/65 (89) 98 09/25/17 02:01 76 16 148/69 (95) 99 09/25/17 02:00 76 09/25/17 01:31 76 37 142/70 (94) 99 09/25/17 01:21 99 35 09/25/17 01:00 76 16 137/72 (93) 99 09/25/17 00:30 74 16 126/67 (86) 99 09/25/17 00:00 97.7 80 16 135/64 (87) 99 09/25/17 00:00 74 09/24/17 23:30 74 16 146/64 (91) 99 09/24/17 23:00 74 16 122/59 (80) 99 09/24/17 22:30 74 16 107/56 (73) 99 09/24/17 22:12 99 40 09/24/17 22:05 93 113/61 09/24/17 22:00 74 16 113/61 (78) 99 09/24/17 22:00 88 09/24/17 21:30 74 16 98/56 (70) 100 09/24/17 21:00 74 16 136/69 (91) 99 09/24/17 20:30 82 16 111/53 (72) 99 09/24/17 20:00 68 09/24/17 20:00 97.5 68 16 116/68 (84) 99 09/24/17 19:42 98 40 09/24/17 19:30 70 16 137/66 (89) 99 09/24/17 19:00 70 56 132/65 (87) 99 09/24/17 19:00 98 Mechanical Ventilator 40 09/24/17 19:00 70 16 132/65 (87) 99 09/24/17 18:37 72 55 124/63 (83) 100 09/24/17 18:30 82 51 100 09/24/17 18:00 76 51 100 09/24/17 18:00 76 09/24/17 17:43 78 48 114/69 (84) 100 09/24/17 17:30 82 45 100 09/24/17 17:00 82 46 09/24/17 16:35 100 40 I/O 09/24/17 09/24/17 09/24/17 09/25/17 09/25/17 09/25/17 07:00 15:00 23:00 07:00 15:00 23:00 Intake Total 1233 ml 1013 ml 2160 ml Output Total 900 ml 650 ml 900 ml 300 ml Balance 333 ml 363 ml 1260 ml -300 ml Intake Oral 0 ml 0 ml 0 ml IV Total 1113 ml 1013 ml 2040 ml Tube Feeding 0 ml Other 120 ml 120 ml Output Urine Total 900 ml 650 ml 900 ml 300 ml # Bowel Movements 1 0 0 Result Diagram: 09/25/17 0435 09/25/17 0435 Objective Remarks GENERAL: Elderly male, mild sob, congested SKIN: Warm and dry. HEAD: Normocephalic. EYES: No scleral icterus. No injection or drainage. NECK: Supple, trachea midline. No JVD or lymphadenopathy. CARDIOVASCULAR: Regular rate and rhythm without murmurs, gallops, or rubs. RESPIRATORY: Breath sounds equal bilaterally. No accessory muscle use. Scattered coarse rhonchi GASTROINTESTINAL: Abdomen soft, non-tender, nondistended. MUSCULOSKELETAL: No cyanosis, or edema. BACK: Nontender without obvious deformity. No CVA tenderness. A/P Assessment and Plan VDRF Pneumonia Aspiration Bronchial asthma Alcohal withdrawl AF HTN PLAN: Vent Support Levophed to Keep MAP >65 Fentanyl and Propofol for sedation Cont Abx Aerosol nebs Tube feeding Beltran Naylor MD Sep 25, 2017 16:17
[2017-09-25] MEDS ORDERED: PHARMACY ORDERED LAB ONE (19:45)
[2017-09-26] VITALS (44 sets, daily range): BP systolic 75–146; BP diastolic 48–78; PULSE 56–90; RESP 13–33; TEMP 97.6–98; O2SAT 97–100
[2017-09-26] MEDS: INSULIN NovoLIN REGULAR SUPPLEMENTAL SCALE SQ SCH ×6 (00:13→20:45)
[2017-09-26] MEDS: PIPERACIL-TAZO 4.5 GM PREMIX 100 ML IV SCH (01:59)
[2017-09-26] MEDS: RESP: ALBUTEROL 2.5 MG/IPRATROPIUM 0.5 MG NEB (SCH) NEB ×6 (03:20→23:55)
[2017-09-26 05:38] LABS: BASOPHIL % 0.1 % (0.0-2.0); HEMATOCRIT 30.3 % (39.0-51.0); HEMOGLOBIN 9.6 GM/DL (13.0-17.0); LYMPH % 3.2 % (9.0-44.0); LYMPHOCYTE # 0.6 TH/MM3 (1.0-4.8); MEAN CELL VOLUME 88.5 FL (80.0-100.0); MEAN CORPUSCULAR HGB CONC 31.7 % (32.0-36.0); MEAN PLATELET VOLUME 8.8 FL (7.0-11.0); MONOCYTE # 0.7 TH/MM3 (0-0.9); NEUT % 92.7 % (16.0-70.0); PLATELET COUNT 252 TH/MM3 (150-450); RED BLOOD COUNT 3.43 MIL/MM3 (4.50-5.90); RED CELL DISTRIBUTION WIDTH 17.2 % (11.6-17.2); WHITE BLOOD COUNT 18.3 TH/MM3 (4.0-11.0)
[2017-09-26 06:10] LABS: INTERNATIONAL NORMALIZED RATIO 1.1 RATIO; PROTHROMBIN TIME - PATIENT 10.7 SEC (9.8-11.6)
--- NOTE | 2017-09-26 06:27 | RADRPT ---
EXAM DATE/TIME: 09/26/2017 05:55 [facility] COMPARISON: CHEST SINGLE AP, September 24, 2017, 9:45. INDICATIONS : Shortness of breath. MEDICAL HISTORY : Hypertension. Cardiovascular disease. SURGICAL HISTORY : None. ENCOUNTER: Subsequent ACUITY: 1 week PAIN SCORE: Non-responsive. LOCATION: Bilateral chest FINDINGS: A single view of the chest demonstrates the left central line in superior vena cava. Endotracheal tub e in good position. No focal consolidation or significant effusion. No pneumothorax. Nasogastric tube traverses the esophagus. CONCLUSION: Endotracheal tube, left central line and nasogastric tube in good position. Minimal basal atelectasis . Terrance Murillo MD on September 26, 2017 at 6:23 Board Certified Radiologist. This report was verified electronically.
[2017-09-26] MEDS: methylPREDNISolone SOD SUCC 40 MG/1 ML VIAL IV PUSH SCH ×3 (06:38→21:33)
[2017-09-26] MEDS: ARTIFICIAL TEARS OPTH SOLN 15 ML BTL EACH EYE SCH ×3 (06:39→21:33)
[2017-09-26] MEDS: METOCLOPRAMIDE HCL 10 MG/2 ML VIAL IV PUSH SCH ×3 (06:39→21:34)
[2017-09-26 06:42] LABS: ALBUMIN 1.8 GM/DL (3.4-5.0); BICARBONATE 28.7 MEQ/L (21.0-32.0); CREATININE 0.97 MG/DL (0.60-1.30); DIRECT BILIRUBIN ADULT 0.1 MG/DL (0.0-0.2); INDIRECT BILIRUBIN 0.2 MG/DL (0.0-0.8); MAGNESIUM 2.6 MG/DL (1.5-2.5); PHOSPHORUS 2.2 MG/DL (2.5-4.9); TOTAL BILIRUBIN ADULT 0.3 MG/DL (0.2-1.0); TOTAL PROTEIN 5.2 GM/DL (6.4-8.2)
[2017-09-26 07:44] LABS: CALCIUM 7.1 MG/DL (8.5-10.1)
[2017-09-26] MEDS: CHLORHEXIDINE 0.12% (ORAL KIT) 15 ML CUP MT SCH ×2 (08:00→21:32)
--- NOTE | 2017-09-26 08:56 | PD.RAD ---
Post Procedure Progress Note Pre Procedure Diagnosis: (1) Alcohol withdrawal delirium Post Procedure Diagnosis: (1) Alcohol withdrawal delirium Procedure Date: Sep 26, 2017 Supervising Radiologist: Con Castillo JR Proceduralist/Assist: Nohemi Girffin, RT(R)(CV), Sushant Macedo RT(R) Anesthesia: Local Plan of Activity Patient to Unit: Critical Care Patient Condition: Fair See PACS Report for procedural detail/treatment Spinal Procedure Lumbar Puncture L3-L4 Fluid Removal (CCs): 13 Puncture Time: 08:39 Findings: Opening pressure essentially zero. Clear CSF noted. Jr. Jonathan,Con Morrow MD Sep 26, 2017 08:56
[2017-09-26] MEDS: THIAMINE HCL 100 MG TAB PO SCH (09:00)
[2017-09-26] MEDS: LACTOBACILLUS ACIDOPHILUS TAB PO SCH ×2 (09:22→21:32)
[2017-09-26] MEDS: MULTIVITAMIN TAB PO SCH (09:22)
[2017-09-26] MEDS: DRONEDARONE 400 MG TAB PO SCH ×2 (09:22→21:34)
[2017-09-26] MEDS: FOLIC ACID 1 MG TAB PO SCH (09:22)
[2017-09-26] MEDS: FAMOTIDINE 40 MG/5 ML LIQ 50 ML BTL NG SCH ×2 (09:23→21:32)
[2017-09-26] MEDS: SODIUM CHLORIDE 0.9% FLUSH 10 ML FLUSH IV FLUSH SCH (09:24)
[2017-09-26 10:28] LABS: SUPERNATE COLOR TUBE #1 CLEAR (CLEAR)
[2017-09-26 10:29] LABS: RBC TUBE #4 0 /MM3; WBC TUBE #4 0 /MM3 (0-10)
[2017-09-26 11:10] LABS: CALCIUM-PROTEIN CORRECTED 8.1 MG/DL (8.5-10.1)
[2017-09-26 11:38] LABS: TOTAL PROTEIN,CSF 70.1 MG/DL (15.0-45.0)
[2017-09-26] MEDS: LEVOFLOXACIN 500 MG PREMIX INJ 100 ML IV SCH (11:53)
[2017-09-26] MEDS: VANCOMYCIN 1,000 MG/NS 250 ML IV SCH ×4 (11:53→22:18)
[2017-09-26] MEDS: fentaNYL DRIP 250 ML IV PRN (12:19)
[2017-09-26] MEDS: PIPERACILLIN/TAZ 4.5 GM VIAL 4.5 GM in SODIUM CHLORIDE 0.9% INJ 100 ML IV SCH ×3 (14:00→21:31)
[2017-09-26] MEDS ORDERED: ALTEPLASE RECOMBINANT 2 MG VIAL ONE (15:00)
[2017-09-26] MEDS: DEXT 5%-NACL 0.45% 1000 ML INJ 1,000 ML IV SCH (15:06)
--- NOTE | 2017-09-26 15:30 | RADRPT ---
EXAM DATE/TIME: 09/26/2017 08:29 [facility] COMPARISON: No previous studies available for comparison. INDICATIONS : AMS MEDICAL HISTORY : 1.a FIB 2. AMS 3. bronchial asthma SURGICAL HISTORY : 1. Arthroscopy of rt knee 2. rt total knee replacement. ENCOUNTER: Initial ACUITY: 2 weeks PAIN SCORE: Non-responsive LUMBAR PUNCTURE TIME: 0835 hours FLUORO TIME: 0.47 minutes IMAGE SERIES: 1 ACCESS LEVEL: L3-4 OPENING PRESSURE: 0cm of water FLUID: 13 cc of clear CSF was collected and sent to the laboratory for analysis. PROCEDURE : 1. Fluoroscopic guided lumbar puncture. 2. Recording of opening pressure. The risks, benefits and alternatives to the procedure were explained and verbal and written consent w as obtained. The site was prepped in sterile fashion. Full sterile technique was used, including ca p, mask, sterile gloves and gown and a large sterile sheet. Hand hygiene and 2% chlorhexidine and/or betadine/alcohol prep was utilized per protocol for cutaneous antisepsis. The skin and subcutaneous tissues were infiltrated with local anesthetic solution. With fluoroscopic guidance the lumbar thecal sac was punctured at the above level. No recorded pressu re was observed. The pressure was below the zero. The above described fluid was removed without diffi culty. The patient tolerated the procedure well and there were no complications. CONCLUSION: Uncomplicated fluoroscopically guided lumbar puncture with pressures as above. Con Castillo Jr., MD on September 26, 2017 at 15:27 Board Certified Radiologist. This report was verified electronically.
--- NOTE | 2017-09-26 16:39 | HHI.CCPN ---
Subjective Remarks/Hospital Course The patient is a 76-year-old male with a past medical history of atrial fibrillation with previous cardioversion, ETOH abuse and bronchial asthma. The patient was admitted on September 11 for signs of generalized weakness. He had a CT scan of the chest on September 14 which showed small nodular areas of airspace disease in the lingula and left lung base. He was admitted to ICU for alcohol withdrawal and was placed on CIWA protocol. During his hospital course, the patient was seen by pulmonary and GI services. Due to altered mental status, he had a CT scan of the brain on September 22 which showed no acute intracranial findings. Critical care medicine was consulted for hypotension earlier today as the patient was found to have systolic blood pressure in the 70s to 80s. He responded to fluid resuscitation and with current blood pressure 148/64 with a pulse of 72. ABG was performed on room air which showed a pH of 7.48, CO2 37, pAO2 72, bicarb of 27 and saturation 93% . He also had an MRI of the brain this afternoon which showed diffuse atrophy, otherwise, no acute intracranial findings. The patient failed speech evaluation and NG tube was inserted where nutrition support was provided via tube feeds. His laboratory data today showed worsening leukocytosis with WBC increased to 21.1 from 10.9. In addition, the patient is hypernatremic with a sodium level of 148 and increased creatinine level of 1.30 from 1.1. His ammonia level measured less than 10. Most of the history was obtained from reviewing the medical records as patient is a poor historian. He had a positive flu antigen on September 06. 09/24: Currently afebrile. Intubated for obvious aspiration. Central line placed due to very poor IV access. Will start TPN if unable to tolerate tube feeding. Currently resting in bed Subjective 09/25: Afebrile. Currently resting in bed will strictly intubated. Was previously on Apixaban but currently hold since yesterday. Tube feeds will be restarted today. 09/26 Patient remains sedated and intubated. On Levophed 2 mics. s/p LP earlier today showed clear CSF, 0 WBC Objective Vital Signs Date Time Temp Pulse Resp B/P (MAP) Pulse Ox O2 Delivery O2 Flow Rate FiO2 09/26/17 16:00 97.8 09/26/17 13:35 100 30 1/30/18 13:00 66 29 116/66 (83) 09/26/17 09:00 Mechanical Ventilator 2.00 Intake and Output 09/26/17 09/26/17 09/27/17 08:00 16:00 00:00 Intake Total 1768 ml Output Total 600 ml Balance 1168 ml Result Diagram: 09/26/17 0445 09/26/17 0445 Other Results Laboratory Tests Test 09/25/17 20:30 09/25/17 20:45 09/26/17 04:45 09/26/17 08:35 Vancomycin Level Trough 12.1 MCG/ML White Blood Count 18.3 TH/MM3 Red Blood Count 3.43 MIL/MM3 Hemoglobin 9.6 GM/DL Hematocrit 30.3 % Mean Corpuscular Volume 88.5 FL Mean Corpuscular Hemoglobin 28.0 PG Mean Corpuscular Hemoglobin Concent 31.7 % Red Cell Distribution Width 17.2 % Platelet Count 252 TH/MM3 Mean Platelet Volume 8.8 FL Neutrophils (%) (Auto) 92.7 % Lymphocytes (%) (Auto) 3.2 % Monocytes (%) (Auto) 4.0 % Eosinophils (%) (Auto) 0.0 % Basophils (%) (Auto) 0.1 % Neutrophils # (Auto) 17.0 TH/MM3 Lymphocytes # (Auto) 0.6 TH/MM3 Monocytes # (Auto) 0.7 TH/MM3 Eosinophils # (Auto) 0.0 TH/MM3 Basophils # (Auto) 0.0 TH/MM3 CBC Comment DIFF FINAL Differential Comment Prothrombin Time 10.7 SEC Prothromb Time International Ratio 1.1 RATIO Activated Partial Thromboplast Time 22.6 SEC Fibrinogen 401 mg/dL Blood Urea Nitrogen 19 MG/DL Creatinine 0.97 MG/DL Random Glucose 196 MG/DL Total Protein 5.2 GM/DL Albumin 1.8 GM/DL Calcium Level 7.1 MG/DL Phosphorus Level 2.2 MG/DL Magnesium Level 2.6 MG/DL Alkaline Phosphatase 50 U/L Aspartate Amino Transf (AST/SGOT) 19 U/L Alanine Aminotransferase (ALT/SGPT) 71 U/L Total Bilirubin 0.3 MG/DL Direct Bilirubin 0.1 MG/DL Sodium Level 146 MEQ/L Potassium Level 3.5 MEQ/L Chloride Level 114 MEQ/L Carbon Dioxide Level 28.7 MEQ/L Anion Gap 3 MEQ/L Estimat Glomerular Filtration Rate 75 ML/MIN Protein Corrected Calcium 8.1 MG/DL Indirect Bilirubin 0.2 MG/DL CSF Volume (Tube 1) 4.0 ML CSF Supernatant Color (tube 1) CLEAR CSF Gross Blood (Tube 1) 0 CSF Volume (Tube 2) 3.0 ML CSF Supernatant Color (tube 2) CLEAR CSF Gross Blood (Tube 2) 0 CSF Volume (Tube 3) 2.7 ML CSF Supernatant Color (tube 3) CLEAR CSF Gross Blood (Tube 3) 0 CSF Volume (Tube 4) 3.0 ML CSF Supernatant Color (tube 4) CLEAR CSF Gross Blood (Tube 4) 0 CSF WBC (Tube 4) 0 /MM3 CSF RBC (Tube 4) 0 /MM3 CSF Neutrophils % CSF Lymphocytes % CSF Glucose 122 MG/DL CSF Lactate Dehydrogenase 46 U/L CSF Lactic Acid 2.5 MMOL/L CSF Total Protein 70.1 MG/DL Imaging Last Impressions Lumbar Puncture Fluoroscopy 09/26/17 1505 Signed Impressions: Service Date/Time: Tuesday, September 26, 2017 08:29 - CONCLUSION: Uncomplicated fluoroscopically guided lumbar puncture with pressures as above. Con Castillo Jr., MD Chest X-Ray 09/26/17 0600 Signed Impressions: Service Date/Time: Tuesday, September 26, 2017 05:55 - CONCLUSION: Endotracheal tube, left central line and nasogastric tube in good position. Minimal basal atelectasis. Terrance Murillo MD Liver Ultrasound 09/23/17 0000 Signed Impressions: Service Date/Time: Saturday, September 23, 2017 14:12 - CONCLUSION: Right upper quadrant abdominal ultrasound within normal limits. Vinod Pelletier MD Brain MRI 09/23/17 0000 Signed Impressions: Service Date/Time: Saturday, September 23, 2017 15:21 - CONCLUSION: Diffuse atrophy. No acute intracranial findings. Vinod Pelletier MD Head CT 09/22/17 0000 Signed Impressions: Service Date/Time: Friday, September 22, 2017 21:31 - CONCLUSION: 1. No acute intracranial abnormalities. Terrance Murillo MD Abdomen X-Ray 09/17/17 0000 Signed Impressions: Service Date/Time: Sunday, September 17, 2017 22:34 - CONCLUSION: Nasogastric tube with tip coiled in stomach. Abhinav Allen MD Chest CT 09/14/17 0000 Signed Impressions: Service Date/Time: August 13:00 - CONCLUSION: Small nodular areas of airspace disease both in the lingula and the left lung base. Right lung is relatively clear. The mediastinum is unremarkable. Adrian Martinez MD Objective Remarks GENERAL: This is a 76-year-old male currently orotracheally intubated SKIN: Warm and dry. No rash HEAD: Atraumatic. Normocephalic. EYES: Pupils equal and round. No scleral icterus. No injection or drainage. ENT: No nasal bleeding or discharge. Mucous membranes pink and moist. NG tube in left nares NECK: Trachea midline. No JVD. Left IJ CVL is clean dry and intact CARDIOVASCULAR: Regular rate and rhythm. S1, S2. No S4. Without murmur RESPIRATORY: Transmitted upper airway sounds. Coarse crackles appreciated throughout all lung hester anterior and posteriorly.. Breath sounds equal bilaterally. GASTROINTESTINAL: Abdomen soft, non-tender, nondistended. Hypoactive bowel sounds are appreciated. MUSCULOSKELETAL: Extremities without significant peripheral edema. No obvious deformities. NEUROLOGICAL: Moving all 4 extremities spontaneously. Positive gag. Positive corneal reflex. Date of Insertion: Sep 24, 2017 Line: Central Venous Catheter Side: Left Location: Internal, Jugular A/P Assessment and Plan Neuro/Psych: Subacute encephalopathy EtOH use Currently on propofol/fentanyl drips for sedation/analgesia while intubated Goal of RASS -2 Daily sedation vacation Continue thiamine, folate and multivitamin daily Evaluated by neurology - Dr. Rojas. s/p LP today- clear CSF, 0 WBC MRI brain 09/23 revealed no acute intracranial findings. EEG 09/16 showing normal awake and asleep features. No epileptiform features present specifically. CV: Atrial fibrillation/rate controlled Seen by Dr. Mckay in the past. Status post failed cardioversion the past Currently on Dronedarone 400 mg BID Currently on D5 1 half normal saline at 84 cc an hour As needed hydralazine/labetalol for hypertension Resp: Acute respiratory failure secondary to aspiration PRVC 14/500//5/50 Ventilator bundle On Solumedrol 40mg Q8 Albuterol/ipratropium aerosols every 4 hours with albuterol aerosols every 2 hours. Dyspnea Spontaneous breathing trials when clinically indicated Pulmonology - Dr. Naylor following GI: Elevated transaminases Resume tube feeds- Jevity 1.5 goal 60 cc an hour and monitor for residuals. On prokinetic metoclopramide 5 mill grams IV every 8 hours Famotidine 20 mg twice a day for GI prophylaxis Docusate sodium/senna 1 tablet twice a day for bowel regimen Liver ultrasound is within normal limits Normal ammonia Hepatitis panel pending : Monitor renal function, electrolytes replacement per protocol. Free water 150ml Q8, decrease D51/2NS 50ml/hr Endo: SSI with Novulog with Accu-Cheks every 4 hours to maintain glycemia/low regimen Heme: Leukocytosis Normocytic anemia History of skin cancer Chronic apixaban use Continue iron sulfate 325 mg by mouth Monitor CBC daily. Follow trends ID: Currently on piperacillin/tazobactam, Levaquin and vancomycin for aspiration pneumonia Pertinent cultures 09/23 - blood cultures 2 - no growth 09/23 - urine cultures - no growth Influenza negative 09/11 - blood cultures 2 - no growth MSK: PT evaluate and treat Access - Left IJ CVL placed 09/24 Prophylaxis - GI - famotidine - DVT - SCD/ Apixaban held for lumbar puncture today Level 3 Yadira Stallings MD Sep 26, 2017 16:39
--- NOTE | 2017-09-26 16:54 | HHI.PR ---
Subjective Remarks Patient about the same on ventilator under combination technician care LP today Objective Vitals GENERAL: on ventilator SKIN: Warm and dry. HEAD: Atraumatic. Normocephalic. EYES: Pupils equal and round. No scleral icterus. No injection or drainage. ENT: No nasal bleeding or discharge. Mucous membranes pink and moist. NECK: Trachea midline. No JVD. CARDIOVASCULAR: Regular rate and rhythm. RESPIRATORY: No accessory muscle use. Clear to auscultation. Breath sounds equal bilaterally. GASTROINTESTINAL: Abdomen soft, non-tender, nondistended. Hepatic and splenic margins not palpable. MUSCULOSKELETAL: Extremities without clubbing, cyanosis, or edema. No obvious deformities. NEUROLOGICAL: Awake and alert. No obvious cranial nerve deficits. Motor grossly within normal limits. Five out of 5 muscle strength in the arms and legs. Vital Signs Date Time Temp Pulse Resp B/P (MAP) Pulse Ox O2 Delivery O2 Flow Rate FiO2 09/26/17 16:00 97.8 09/26/17 13:35 100 30 09/26/17 13:00 66 29 116/66 (83) 100 09/26/17 12:00 97.6 70 25 93/56 (68) 99 09/26/17 12:00 70 09/26/17 12:00 100 09/26/17 11:15 100 35 09/26/17 11:00 97.6 09/26/17 10:00 72 33 143/72 (95) 100 09/26/17 10:00 68 09/26/17 09:00 78 16 146/78 (100) 100 09/26/17 09:00 100 Mechanical Ventilator 2.00 35 09/26/17 08:00 82 09/26/17 08:00 100 09/26/17 08:00 97.7 88 15 104/57 (73) 100 09/26/17 08:00 100 100 09/26/17 07:30 97.7 09/26/17 07:18 100 35 09/26/17 07:00 100 Mechanical Ventilator 3.00 35 09/26/17 06:32 65 09/26/17 06:05 88 126/60 09/26/17 06:01 84 28 126/60 (82) 100 09/26/17 05:02 75 14 112/59 (76) 99 09/26/17 04:52 67 09/26/17 04:31 64 18 110/55 (73) 99 09/26/17 04:05 100 35 09/26/17 04:01 98.0 66 16 126/56 (79) 100 09/26/17 04:00 35 09/26/17 04:00 66 126/56 09/26/17 03:32 76 75/48 09/26/17 03:31 74 14 75/48 (57) 100 09/26/17 03:01 66 21 111/62 (78) 98 09/26/17 03:00 66 111/62 09/26/17 02:00 74 09/26/17 02:00 68 14 117/60 (79) 100 09/26/17 01:33 86 133/62 09/26/17 01:31 76 26 133/62 (85) 100 09/26/17 01:08 100 35 09/26/17 01:01 64 15 108/50 (69) 100 09/26/17 00:15 35 09/26/17 00:15 72 09/26/17 00:01 98.0 66 18 106/51 (69) 100 09/25/17 23:01 64 18 103/52 (69) 100 09/25/17 22:29 100 35 09/25/17 22:00 68 20 121/57 (78) 100 09/25/17 22:00 68 09/25/17 21:00 70 16 101/49 (66) 100 09/25/17 20:00 35 09/25/17 20:00 98.2 80 16 112/53 (72) 100 09/25/17 20:00 96 Mechanical Ventilator 35 09/25/17 20:00 88 09/25/17 19:30 99 35 09/25/17 19:00 90 35 122/67 (85) 100 09/25/17 18:01 98.5 74 37 136/60 (85) 100 09/25/17 18:00 62 09/25/17 17:31 70 35 129/67 (87) 100 09/25/17 17:15 100 35 09/25/17 17:01 68 36 134/69 (90) 100 Result Diagram: 09/26/17 0445 09/26/17 0445 Imaging Last Impressions Chest X-Ray 09/14/17 0000 Signed Impressions: Service Date/Time: August 09:55 - CONCLUSION: Left lung density. Recommend CT chest for further evaluation Jayant Soto MD Chest CT 09/14/17 0000 Signed Impressions: Service Date/Time: August 13:00 - CONCLUSION: Small nodular areas of airspace disease both in the lingula and the left lung base. Right lung is relatively clear. The mediastinum is unremarkable. Adrian Martinez MD Last Impressions Chest X-Ray 09/11/17 1605 Signed Impressions: Service Date/Time: Monday, September 11, 2017 16:11 - CONCLUSION: No acute disease. No significant change has occurred. Gregory Campbell MD Date of Insertion: Sep 24, 2017 Line: Central Venous Catheter Side: Left Location: Internal, Jugular A/P Problem List: (1) Asthma ICD Codes: J45.909 - Unspecified asthma, uncomplicated Status: Acute Plan: asthma followed by pulmonary (2) Influenza ICD Codes: J11.1 - Influenza due to unidentified influenza virus with other respiratory manifestations Status: Acute Plan: Influenza A with secondary pneumonia. No recent fever. Patient with decrease breathing and was intubated last cxr was stable currently treated for possible aspiration (3) Alcohol withdrawal delirium ICD Codes: F10.231 - Alcohol dependence with withdrawal delirium Status: Acute Plan: Still with periods of agitation and risk for aspiration. NGT in place now. sedation med held (4) Chronic alcohol abuse ICD Codes: F10.10 - Alcohol abuse, uncomplicated Status: Chronic Plan: previous Discussed need for cessation. (5) Paroxysmal atrial fibrillation ICD Codes: I48.0 - Paroxysmal atrial fibrillation Status: Chronic Plan: apizaban on hold as will be having LP is on dronedarone 400 bid (6) Hypotension ICD Codes: I95.9 - Hypotension, unspecified Status: Acute Plan: Online Content Editor caring for patient (7) Respiratory failure ICD Codes: J96.90 - Respiratory failure, unspecified, unspecified whether with hypoxia or hypercapnia Status: Acute Plan: on ventilator followed by combination technician and pulmonary (8) Leukocytosis ICD Codes: D72.829 - Elevated white blood cell count, unspecified Status: Acute Plan: on broad spectrum antibiotics ID consulted Discharge Planning as per response to treatment Problem Qualifiers (1) Asthma: Qualified Codes: J45.901 - Unspecified asthma with (acute) exacerbation (2) Respiratory failure: Carlos Littlejohn MD Sep 26, 2017 16:54
--- NOTE | 2017-09-26 19:21 | HHI.IDPN ---
Subjective Subjective Remarks ID FU DR ERYNOLDS SEDATED ON VENT HAD LP EXAM TODAY Antibiotics Vancomycin, Zosyn and Levofloxacin Lines RIGHT IJ Past Medical History Asthma, Alcoholism , Afib Allergies: Coded Allergies: No Known Allergies (Verified Adverse Reaction, Unknown, 09/11/17) Objective . Vital Signs Date Time Temp Pulse Resp B/P (MAP) Pulse Ox O2 Delivery O2 Flow Rate FiO2 09/26/17 17:00 66 09/26/17 17:00 63 93/50 09/26/17 17:00 66 14 93/50 (64) 99 09/26/17 16:59 97 30 09/26/17 16:59 30 09/26/17 16:00 97.8 09/26/17 16:00 70 09/26/17 16:00 62 13 141/67 (91) 100 09/26/17 16:00 100 09/26/17 15:00 76 21 120/73 (89) 100 09/26/17 15:00 78 09/26/17 14:00 56 26 121/69 (86) 100 09/26/17 14:00 62 09/26/17 13:35 100 30 09/26/17 13:00 66 29 116/66 (83) 100 09/26/17 12:00 97.6 70 25 93/56 (68) 99 09/26/17 12:00 70 09/26/17 12:00 100 09/26/17 11:15 100 35 09/26/17 11:00 97.6 09/26/17 10:00 72 33 143/72 (95) 100 09/26/17 10:00 68 09/26/17 09:00 78 16 146/78 (100) 100 09/26/17 09:00 100 Mechanical Ventilator 2.00 35 09/26/17 08:00 82 09/26/17 08:00 100 09/26/17 08:00 97.7 88 15 104/57 (73) 100 09/26/17 08:00 100 100 09/26/17 07:30 97.7 09/26/17 07:18 100 35 09/26/17 07:00 100 Mechanical Ventilator 3.00 35 09/26/17 06:32 65 09/26/17 06:05 88 126/60 09/26/17 06:01 84 28 126/60 (82) 100 09/26/17 05:02 75 14 112/59 (76) 99 09/26/17 04:52 67 09/26/17 04:31 64 18 110/55 (73) 99 09/26/17 04:05 100 35 09/26/17 04:01 98.0 66 16 126/56 (79) 100 09/26/17 04:00 35 09/26/17 04:00 66 126/56 09/26/17 03:32 76 75/48 09/26/17 03:31 74 14 75/48 (57) 100 09/26/17 03:01 66 21 111/62 (78) 98 09/26/17 03:00 66 111/62 09/26/17 02:00 74 09/26/17 02:00 68 14 117/60 (79) 100 09/26/17 01:33 86 133/62 09/26/17 01:31 76 26 133/62 (85) 100 09/26/17 01:08 100 35 09/26/17 01:01 64 15 108/50 (69) 100 09/26/17 00:15 35 09/26/17 00:15 72 09/26/17 00:01 98.0 66 18 106/51 (69) 100 09/25/17 23:01 64 18 103/52 (69) 100 09/25/17 22:29 100 35 09/25/17 22:00 68 20 121/57 (78) 100 09/25/17 22:00 68 09/25/17 21:00 70 16 101/49 (66) 100 09/25/17 20:00 35 09/25/17 20:00 98.2 80 16 112/53 (72) 100 09/25/17 20:00 96 Mechanical Ventilator 35 09/25/17 20:00 88 09/25/17 19:30 99 35 09/26/17 09/26/17 09/27/17 15:00 23:00 07:00 Intake Total 700 ml 0 ml Output Total 400 ml Balance 700 ml -400 ml Intake Oral 0 ml IV Total 700 ml Output Urine Total 400 ml . Laboratory Tests Test 09/25/17 04:35 09/26/17 04:45 White Blood Count 23.5 TH/MM3 18.3 TH/MM3 Red Blood Count 3.92 MIL/MM3 3.43 MIL/MM3 Hemoglobin 11.6 GM/DL 9.6 GM/DL Hematocrit 35.2 % 30.3 % Mean Corpuscular Volume 90.0 FL 88.5 FL Mean Corpuscular Hemoglobin 29.6 PG 28.0 PG Mean Corpuscular Hemoglobin Concent 32.9 % 31.7 % Red Cell Distribution Width 17.6 % 17.2 % Platelet Count 325 TH/MM3 252 TH/MM3 Mean Platelet Volume 9.1 FL 8.8 FL Neutrophils (%) (Auto) 96.1 % 92.7 % Lymphocytes (%) (Auto) 2.3 % 3.2 % Monocytes (%) (Auto) 1.2 % 4.0 % Eosinophils (%) (Auto) 0.1 % 0.0 % Basophils (%) (Auto) 0.3 % 0.1 % Neutrophils # (Auto) 22.6 TH/MM3 17.0 TH/MM3 Lymphocytes # (Auto) 0.5 TH/MM3 0.6 TH/MM3 Monocytes # (Auto) 0.3 TH/MM3 0.7 TH/MM3 Eosinophils # (Auto) 0.0 TH/MM3 0.0 TH/MM3 Basophils # (Auto) 0.1 TH/MM3 0.0 TH/MM3 CBC Comment AUTO DIFF DIFF FINAL Differential Comment AUTO DIFF CONFIRMED Laboratory Tests Test 09/25/17 04:35 09/26/17 04:45 Blood Urea Nitrogen 21 MG/DL 19 MG/DL Creatinine 1.30 MG/DL 0.97 MG/DL Random Glucose 254 MG/DL 196 MG/DL Total Protein 6.0 GM/DL 5.2 GM/DL Albumin 1.9 GM/DL 1.8 GM/DL Calcium Level 7.6 MG/DL 7.1 MG/DL Phosphorus Level 2.2 MG/DL 2.2 MG/DL Magnesium Level 2.6 MG/DL 2.6 MG/DL Alkaline Phosphatase 64 U/L 50 U/L Aspartate Amino Transf (AST/SGOT) 26 U/L 19 U/L Alanine Aminotransferase (ALT/SGPT) 101 U/L 71 U/L Total Bilirubin 0.6 MG/DL 0.3 MG/DL Sodium Level 145 MEQ/L 146 MEQ/L Potassium Level 3.6 MEQ/L 3.5 MEQ/L Chloride Level 111 MEQ/L 114 MEQ/L Carbon Dioxide Level 27.0 MEQ/L 28.7 MEQ/L Anion Gap 7 MEQ/L 3 MEQ/L Estimat Glomerular Filtration Rate 53 ML/MIN 75 ML/MIN Direct Bilirubin 0.1 MG/DL Protein Corrected Calcium 8.1 MG/DL Indirect Bilirubin 0.2 MG/DL Microbiology Date/Time Source Procedure Growth Status 09/26/17 08:35 Cerebral Spinal Fluid Lumbar Puncture Fungal Smear Pending Received 09/26/17 08:35 Cerebral Spinal Fluid Lumbar Puncture Fungal Culture Pending Received 09/26/17 08:35 Cerebral Spinal Fluid Lumbar Puncture Acid Fast Stain Pending Received 09/26/17 08:35 Cerebral Spinal Fluid Lumbar Puncture Mycobacterial Culture Pending Received 09/26/17 08:35 Cerebral Spinal Fluid Lumbar Puncture Gram Stain - Final Resulted 09/26/17 08:35 Cerebral Spinal Fluid Lumbar Puncture CSF Culture Pending Resulted 09/24/17 15:25 Sputum Endotracheal Gram Stain - Final Complete 09/24/17 15:25 Sputum Endotracheal Sputum Culture - Final HEAVY GROWTH NORMAL RESPIRATORY JOHN Complete Physical Exam SEDATED ON VENT PERRL CHEST COARSE RHONCHI EQUAL CARDIAC: RRR ABDOMEN: QUIET EXT NO EDEMA Assessment & Plan Diagnosis: (1) Influenza ICD Codes: J11.1 - Influenza due to unidentified influenza virus with other respiratory manifestations Status: Acute (2) Alcohol withdrawal ICD Codes: F10.239 - Alcohol dependence with withdrawal, unspecified (3) Alcohol withdrawal delirium ICD Codes: F10.231 - Alcohol dependence with withdrawal delirium Status: Acute Plan: PLAN TO CONTINUE VANCO/ZOSYN. LEVAQUIN AND FOLLOW CULTURES WILL FU CLOSELY (4) Chronic alcohol abuse ICD Codes: F10.10 - Alcohol abuse, uncomplicated Status: Chronic Maeve Currie Sep 26, 2017 19:21
--- NOTE | 2017-09-26 19:28 | HHI.PR ---
Subjective Remarks 76 YOWM with Br Asthma, Flu, Pn, Aspiration Remains intubated On Fentanyl and Diprivan On Levophed 2 mcg No fever Did't tolerate CPAP Objective Vital Signs Vital Signs Date Time Temp Pulse Resp B/P (MAP) Pulse Ox O2 Delivery O2 Flow Rate FiO2 09/26/17 17:00 66 09/26/17 17:00 63 93/50 09/26/17 17:00 66 14 93/50 (64) 99 09/26/17 16:59 97 30 09/26/17 16:59 30 09/26/17 16:00 97.8 09/26/17 16:00 70 09/26/17 16:00 62 13 141/67 (91) 100 09/26/17 16:00 100 09/26/17 15:00 76 21 120/73 (89) 100 09/26/17 15:00 78 09/26/17 14:00 56 26 121/69 (86) 100 09/26/17 14:00 62 09/26/17 13:35 100 30 09/26/17 13:00 66 29 116/66 (83) 100 09/26/17 12:00 97.6 70 25 93/56 (68) 99 09/26/17 12:00 70 09/26/17 12:00 100 09/26/17 11:15 100 35 09/26/17 11:00 97.6 09/26/17 10:00 72 33 143/72 (95) 100 09/26/17 10:00 68 09/26/17 09:00 78 16 146/78 (100) 100 09/26/17 09:00 100 Mechanical Ventilator 2.00 35 09/26/17 08:00 82 09/26/17 08:00 100 09/26/17 08:00 97.7 88 15 104/57 (73) 100 09/26/17 08:00 100 100 09/26/17 07:30 97.7 09/26/17 07:18 100 35 09/26/17 07:00 100 Mechanical Ventilator 3.00 35 09/26/17 06:32 65 09/26/17 06:05 88 126/60 09/26/17 06:01 84 28 126/60 (82) 100 09/26/17 05:02 75 14 112/59 (76) 99 09/26/17 04:52 67 09/26/17 04:31 64 18 110/55 (73) 99 09/26/17 04:05 100 35 09/26/17 04:01 98.0 66 16 126/56 (79) 100 09/26/17 04:00 35 09/26/17 04:00 66 126/56 09/26/17 03:32 76 75/48 09/26/17 03:31 74 14 75/48 (57) 100 09/26/17 03:01 66 21 111/62 (78) 98 09/26/17 03:00 66 111/62 09/26/17 02:00 74 09/26/17 02:00 68 14 117/60 (79) 100 09/26/17 01:33 86 133/62 09/26/17 01:31 76 26 133/62 (85) 100 09/26/17 01:08 100 35 09/26/17 01:01 64 15 108/50 (69) 100 09/26/17 00:15 35 09/26/17 00:15 72 09/26/17 00:01 98.0 66 18 106/51 (69) 100 09/25/17 23:01 64 18 103/52 (69) 100 09/25/17 22:29 100 35 09/25/17 22:00 68 20 121/57 (78) 100 09/25/17 22:00 68 09/25/17 21:00 70 16 101/49 (66) 100 09/25/17 20:00 35 09/25/17 20:00 98.2 80 16 112/53 (72) 100 09/25/17 20:00 96 Mechanical Ventilator 35 09/25/17 20:00 88 09/25/17 19:30 99 35 I/O 09/25/17 09/25/17 09/25/17 09/26/17 09/26/17 09/26/17 07:00 15:00 23:00 07:00 15:00 23:00 Intake Total 2160 ml 610 ml 1768 ml 700 ml 863 ml Output Total 900 ml 300 ml 740 ml 600 ml 400 ml Balance 1260 ml -300 ml -130 ml 1168 ml 700 ml 463 ml Intake Oral 0 ml 0 ml 0 ml IV Total 2040 ml 610 ml 1768 ml 700 ml 863 ml Other 120 ml Output Urine Total 900 ml 300 ml 740 ml 600 ml 400 ml # Bowel Movements 0 0 0 Result Diagram: 09/26/1744409/26/17444 Objective Remarks GENERAL: Elderly male, mild sob, congested SKIN: Warm and dry. HEAD: Normocephalic. EYES: No scleral icterus. No injection or drainage. NECK: Supple, trachea midline. No JVD or lymphadenopathy. CARDIOVASCULAR: Regular rate and rhythm without murmurs, gallops, or rubs. RESPIRATORY: Breath sounds equal bilaterally. No accessory muscle use. Scattered coarse rhonchi GASTROINTESTINAL: Abdomen soft, non-tender, nondistended. MUSCULOSKELETAL: No cyanosis, or edema. BACK: Nontender without obvious deformity. No CVA tenderness. A/P Assessment and Plan VDRF Pneumonia Aspiration Bronchial asthma Alcohal withdrawl AF HTN PLAN: Vent Support Levophed to Keep MAP >65 Fentanyl and Propofol for sedation Cont Abx Aerosol nebs Tube feeding CPAP trial in [place] Naylor MD Sep 26, 2017 19:28
[2017-09-27] VITALS (50 sets, daily range): BP systolic 72–201; BP diastolic 40–109; PULSE 54–106; RESP 13–45; TEMP 97.6–98.8; O2SAT 95–100
[2017-09-27] MEDS: INSULIN NovoLIN REGULAR SUPPLEMENTAL SCALE SQ SCH ×6 (00:45→20:45)
[2017-09-27] MEDS: PIPERACILLIN/TAZ 4.5 GM VIAL 4.5 GM in SODIUM CHLORIDE 0.9% INJ 100 ML IV SCH ×4 (01:37→21:46)
[2017-09-27] MEDS: PROPOFOL 1000 MG/100 ML INJ 100 ML IV PRN ×2 (03:23→14:30)
[2017-09-27] MEDS: RESP: ALBUTEROL 2.5 MG/IPRATROPIUM 0.5 MG NEB (SCH) NEB ×6 (03:56→23:12)
[2017-09-27 05:03] LABS: AUTOMATED NEUTROPHIL # 18.6 TH/MM3 (1.8-7.7); BASOPHIL # 0.1 TH/MM3 (0-0.2); BASOPHIL % 0.6 % (0.0-2.0); EOSINOPHIL % 0.1 % (0.0-4.0); HEMATOCRIT 32.8 % (39.0-51.0); HEMOGLOBIN 10.8 GM/DL (13.0-17.0); LYMPH % 3.6 % (9.0-44.0); LYMPHOCYTE # 0.7 TH/MM3 (1.0-4.8); MEAN CELL VOLUME 89.3 FL (80.0-100.0); MEAN CORPUSCULAR HEMOGLOBIN 29.3 PG (27.0-34.0); MEAN CORPUSCULAR HGB CONC 32.8 % (32.0-36.0); MEAN PLATELET VOLUME 8.9 FL (7.0-11.0); MONOCYTE # 0.6 TH/MM3 (0-0.9); NEUT % 92.7 % (16.0-70.0); PLATELET COUNT 242 TH/MM3 (150-450); RED BLOOD COUNT 3.67 MIL/MM3 (4.50-5.90); RED CELL DISTRIBUTION WIDTH 17.8 % (11.6-17.2)
[2017-09-27 05:12] LABS: CHLORIDE 113 MEQ/L (98-107); SODIUM (NA) 146 MEQ/L (136-145)
[2017-09-27 06:12] LABS: ALBUMIN 2.1 GM/DL (3.4-5.0); ALKALINE PHOSPHATASE 56 U/L (45-117); ALT (GPT) 87 U/L (12-78); AST (GOT) 41 U/L (15-37); BICARBONATE 22.7 MEQ/L (21.0-32.0); BLOOD UREA NITROGEN 26 MG/DL (7-18); CALCIUM 8.2 MG/DL (8.5-10.1); GLOMERULAR FILTRATION RATE 59 ML/MIN (>89); GLUCOSE,RANDOM 140 MG/DL (74-106); MAGNESIUM 2.7 MG/DL (1.5-2.5); PHOSPHORUS 1.4 MG/DL (2.5-4.9); TOTAL BILIRUBIN ADULT 0.6 MG/DL (0.2-1.0); TOTAL PROTEIN 5.9 GM/DL (6.4-8.2)
[2017-09-27] MEDS: ARTIFICIAL TEARS OPTH SOLN 15 ML BTL EACH EYE SCH ×3 (06:39→21:52)
[2017-09-27] MEDS: METOCLOPRAMIDE HCL 10 MG/2 ML VIAL IV PUSH SCH ×3 (06:40→22:06)
[2017-09-27] MEDS: methylPREDNISolone SOD SUCC 40 MG/1 ML VIAL IV PUSH SCH ×2 (06:40→18:07)
[2017-09-27] MEDS ORDERED: DEXMEDETOMIDINE INJ 200 MCG in SODIUM CHLORIDE 0.9% INJ 50 ML IV PRN (08:15)
--- NOTE | 2017-09-27 08:15 | HHI.CCPN ---
Subjective Remarks/Hospital Course The patient is a 76-year-old male with a past medical history of atrial fibrillation with previous cardioversion, ETOH abuse and bronchial asthma. The patient was admitted on September 11 for signs of generalized weakness. He had a CT scan of the chest on September 14 which showed small nodular areas of airspace disease in the lingula and left lung base. He was admitted to ICU for alcohol withdrawal and was placed on CIWA protocol. During his hospital course, the patient was seen by pulmonary and GI services. Due to altered mental status, he had a CT scan of the brain on September 22 which showed no acute intracranial findings. Critical care medicine was consulted for hypotension earlier today as the patient was found to have systolic blood pressure in the 70s to 80s. He responded to fluid resuscitation and with current blood pressure 148/64 with a pulse of 72. ABG was performed on room air which showed a pH of 7.48, CO2 37, pAO2 72, bicarb of 27 and saturation 93% . He also had an MRI of the brain this afternoon which showed diffuse atrophy, otherwise, no acute intracranial findings. The patient failed speech evaluation and NG tube was inserted where nutrition support was provided via tube feeds. His laboratory data today showed worsening leukocytosis with WBC increased to 21.1 from 10.9. In addition, the patient is hypernatremic with a sodium level of 148 and increased creatinine level of 1.30 from 1.1. His ammonia level measured less than 10. Most of the history was obtained from reviewing the medical records as patient is a poor historian. He had a positive flu antigen on September 06. 09/24: Currently afebrile. Intubated for obvious aspiration. Central line placed due to very poor IV access. Will start TPN if unable to tolerate tube feeding. Currently resting in bed 09/25: Afebrile. Currently resting in bed will strictly intubated. Was previously on Apixaban but currently hold since yesterday. Tube feeds will be restarted today. 09/26 Patient remains sedated and intubated. On Levophed 2 mics. s/p LP earlier today showed clear CSF, 0 WBC Subjective 09/27: Afebrile. MAXIMUM TEMPERATURE 99.1. Tube feeds currently at 30 cc an hour. Lumbar puncture essentially is negative except for protein elevated at 70.1 mg/dL. Glucose 122/glucose was elevated in a.m. BMP. Objective Vital Signs Date Time Temp Pulse Resp B/P (MAP) Pulse Ox O2 Delivery O2 Flow Rate FiO2 09/27/17 07:26 30 09/27/17 07:26 100 09/27/17 07:00 98.8 90 20 132/61 (84) 09/27/17 07:00 Mechanical Ventilator 2.00 Intake and Output 09/27/17 09/27/17 2/09/14 08:00 16:00 00:00 Intake Total 833 ml Output Total 450 ml Balance 383 ml Result Diagram: 09/27/17 0449 09/27/17 0449 Other Results Microbiology Date/Time Source Procedure Growth Status 09/24/17 15:25 Sputum Endotracheal Gram Stain - Final Complete 09/24/17 15:25 Sputum Endotracheal Sputum Culture - Final HEAVY GROWTH NORMAL RESPIRATORY JOHN Complete Imaging Last Impressions Lumbar Puncture Fluoroscopy 09/26/17 1505 Signed Impressions: Service Date/Time: Tuesday, September 26, 2017 08:29 - CONCLUSION: Uncomplicated fluoroscopically guided lumbar puncture with pressures as above. Con Castillo Jr., MD Chest X-Ray 09/26/17 0600 Signed Impressions: Service Date/Time: Tuesday, September 26, 2017 05:55 - CONCLUSION: Endotracheal tube, left central line and nasogastric tube in good position. Minimal basal atelectasis. Terrance Murillo MD Liver Ultrasound 09/23/17 0000 Signed Impressions: Service Date/Time: Saturday, September 23, 2017 14:12 - CONCLUSION: Right upper quadrant abdominal ultrasound within normal limits. Vinod Peleltier MD Brain MRI 09/23/17 0000 Signed Impressions: Service Date/Time: Saturday, September 23, 2017 15:21 - CONCLUSION: Diffuse atrophy. No acute intracranial findings. Vinod Pelletier MD Head CT 09/22/17 0000 Signed Impressions: Service Date/Time: Friday, September 22, 2017 21:31 - CONCLUSION: 1. No acute intracranial abnormalities. Terrance Murillo MD Abdomen X-Ray 09/17/17 0000 Signed Impressions: Service Date/Time: Sunday, September 17, 2017 22:34 - CONCLUSION: Nasogastric tube with tip coiled in stomach. Abhinav Allen MD Chest CT 09/14/17 0000 Signed Impressions: Service Date/Time: August 13:00 - CONCLUSION: Small nodular areas of airspace disease both in the lingula and the left lung base. Right lung is relatively clear. The mediastinum is unremarkable. Adrian Martinez MD Objective Remarks GENERAL: This is a 76-year-old male currently orotracheally intubated SKIN: Warm and dry. No rash HEAD: Atraumatic. Normocephalic. EYES: Pupils equal and round. No scleral icterus. No injection or drainage. ENT: No nasal bleeding or discharge. Mucous membranes pink and moist. NG tube in left nares NECK: Trachea midline. No JVD. Left IJ CVL is clean dry and intact CARDIOVASCULAR: Regular rate and rhythm. S1, S2. No S4. Without murmur RESPIRATORY: Transmitted upper airway sounds. Coarse crackles appreciated throughout all lung hester anterior and posteriorly.. Breath sounds equal bilaterally. GASTROINTESTINAL: Abdomen soft, non-tender, nondistended. Hypoactive bowel sounds are appreciated. MUSCULOSKELETAL: Extremities without significant peripheral edema. No obvious deformities. NEUROLOGICAL: Moving all 4 extremities spontaneously. Positive gag. Positive corneal reflex. Urinary Catheter: Yes Assessment to: Continue Lyons insert reason: Prolonged Immobilization Vascular Central Line Catheter: Yes Assessment to: Continue Date of Insertion: Sep 24, 2017 Line: Central Venous Catheter Side: Left Location: Internal, Jugular A/P Assessment and Plan Neuro/Psych: Subacute encephalopathy EtOH use Currently on propofol/fentanyl drips for sedation/analgesia while intubated currently on hold Start dexmedetomidine drip to maintain an RASS of 0 in attempt to extubate Daily sedation vacation Continue thiamine, folate and multivitamin daily Evaluated by neurology - Dr. Rojas. s/p LP today- clear CSF, 0 WBC. Protein 70.1. Glucose 122. Gram stain negative MRI brain 09/23 revealed no acute intracranial findings. EEG 09/24 showing normal awake and asleep features. No epileptiform features present specifically. Will attempt to wean with dexmedetomidine. Check MRI brain of does not follow commands CV: Atrial fibrillation/rate controlled Seen by Dr. Mckay in the past. Status post failed cardioversion the past Currently on Dronedarone 400 mg BID Currently on D5 1 half normal saline at 84 cc an hour As needed hydralazine/labetalol for hypertension Resp: Acute respiratory failure secondary to aspiration PRVC 14/500/09/01/29 Ventilator bundle On methylprednisolone succinate 40 mg IV every 12 hours Albuterol/ipratropium aerosols every 4 hours with albuterol aerosols every 2 hours. Dyspnea Spontaneous breathing trials when clinically indicated Pulmonology - Dr. Naylor following GI: Elevated transaminases Hypoalbuminemia Resume tube feeds- Jevity 1.5 goal 60 cc an hour and monitor for residuals. Early at 30 cc an hour On prokinetic metoclopramide 5 mill grams IV every 8 hours Famotidine 20 mg twice a day for GI prophylaxis Docusate sodium/senna 1 tablet twice a day for bowel regimen Liver ultrasound is within normal limits Normal ammonia Hepatitis panel negative : Lyons catheter has been placed for accurate I's and O's in a critically ill patient Endo: SSI with Novulog with Accu-Cheks every 4 hours to maintain glycemia/low regimen Renal Acute kidney injury Currently on D5 1 half normal saline at 84 cc an hour Monitor urine output Accurate I's and O's Heme: Leukocytosis Normocytic anemia History of skin cancer Chronic apixaban use Continue iron sulfate 325 mg by mouth Monitor CBC daily. Follow trends Resume Apixaban 2.5 mg twice a day at 2100 ID: Currently on piperacillin/tazobactam, levofloxacin and vancomycin for aspiration pneumonia Pertinent cultures CSF 09/26 - Gram stain negative.AFB and fungal pending 09/24 - sputum - no growth 09/23 - blood cultures 2 - no growth 09/23 - urine cultures - no growth Influenza negative 09/11 - blood cultures 2 - no growth FEN: Hypophosphatemia Hyper-magnesium Hypernatremia 15 mmol K-Phos, 1 g Neutra-Phos 1 now. Recheck in a.m. D5 1 half normal saline at 84 cc an hour Free water flushes 150 every 8 MSK: PT evaluate and treat Access - Left IJ CVL placed 09/24 - present Prophylaxis - GI - famotidine - DVT - SCD/ Apixaban held for lumbar puncture today Level 2 follow-up Discussed with family members at bedside. Care plan discussed and all questions answered. Aldair Castillo MD Sep 27, 2017 08:15
[2017-09-27] MEDS: CHLORHEXIDINE 0.12% (ORAL KIT) 15 ML CUP MT SCH ×2 (08:19→21:50)
[2017-09-27] MEDS: FAMOTIDINE 40 MG/5 ML LIQ 50 ML BTL NG SCH ×2 (08:19→21:45)
[2017-09-27] MEDS: LACTOBACILLUS ACIDOPHILUS TAB PO SCH ×2 (08:20→21:45)
[2017-09-27] MEDS: MULTIVITAMIN TAB PO SCH (08:20)
[2017-09-27] MEDS: DRONEDARONE 400 MG TAB PO SCH ×2 (08:20→21:46)
[2017-09-27] MEDS: FOLIC ACID 1 MG TAB PO SCH (08:20)
[2017-09-27] MEDS: THIAMINE HCL 100 MG TAB PO SCH (08:20)
[2017-09-27] MEDS: SODIUM CHLORIDE 0.9% FLUSH 10 ML FLUSH IV FLUSH SCH (08:21)
[2017-09-27] MEDS ORDERED: POTASSIUM PHOSPHATE/SODIUM PHOSPHATE 250 MG TAB PO ONE (08:30)
[2017-09-27] MEDS ORDERED: POTASSIUM PHOSPHATE INJ 15 MMOL in SODIUM CHLORIDE 0.9% INJ 150 ML IV ONE (10:00)
[2017-09-27] MEDS: NYSTATIN 100,000 U/GM PWD 15 GM BTL TOPICAL SCH ×2 (10:45→21:45)
--- NOTE | 2017-09-27 11:02 | HHI.PR ---
Subjective Remarks Patient about the same will start to ween to attempt to remove off ventilator Objective Vitals GENERAL: SKIN: Warm and dry. HEAD: Atraumatic. Normocephalic. EYES: Pupils equal and round. No scleral icterus. No injection or drainage. ENT: No nasal bleeding or discharge. Mucous membranes pink and moist. NECK: Trachea midline. No JVD. CARDIOVASCULAR: Regular rate and rhythm. RESPIRATORY: No accessory muscle use. Clear to auscultation. Breath sounds equal bilaterally. GASTROINTESTINAL: Abdomen soft, non-tender, nondistended. Hepatic and splenic margins not palpable. MUSCULOSKELETAL: Extremities without clubbing, cyanosis, or edema. No obvious deformities. NEUROLOGICAL: Awake and alert. No obvious cranial nerve deficits. Motor grossly within normal limits. Five out of 5 muscle strength in the arms and legs. On ventilator. Vital Signs Date Time Temp Pulse Resp B/P (MAP) Pulse Ox O2 Delivery O2 Flow Rate FiO2 09/27/17 10:38 100 30 09/27/17 10:38 30 09/27/17 10:14 98 30 09/27/17 10:00 106 09/27/17 10:00 106 30 163/109 (127) 98 09/27/17 09:00 106 37 153/80 (104) 99 09/27/17 08:00 102 09/27/17 08:00 102 27 138/91 (107) 100 09/27/17 07:26 30 09/27/17 07:26 100 30 09/27/17 07:00 98.8 90 20 132/61 (84) 100 09/27/17 07:00 100 Mechanical Ventilator 2.00 35 09/27/17 06:03 97 09/27/17 06:00 96 21 149/80 (103) 100 09/27/17 05:44 92 25 126/74 (91) 100 09/27/17 05:34 64 13 81/60 (67) 100 09/27/17 05:08 72 16 92/49 (63) 100 09/27/17 05:00 78 14 72/49 (57) 99 09/27/17 04:30 106 21 158/77 (104) 100 09/27/17 04:00 74 09/27/17 04:00 30 09/27/17 04:00 98.2 74 16 104/59 (74) 100 09/27/17 03:59 100 30 09/27/17 03:30 84 24 128/69 (88) 100 09/27/17 03:00 62 14 83/50 (61) 99 09/27/17 02:45 84 18 101/65 (77) 100 09/27/17 02:43 64 14 78/61 (67) 98 09/27/17 02:03 66 13 76/44 (55) 100 09/27/17 02:00 66 09/27/17 01:33 78 13 93/48 (63) 100 09/27/17 01:00 92 31 114/50 (71) 100 09/27/17 00:44 74 14 87/50 (62) 100 09/27/17 00:35 74 14 79/40 (53) 100 09/27/17 00:26 76 14 98/52 (67) 100 09/27/17 00:00 30 09/27/17 00:00 97.6 66 14 123/71 (88) 100 09/27/17 00:00 68 09/27/17 00:00 100 30 09/26/17 23:33 68 13 119/66 (83) 100 09/26/17 23:03 72 13 114/61 (78) 100 09/26/17 22:33 72 13 98/58 (71) 100 09/26/17 22:18 76 14 94/51 (65) 100 09/26/17 22:03 72 14 98/52 (67) 100 09/26/17 21:33 64 13 101/58 (72) 100 09/26/17 21:03 68 13 91/55 (67) 100 09/26/17 20:33 68 13 94/55 (68) 99 09/26/17 20:03 98.0 90 28 100/57 (71) 99 09/26/17 20:00 96 Mechanical Ventilator 30 09/26/17 20:00 72 09/26/17 20:00 30 09/26/17 19:33 84 33 109/66 (80) 100 09/26/17 19:20 100 30 09/26/17 19:03 60 14 102/57 (72) 100 09/26/17 18:00 60 09/26/17 18:00 60 14 108/49 (68) 100 09/26/17 17:00 66 09/26/17 17:00 63 93/50 09/26/17 17:00 66 14 93/50 (64) 99 09/26/17 16:59 97 30 09/26/17 16:59 30 09/26/17 16:00 97.8 09/26/17 16:00 70 09/26/17 16:00 62 13 141/67 (91) 100 09/26/17 16:00 100 09/26/17 15:00 76 21 120/73 (89) 100 09/26/17 15:00 78 09/26/17 14:00 56 26 121/69 (86) 100 09/26/17 14:00 62 09/26/17 13:35 100 30 09/26/17 13:00 66 29 116/66 (83) 100 09/26/17 12:00 97.6 70 25 93/56 (68) 99 09/26/17 12:00 70 09/26/17 12:00 100 09/26/17 11:15 100 35 09/26/17 11:00 97.6 Result Diagram: 09/27/17 0449 09/27/17 0449 Imaging Last Impressions Chest X-Ray 09/14/17 0000 Signed Impressions: Service Date/Time: August 09:55 - CONCLUSION: Left lung density. Recommend CT chest for further evaluation Jayant Soto MD Chest CT 09/14/17 0000 Signed Impressions: Service Date/Time: August 13:00 - CONCLUSION: Small nodular areas of airspace disease both in the lingula and the left lung base. Right lung is relatively clear. The mediastinum is unremarkable. Adrian Martinez MD Last Impressions Chest X-Ray 09/11/17 1605 Signed Impressions: Service Date/Time: Monday, September 11, 2017 16:11 - CONCLUSION: No acute disease. No significant change has occurred. Gregory Campbell MD Date of Insertion: Sep 24, 2017 Line: Central Venous Catheter Side: Left Location: Internal, Jugular A/P Problem List: (1) Asthma ICD Codes: J45.909 - Unspecified asthma, uncomplicated Status: Acute Plan: asthma followed by pulmonary (2) Influenza ICD Codes: J11.1 - Influenza due to unidentified influenza virus with other respiratory manifestations Status: Acute Plan: Influenza A with secondary pneumonia. No recent fever. Patient with decrease breathing and was intubated last cxr was stable currently treated for possible aspiration (3) Alcohol withdrawal delirium ICD Codes: F10.231 - Alcohol dependence with withdrawal delirium Status: Acute Plan: Still with periods of agitation and risk for aspiration. NGT in place now. sedation med held (4) Chronic alcohol abuse ICD Codes: F10.10 - Alcohol abuse, uncomplicated Status: Chronic Plan: previous Discussed need for cessation. (5) Paroxysmal atrial fibrillation ICD Codes: I48.0 - Paroxysmal atrial fibrillation Status: Chronic Plan: apizaban on hold as will be having LP is on dronedarone 400 bid (6) Hypotension ICD Codes: I95.9 - Hypotension, unspecified Status: Acute Plan: Perl Developer caring for patient (7) Respiratory failure ICD Codes: J96.90 - Respiratory failure, unspecified, unspecified whether with hypoxia or hypercapnia Status: Acute Plan: on ventilator followed by gas engine operator and pulmonary attempt to ween off ventilator (8) Leukocytosis ICD Codes: D72.829 - Elevated white blood cell count, unspecified Status: Acute Plan: on broad spectrum antibiotics ID consulted Discharge Planning as per response to treatment Problem Qualifiers (1) Asthma: Qualified Codes: J45.901 - Unspecified asthma with (acute) exacerbation (2) Respiratory failure: Carlos Littlejohn MD Sep 27, 2017 11:01
[2017-09-27] MEDS: VANCOMYCIN 1,000 MG/NS 250 ML IV SCH ×4 (11:28→22:39)
[2017-09-27] MEDS ORDERED: DEXAMETHASONE SOD PHOS 4 MG/ML VIAL IV PUSH SCH (12:00)
[2017-09-27] MEDS ORDERED: DEXMEDETOMIDINE INJ 400 MCG in SODIUM CHLORIDE 0.9% INJ 100 ML IV PRN (12:00)
[2017-09-27 12:02] LABS: HSV 1,PCR Negative (Negative)
[2017-09-27] MEDS: DEXMEDETOMIDINE INJ 400 MCG in SODIUM CHLORIDE 0.9% INJ 100 ML IV PRN ×3 (12:50→21:46)
[2017-09-27] MEDS: LEVOFLOXACIN 500 MG PREMIX INJ 100 ML IV SCH (13:35)
[2017-09-27 13:44] LABS: ALBUMIN CSF 42.8 mg/dL (<=27.0); IGG CSF 6.6 mg/dL (<=8.1); IGG INDEX CSF 0.63 (<=0.85); IGG/ALBUMIN CSF 0.15 (<=0.21); IGG/ALBUMIN SERUM 0.24 (<=0.40); SYNTHESIS RATE CSF 9.61 mg/24 h (<=12)
[2017-09-27] MEDS: LABETALOL HCL 100 MG/20 ML VIAL IV PUSH PRN (14:11)
--- NOTE | 2017-09-27 15:53 | RADRPT ---
EXAM DATE/TIME: 09/27/2017 15:09 [facility] COMPARISON: MRI BRAIN W/O CONTRAST, September 23, 2017, 15:21. INDICATIONS : Encephalopathy. MEDICAL HISTORY : Hypertension. SURGICAL HISTORY : Total knee replacement, right. ENCOUNTER: Subsequent ACUITY: 1 week PAIN SCORE: Nonresponsive. LOCATION: head. TECHNIQUE: Multiplanar, multisequence MRI of the brain was performed without contrast. FINDINGS: CEREBRUM: The ventricles are again noted to be prominent. No evidence of midline shift, mass lesion, hemorrhag e or acute infarction. No extraaxial fluid collections are seen. The pituitary gland and suprasella r cistern are normal in configuration. WHITE MATTER: Few scattered foci of T2 bright signal abnormalities are seen in the white matter. POSTERIOR FOSSA: The cerebellum and brainstem are intact. The 4th ventricle is midline. The cerebellopontine angle is unremarkable. The cerebellar tonsils are normal in position. DIFFUSION IMAGING: No focal areas of restricted diffusion are seen. No evidence of acute infarction. EXTRACRANIAL: The visualized portions of the orbits and paranasal sinuses are unremarkable. CONCLUSION: 1. Nonspecific white matter changes. 2. Cerebral atrophy without acute intracranial abnormality. 3. No cortically based abnormality identified. Abhinav Allen MD on September 27, 2017 at 15:48 Board Certified Radiologist. This report was verified electronically.
[2017-09-27] MEDS: DEXT 5%-NACL 0.45% 1000 ML INJ 1,000 ML IV SCH ×2 (17:55→21:44)
[2017-09-27] MEDS ORDERED: methylPREDNISolone SOD SUCC 40 MG/1 ML VIAL IV PUSH SCH (18:00)
--- NOTE | 2017-09-27 20:38 | HHI.PR ---
Subjective Remarks 76 YOWM with Br Asthma, Flu, Pn, Aspiration Remains intubated On Fentanyl and Diprivan No fever Off pressors Tolerated CPAp for 4 hrsBack on ACV due to agitation Objective Vital Signs Vital Signs Date Time Temp Pulse Resp B/P (MAP) Pulse Ox O2 Delivery O2 Flow Rate FiO2 09/27/17 19:30 100 30 09/27/17 18:00 76 09/27/17 18:00 76 38 133/54 (80) 100 09/27/17 17:00 82 09/27/17 17:00 82 28 115/47 (69) 99 09/27/17 16:19 99 30 09/27/17 16:00 97.6 74 37 136/69 (91) 98 09/27/17 16:00 74 09/27/17 16:00 30 09/27/17 15:41 76 09/27/17 15:31 100 136/89 (105) 98 09/27/17 14:45 99 100 09/27/17 14:30 74 31 196/90 (125) 97 09/27/17 14:22 92 30 187/94 (125) 97 09/27/17 14:20 88 24 201/98 (132) 97 09/27/17 14:00 90 09/27/17 14:00 90 29 174/86 (115) 99 09/27/17 13:54 98 30 09/27/17 13:00 94 23 156/74 (101) 98 09/27/17 12:00 100 09/27/17 12:00 30 09/27/17 12:00 98.7 100 26 140/66 (90) 98 09/27/17 11:00 96 45 145/83 (103) 95 09/27/17 10:38 100 30 09/27/17 10:38 30 09/27/17 10:14 98 30 09/27/17 10:00 106 09/27/17 10:00 106 30 163/109 (127) 98 09/27/17 09:00 106 37 153/80 (104) 99 09/27/17 08:00 102 09/27/17 08:00 102 27 138/91 (107) 100 09/27/17 07:26 30 09/27/17 07:26 100 30 09/27/17 07:00 98.8 90 20 132/61 (84) 100 1/31/18 07:00 100 Mechanical Ventilator 2.00 35 09/27/17 06:03 97 09/27/17 06:00 96 21 149/80 (103) 100 09/27/17 05:44 92 25 126/74 (91) 100 09/27/17 05:34 64 13 81/60 (67) 100 09/27/17 05:08 72 16 92/49 (63) 100 09/27/17 05:00 78 14 72/49 (57) 99 09/27/17 04:30 106 21 158/77 (104) 100 09/27/17 04:00 74 09/27/17 04:00 30 09/27/17 04:00 98.2 74 16 104/59 (74) 100 09/27/17 03:59 100 30 09/27/17 03:30 84 24 128/69 (88) 100 09/27/17 03:00 62 14 83/50 (61) 99 09/27/17 02:45 84 18 101/65 (77) 100 09/27/17 02:43 64 14 78/61 (67) 98 09/27/17 02:03 66 13 76/44 (55) 100 09/27/17 02:00 66 09/27/17 01:33 78 13 93/48 (63) 100 09/27/17 01:00 92 31 114/50 (71) 100 09/27/17 00:44 74 14 87/50 (62) 100 09/27/17 00:35 74 14 79/40 (53) 100 09/27/17 00:26 76 14 98/52 (67) 100 09/27/17 00:00 30 09/27/17 00:00 97.6 66 14 123/71 (88) 100 09/27/17 00:00 68 09/27/17 00:00 100 30 09/26/17 23:33 68 13 119/66 (83) 100 09/26/17 23:03 72 13 114/61 (78) 100 09/26/17 22:33 72 13 98/58 (71) 100 09/26/17 22:18 76 14 94/51 (65) 100 09/26/17 22:03 72 14 98/52 (67) 100 09/26/17 21:33 64 13 101/58 (72) 100 09/26/17 21:03 68 13 91/55 (67) 100 I/O 09/26/17 09/26/17 09/26/17 09/27/17 09/27/17 09/27/17 07:00 15:00 23:00 07:00 15:00 23:00 Intake Total 1768 ml 700 ml 963 ml 1083 ml 907 ml 100 ml Output Total 600 ml 400 ml 450 ml 2130 ml Balance 1168 ml 700 ml 563 ml 633 ml 907 ml -2030 ml Intake Oral 0 ml 0 ml 0 ml IV Total 1768 ml 700 ml 963 ml 1083 ml 907 ml 100 ml Output Urine Total 600 ml 400 ml 450 ml 1500 ml Stool Total 630 ml # Bowel Movements 0 0 0 0 Result Diagram: 09/27/1744809/27/17448 Objective Remarks GENERAL: Elderly male, mild sob, congested SKIN: Warm and dry. HEAD: Normocephalic. EYES: No scleral icterus. No injection or drainage. NECK: Supple, trachea midline. No JVD or lymphadenopathy. CARDIOVASCULAR: Regular rate and rhythm without murmurs, gallops, or rubs. RESPIRATORY: Breath sounds equal bilaterally. No accessory muscle use. Scattered coarse rhonchi GASTROINTESTINAL: Abdomen soft, non-tender, nondistended. MUSCULOSKELETAL: No cyanosis, or edema. BACK: Nontender without obvious deformity. No CVA tenderness. A/P Assessment and Plan VDRF Pneumonia Aspiration Bronchial asthma Alcohal withdrawl AF HTN PLAN: Vent Support Fentanyl and Propofol for sedation Cont Abx Aerosol nebs Tube feeding CPAP trial in [place] Naylor MD Sep 27, 2017 20:38
[2017-09-27 20:58] LABS: CMV DNA QUANT BY RAPID PCR Negative (Negative); CMV PCR SPECIMEN SOURCE CSF; ENTEROVIRUS PCR RESULT Negative (Negative); ENTEROVIRUS PCR SPEC SOURCE CSF
[2017-09-27] MEDS: APIXABAN 2.5 MG TABLET PO SCH (22:05)
[2017-09-28] VITALS (32 sets, daily range): BP systolic 100–188; BP diastolic 54–117; PULSE 50–112; RESP 13–53; TEMP 97.4–98.2; O2SAT 95–100
[2017-09-28] MEDS: INSULIN NovoLIN REGULAR SUPPLEMENTAL SCALE SQ SCH ×6 (00:35→20:40)
[2017-09-28] MEDS: PROPOFOL 1000 MG/100 ML INJ 100 ML IV PRN (01:03)
[2017-09-28] MEDS: PIPERACILLIN/TAZ 4.5 GM VIAL 4.5 GM in SODIUM CHLORIDE 0.9% INJ 100 ML IV SCH ×4 (01:05→20:25)
[2017-09-28 03:50] LABS: TREPONEMA PALLIDUM ABS CSF NON-REACTIVE (NON-REACTVE)
[2017-09-28] MEDS: RESP: ALBUTEROL 2.5 MG/IPRATROPIUM 0.5 MG NEB (SCH) NEB ×6 (03:52→23:34)
[2017-09-28] MEDS: DEXMEDETOMIDINE INJ 400 MCG in SODIUM CHLORIDE 0.9% INJ 100 ML IV PRN ×3 (04:38→20:24)
[2017-09-28 05:19] LABS: AUTOMATED NEUTROPHIL # 11.7 TH/MM3 (1.8-7.7); BASOPHIL % 0.1 % (0.0-2.0); HEMATOCRIT 30.5 % (39.0-51.0); HEMOGLOBIN 9.9 GM/DL (13.0-17.0); LYMPH % 4.3 % (9.0-44.0); LYMPHOCYTE # 0.5 TH/MM3 (1.0-4.8); MEAN CELL VOLUME 89.5 FL (80.0-100.0); MEAN CORPUSCULAR HEMOGLOBIN 29.1 PG (27.0-34.0); MEAN CORPUSCULAR HGB CONC 32.5 % (32.0-36.0); MEAN PLATELET VOLUME 8.4 FL (7.0-11.0); MONO % 3.5 % (0.0-8.0); MONOCYTE # 0.4 TH/MM3 (0-0.9); NEUT % 92.1 % (16.0-70.0); PLATELET COUNT 185 TH/MM3 (150-450); RED CELL DISTRIBUTION WIDTH 17.8 % (11.6-17.2); WHITE BLOOD COUNT 12.6 TH/MM3 (4.0-11.0)
[2017-09-28 05:31] LABS: ALBUMIN 1.9 GM/DL (3.4-5.0)
[2017-09-28] MEDS: methylPREDNISolone SOD SUCC 40 MG/1 ML VIAL IV PUSH SCH ×2 (05:37→17:28)
[2017-09-28] MEDS: ARTIFICIAL TEARS OPTH SOLN 15 ML BTL EACH EYE SCH ×3 (05:37→20:26)
[2017-09-28] MEDS: METOCLOPRAMIDE HCL 10 MG/2 ML VIAL IV PUSH SCH ×3 (05:38→23:07)
[2017-09-28 05:43] LABS: CALCIUM 7.4 MG/DL (8.5-10.1); CALCIUM-PROTEIN CORRECTED 8.3 MG/DL (8.5-10.1); MAGNESIUM 2.4 MG/DL (1.5-2.5); PHOSPHORUS 3.6 MG/DL (2.5-4.9); TOTAL BILIRUBIN ADULT 0.8 MG/DL (0.2-1.0); TOTAL PROTEIN 5.4 GM/DL (6.4-8.2)
[2017-09-28] MEDS: CHLORHEXIDINE 0.12% (ORAL KIT) 15 ML CUP MT SCH ×2 (08:08→20:00)
[2017-09-28] MEDS ORDERED: PHARMACY ORDERED LAB ONE (10:45)
--- NOTE | 2017-09-28 11:01 | HHI.CCPN ---
Subjective Remarks/Hospital Course The patient is a 76-year-old male with a past medical history of atrial fibrillation with previous cardioversion, ETOH abuse and bronchial asthma. The patient was admitted on September 11 for signs of generalized weakness. He had a CT scan of the chest on September 14 which showed small nodular areas of airspace disease in the lingula and left lung base. He was admitted to ICU for alcohol withdrawal and was placed on CIWA protocol. During his hospital course, the patient was seen by pulmonary and GI services. Due to altered mental status, he had a CT scan of the brain on September 22 which showed no acute intracranial findings. Critical care medicine was consulted for hypotension earlier today as the patient was found to have systolic blood pressure in the 70s to 80s. He responded to fluid resuscitation and with current blood pressure 148/64 with a pulse of 72. ABG was performed on room air which showed a pH of 7.48, CO2 37, pAO2 72, bicarb of 27 and saturation 93% . He also had an MRI of the brain this afternoon which showed diffuse atrophy, otherwise, no acute intracranial findings. The patient failed speech evaluation and NG tube was inserted where nutrition support was provided via tube feeds. His laboratory data today showed worsening leukocytosis with WBC increased to 21.1 from 10.9. In addition, the patient is hypernatremic with a sodium level of 148 and increased creatinine level of 1.30 from 1.1. His ammonia level measured less than 10. Most of the history was obtained from reviewing the medical records as patient is a poor historian. He had a positive flu antigen on September 06. 09/24: Currently afebrile. Intubated for obvious aspiration. Central line placed due to very poor IV access. Will start TPN if unable to tolerate tube feeding. Currently resting in bed 09/25: Afebrile. Currently resting in bed will strictly intubated. Was previously on Apixaban but currently hold since yesterday. Tube feeds will be restarted today. 09/26 Patient remains sedated and intubated. On Levophed 2 mics. s/p LP earlier today showed clear CSF, 0 WBC 09/27: Afebrile. MAXIMUM TEMPERATURE 99.1. Tube feeds currently at 30 cc an hour. Lumbar puncture essentially is negative except for protein elevated at 70.1 mg/dL. Glucose 122/glucose was elevated in a.m. BMP. SUBJECTIVE: 09/28: Extubated today without complication. Weaning off dexmedetomidine drip. Speech therapy to evaluate and treat currently. Maintain NG tube encased tube feeds are needed. Nodding head and answering simple questions appropriately. Objective Vital Signs Date Time Temp Pulse Resp B/P (MAP) Pulse Ox O2 Delivery O2 Flow Rate FiO2 09/28/17 10:41 100 Nasal Cannula 2.00 09/28/17 08:30 76 09/28/17 08:00 30 09/28/17 08:00 35 150/74 (99) 09/28/17 04:00 98.2 Intake and Output 09/28/17 09/28/17 09/29/17 08:00 16:00 00:00 Intake Total 550 ml 1293 ml Output Total 1300 ml Balance -750 ml 1293 ml Result Diagram: 09/28/17 0445 09/28/17 0445 Other Results Microbiology Date/Time Source Procedure Growth Status 09/23/17 13:10 Blood Peripheral Aerobic Blood Culture - Preliminary NO GROWTH IN 4 DAYS Resulted 09/23/17 13:10 Blood Peripheral Anaerobic Blood Culture - Preliminary NO GROWTH IN 4 DAYS Resulted 09/26/17 08:35 Cerebral Spinal Fluid Lumbar Puncture Fungal Smear - Final NO FUNGAL ELEMENTS SEEN. Resulted 09/26/17 08:35 Cerebral Spinal Fluid Lumbar Puncture Fungal Culture Pending Resulted 09/24/17 15:25 Sputum Endotracheal Gram Stain - Final Complete 09/24/17 15:25 Sputum Endotracheal Sputum Culture - Final HEAVY GROWTH NORMAL RESPIRATORY JOHN Complete 09/23/17 12:50 Urine Catheterized Urine Urine Culture - Final NO GROWTH IN 48 HOURS. Complete Imaging Last Impressions Brain MRI 09/27/17 0000 Signed Impressions: Service Date/Time: Wednesday, September 27, 2017 15:09 - CONCLUSION: 1. Nonspecific white matter changes. 2. Cerebral atrophy without acute intracranial abnormality. 3. No cortically based abnormality identified. Abhinav Allen MD Lumbar Puncture Fluoroscopy 09/26/17 1505 Signed Impressions: Service Date/Time: Tuesday, September 26, 2017 08:29 - CONCLUSION: Uncomplicated fluoroscopically guided lumbar puncture with pressures as above. Con Castillo Jr., MD Chest X-Ray 09/26/17 0600 Signed Impressions: Service Date/Time: Tuesday, September 26, 2017 05:55 - CONCLUSION: Endotracheal tube, left central line and nasogastric tube in good position. Minimal basal atelectasis. Terrance Murillo MD Liver Ultrasound 09/23/17 0000 Signed Impressions: Service Date/Time: Saturday, September 23, 2017 14:12 - CONCLUSION: Right upper quadrant abdominal ultrasound within normal limits. Vinod Pelletier MD Head CT 09/22/17 0000 Signed Impressions: Service Date/Time: Friday, September 22, 2017 21:31 - CONCLUSION: 1. No acute intracranial abnormalities. Terrance Murillo MD Abdomen X-Ray 09/17/17 0000 Signed Impressions: Service Date/Time: Sunday, September 17, 2017 22:34 - CONCLUSION: Nasogastric tube with tip coiled in stomach. Abhinav Allen MD Chest CT 09/14/17 0000 Signed Impressions: Service Date/Time: August 13:00 - CONCLUSION: Small nodular areas of airspace disease both in the lingula and the left lung base. Right lung is relatively clear. The mediastinum is unremarkable. Adrian Martinez MD Objective Remarks GENERAL: This is a 76-year-old male resting in bed in no acute distress on nasal cannula SKIN: Warm and dry. No rash HEAD: Atraumatic. Normocephalic. EYES: Pupils equal and round. No scleral icterus. No injection or drainage. ENT: No nasal bleeding or discharge. Mucous membranes pink and moist. NG tube in left nares NECK: Trachea midline. No JVD. Left IJ CVL is clean dry and intact CARDIOVASCULAR: Regular rate and rhythm. S1, S2. No S4. Without murmur RESPIRATORY: Transmitted upper airway sounds. Coarse crackles appreciated throughout all lung hester anterior and posteriorly.. Breath sounds equal bilaterally. GASTROINTESTINAL: Abdomen soft, non-tender, nondistended. Hypoactive bowel sounds are appreciated. MUSCULOSKELETAL: Extremities without significant peripheral edema. No obvious deformities. NEUROLOGICAL: Moving all 4 extremities spontaneously. Answering questions appropriate. No obvious cranial nerve defects. Urinary Catheter: Yes Assessment to: Continue Lyons insert reason: Prolonged Immobilization Vascular Central Line Catheter: Yes Assessment to: Continue Date of Insertion: Sep 24, 2017 Line: Central Venous Catheter Side: Left Location: Internal, Jugular A/P Assessment and Plan Neuro/Psych: Subacute encephalopathy EtOH use Start dexmedetomidine drip to maintain an RASS of 0 in attempt to extubate Continue thiamine, folate and multivitamin daily Evaluated by neurology - Dr. Rojas. s/p LP 09/26- clear CSF, 0 WBC. Protein 70.1. Glucose 122. Gram stain negative MRI brain 09/23 revealed no acute intracranial findings. EEG 09/24 showing normal awake and asleep features. No epileptiform features present specifically. Will attempt to wean with dexmedetomidine. MRA brain 09/27 negative CV: Atrial fibrillation/rate controlled Seen by Dr. Mckay in the past. Status post failed cardioversion the past Currently on Dronedarone 400 mg BID Currently on D5 1 half normal saline at 84 cc an hour As needed hydralazine/labetalol for hypertension Resp: Acute respiratory failure secondary to aspiration Nasal cannula to maintain saturations greater than equal to 92% Incentive spirometry while awake On methylprednisolone succinate 40 mg IV every 12 hours Albuterol/ipratropium aerosols every 4 hours with albuterol aerosols every 2 hours. Dyspnea Spontaneous breathing trials when clinically indicated Pulmonology - Dr. Naylor following GI: Elevated transaminases Hypoalbuminemia If needed we'll resume tube feeds- Jevity 1.5 goal 60 cc an hour and monitor for residuals. Speech therapy evaluate and treat currently On prokinetic metoclopramide 5 mill grams IV every 8 hours Famotidine 20 mg twice a day for GI prophylaxis Docusate sodium/senna 1 tablet twice a day for bowel regimen Liver ultrasound is within normal limits Normal ammonia Hepatitis panel negative : Lyons catheter has been placed for accurate I's and O's in a critically ill patient Endo: SSI with Novulog with Accu-Cheks every 4 hours to maintain glycemia/low regimen Renal Acute kidney injury Currently on D5 1 half normal saline at 84 cc an hour Monitor urine output Accurate I's and O's Heme: Leukocytosis Normocytic anemia History of skin cancer Chronic apixaban use Continue iron sulfate 325 mg by mouth Monitor CBC daily. Follow trends Continue Apixaban 2.5 mg twice a day ID: Currently on piperacillin/tazobactam, levofloxacin and vancomycin for aspiration pneumonia Pertinent cultures CSF 09/26 - Gram stain negative.AFB and fungal pending 09/24 - sputum - no growth 09/23 - blood cultures 2 - no growth 09/23 - urine cultures - no growth Influenza negative 09/11 - blood cultures 2 - no growth FEN: Free water flushes 150 every 8 MSK: PT evaluate and treat Access - Left IJ CVL placed 09/24 - present Prophylaxis - GI - famotidine - DVT - SCD/ Apixaban held for lumbar puncture today Level 2 follow-up Discussed with family members at bedside. Care plan discussed and all questions answered. Aldair Castillo MD Sep 28, 2017 11:01
[2017-09-28] MEDS: SODIUM CHLORIDE 0.9% FLUSH 10 ML FLUSH IV FLUSH SCH (11:16)
[2017-09-28] MEDS: DEXT 5%-NACL 0.45% 1000 ML INJ 1,000 ML IV SCH ×2 (11:16→20:24)
[2017-09-28] MEDS: APIXABAN 2.5 MG TABLET PO SCH ×2 (11:17→20:26)
[2017-09-28] MEDS: THIAMINE HCL 100 MG TAB PO SCH (11:17)
[2017-09-28] MEDS: FAMOTIDINE 40 MG/5 ML LIQ 50 ML BTL NG SCH ×2 (11:17→20:25)
[2017-09-28] MEDS: DRONEDARONE 400 MG TAB PO SCH ×2 (11:17→20:26)
[2017-09-28] MEDS: FOLIC ACID 1 MG TAB PO SCH (11:17)
[2017-09-28] MEDS: NYSTATIN 100,000 U/GM PWD 15 GM BTL TOPICAL SCH ×2 (11:17→20:26)
[2017-09-28] MEDS: LEVOFLOXACIN 500 MG PREMIX INJ 100 ML IV SCH (11:18)
[2017-09-28] MEDS: MULTIVITAMIN TAB PO SCH (11:18)
[2017-09-28] MEDS: LACTOBACILLUS ACIDOPHILUS TAB PO SCH ×2 (11:18→20:25)
--- NOTE | 2017-09-28 12:43 | HHI.PR ---
Subjective Remarks The patient is a 76-year-old male with a past medical history of atrial fibrillation with previous cardioversion, ETOH abuse and bronchial asthma. The patient was admitted on September 11 for signs of generalized weakness. He had a CT scan of the chest on September 14 which showed small nodular areas of airspace disease in the lingula and left lung base. He was admitted to ICU for alcohol withdrawal and was placed on CIWA protocol. During his hospital course, the patient was seen by pulmonary and GI services. Due to altered mental status, he had a CT scan of the brain on September 22 which showed no acute intracranial findings. Critical care medicine was consulted for hypotension on Monday as the patient was found to have systolic blood pressure in the 70s to 80s. He responded to fluid resuscitation and with current blood pressure 148/64 with a pulse of 72. ABG was performed on room air which showed a pH of 7.48, CO2 37, pAO2 72, bicarb of 27 and saturation 93% . He also had an MRI of the brain this afternoon which showed diffuse atrophy, otherwise, no acute intracranial findings. The patient failed speech evaluation and NG tube was inserted where nutrition support was provided via tube feeds. His laboratory data today showed worsening leukocytosis with WBC increased to 21.1 from 10.9. In addition, the patient was hypernatremic with a sodium level of 148 and increased creatinine level of 1.30 from 1.1. His ammonia level measured less than 10. History was obtained from reviewing the medical records as patient is a poor historian. He had a positive flu antigen on September 06. 09/24: Currently afebrile. Intubated for obvious aspiration. Central line placed due to very poor IV access. Will start TPN if unable to tolerate tube feeding. Currently resting in bed 09/25: Afebrile. Currently resting in bed will strictly intubated. Was previously on Apixaban but currently hold since yesterday. Tube feeds will be restarted today. 09/26 Patient remains sedated and intubated. On Levophed 2 mics. s/p LP earlier today showed clear CSF, 0 WBC 09/27: Afebrile. MAXIMUM TEMPERATURE 99.1. Tube feeds currently at 30 cc an hour. Lumbar puncture essentially is negative except for protein elevated at 70.1 mg/dL. Glucose 122/glucose was elevated in a.m. BMP. SUBJECTIVE: 09/28: Extubated today without complication. Weaning off dexmedetomidine drip. Speech therapy to evaluate and treat currently. Maintain NG tube encased tube feeds are needed. Nodding head and answering simple questions appropriately. As above doing much better,PT to evaluat Objective Vitals GENERAL: SKIN: Warm and dry. HEAD: Atraumatic. Normocephalic. EYES: Pupils equal and round. No scleral icterus. No injection or drainage. ENT: No nasal bleeding or discharge. Mucous membranes pink and moist. NECK: Trachea midline. No JVD. CARDIOVASCULAR: Regular rate and rhythm. RESPIRATORY: No accessory muscle use. Clear to auscultation. Breath sounds equal bilaterally. GASTROINTESTINAL: Abdomen soft, non-tender, nondistended. Hepatic and splenic margins not palpable. MUSCULOSKELETAL: Extremities without clubbing, cyanosis, or edema. No obvious deformities. NEUROLOGICAL: Awake and alert. No obvious cranial nerve deficits. Motor grossly within normal limits. Five out of 5 muscle strength in the arms and legs. Starting to speak Vital Signs Date Time Temp Pulse Resp B/P (MAP) Pulse Ox O2 Delivery O2 Flow Rate FiO2 09/28/17 11:00 78 34 136/70 (92) 98 09/28/17 10:41 100 Nasal Cannula 2.00 09/28/17 10:00 72 09/28/17 10:00 68 20 143/75 (97) 99 09/28/17 09:00 72 41 138/72 (94) 98 09/28/17 08:37 99 Nasal Cannula 3.00 09/28/17 08:30 76 09/28/17 08:00 30 09/28/17 08:00 72 35 150/74 (99) 99 09/28/17 07:13 100 Mechanical Ventilator 30 09/28/17 07:00 56 14 141/72 (95) 100 09/28/17 06:00 58 09/28/17 06:00 58 13 130/69 (89) 100 09/28/17 05:00 66 13 108/58 (75) 99 09/28/17 04:00 30 09/28/17 04:00 98.2 56 14 121/59 (79) 100 09/28/17 04:00 78 09/28/17 03:55 99 30 09/28/17 03:00 74 30 100/54 (69) 100 09/28/17 02:00 54 13 140/71 (94) 100 09/28/17 02:00 78 09/28/17 01:05 99 30 09/28/17 01:00 50 13 131/63 (85) 100 09/28/17 00:00 30 09/28/17 00:00 97.4 86 19 135/94 (108) 100 09/28/17 00:00 86 09/27/17 23:00 60 26 151/75 (100) 100 09/27/17 22:20 99 30 09/27/17 22:00 60 09/27/17 22:00 60 34 134/64 (87) 100 09/27/17 21:38 100 Mechanical Ventilator 30 09/27/17 21:00 66 37 114/58 (76) 100 09/27/17 20:00 30 09/27/17 20:00 54 09/27/17 20:00 98.8 54 30 159/80 (106) 100 09/27/17 19:30 100 30 09/27/17 19:00 64 36 168/69 (102) 100 09/27/17 18:00 76 09/27/17 18:00 76 38 133/54 (80) 100 09/27/17 17:00 82 09/27/17 17:00 82 28 115/47 (69) 99 09/27/17 16:19 99 30 09/27/17 16:00 97.6 74 37 136/69 (91) 98 09/27/17 16:00 74 09/27/17 16:00 30 09/27/17 15:41 76 09/27/17 15:31 100 136/89 (105) 98 09/27/17 14:45 99 100 09/27/17 14:30 74 31 196/90 (125) 97 09/27/17 14:22 92 30 187/94 (125) 97 09/27/17 14:20 88 24 201/98 (132) 97 09/27/17 14:00 90 09/27/17 14:00 90 29 174/86 (115) 99 09/27/17 13:54 98 30 09/27/17 13:00 94 23 156/74 (101) 98 09/28/17 09/28/17 09/29/17 15:00 23:00 07:00 Intake Total 1293 ml Balance 1293 ml IV Total 1293 ml Result Diagram: 09/28/17 0445 09/28/17 0445 Imaging Last Impressions Chest X-Ray 09/14/17 0000 Signed Impressions: Service Date/Time: August 09:55 - CONCLUSION: Left lung density. Recommend CT chest for further evaluation Jayant Soto MD Chest CT 09/14/17 0000 Signed Impressions: Service Date/Time: August 13:00 - CONCLUSION: Small nodular areas of airspace disease both in the lingula and the left lung base. Right lung is relatively clear. The mediastinum is unremarkable. Adrian Martinez MD Last Impressions Chest X-Ray 09/11/17 1605 Signed Impressions: Service Date/Time: Monday, September 11, 2017 16:11 - CONCLUSION: No acute disease. No significant change has occurred. Gregory Campbell MD Date of Insertion: Sep 24, 2017 Line: Central Venous Catheter Side: Left Location: Internal, Jugular A/P Problem List: (1) Asthma ICD Codes: J45.909 - Unspecified asthma, uncomplicated Status: Acute Plan: asthma followed by pulmonary (2) Influenza ICD Codes: J11.1 - Influenza due to unidentified influenza virus with other respiratory manifestations Status: Acute Plan: Influenza A with secondary pneumonia. No recent fever. Patient with decrease breathing and was intubated last cxr was stable currently treated for possible aspiration now extubated (3) Alcohol withdrawal delirium ICD Codes: F10.231 - Alcohol dependence with withdrawal delirium Status: Acute Plan: Still with periods of agitation and risk for aspiration. NGT in place now. sedation med held (4) Chronic alcohol abuse ICD Codes: F10.10 - Alcohol abuse, uncomplicated Status: Chronic Plan: previous Discussed need for cessation. 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
[2017-09-28] MEDS: VANCOMYCIN 1,000 MG/NS 250 ML IV SCH ×4 (13:57→23:11)
[2017-09-28 19:54] LABS: CSF CRYPTOCOCCUS ANTIGEN NOT DETECTED (NEGATIVE)
--- NOTE | 2017-09-28 20:07 | HHI.PR ---
Subjective Remarks 76 YOWM with Br Asthma, Flu, Pn, Aspiration No fever Off pressors Extubated On Precedex, talks and makes sense Family at Objective Vital Signs Vital Signs Date Time Temp Pulse Resp B/P (MAP) Pulse Ox O2 Delivery O2 Flow Rate FiO2 09/28/17 19:52 100 Nasal Cannula 2.00 09/28/17 19:48 94 Nasal Cannula 2.00 09/28/17 19:00 98.0 92 38 171/78 (109) 95 09/28/17 18:04 94 53 165/90 (115) 96 09/28/17 18:00 98 28 165/90 (115) 97 09/28/17 18:00 98 09/28/17 17:00 108 37 175/73 (107) 99 09/28/17 16:00 92 09/28/17 16:00 96 31 185/96 (125) 97 09/28/17 15:00 80 29 168/89 (115) 97 09/28/17 14:00 80 09/28/17 14:00 80 38 145/62 (89) 09/28/17 13:33 82 40 138/62 (87) 97 09/28/17 13:04 82 17 168/75 (106) 100 09/28/17 13:00 82 28 176/85 (115) 99 09/28/17 12:00 82 34 157/78 (104) 96 09/28/17 12:00 82 09/28/17 11:00 78 34 136/70 (92) 98 09/28/17 10:41 100 Nasal Cannula 2.00 09/28/17 10:00 72 09/28/17 10:00 68 20 143/75 (97) 99 09/28/17 09:00 72 41 138/72 (94) 98 09/28/17 08:37 99 Nasal Cannula 3.00 09/28/17 08:30 100 Nasal Cannula 4 09/28/17 08:30 100 Nasal Cannula 4.00 09/28/17 08:30 76 09/28/17 08:30 Nasal Cannula 30 09/28/17 08:00 30 09/28/17 08:00 72 35 150/74 (99) 99 09/28/17 07:13 100 Mechanical Ventilator 30 09/28/17 07:00 56 14 141/72 (95) 100 09/28/17 06:00 58 09/28/17 06:00 58 13 130/69 (89) 100 09/28/17 05:00 66 13 108/58 (75) 99 09/28/17 04:00 30 09/28/17 04:00 98.2 56 14 121/59 (79) 100 09/28/17 04:00 78 09/28/17 03:55 99 30 09/28/17 03:00 74 30 100/54 (69) 100 09/28/17 02:00 54 13 140/71 (94) 100 09/28/17 02:00 78 09/28/17 01:05 99 30 09/28/17 01:00 50 13 131/63 (85) 100 09/28/17 00:00 30 09/28/17 00:00 97.4 86 19 135/94 (108) 100 09/28/17 00:00 86 09/27/17 23:00 60 26 151/75 (100) 100 09/27/17 22:20 99 30 09/27/17 22:00 60 09/27/17 22:00 60 34 134/64 (87) 100 09/27/17 21:38 100 Mechanical Ventilator 30 09/27/17 21:00 66 37 114/58 (76) 100 I/O 09/27/17 09/27/17 09/27/17 09/28/17 09/28/17 09/28/17 07:00 15:00 23:00 07:00 15:00 23:00 Intake Total 1083 ml 907 ml 100 ml 550 ml 1643 ml 280 ml Output Total 450 ml 2130 ml 1300 ml 1950 ml Balance 633 ml 907 ml -2030 ml -750 ml 1643 ml -1670 ml Intake Oral 0 ml 180 ml IV Total 1083 ml 907 ml 100 ml 1643 ml 100 ml Tube Feeding 550 ml Output Urine Total 450 ml 1500 ml 1300 ml 1950 ml Stool Total 630 ml # Bowel Movements 0 0 0 3 Result Diagram: 09/28/1744409/28/17444 Objective Remarks GENERAL: Elderly male, mild sob, congested SKIN: Warm and dry. HEAD: Normocephalic. EYES: No scleral icterus. No injection or drainage. NECK: Supple, trachea midline. No JVD or lymphadenopathy. CARDIOVASCULAR: Regular rate and rhythm without murmurs, gallops, or rubs. RESPIRATORY: Breath sounds equal bilaterally. No accessory muscle use. Scattered coarse rhonchi GASTROINTESTINAL: Abdomen soft, non-tender, nondistended. MUSCULOSKELETAL: No cyanosis, or edema. BACK: Nontender without obvious deformity. No CVA tenderness. A/P Assessment and Plan VDRF, s/p extubation 09/28 Pneumonia Aspiration Bronchial asthma Alcohal withdrawl AF HTN PLAN: Supplement 02 with NC On Precedex Cont Abx Aerosol nebs Tube feeding DW Family at BS Beltran Naylor MD Sep 28, 2017 20:07
[2017-09-29] VITALS (32 sets, daily range): BP systolic 104–168; BP diastolic 55–92; PULSE 68–113; RESP 15–42; TEMP 97.2–98.2; O2SAT 94–99
[2017-09-29] MEDS: DEXMEDETOMIDINE INJ 400 MCG in SODIUM CHLORIDE 0.9% INJ 100 ML IV PRN ×6 (00:05→23:28)
[2017-09-29] MEDS: INSULIN NovoLIN REGULAR SUPPLEMENTAL SCALE SQ SCH ×6 (00:45→20:45)
[2017-09-29] MEDS: PIPERACILLIN/TAZ 4.5 GM VIAL 4.5 GM in SODIUM CHLORIDE 0.9% INJ 100 ML IV SCH ×4 (02:45→21:39)
[2017-09-29] MEDS: RESP: ALBUTEROL 2.5 MG/IPRATROPIUM 0.5 MG NEB (SCH) NEB ×6 (03:24→23:40)
[2017-09-29 05:29] LABS: AUTOMATED NEUTROPHIL # 12.2 TH/MM3 (1.8-7.7); BASOPHIL # 0.1 TH/MM3 (0-0.2); EOSINOPHIL % 0.1 % (0.0-4.0); HEMATOCRIT 31.9 % (39.0-51.0); HEMOGLOBIN 10.3 GM/DL (13.0-17.0); LYMPH % 7.6 % (9.0-44.0); LYMPHOCYTE # 1.1 TH/MM3 (1.0-4.8); MEAN CORPUSCULAR HEMOGLOBIN 28.1 PG (27.0-34.0); MEAN CORPUSCULAR HGB CONC 32.3 % (32.0-36.0); MEAN PLATELET VOLUME 8.4 FL (7.0-11.0); MONOCYTE # 0.6 TH/MM3 (0-0.9); NEUT % 87.3 % (16.0-70.0); PLATELET COUNT 198 TH/MM3 (150-450); RED BLOOD COUNT 3.66 MIL/MM3 (4.50-5.90); RED CELL DISTRIBUTION WIDTH 17.6 % (11.6-17.2)
[2017-09-29 05:46] LABS: ALKALINE PHOSPHATASE 56 U/L (45-117); ALT (GPT) 269 U/L (12-78); AST (GOT) 106 U/L (15-37); BICARBONATE 27.2 MEQ/L (21.0-32.0); BLOOD UREA NITROGEN 15 MG/DL (7-18); CALCIUM 7.5 MG/DL (8.5-10.1); CHLORIDE 109 MEQ/L (98-107); CREATININE 0.95 MG/DL (0.60-1.30); GLOMERULAR FILTRATION RATE 77 ML/MIN (>89); GLUCOSE,RANDOM 167 MG/DL (74-106); MAGNESIUM 2.2 MG/DL (1.5-2.5); PHOSPHORUS 2.6 MG/DL (2.5-4.9); SODIUM (NA) 142 MEQ/L (136-145); TOTAL BILIRUBIN ADULT 0.7 MG/DL (0.2-1.0); TOTAL PROTEIN 5.4 GM/DL (6.4-8.2)
[2017-09-29] MEDS: methylPREDNISolone SOD SUCC 40 MG/1 ML VIAL IV PUSH SCH ×2 (05:59→17:00)
[2017-09-29] MEDS: METOCLOPRAMIDE HCL 10 MG/2 ML VIAL IV PUSH SCH ×3 (06:00→21:41)
[2017-09-29] MEDS: ARTIFICIAL TEARS OPTH SOLN 15 ML BTL EACH EYE SCH ×3 (06:00→21:42)
[2017-09-29] MEDS: POTASSIUM CHLOR 40 MEQ PREMIX 100 ML IV-CENTRAL PRN ×2 (06:40→09:51)
--- NOTE | 2017-09-29 06:42 | HHI.CCPN ---
Subjective Remarks/Hospital Course The patient is a 76-year-old male with a past medical history of atrial fibrillation with previous cardioversion, ETOH abuse and bronchial asthma. The patient was admitted on September 11 for signs of generalized weakness. He had a CT scan of the chest on September 14 which showed small nodular areas of airspace disease in the lingula and left lung base. He was admitted to ICU for alcohol withdrawal and was placed on CIWA protocol. During his hospital course, the patient was seen by pulmonary and GI services. Due to altered mental status, he had a CT scan of the brain on September 22 which showed no acute intracranial findings. Critical care medicine was consulted for hypotension earlier today as the patient was found to have systolic blood pressure in the 70s to 80s. He responded to fluid resuscitation and with current blood pressure 148/64 with a pulse of 72. ABG was performed on room air which showed a pH of 7.48, CO2 37, pAO2 72, bicarb of 27 and saturation 93% . He also had an MRI of the brain this afternoon which showed diffuse atrophy, otherwise, no acute intracranial findings. The patient failed speech evaluation and NG tube was inserted where nutrition support was provided via tube feeds. His laboratory data today showed worsening leukocytosis with WBC increased to 21.1 from 10.9. In addition, the patient is hypernatremic with a sodium level of 148 and increased creatinine level of 1.30 from 1.1. His ammonia level measured less than 10. Most of the history was obtained from reviewing the medical records as patient is a poor historian. He had a positive flu antigen on September 06. 09/24: Currently afebrile. Intubated for obvious aspiration. Central line placed due to very poor IV access. Will start TPN if unable to tolerate tube feeding. Currently resting in bed 09/25: Afebrile. Currently resting in bed will strictly intubated. Was previously on Apixaban but currently hold since yesterday. Tube feeds will be restarted today. 09/26 Patient remains sedated and intubated. On Levophed 2 mics. s/p LP earlier today showed clear CSF, 0 WBC 09/27: Afebrile. MAXIMUM TEMPERATURE 99.1. Tube feeds currently at 30 cc an hour. Lumbar puncture essentially is negative except for protein elevated at 70.1 mg/dL. Glucose 122/glucose was elevated in a.m. BMP. 09/28: Extubated today without complication. Weaning off dexmedetomidine drip. Speech therapy to evaluate and treat currently. Maintain NG tube encased tube feeds are needed. Nodding head and answering simple questions appropriately. SUBJECTIVE: 09/29: Resting in bed in no acute distress. On nasal cannula. Afebrile. Somewhat tachycardic. 3 bowel movements. Interactive and more appropriate. On dexmedetomidine drip at 1.1 mcg/kg per minute Objective Vital Signs Date Time Temp Pulse Resp B/P (MAP) Pulse Ox O2 Delivery O2 Flow Rate FiO2 09/29/17 06:21 101 09/29/17 06:01 97.5 23 144/83 (103) 99 09/28/17 19:52 Nasal Cannula 2.00 09/28/17 08:30 30 Intake and Output 09/29/17 09/29/17 09/30/17 08:00 16:00 00:00 Output Total 1875 ml Balance -1875 ml Result Diagram: 09/29/17 0510 09/29/17 0510 Other Results Microbiology Date/Time Source Procedure Growth Status 09/23/17 13:10 Blood Peripheral Aerobic Blood Culture - Final NO GROWTH IN 5 DAYS Complete 09/23/17 13:10 Blood Peripheral Anaerobic Blood Culture - Final NO GROWTH IN 5 DAYS Complete 09/26/17 08:35 Cerebral Spinal Fluid Lumbar Puncture Fungal Smear - Final NO FUNGAL ELEMENTS SEEN. Resulted 09/26/17 08:35 Cerebral Spinal Fluid Lumbar Puncture Fungal Culture Pending Resulted 09/24/17 15:25 Sputum Endotracheal Gram Stain - Final Complete 09/24/17 15:25 Sputum Endotracheal Sputum Culture - Final HEAVY GROWTH NORMAL RESPIRATORY JOHN Complete 09/23/17 12:50 Urine Catheterized Urine Urine Culture - Final NO GROWTH IN 48 HOURS. Complete Imaging Last Impressions Brain MRI 09/27/17 0000 Signed Impressions: Service Date/Time: Wednesday, September 27, 2017 15:09 - CONCLUSION: 1. Nonspecific white matter changes. 2. Cerebral atrophy without acute intracranial abnormality. 3. No cortically based abnormality identified. Abhinav Allen MD Lumbar Puncture Fluoroscopy 09/26/17 1505 Signed Impressions: Service Date/Time: Tuesday, September 26, 2017 08:29 - CONCLUSION: Uncomplicated fluoroscopically guided lumbar puncture with pressures as above. Con Castillo Jr., MD Chest X-Ray 09/26/17 0600 Signed Impressions: Service Date/Time: Tuesday, September 26, 2017 05:55 - CONCLUSION: Endotracheal tube, left central line and nasogastric tube in good position. Minimal basal atelectasis. Terrance Murillo MD Liver Ultrasound 09/23/17 0000 Signed Impressions: Service Date/Time: Saturday, September 23, 2017 14:12 - CONCLUSION: Right upper quadrant abdominal ultrasound within normal limits. Vinod Pelletier MD Head CT 09/22/17 0000 Signed Impressions: Service Date/Time: Friday, September 22, 2017 21:31 - CONCLUSION: 1. No acute intracranial abnormalities. Terrance Murillo MD Abdomen X-Ray 09/17/17 0000 Signed Impressions: Service Date/Time: Sunday, September 17, 2017 22:34 - CONCLUSION: Nasogastric tube with tip coiled in stomach. Abhinav Allen MD Chest CT 09/14/17 0000 Signed Impressions: Service Date/Time: August 13:00 - CONCLUSION: Small nodular areas of airspace disease both in the lingula and the left lung base. Right lung is relatively clear. The mediastinum is unremarkable. Adrian Martinez MD Objective Remarks GENERAL: This is a 76-year-old male resting in bed in no acute distress on nasal cannula SKIN: Warm and dry. No rash HEAD: Atraumatic. Normocephalic. EYES: Pupils equal and round. No scleral icterus. No injection or drainage. ENT: No nasal bleeding or discharge. Mucous membranes pink and moist. NG tube in left nares NECK: Trachea midline. No JVD. Left IJ CVL is clean dry and intact CARDIOVASCULAR: Regular rate and rhythm. S1, S2. No S4. Without murmur RESPIRATORY: Transmitted upper airway sounds. Coarse crackles appreciated throughout all lung hester anterior and posteriorly.. Breath sounds equal bilaterally. GASTROINTESTINAL: Abdomen soft, non-tender, nondistended. Hypoactive bowel sounds are appreciated. MUSCULOSKELETAL: Extremities without significant peripheral edema. No obvious deformities. NEUROLOGICAL: Moving all 4 extremities spontaneously. Answering questions appropriate. No obvious cranial nerve defects. Strength appears equal and symmetric. Urinary Catheter: No Assessment to: Continue Vascular Central Line Catheter: Yes Assessment to: Continue Date of Insertion: Sep 24, 2017 Line: Central Venous Catheter Side: Left Location: Internal, Jugular A/P Assessment and Plan Neuro/Psych: Subacute encephalopathy EtOH use Continue as needed dexmedetomidine drip to maintain a RASS 0 Continue thiamine, folate and multivitamin daily Evaluated by neurology - Dr. Rojas. s/p LP 09/26- clear CSF, 0 WBC. Protein 70.1. Glucose 122. Gram stain negative MRI brain 09/23 revealed no acute intracranial findings. EEG 09/24 showing normal awake and asleep features. No epileptiform features present specifically. Will attempt to wean with dexmedetomidine. MRA brain repeated 09/27 negative CV: Atrial fibrillation/rate controlled Seen by Dr. Mckay in the past. Status post failed cardioversion the past Currently on Dronedarone 400 mg BID Currently on D5 1 half normal saline at 84 cc an hour. Discontinue 2/2 As needed hydralazine/labetalol and enalaprilat for hypertension Resp: Acute respiratory failure secondary to aspiration Nasal cannula to maintain saturations greater than equal to 92% Incentive spirometry while awake On methylprednisolone succinate 40 mg IV every 12 hours Albuterol/ipratropium aerosols every 4 hours with albuterol aerosols every 2 hours. Dyspnea Spontaneous breathing trials when clinically indicated Pulmonology - Dr. Naylor following GI: Elevated transaminases Hypoalbuminemia Resumed tube feeds- Jevity 1.5 goal 60 cc an hour and monitor for residuals. Currently at 40 cc an hour. Speech therapy evaluate and treat currently. Currently honey thickened liquid diet only taking bites currently On prokinetic metoclopramide 5 mill grams IV every 8 hours Famotidine 20 mg twice a day for GI prophylaxis Docusate sodium twice daily 100 cc for bowel regimen Liver ultrasound is within normal limits Normal ammonia Hepatitis panel negative : Lyons catheter has been placed for accurate I's and O's in a critically ill patient Endo: SSI with Novulog with Accu-Cheks every 4 hours to maintain glycemia/low regimen Renal Acute kidney injury Currently on D5 1 half normal saline at 84 cc an hour area discontinued 2/2 Monitor urine output Accurate I's and O's Heme: Leukocytosis Normocytic anemia History of skin cancer Chronic apixaban use Continue iron sulfate 325 mg by mouth Monitor CBC daily. Follow trends Continue Apixaban 2.5 mg twice a day ID: Currently on piperacillin/tazobactam, levofloxacin and vancomycin for aspiration pneumonia Pertinent cultures CSF 09/26 - Gram stain negative.AFB and fungal NGTD 09/24 - sputum - no growth 09/23 - blood cultures 2 - no growth 09/23 - urine cultures - no growth Influenza negative 09/11 - blood cultures 2 - no growth FEN: Hypokalemia, acute Free water flushes 150 every 8 80 mEq KCl IV 1 now. Recheck potassium 1800. Replace per ICU electrolyte protocol. MSK: PT evaluate and treat Access - Left IJ CVL placed 09/24 - present Prophylaxis - GI - famotidine - DVT - SCD/ Apixaban held for lumbar puncture today Level 2 follow-up Discussed with family members at bedside. Care plan discussed and all questions answered. Aldair Castillo MD Sep 29, 2017 06:42
[2017-09-29] MEDS ORDERED: hydrALAZINE HCL 20 MG/ML VIAL IV PUSH PRN (06:45)
[2017-09-29] MEDS: CHLORHEXIDINE 0.12% (ORAL KIT) 15 ML CUP MT SCH ×2 (08:00→20:00)
[2017-09-29] MEDS: DRONEDARONE 400 MG TAB PO SCH ×2 (08:48→21:39)
[2017-09-29] MEDS: THIAMINE HCL 100 MG TAB PO SCH (08:51)
[2017-09-29] MEDS: FOLIC ACID 1 MG TAB PO SCH (08:51)
[2017-09-29] MEDS: MULTIVITAMIN TAB PO SCH (08:51)
[2017-09-29] MEDS: APIXABAN 2.5 MG TABLET PO SCH ×2 (08:51→21:39)
[2017-09-29] MEDS: LACTOBACILLUS ACIDOPHILUS TAB PO SCH ×2 (08:51→21:41)
[2017-09-29] MEDS: SODIUM CHLORIDE 0.9% FLUSH 10 ML FLUSH IV FLUSH SCH (08:52)
[2017-09-29] MEDS: FAMOTIDINE 40 MG/5 ML LIQ 50 ML BTL NG SCH ×2 (08:52→21:39)
[2017-09-29] MEDS: DOCUSATE SODIUM 100 MG/10 ML UDC PO SCH ×2 (08:52→21:39)
[2017-09-29] MEDS: NYSTATIN 100,000 U/GM PWD 15 GM BTL TOPICAL SCH ×2 (08:52→21:39)
[2017-09-29 09:24] LABS: CSF CRYPTOCOCCUS AG CONF ND (NOT DETECTD)
--- NOTE | 2017-09-29 09:32 | HHI.IDPN ---
Subjective Subjective Remarks Patient extubated yesterday No fevers Lethargic but able to follow Antibiotics Vancomycin, Zosyn and Levofloxacin Lines RIGHT IJ Past Medical History Asthma, Alcoholism , Afib Allergies: Coded Allergies: No Known Allergies (Verified Adverse Reaction, Unknown, 09/11/17) Review of Systems Constitutional Constitutional Remarks No fevers Objective . Vital Signs Date Time Temp Pulse Resp B/P (MAP) Pulse Ox O2 Delivery O2 Flow Rate FiO2 09/29/17 06:21 101 09/29/17 06:01 97.5 86 23 144/83 (103) 99 09/29/17 05:01 90 35 128/56 (80) 99 09/29/17 04:00 104 42 110/62 (78) 09/29/17 04:00 110 09/29/17 02:00 94 09/29/17 02:00 104 42 119/62 (81) 09/29/17 01:00 110 39 124/68 (86) 09/29/17 00:00 97.3 102 26 167/79 (108) 09/29/17 00:00 113 09/28/17 23:00 88 29 134/85 (101) 98 09/28/17 22:00 112 39 125/70 (88) 97 09/28/17 22:00 102 09/28/17 21:00 106 42 188/117 (140) 95 09/28/17 20:00 86 16 106/62 (77) 100 09/28/17 20:00 109 09/28/17 19:52 100 Nasal Cannula 2.00 09/28/17 19:48 94 Nasal Cannula 2.00 09/28/17 19:00 98.0 92 38 171/78 (109) 95 09/28/17 18:04 94 53 165/90 (115) 96 09/28/17 18:00 98 28 165/90 (115) 97 09/28/17 18:00 98 09/28/17 17:00 108 37 175/73 (107) 99 09/28/17 16:00 92 09/28/17 16:00 96 31 185/96 (125) 97 09/28/17 15:00 80 29 168/89 (115) 97 09/28/17 14:00 80 09/28/17 14:00 80 38 145/62 (89) 09/28/17 13:33 82 40 138/62 (87) 97 09/28/17 13:04 82 17 168/75 (106) 100 09/28/17 13:00 82 28 176/85 (115) 99 09/28/17 12:00 82 34 157/78 (104) 96 09/28/17 12:00 82 09/28/17 11:00 78 34 136/70 (92) 98 09/28/17 10:41 100 Nasal Cannula 2.00 09/28/17 10:00 72 09/28/17 10:00 68 20 143/75 (97) 99 09/29/17 09/29/17 09/30/17 15:00 23:00 07:00 Intake Total 164 ml Balance 164 ml IV Total 164 ml . Laboratory Tests Test 09/28/17 04:45 09/29/17 05:10 White Blood Count 12.6 TH/MM3 14.0 TH/MM3 Red Blood Count 3.40 MIL/MM3 3.66 MIL/MM3 Hemoglobin 9.9 GM/DL 10.3 GM/DL Hematocrit 30.5 % 31.9 % Mean Corpuscular Volume 89.5 FL 87.0 FL Mean Corpuscular Hemoglobin 29.1 PG 28.1 PG Mean Corpuscular Hemoglobin Concent 32.5 % 32.3 % Red Cell Distribution Width 17.8 % 17.6 % Platelet Count 185 TH/MM3 198 TH/MM3 Mean Platelet Volume 8.4 FL 8.4 FL Neutrophils (%) (Auto) 92.1 % 87.3 % Lymphocytes (%) (Auto) 4.3 % 7.6 % Monocytes (%) (Auto) 3.5 % 4.0 % Eosinophils (%) (Auto) 0.0 % 0.1 % Basophils (%) (Auto) 0.1 % 1.0 % Neutrophils # (Auto) 11.7 TH/MM3 12.2 TH/MM3 Lymphocytes # (Auto) 0.5 TH/MM3 1.1 TH/MM3 Monocytes # (Auto) 0.4 TH/MM3 0.6 TH/MM3 Eosinophils # (Auto) 0.0 TH/MM3 0.0 TH/MM3 Basophils # (Auto) 0.0 TH/MM3 0.1 TH/MM3 CBC Comment DIFF FINAL DIFF FINAL Differential Comment Laboratory Tests Test 09/28/17 04:45 09/29/17 05:10 Blood Urea Nitrogen 26 MG/DL 15 MG/DL Creatinine 1.00 MG/DL 0.95 MG/DL Random Glucose 206 MG/DL 167 MG/DL Total Protein 5.4 GM/DL 5.4 GM/DL Albumin 1.9 GM/DL 2.0 GM/DL Calcium Level 7.4 MG/DL 7.5 MG/DL Phosphorus Level 3.6 MG/DL 2.6 MG/DL Magnesium Level 2.4 MG/DL 2.2 MG/DL Alkaline Phosphatase 65 U/L 56 U/L Aspartate Amino Transf (AST/SGOT) 213 U/L 106 U/L Alanine Aminotransferase (ALT/SGPT) 288 U/L 269 U/L Total Bilirubin 0.8 MG/DL 0.7 MG/DL Sodium Level 144 MEQ/L 142 MEQ/L Potassium Level 3.3 MEQ/L 2.7 MEQ/L Chloride Level 111 MEQ/L 109 MEQ/L Carbon Dioxide Level 26.0 MEQ/L 27.2 MEQ/L Anion Gap 7 MEQ/L 6 MEQ/L Estimat Glomerular Filtration Rate 72 ML/MIN 77 ML/MIN Protein Corrected Calcium 8.3 MG/DL Ammonia LESS THAN 10 MCMOL/L LESS THAN 10 MCMOL/L Physical Exam General: Chronically ill - lethargic patient Nose: NG tube present Oral cavity: Tongue dry. Neck: Supple Chest: Breath sounds decreased Heart: S1S2 tachycardia Abdomen: Soft Non tender BS present Lower Extremities- No edema / Calf tenderness. Assessment & Plan Diagnosis: (1) Respiratory failure ICD Codes: J96.90 - Respiratory failure, unspecified, unspecified whether with hypoxia or hypercapnia Status: Acute Plan: Patient on ventilator (2) Leukocytosis ICD Codes: D72.829 - Elevated white blood cell count, unspecified Status: Acute Plan: Likely secondary to steroid use - improved Cultures all reviewed- negative so far Continue IV Vancomycin & Zosyn Will stop Levofloxacin (3) Asthma ICD Codes: J45.909 - Unspecified asthma, uncomplicated Status: Acute (4) Paroxysmal atrial fibrillation ICD Codes: I48.0 - Paroxysmal atrial fibrillation Status: Chronic (5) Chronic alcohol abuse ICD Codes: F10.10 - Alcohol abuse, uncomplicated Status: Chronic Problem Qualifiers (1) Respiratory failure: (2) Asthma: Qualified Codes: J45.901 - Unspecified asthma with (acute) exacerbation Svetlana Balderrama MD Sep 29, 2017 09:32
[2017-09-29] MEDS: VANCOMYCIN 1,000 MG/NS 250 ML IV SCH ×4 (11:09→23:27)
--- NOTE | 2017-09-29 11:35 | HHI.PR ---
Subjective Remarks Patient extubated The patient is a 76-year-old male with a past medical history of atrial fibrillation with previous cardioversion, ETOH abuse and bronchial asthma. The patient was admitted on September 11 for signs of generalized weakness. He had a CT scan of the chest on September 14 which showed small nodular areas of airspace disease in the lingula and left lung base. He was admitted to ICU for alcohol withdrawal and was placed on CIWA protocol. During his hospital course, the patient was seen by pulmonary and GI services. Due to altered mental status, he had a CT scan of the brain on September 22 which showed no acute intracranial findings. Critical care medicine was consulted for hypotension earlier today as the patient was found to have systolic blood pressure in the 70s to 80s. He responded to fluid resuscitation and with current blood pressure 148/64 with a pulse of 72. ABG was performed on room air which showed a pH of 7.48, CO2 37, pAO2 72, bicarb of 27 and saturation 93% . He also had an MRI of the brain this afternoon which showed diffuse atrophy, otherwise, no acute intracranial findings. The patient failed speech evaluation and NG tube was inserted where nutrition support was provided via tube feeds. His laboratory data today showed worsening leukocytosis with WBC increased to 21.1 from 10.9. In addition, the patient is hypernatremic with a sodium level of 148 and increased creatinine level of 1.30 from 1.1. His ammonia level measured less than 10. Most of the history was obtained from reviewing the medical records as patient is a poor historian. He had a positive flu antigen on September 06. 09/24: Currently afebrile. Intubated for obvious aspiration. Central line placed due to very poor IV access. Will start TPN if unable to tolerate tube feeding. Currently resting in bed 09/25: Afebrile. Currently resting in bed will strictly intubated. Was previously on Apixaban but currently hold since yesterday. Tube feeds will be restarted today. 09/26 Patient remains sedated and intubated. On Levophed 2 mics. s/p LP earlier today showed clear CSF, 0 WBC 09/27: Afebrile. MAXIMUM TEMPERATURE 99.1. Tube feeds currently at 30 cc an hour. Lumbar puncture essentially is negative except for protein elevated at 70.1 mg/dL. Glucose 122/glucose was elevated in a.m. BMP. 09/28: Extubated today without complication. Weaning off dexmedetomidine drip. Speech therapy to evaluate and treat currently. Maintain NG tube encased tube feeds are needed. Nodding head and answering simple questions appropriately. SUBJECTIVE: 2: Resting in bed in no acute distress. On nasal cannula. Afebrile. Somewhat tachycardic. 3 bowel movements. Interactive and more appropriate. On dexmedetomidine drip at 1.1 mcg/kg per minute Patient seen by ID continue current antibiotics except stop levaquin. Hydralazine prn hypertension and on nasal canula Objective Vitals GENERAL: SKIN: Warm and dry. HEAD: Atraumatic. Normocephalic. EYES: Pupils equal and round. No scleral icterus. No injection or drainage. ENT: No nasal bleeding or discharge. Mucous membranes pink and moist. NECK: Trachea midline. No JVD. CARDIOVASCULAR: Regular rate and rhythm. RESPIRATORY: No accessory muscle use. Clear to auscultation. Breath sounds equal bilaterally. GASTROINTESTINAL: Abdomen soft, non-tender, nondistended. Hepatic and splenic margins not palpable. MUSCULOSKELETAL: Extremities without clubbing, cyanosis, or edema. No obvious deformities. NEUROLOGICAL: Awake and alert. No obvious cranial nerve deficits. Motor grossly within normal limits. Five out of 5 muscle strength in the arms and legs. More alert Vital Signs Date Time Temp Pulse Resp B/P (MAP) Pulse Ox O2 Delivery O2 Flow Rate FiO2 09/29/17 10:01 72 20 134/75 (94) 98 09/29/17 10:00 76 09/29/17 09:01 78 24 110/62 (78) 96 09/29/17 08:01 97.3 86 23 130/68 (88) 95 09/29/17 08:00 89 09/29/17 08:00 96 Room Air 09/29/17 07:01 88 15 143/85 (104) 98 09/29/17 06:21 101 09/29/17 06:01 97.5 86 23 144/83 (103) 99 09/29/17 05:01 90 35 128/56 (80) 99 09/29/17 04:00 104 42 110/62 (78) 09/29/17 04:00 110 09/29/17 02:00 94 09/29/17 02:00 104 42 119/62 (81) 09/29/17 01:00 110 39 124/68 (86) 09/29/17 00:00 97.3 102 26 167/79 (108) 09/29/17 00:00 113 09/28/17 23:00 88 29 134/85 (101) 98 09/28/17 22:00 112 39 125/70 (88) 97 09/28/17 22:00 102 09/28/17 21:00 106 42 188/117 (140) 95 09/28/17 20:00 86 16 106/62 (77) 100 09/28/17 20:00 109 09/28/17 19:52 100 Nasal Cannula 2.00 09/28/17 19:48 94 Nasal Cannula 2.00 09/28/17 19:00 98.0 92 38 171/78 (109) 95 09/28/17 18:04 94 53 165/90 (115) 96 09/28/17 18:00 98 28 165/90 (115) 97 09/28/17 18:00 98 09/28/17 17:00 108 37 175/73 (107) 99 09/28/17 16:00 92 09/28/17 16:00 96 31 185/96 (125) 97 09/28/17 15:00 80 29 168/89 (115) 97 09/28/17 14:00 80 09/28/17 14:00 80 38 145/62 (89) 09/28/17 13:33 82 40 138/62 (87) 97 09/28/17 13:04 82 17 168/75 (106) 100 09/28/17 13:00 82 28 176/85 (115) 99 09/28/17 12:00 82 34 157/78 (104) 96 09/28/17 12:00 82 09/29/17 09/29/17 09/30/17 15:00 23:00 07:00 Intake Total 464 ml Balance 464 ml IV Total 464 ml Result Diagram: 09/29/1750909/29/17 05 Imaging Last Impressions Chest X-Ray 09/14/17 0000 Signed Impressions: Service Date/Time: August 09:55 - CONCLUSION: Left lung density. Recommend CT chest for further evaluation Jayant Soto MD Chest CT 09/14/17 0000 Signed Impressions: Service Date/Time: August 13:00 - CONCLUSION: Small nodular areas of airspace disease both in the lingula and the left lung base. Right lung is relatively clear. The mediastinum is unremarkable. Adrian Martinez MD Last Impressions Chest X-Ray 09/11/17 1605 Signed Impressions: Service Date/Time: Monday, September 11, 2017 16:11 - CONCLUSION: No acute disease. No significant change has occurred. Gregory Campbell MD Date of Insertion: Sep 24, 2017 Line: Central Venous Catheter Side: Left Location: Internal, Jugular A/P Problem List: (1) Asthma ICD Codes: J45.909 - Unspecified asthma, uncomplicated Status: Acute Plan: asthma followed by pulmonary (2) Influenza ICD Codes: J11.1 - Influenza due to unidentified influenza virus with other respiratory manifestations Status: Acute Plan: Influenza A with secondary pneumonia. No recent fever. Patient with decrease breathing and was intubated last cxr was stable currently treated for possible aspiration now extubated (3) Alcohol withdrawal delirium ICD Codes: F10.231 - Alcohol dependence with withdrawal delirium Status: Acute Plan: no further with periods of agitation and risk for aspiration. NGT in place now. sedation med held (4) Chronic alcohol abuse ICD Codes: F10.10 - Alcohol abuse, uncomplicated Status: Chronic Plan: previous Discussed need for cessation. (5) Paroxysmal atrial fibrillation ICD Codes: I48.0 - Paroxysmal atrial fibrillation Status: Chronic Plan: apizaban restarted and is on dronedarone 400 bid (6) Hypotension ICD Codes: I95.9 - Hypotension, unspecified Status: Acute Plan: Cardiothoracic Icu Rn caring for patient hypotension resolved (7) Respiratory failure ICD Codes: J96.90 - Respiratory failure, unspecified, unspecified whether with hypoxia or hypercapnia Status: Acute Plan: extubated followed by home care liaison and pulmonary (8) Leukocytosis ICD Codes: D72.829 - Elevated white blood cell count, unspecified Status: Acute Plan: on broad spectrum antibiotics ID consulted WBC count decreased to 14 Discharge Planning as per response to treatment Problem Qualifiers (1) Asthma: Qualified Codes: J45.901 - Unspecified asthma with (acute) exacerbation (2) Respiratory failure: Carlos Littlejohn MD Sep 29, 2017 11:35
--- NOTE | 2017-09-29 17:40 | HHI.PR ---
Subjective Remarks 76 YOWM with Br Asthma, Flu, Pn, Aspiration No fever Off pressors Extubated 09/28 On Precedex, talks and makes sense Weaned to RA Objective Vital Signs Vital Signs Date Time Temp Pulse Resp B/P (MAP) Pulse Ox O2 Delivery O2 Flow Rate FiO2 09/29/17 17:01 96 22 115/55 (75) 97 09/29/17 16:00 82 09/29/17 16:00 97.2 82 25 145/84 (104) 96 09/29/17 15:01 78 15 127/82 (97) 96 09/29/17 14:01 86 23 136/67 (90) 98 09/29/17 14:00 84 09/29/17 14:00 84 24 98 09/29/17 13:00 82 23 139/67 (91) 97 09/29/17 12:00 97.2 72 17 133/69 (90) 99 09/29/17 12:00 72 09/29/17 11:50 99 09/29/17 11:00 68 17 104/55 (71) 98 09/29/17 10:01 72 20 134/75 (94) 98 09/29/17 10:00 76 09/29/17 09:01 78 24 110/62 (78) 96 09/29/17 08:01 97.3 86 23 130/68 (88) 95 09/29/17 08:00 89 09/29/17 08:00 96 Room Air 09/29/17 07:01 88 15 143/85 (104) 98 09/29/17 06:21 101 09/29/17 06:01 97.5 86 23 144/83 (103) 99 09/29/17 05:01 90 35 128/56 (80) 99 09/29/17 04:00 104 42 110/62 (78) 09/29/17 04:00 110 09/29/17 02:00 94 09/29/17 02:00 104 42 119/62 (81) 09/29/17 01:00 110 39 124/68 (86) 09/29/17 00:00 97.3 102 26 167/79 (108) 09/29/17 00:00 113 09/28/17 23:00 88 29 134/85 (101) 98 09/28/17 22:00 112 39 125/70 (88) 97 2/1/18 22:00 102 09/28/17 21:00 106 42 188/117 (140) 95 09/28/17 20:00 86 16 106/62 (77) 100 09/28/17 20:00 109 09/28/17 19:52 100 Nasal Cannula 2.00 09/28/17 19:48 94 Nasal Cannula 2.00 09/28/17 19:00 98.0 92 38 171/78 (109) 95 09/28/17 18:04 94 53 165/90 (115) 96 09/28/17 18:00 98 28 165/90 (115) 97 09/28/17 18:00 98 I/O 09/28/17 09/28/17 09/28/17 09/29/17 09/29/17 09/29/17 07:00 15:00 23:00 07:00 15:00 23:00 Intake Total 550 ml 1643 ml 280 ml 464 ml 100 ml Output Total 1300 ml 1950 ml 1875 ml Balance -750 ml 1643 ml -1670 ml -1875 ml 464 ml 100 ml Intake Oral 180 ml IV Total 1643 ml 100 ml 464 ml 100 ml Tube Feeding 550 ml Output Urine Total 1300 ml 1950 ml 1875 ml # Bowel Movements 0 3 Result Diagram: 09/29/17 0510 09/29/17 0510 Objective Remarks GENERAL: Elderly male, mild sob, congested SKIN: Warm and dry. HEAD: Normocephalic. EYES: No scleral icterus. No injection or drainage. NECK: Supple, trachea midline. No JVD or lymphadenopathy. CARDIOVASCULAR: Regular rate and rhythm without murmurs, gallops, or rubs. RESPIRATORY: Breath sounds equal bilaterally. No accessory muscle use. Scattered coarse rhonchi GASTROINTESTINAL: Abdomen soft, non-tender, nondistended. MUSCULOSKELETAL: No cyanosis, or edema. BACK: Nontender without obvious deformity. No CVA tenderness. A/P Assessment and Plan VDRF, s/p extubation 2 Pneumonia Aspiration Bronchial asthma Alcohal withdrawl AF HTN PLAN: On Precedex Cont Abx Aerosol nebs Tube feeding Stable on RA Available prn over weekend Beltran Naylor MD Sep 29, 2017 17:40
[2017-09-29] MEDS ORDERED: methylPREDNISolone SOD SUCC 40 MG/1 ML VIAL IV PUSH SCH (18:00)
[2017-09-30] VITALS (38 sets, daily range): BP systolic 91–170; BP diastolic 51–89; PULSE 76–114; RESP 9–30; TEMP 97.9–98.9; O2SAT 79–98
[2017-09-30] MEDS: INSULIN NovoLIN REGULAR SUPPLEMENTAL SCALE SQ SCH ×4 (00:45→18:00)
[2017-09-30] MEDS: PIPERACILLIN/TAZ 4.5 GM VIAL 4.5 GM in SODIUM CHLORIDE 0.9% INJ 100 ML IV SCH (02:03)
[2017-09-30] MEDS: RESP: ALBUTEROL 2.5 MG/IPRATROPIUM 0.5 MG NEB (SCH) NEB ×2 (03:38→07:52)
[2017-09-30] MEDS: METOCLOPRAMIDE HCL 10 MG/2 ML VIAL IV PUSH SCH ×3 (05:44→20:36)
[2017-09-30] MEDS: methylPREDNISolone SOD SUCC 40 MG/1 ML VIAL IV PUSH SCH (05:44)
[2017-09-30] MEDS: DEXMEDETOMIDINE INJ 400 MCG in SODIUM CHLORIDE 0.9% INJ 100 ML IV PRN ×3 (05:46→23:17)
[2017-09-30 05:51] LABS: AUTOMATED NEUTROPHIL # 12.4 TH/MM3 (1.8-7.7); BASOPHIL # 0.1 TH/MM3 (0-0.2); EOSINOPHIL % 0.2 % (0.0-4.0); HEMATOCRIT 32.5 % (39.0-51.0); HEMOGLOBIN 10.4 GM/DL (13.0-17.0); LYMPH % 8.3 % (9.0-44.0); LYMPHOCYTE # 1.2 TH/MM3 (1.0-4.8); MEAN CELL VOLUME 86.5 FL (80.0-100.0); MEAN CORPUSCULAR HEMOGLOBIN 27.7 PG (27.0-34.0); MEAN CORPUSCULAR HGB CONC 32.1 % (32.0-36.0); MEAN PLATELET VOLUME 8.3 FL (7.0-11.0); MONO % 4.1 % (0.0-8.0); MONOCYTE # 0.6 TH/MM3 (0-0.9); NEUT % 86.4 % (16.0-70.0); PLATELET COUNT 183 TH/MM3 (150-450); RED BLOOD COUNT 3.76 MIL/MM3 (4.50-5.90); RED CELL DISTRIBUTION WIDTH 17.6 % (11.6-17.2); WHITE BLOOD COUNT 14.3 TH/MM3 (4.0-11.0)
[2017-09-30] MEDS: ARTIFICIAL TEARS OPTH SOLN 15 ML BTL EACH EYE SCH ×3 (05:51→20:34)
[2017-09-30 06:03] LABS: CHLORIDE 107 MEQ/L (98-107); SODIUM (NA) 142 MEQ/L (136-145)
[2017-09-30 06:08] LABS: ALBUMIN 2.1 GM/DL (3.4-5.0); BICARBONATE 27.1 MEQ/L (21.0-32.0); BLOOD UREA NITROGEN 17 MG/DL (7-18); CALCIUM 7.9 MG/DL (8.5-10.1); GLUCOSE,RANDOM 152 MG/DL (74-106); MAGNESIUM 2.3 MG/DL (1.5-2.5)
[2017-09-30 06:11] LABS: ALT (GPT) 208 U/L (12-78); AST (GOT) 54 U/L (15-37); CREATININE 0.99 MG/DL (0.60-1.30); GLOMERULAR FILTRATION RATE 73 ML/MIN (>89)
[2017-09-30 06:12] LABS: PHOSPHORUS 2.3 MG/DL (2.5-4.9)
[2017-09-30 06:13] LABS: TOTAL BILIRUBIN ADULT 0.6 MG/DL (0.2-1.0); TOTAL PROTEIN 5.5 GM/DL (6.4-8.2)
[2017-09-30 06:14] LABS: ALKALINE PHOSPHATASE 56 U/L (45-117)
[2017-09-30] MEDS ORDERED: POTASSIUM CHLOR 40 MEQ PREMIX 100 ML IV ONE (07:30)
[2017-09-30] MEDS: CHLORHEXIDINE 0.12% (ORAL KIT) 15 ML CUP MT SCH ×2 (08:00→20:00)
[2017-09-30] MEDS ORDERED: POTASSIUM PHOSPHATE INJ 30 MMOL in SODIUM CHLOR 0.9% 250 ML INJ 250 ML IV ONE (08:00)
[2017-09-30] MEDS ORDERED: Vancomycin Consult Pharmacy 1 EA OTHER SCH (08:00)
--- NOTE | 2017-09-30 08:01 | HHI.CCPN ---
Subjective Remarks/Hospital Course The patient is a 76-year-old male with a past medical history of atrial fibrillation with previous cardioversion, ETOH abuse and bronchial asthma. The patient was admitted on September 11 for signs of generalized weakness. He had a CT scan of the chest on September 14 which showed small nodular areas of airspace disease in the lingula and left lung base. He was admitted to ICU for alcohol withdrawal and was placed on CIWA protocol. During his hospital course, the patient was seen by pulmonary and GI services. Due to altered mental status, he had a CT scan of the brain on September 22 which showed no acute intracranial findings. Critical care medicine was consulted for hypotension earlier today as the patient was found to have systolic blood pressure in the 70s to 80s. He responded to fluid resuscitation and with current blood pressure 148/64 with a pulse of 72. ABG was performed on room air which showed a pH of 7.48, CO2 37, pAO2 72, bicarb of 27 and saturation 93% . He also had an MRI of the brain this afternoon which showed diffuse atrophy, otherwise, no acute intracranial findings. The patient failed speech evaluation and NG tube was inserted where nutrition support was provided via tube feeds. His laboratory data today showed worsening leukocytosis with WBC increased to 21.1 from 10.9. In addition, the patient is hypernatremic with a sodium level of 148 and increased creatinine level of 1.30 from 1.1. His ammonia level measured less than 10. Most of the history was obtained from reviewing the medical records as patient is a poor historian. He had a positive flu antigen on September 06. 09/24: Currently afebrile. Intubated for obvious aspiration. Central line placed due to very poor IV access. Will start TPN if unable to tolerate tube feeding. Currently resting in bed 09/25: Afebrile. Currently resting in bed will strictly intubated. Was previously on Apixaban but currently hold since yesterday. Tube feeds will be restarted today. 09/26 Patient remains sedated and intubated. On Levophed 2 mics. s/p LP earlier today showed clear CSF, 0 WBC 09/27: Afebrile. MAXIMUM TEMPERATURE 99.1. Tube feeds currently at 30 cc an hour. Lumbar puncture essentially is negative except for protein elevated at 70.1 mg/dL. Glucose 122/glucose was elevated in a.m. BMP. 09/28: Extubated today without complication. Weaning off dexmedetomidine drip. Speech therapy to evaluate and treat currently. Maintain NG tube encased tube feeds are needed. Nodding head and answering simple questions appropriately. 2/2: Resting in bed in no acute distress. On nasal cannula. Afebrile. Somewhat tachycardic. 3 bowel movements. Interactive and more appropriate. On dexmedetomidine drip at 1.1 mcg/kg per minute SUBJECTIVE: 2/3: Resting comfortably in bed in no acute distress on room air. Currently on dexmedetomidine drip at 0.9 g per kilo per minute. Interactive and more appropriate. Family meeting. Reviewed imaging with 2 family members at bedside. Objective Vital Signs Date Time Temp Pulse Resp B/P (MAP) Pulse Ox O2 Delivery O2 Flow Rate FiO2 09/30/17 06:21 98.0 110 20 109/55 (73) 97 09/29/17 19:45 Nasal Cannula 2.00 09/29/17 19:11 21 Intake and Output 09/30/17 09/30/17 10/01/17 08:00 16:00 00:00 Intake Total 200 ml Output Total 3600 ml Balance -3400 ml Result Diagram: 09/30/17 0537 09/30/17 0537 Other Results Microbiology Date/Time Source Procedure Growth Status 09/23/17 13:10 Blood Peripheral Aerobic Blood Culture - Final NO GROWTH IN 5 DAYS Complete 09/23/17 13:10 Blood Peripheral Anaerobic Blood Culture - Final NO GROWTH IN 5 DAYS Complete 09/26/17 08:35 Cerebral Spinal Fluid Lumbar Puncture Fungal Smear - Final NO FUNGAL ELEMENTS SEEN. Resulted 09/26/17 08:35 Cerebral Spinal Fluid Lumbar Puncture Fungal Culture Pending Resulted 09/24/17 15:25 Sputum Endotracheal Gram Stain - Final Complete 09/24/17 15:25 Sputum Endotracheal Sputum Culture - Final HEAVY GROWTH NORMAL RESPIRATORY JOHN Complete 09/23/17 12:50 Urine Catheterized Urine Urine Culture - Final NO GROWTH IN 48 HOURS. Complete Imaging Last Impressions Brain MRI 09/27/17 0000 Signed Impressions: Service Date/Time: Wednesday, September 27, 2017 15:09 - CONCLUSION: 1. Nonspecific white matter changes. 2. Cerebral atrophy without acute intracranial abnormality. 3. No cortically based abnormality identified. Abhinav Allen MD Lumbar Puncture Fluoroscopy 09/26/17 1505 Signed Impressions: Service Date/Time: Tuesday, September 26, 2017 08:29 - CONCLUSION: Uncomplicated fluoroscopically guided lumbar puncture with pressures as above. oCn Castillo Jr., MD Chest X-Ray 09/26/17 0600 Signed Impressions: Service Date/Time: Tuesday, September 26, 2017 05:55 - CONCLUSION: Endotracheal tube, left central line and nasogastric tube in good position. Minimal basal atelectasis. Terrance Murillo MD Liver Ultrasound 09/23/17 0000 Signed Impressions: Service Date/Time: Saturday, September 23, 2017 14:12 - CONCLUSION: Right upper quadrant abdominal ultrasound within normal limits. Vinod Pelletier MD Head CT 09/22/17 0000 Signed Impressions: Service Date/Time: Friday, September 22, 2017 21:31 - CONCLUSION: 1. No acute intracranial abnormalities. Terrance Murillo MD Abdomen X-Ray 09/17/17 0000 Signed Impressions: Service Date/Time: Sunday, September 17, 2017 22:34 - CONCLUSION: Nasogastric tube with tip coiled in stomach. Abhinav Allen MD Chest CT 09/14/17 0000 Signed Impressions: Service Date/Time: August 13:00 - CONCLUSION: Small nodular areas of airspace disease both in the lingula and the left lung base. Right lung is relatively clear. The mediastinum is unremarkable. Ardian Martinez MD Objective Remarks GENERAL: This is a 76-year-old male resting in bed in no acute distress on nasal cannula SKIN: Warm and dry. No rash HEAD: Atraumatic. Normocephalic. EYES: Pupils equal and round. No scleral icterus. No injection or drainage. ENT: No nasal bleeding or discharge. Mucous membranes pink and moist. NG tube in left nares NECK: Trachea midline. No JVD. Left IJ CVL is clean dry and intact CARDIOVASCULAR: Regular rate and rhythm. S1, S2. No S4. Without murmur RESPIRATORY: Transmitted upper airway sounds. Coarse crackles appreciated throughout all lung hester anterior and posteriorly.. Breath sounds equal bilaterally. GASTROINTESTINAL: Abdomen soft, non-tender, nondistended. Hypoactive bowel sounds are appreciated. MUSCULOSKELETAL: Extremities without significant peripheral edema. No obvious deformities. NEUROLOGICAL: Moving all 4 extremities spontaneously. Answering questions appropriate. No obvious cranial nerve defects. Strength appears equal and symmetric. Vascular Central Line Catheter: Yes Assessment to: Continue Date of Insertion: Sep 24, 2017 Line: Central Venous Catheter Side: Left Location: Internal, Jugular A/P Assessment and Plan Neuro/Psych: Subacute encephalopathy EtOH use Possible viral encephalitis Continue as needed dexmedetomidine drip which is currently at 0.9 mcg/kg per minute to maintain a RASS 0 Continue thiamine, folate and multivitamin daily Evaluated by neurology - Dr. Rojas. s/p LP 09/26- clear CSF, 0 WBC. Protein 70.1. Glucose 122. Gram stain negative MRI brain 09/23 revealed no acute intracranial findings. EEG 09/24 showing normal awake and asleep features. No epileptiform features present specifically. Will attempt to wean with dexmedetomidine. MRA brain repeated 09/27 negative CV: Atrial fibrillation/rate controlled Seen by Dr. Mckay in the past. Status post failed cardioversion the past Currently on Dronedarone 400 mg BID Off all IV fluids As needed hydralazine/labetalol and enalaprilat for hypertension Resp: Acute respiratory failure secondary to aspiration Nasal cannula to maintain saturations greater than equal to 92% Incentive spirometry while awake On methylprednisolone succinate 40 mg IV every 12 hours wean daily today 2/3 Will discontinue Albuterol/ipratropium aerosols every 4 hours and continue with albuterol aerosols every 2 hours as needed Dyspnea Spontaneous breathing trials when clinically indicated Pulmonology - Dr. Naylor following GI: Elevated transaminases Hypoalbuminemia Resumed tube feeds- Jevity 1.5 goal 60 cc an hour and monitor for residuals. Currently at 40 cc an hour.. Advance Speech therapy evaluate and treat currently. Currently honey thickened liquid diet only taking bites currently On prokinetic metoclopramide 5 mill grams IV every 8 hours Famotidine 20 mg twice a day for GI prophylaxis Docusate sodium twice daily 100 cc for bowel regimen Liver ultrasound is within normal limits Normal ammonia Hepatitis panel negative : Lyons catheter has been placed for accurate I's and O's in a critically ill patient Endo: SSI with Novulin R with Accu-Cheks every 6 hours to maintain glycemia/low regimen Renal Acute kidney injury Off all the fluids Monitor urine output Accurate I's and O's Heme: Leukocytosis Normocytic anemia History of skin cancer Chronic apixaban use Continue iron sulfate 325 mg by mouth Monitor CBC daily. Follow trends Continue Apixaban 2.5 mg twice a day ID: Currently on piperacillin/tazobactam and vancomycin for aspiration pneumonia per infectious disease Levofloxacin discontinued 09/29 Pertinent cultures CSF 09/26 - Gram stain negative.AFB and fungal NGTD 09/24 - sputum - no growth 09/23 - blood cultures 2 - no growth 09/23 - urine cultures - no growth Influenza negative 09/11 - blood cultures 2 - no growth FEN: Hypokalemia, acute Hypophosphatemia, acute Free water flushes 150 every 8 40 mEq KCl IV 1 now. 30 mmol K-Phos IV 1 now. Recheck potassium 1800. Replace per ICU electrolyte protocol. MSK: PT evaluate and treat Access - Left IJ CVL placed 09/24 - present Prophylaxis - GI - famotidine - DVT - SCD/ Apixaban held for lumbar puncture today Level 2 follow-up Discussed with family members at bedside. Care plan discussed and all questions answered. Aldair Castillo MD Sep 30, 2017 08:01
[2017-09-30] MEDS: THIAMINE HCL 100 MG TAB PO SCH (09:05)
[2017-09-30] MEDS: FAMOTIDINE 40 MG/5 ML LIQ 50 ML BTL NG SCH ×2 (09:05→20:34)
[2017-09-30] MEDS: DRONEDARONE 400 MG TAB PO SCH ×2 (09:06→20:35)
[2017-09-30] MEDS: MULTIVITAMIN TAB PO SCH (09:06)
[2017-09-30] MEDS: APIXABAN 2.5 MG TABLET PO SCH ×2 (09:06→20:35)
[2017-09-30] MEDS: FOLIC ACID 1 MG TAB PO SCH (09:06)
[2017-09-30] MEDS: DOCUSATE SODIUM 100 MG/10 ML UDC PO SCH ×2 (09:06→20:35)
[2017-09-30] MEDS: PIPERACIL-TAZO 4.5 GM PREMIX 100 ML IV SCH ×3 (09:08→20:34)
[2017-09-30] MEDS: LACTOBACILLUS ACIDOPHILUS TAB PO SCH ×2 (09:12→20:35)
[2017-09-30] MEDS: SODIUM CHLORIDE 0.9% FLUSH 10 ML FLUSH IV FLUSH SCH (09:12)
[2017-09-30] MEDS: NYSTATIN 100,000 U/GM PWD 15 GM BTL TOPICAL SCH ×2 (09:13→20:36)
--- NOTE | 2017-09-30 14:24 | HHI.PR ---
Subjective Remarks Patient extubated on 09/28 seen by speech therapy on tube feedings slwoly being weaned off sedation Objective Vitals Vital Signs Date Time Temp Pulse Resp B/P (MAP) Pulse Ox O2 Delivery O2 Flow Rate FiO2 09/30/17 10:01 110 26 109/58 (75) 86 09/30/17 10:00 96 09/30/17 09:01 106 20 102/65 (77) 79 09/30/17 08:01 96 9 107/70 (82) 95 09/30/17 08:00 96 Room Air 09/30/17 08:00 96 09/30/17 07:56 98 21 09/30/17 07:01 97.9 98 21 120/71 (87) 84 09/30/17 06:21 98.0 110 20 109/55 (73) 97 09/30/17 06:17 88 09/30/17 05:01 98 26 108/61 (77) 96 09/30/17 04:01 104 24 134/66 (88) 95 09/30/17 04:00 114 09/30/17 03:01 94 21 145/72 (96) 96 09/30/17 02:01 106 22 154/83 (106) 96 09/30/17 02:00 92 09/30/17 01:08 108 19 141/61 (87) 97 09/30/17 00:01 112 29 147/67 (93) 96 09/30/17 00:00 97 09/29/17 23:01 100 24 168/92 (117) 97 09/29/17 22:04 95 09/29/17 22:01 98.2 100 21 127/61 (83) 96 09/29/17 21:01 102 30 152/74 (100) 97 09/29/17 20:57 109 09/29/17 20:01 100 35 164/75 (104) 94 09/29/17 19:45 97 Nasal Cannula 2.00 09/29/17 19:11 99 21 09/29/17 19:01 86 25 166/88 (114) 97 09/29/17 18:00 92 09/29/17 18:00 92 21 137/65 (89) 97 09/29/17 17:01 96 22 115/55 (75) 97 09/29/17 16:00 82 09/29/17 16:00 97.2 82 25 145/84 (104) 96 09/29/17 15:01 78 15 127/82 (97) 96 Result Diagram: 09/30/17 0537 09/30/17 0537 Imaging Last Impressions Chest X-Ray 09/14/17 0000 Signed Impressions: Service Date/Time: August 09:55 - CONCLUSION: Left lung density. Recommend CT chest for further evaluation Jayant Soto MD Chest CT 09/14/17 0000 Signed Impressions: Service Date/Time: August 13:00 - CONCLUSION: Small nodular areas of airspace disease both in the lingula and the left lung base. Right lung is relatively clear. The mediastinum is unremarkable. Adrian Martinez MD Last Impressions Chest X-Ray 09/11/17 1605 Signed Impressions: Service Date/Time: Monday, September 11, 2017 16:11 - CONCLUSION: No acute disease. No significant change has occurred. Gregory Campbell MD Objective Remarks In ICU bed arousable, follows commands dry oral mucosa left IJ lungs clear anteriorly heart rrr abdomen dimished bowel sounds, nontender upper ext in restraints, flailing legs Date of Insertion: Sep 24, 2017 Line: Central Venous Catheter Side: Left Location: Internal, Jugular A/P Problem List: (1) Asthma ICD Codes: J45.909 - Unspecified asthma, uncomplicated Status: Acute Plan: asthma followed by pulmonary (2) Influenza ICD Codes: J11.1 - Influenza due to unidentified influenza virus with other respiratory manifestations Status: Acute Plan: Influenza A with secondary pneumonia. No recent fever. was intubated 09/28 . last cxr was stable currently treated for possible aspiration (3) Alcohol withdrawal delirium ICD Codes: F10.231 - Alcohol dependence with withdrawal delirium Status: Acute Plan: agitation improved NGT in place now. sedation med held (4) Chronic alcohol abuse ICD Codes: F10.10 - Alcohol abuse, uncomplicated Status: Chronic Plan: will Discuss need for cessation once more alert. 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 hypotension resolved (7) Respiratory failure ICD Codes: J96.90 - Respiratory failure, unspecified, unspecified whether with hypoxia or hypercapnia Status: Acute Plan: extubated / followed by environmental health technologist and pulmonary (8) Leukocytosis ICD Codes: D72.829 - Elevated white blood cell count, unspecified Status: Acute Plan: on broad spectrum antibiotics ID consulted WBC count decreased to 14 Discharge Planning as per response to treatment Problem Qualifiers (1) Asthma: Qualified Codes: J45.901 - Unspecified asthma with (acute) exacerbation (2) Respiratory failure: Tari Ha MD Sep 30, 2017 14:24
[2017-09-30] MEDS: VANCOMYCIN 1 GM/200 ML PREMIX IV SCH ×2 (15:09→23:54)
[2017-09-30 19:53] LABS: VDRL CSF NON-REACTIVE (NON-REACTVE)
[2017-09-30] MEDS: NYSTATIN SUSP 500,000 U/5 ML CUP SWISH-SWAL SCH ×2 (20:34→20:37)
[2017-09-30] MEDS ORDERED: ALTEPLASE RECOMBINANT 2 MG VIAL INTRACATH PRN (21:00)
[2017-10-01] VITALS (29 sets, daily range): BP systolic 94–148; BP diastolic 51–81; PULSE 76–106; RESP 12–32; TEMP 98.7–99.7; O2SAT 91–97
[2017-10-01] MEDS: PIPERACIL-TAZO 4.5 GM PREMIX 100 ML IV SCH ×4 (02:43→20:02)
[2017-10-01] MEDS: METOCLOPRAMIDE HCL 10 MG/2 ML VIAL IV PUSH SCH (02:43)
[2017-10-01] MEDS: DEXMEDETOMIDINE INJ 400 MCG in SODIUM CHLORIDE 0.9% INJ 100 ML IV PRN ×2 (04:55→15:35)
[2017-10-01] MEDS: INSULIN NovoLIN REGULAR SUPPLEMENTAL SCALE SQ SCH ×2 (05:00)
[2017-10-01] MEDS: ARTIFICIAL TEARS OPTH SOLN 15 ML BTL EACH EYE SCH (05:00)
[2017-10-01 05:02] LABS: AUTOMATED NEUTROPHIL # 13.6 TH/MM3 (1.8-7.7); BASOPHIL # 0.5 TH/MM3 (0-0.2); BASOPHIL % 2.8 % (0.0-2.0); EOSINOPHIL # 0.3 TH/MM3 (0-0.4); EOSINOPHIL % 1.7 % (0.0-4.0); HEMOGLOBIN 11.3 GM/DL (13.0-17.0); LYMPH % 9.5 % (9.0-44.0); LYMPHOCYTE # 1.6 TH/MM3 (1.0-4.8); MEAN CELL VOLUME 86.3 FL (80.0-100.0); MEAN CORPUSCULAR HEMOGLOBIN 27.9 PG (27.0-34.0); MEAN CORPUSCULAR HGB CONC 32.3 % (32.0-36.0); MEAN PLATELET VOLUME 8.2 FL (7.0-11.0); MONO % 4.4 % (0.0-8.0); MONOCYTE # 0.7 TH/MM3 (0-0.9); NEUT % 81.6 % (16.0-70.0); PLATELET COUNT 196 TH/MM3 (150-450); RED BLOOD COUNT 4.06 MIL/MM3 (4.50-5.90); RED CELL DISTRIBUTION WIDTH 17.7 % (11.6-17.2); WHITE BLOOD COUNT 16.7 TH/MM3 (4.0-11.0)
[2017-10-01 05:25] LABS: BICARBONATE 27.3 MEQ/L (21.0-32.0); CALCIUM 6.5 MG/DL (8.5-10.1); MAGNESIUM 2.2 MG/DL (1.5-2.5); TOTAL BILIRUBIN ADULT 0.6 MG/DL (0.2-1.0); TOTAL PROTEIN 5.4 GM/DL (6.4-8.2)
[2017-10-01 05:29] LABS: CALCIUM-PROTEIN CORRECTED 7.3 MG/DL (8.5-10.1)
[2017-10-01] MEDS: CHLORHEXIDINE 0.12% (ORAL KIT) 15 ML CUP MT SCH ×2 (08:00→20:00)
--- NOTE | 2017-10-01 08:15 | HHI.CCPN ---
Subjective Remarks/Hospital Course The patient is a 76-year-old male with a past medical history of atrial fibrillation with previous cardioversion, ETOH abuse and bronchial asthma. The patient was admitted on September 11 for signs of generalized weakness. He had a CT scan of the chest on September 14 which showed small nodular areas of airspace disease in the lingula and left lung base. He was admitted to ICU for alcohol withdrawal and was placed on CIWA protocol. During his hospital course, the patient was seen by pulmonary and GI services. Due to altered mental status, he had a CT scan of the brain on September 22 which showed no acute intracranial findings. Critical care medicine was consulted for hypotension earlier today as the patient was found to have systolic blood pressure in the 70s to 80s. He responded to fluid resuscitation and with current blood pressure 148/64 with a pulse of 72. ABG was performed on room air which showed a pH of 7.48, CO2 37, pAO2 72, bicarb of 27 and saturation 93% . He also had an MRI of the brain this afternoon which showed diffuse atrophy, otherwise, no acute intracranial findings. The patient failed speech evaluation and NG tube was inserted where nutrition support was provided via tube feeds. His laboratory data today showed worsening leukocytosis with WBC increased to 21.1 from 10.9. In addition, the patient is hypernatremic with a sodium level of 148 and increased creatinine level of 1.30 from 1.1. His ammonia level measured less than 10. Most of the history was obtained from reviewing the medical records as patient is a poor historian. He had a positive flu antigen on September 06. 09/24: Currently afebrile. Intubated for obvious aspiration. Central line placed due to very poor IV access. Will start TPN if unable to tolerate tube feeding. Currently resting in bed 09/25: Afebrile. Currently resting in bed will strictly intubated. Was previously on Apixaban but currently hold since yesterday. Tube feeds will be restarted today. 09/26 Patient remains sedated and intubated. On Levophed 2 mics. s/p LP earlier today showed clear CSF, 0 WBC 09/27: Afebrile. MAXIMUM TEMPERATURE 99.1. Tube feeds currently at 30 cc an hour. Lumbar puncture essentially is negative except for protein elevated at 70.1 mg/dL. Glucose 122/glucose was elevated in a.m. BMP. 09/28: Extubated today without complication. Weaning off dexmedetomidine drip. Speech therapy to evaluate and treat currently. Maintain NG tube encased tube feeds are needed. Nodding head and answering simple questions appropriately. 2/2: Resting in bed in no acute distress. On nasal cannula. Afebrile. Somewhat tachycardic. 3 bowel movements. Interactive and more appropriate. On dexmedetomidine drip at 1.1 mcg/kg per minute SUBJECTIVE: 2/3: Resting comfortably in bed in no acute distress on room air. Currently on dexmedetomidine drip at 0.9 g per kilo per minute. Interactive and more appropriate. Family meeting. Reviewed imaging with 2 family members at bedside. 10/01: TMAX 99.1 Pt awake, responding to questions alert to name, confused with place and time. Patient following commands, appears ICAM positive. The patient continues on low-dose dexmedetomidine 0.5 mcgs/kg/hr. agents had episodes of diarrhea over the last 24 hours, bowel regimen placed on hold, Reglan discontinued. Objective Vital Signs Date Time Temp Pulse Resp B/P (MAP) Pulse Ox O2 Delivery O2 Flow Rate FiO2 10/01/17 06:24 92 25 99/52 (68) 91 10/01/17 04:08 99.1 09/30/17 20:10 21 09/30/17 19:00 Room Air 09/29/17 19:45 2.00 Intake and Output 10/01/17 10/01/17 10/02/17 08:00 16:00 00:00 Intake Total 426 ml Output Total 1300 ml Balance -874 ml Result Diagram: 10/01/17 0434 10/01/17 0434 Imaging Last Impressions Brain MRI 09/27/17 0000 Signed Impressions: Service Date/Time: Wednesday, September 27, 2017 15:09 - CONCLUSION: 1. Nonspecific white matter changes. 2. Cerebral atrophy without acute intracranial abnormality. 3. No cortically based abnormality identified. Abhinav Allen MD Lumbar Puncture Fluoroscopy 09/26/17 1505 Signed Impressions: Service Date/Time: Tuesday, September 26, 2017 08:29 - CONCLUSION: Uncomplicated fluoroscopically guided lumbar puncture with pressures as above. Con Castillo Jr., MD Chest X-Ray 09/26/17 0600 Signed Impressions: Service Date/Time: Tuesday, September 26, 2017 05:55 - CONCLUSION: Endotracheal tube, left central line and nasogastric tube in good position. Minimal basal atelectasis. Terrance Murillo MD Liver Ultrasound 09/23/17 0000 Signed Impressions: Service Date/Time: Saturday, September 23, 2017 14:12 - CONCLUSION: Right upper quadrant abdominal ultrasound within normal limits. Vinod Pelletier MD Head CT 09/22/17 0000 Signed Impressions: Service Date/Time: Friday, September 22, 2017 21:31 - CONCLUSION: 1. No acute intracranial abnormalities. Terrance Murillo MD Abdomen X-Ray 09/17/17 0000 Signed Impressions: Service Date/Time: Sunday, September 17, 2017 22:34 - CONCLUSION: Nasogastric tube with tip coiled in stomach. Abhinav Allen MD Chest CT 09/14/17 0000 Signed Impressions: Service Date/Time: August 13:00 - CONCLUSION: Small nodular areas of airspace disease both in the lingula and the left lung base. Right lung is relatively clear. The mediastinum is unremarkable. Adrian Martinez MD Objective Remarks GENERAL: This is a 76-year-old male resting in bed in no acute distress attempting to answer questions SKIN: Warm and dry. No rash HEAD: Atraumatic. Normocephalic. EYES: Pupils equal and round. No scleral icterus. No injection or drainage. ENT: No nasal bleeding or discharge. Mucous membranes pink and moist. NG tube in left nare NECK: Trachea midline. No JVD. Left IJ CVL is clean dry and intact CARDIOVASCULAR: Regular rate and irregular rhythm. S1, S2. No S4. Without murmur RESPIRATORY: Transmitted upper airway sounds. Coarse crackles appreciated throughout all lung hester anterior and posteriorly.. Breath sounds equal bilaterally. GASTROINTESTINAL: Abdomen soft, non-tender, nondistended. Hypoactive bowel sounds are appreciated. MUSCULOSKELETAL: Extremities without significant peripheral edema. No obvious deformities. NEUROLOGICAL: ICAM positive, GCS 14. Moving all 4 extremities spontaneously and to commands. Unable to follow specific commands consistently. Answering questions appropriate. No obvious cranial nerve defects. Strength appears equal and symmetric. Urinary Catheter: Yes Lyons insert reason: Measure Accurate Output Date of Insertion: Sep 24, 2017 Line: Central Venous Catheter Side: Left Location: Internal, Jugular A/P Assessment and Plan Neuro/Psych: Subacute encephalopathy EtOH use Possible viral encephalitis Delirium Continue as needed dexmedetomidine drip which is currently at 0.9 mcg/kg per minute to maintain a RASS 0 Continue thiamine, folate and multivitamin daily Evaluated by neurology - Dr. Rojas. s/p LP 09/26- clear CSF, 0 WBC. Protein 70.1. Glucose 122. Gram stain negative MRI brain 09/23 revealed no acute intracranial findings. EEG 09/24 showing normal awake and asleep features. No epileptiform features present specifically. Continue to wean with dexmedetomidine. MRA brain repeated 09/27 negative ICAM positive F/U Neurology Obtain Neuro Psych consult Initiate and maintain sleep hygiene CV: Atrial fibrillation/rate controlled Seen by Dr. Mckay in the past. Status post failed cardioversion the past Currently on Dronedarone 400 mg BID Off all IV fluids As needed hydralazine/labetalol and enalaprilat for hypertension Resp: Acute respiratory failure secondary to aspiration-resolved Nasal cannula to maintain saturations greater than equal to 92% Incentive spirometry while awake On methylprednisolone succinate 40 mg IV every 12 hours wean daily today 23 Will discontinue Albuterol/ipratropium aerosols every 4 hours and continue with albuterol aerosols every 2 hours as needed Dyspnea Spontaneous breathing trials when clinically indicated Pulmonology - Dr. Naylor following GI: Elevated transaminases Hypoalbuminemia Resumed tube feeds- Jevity 1.5 goal 60 cc an hour and monitor for residuals. Currently at 40 cc an hour.. Advance Speech therapy evaluate and treat currently. failed swallow on 09/30 On prokinetic metoclopramide 5 mill grams IV every 8 hours Famotidine 20 mg twice a day for GI prophylaxis Docusate sodium twice daily 100 cc for bowel regimen Liver ultrasound is within normal limits Normal ammonia Hepatitis panel negative : Lyons catheter has been placed for accurate I's and O's in a critically ill patient Endo: SSI with Novulin R with Accu-Cheks every 6 hours to maintain glycemia/low regimen Renal Acute kidney injury Off all the fluids Monitor urine output Accurate I's and O's Heme: Leukocytosis Normocytic anemia History of skin cancer Chronic apixaban use Continue iron sulfate 325 mg by mouth Monitor CBC daily. Follow trends Continue Apixaban 2.5 mg twice a day ID: Currently on piperacillin/tazobactam and vancomycin for aspiration pneumonia per infectious disease Levofloxacin discontinued 2/2 Pertinent cultures CSF 1/30 - Gram stain negative.AFB and fungal NGTD 09/24 - sputum - no growth 09/23 - blood cultures 2 - no growth 09/23 - urine cultures - no growth Influenza negative 09/11 - blood cultures 2 - no growth FEN: Electrolyte derangement Free water flushes 150 every 8 Replace per ICU electrolyte protocol. MSK: PT evaluate and treat Access - Left IJ CVL placed 09/24 - present Prophylaxis - GI - famotidine - DVT - SCD/ Apixaban held for lumbar puncture today Level 2 follow-up Care plan discussed with LIFESTYLE DIRECTOR and all questions answered. Physician Mary Monterroso MD Oct 01, 2017 08:15
[2017-10-01] MEDS ORDERED: DEXTROSE 50% IN WATER 50 ML VIAL(D50) IV PUSH PRN (08:30)
[2017-10-01] MEDS ORDERED: GLUCAGON 1 MG/ML VIAL OTHER PRN (08:30)
[2017-10-01] MEDS ORDERED: CALCIUM GLUCONATE INJ 2 GM in DEXTROSE 5% IN WATER 100ML INJ 100 ML IV ONE ×2 (09:00)
[2017-10-01] MEDS: FOLIC ACID 1 MG TAB PO SCH (10:42)
[2017-10-01] MEDS: LACTOBACILLUS ACIDOPHILUS TAB PO SCH ×2 (10:42→20:02)
[2017-10-01] MEDS: DRONEDARONE 400 MG TAB PO SCH ×2 (10:42→20:01)
[2017-10-01] MEDS: THIAMINE HCL 100 MG TAB PO SCH (10:42)
[2017-10-01] MEDS: SODIUM CHLORIDE 0.9% FLUSH 10 ML FLUSH IV FLUSH SCH (10:42)
[2017-10-01] MEDS: APIXABAN 2.5 MG TABLET PO SCH ×2 (10:42→20:02)
[2017-10-01] MEDS: NYSTATIN 100,000 U/GM PWD 15 GM BTL TOPICAL SCH ×2 (10:43→20:03)
[2017-10-01] MEDS: NYSTATIN SUSP 500,000 U/5 ML CUP SWISH-SWAL SCH ×4 (10:43→20:03)
[2017-10-01] MEDS: MULTIVITAMIN TAB PO SCH (10:54)
[2017-10-01] MEDS: INSULIN ASPART SUPPLEMENTAL SCALE SQ SCH ×3 (12:00→20:03)
[2017-10-01] MEDS: VANCOMYCIN 1 GM/200 ML PREMIX IV SCH ×2 (14:07→22:48)
--- NOTE | 2017-10-01 15:22 | HHI.PR ---
Subjective Remarks Seen with daughters at bedside, mouth is sore, having diarrhea Objective Vitals Vital Signs Date Time Temp Pulse Resp B/P (MAP) Pulse Ox O2 Delivery O2 Flow Rate FiO2 10/01/17 07:50 95 21 10/01/17 06:24 92 25 99/52 (68) 91 10/01/17 06:00 84 10/01/17 04:08 99.1 94 32 94/54 (67) 97 10/01/17 04:00 92 10/01/17 03:01 94 21 124/70 (88) 97 10/01/17 02:01 96 25 112/57 (75) 96 10/01/17 02:00 102 10/01/17 01:01 98 29 104/62 (76) 97 10/01/17 00:01 98.8 92 19 128/77 (94) 97 10/01/17 00:00 86 09/30/17 23:01 92 23 170/89 (116) 97 09/30/17 22:01 76 17 113/59 (77) 97 09/30/17 22:00 80 09/30/17 21:01 88 18 131/83 (99) 96 09/30/17 20:10 96 21 09/30/17 20:01 98.9 88 15 127/77 (94) 09/30/17 20:00 88 09/30/17 19:01 90 27 149/81 (103) 09/30/17 19:00 Room Air 09/30/17 18:01 84 15 147/74 (98) 09/30/17 18:00 94 09/30/17 17:01 92 21 133/77 (95) 09/30/17 16:01 98.7 86 23 135/51 (79) 09/30/17 16:00 98 10/01/17 10/01/17 10/02/17 15:00 23:00 07:00 Intake Total 120 ml Balance 120 ml IV Total 120 ml Result Diagram: 10/01/174 10/01/17 0434 Imaging Last Impressions Chest X-Ray 09/14/17 0000 Signed Impressions: Service Date/Time: August 09:55 - CONCLUSION: Left lung density. Recommend CT chest for further evaluation Jayant Soto MD Chest CT 1/18/18 0000 Signed Impressions: Service Date/Time: August 13:00 - CONCLUSION: Small nodular areas of airspace disease both in the lingula and the left lung base. Right lung is relatively clear. The mediastinum is unremarkable. Adrian Martinez MD Last Impressions Chest X-Ray 09/11/17 1605 Signed Impressions: Service Date/Time: Monday, September 11, 2017 16:11 - CONCLUSION: No acute disease. No significant change has occurred. Gregory Campbell MD Objective Remarks In ICU bed less alert then yesterday, less conversant but still followscommands dry oral mucosa left IJ lungs clear anteriorly heart rrr abdomen dimished bowel sounds, nontender upper ext in restraints, Date of Insertion: Sep 24, 2017 Line: Central Venous Catheter Side: Left Location: Internal, Jugular A/P Problem List: (1) Asthma ICD Codes: J45.909 - Unspecified asthma, uncomplicated Status: Acute Plan: asthma followed by pulmonary (2) Influenza ICD Codes: J11.1 - Influenza due to unidentified influenza virus with other respiratory manifestations Status: Resolved Plan: Influenza A with secondary pneumonia. No recent fever. was intubated 09/28 . last cxr was stable currently treated for possible aspiration (3) Alcohol withdrawal delirium ICD Codes: F10.231 - Alcohol dependence with withdrawal delirium Status: Acute Plan: agitation improved NGT in place now. sedation med held at this point ams should not be due to alcohol withdrawal (4) Chronic alcohol abuse ICD Codes: F10.10 - Alcohol abuse, uncomplicated Status: Chronic Plan: will Discuss need for cessation once more alert. (5) Paroxysmal atrial fibrillation ICD Codes: I48.0 - Paroxysmal atrial fibrillation Status: Chronic Plan: apizaban restarted and is on dronedarone 400 bid (6) Hypotension ICD Codes: I95.9 - Hypotension, unspecified Status: Resolved Plan: ,Technical Recruiter caring for patient hypotension resolved, (7) Respiratory failure ICD Codes: J96.90 - Respiratory failure, unspecified, unspecified whether with hypoxia or hypercapnia Status: Acute Plan: extubated 09/28 followed by deputy treasurer and pulmonary (8) Leukocytosis ICD Codes: D72.829 - Elevated white blood cell count, unspecified Status: Acute Plan: on broad spectrum antibiotics ID consulted WBC count decreased to 14 diarrhea for last 2 days, monitor volume status Discharge Planning as per response to treatment Problem Qualifiers (1) Asthma: Qualified Codes: J45.901 - Unspecified asthma with (acute) exacerbation (2) Respiratory failure: Tari Ha MD Oct 01, 2017 15:22
[2017-10-01] MEDS: FAMOTIDINE 40 MG/5 ML LIQ 50 ML BTL NG SCH ×2 (15:36→20:02)
[2017-10-01] MEDS: methylPREDNISolone SOD SUCC 40 MG/1 ML VIAL IV PUSH SCH (17:26)
[2017-10-01] MEDS ORDERED: ZOLPIDEM TARTRATE 5 MG TAB PO PRN (21:00)
--- NOTE | 2017-10-01 21:13 | RADRPT ---
EXAM DATE/TIME: 10/01/2017 20:52 [facility] COMPARISON: MRI BRAIN W/O CONTRAST, September 27, 2017, 15:09. CT BRAIN W/O CONTRAST, September 22, 2017, 21:31. INDICATIONS : Altered mental status. RADIATION DOSE: 41.01 CTDIvol (mGy) MEDICAL HISTORY : Hypertension. Atrial fibrillation. Anticoagulant therapy. Skin cancer. SURGICAL HISTORY : None. ENCOUNTER: Subsequent ACUITY: 1 week PAIN SCALE: 0/10 LOCATION: cranial TECHNIQUE: Multiple contiguous axial images were obtained of the head. Using automated exposure control and adj ustment of the mA and/or kV according to patient size, radiation dose was kept as low as reasonably a chievable to obtain optimal diagnostic quality images. DICOM format image data is available electro nically for review and comparison. FINDINGS: There is no evidence for intracranial hemorrhage, mass effect, mass lesions, or edema. The visualize d bony structures appear intact. Slight degree of brain atrophy is seen. Slight periventricular whit e matter changes are seen nonspecific mostly consistent with chronic small vessel ischemic changes. There are no signs of acute infarction for technique. CONCLUSION: Slight atrophic and small vessel ischemic changes without any evidence for acute hemorrhage or mass effect. Virgie Torres MD on October 01, 2017 at 21:09 Board Certified Radiologist. This report was verified electronically.
[2017-10-01] MEDS: MELATONIN 5 MG TAB PO PRN (22:08)
[2017-10-02] VITALS (32 sets, daily range): BP systolic 93–156; BP diastolic 58–80; PULSE 70–114; RESP 17–34; TEMP 98.1–99.1; O2SAT 84–100
[2017-10-02] MEDS: PIPERACIL-TAZO 4.5 GM PREMIX 100 ML IV SCH ×4 (01:36→21:04)
[2017-10-02 02:50] LABS: HEMATOCRIT 34.4 % (39.0-51.0); HEMOGLOBIN 11.7 GM/DL (13.0-17.0); MEAN CELL VOLUME 87.2 FL (80.0-100.0); MEAN CORPUSCULAR HEMOGLOBIN 29.6 PG (27.0-34.0); MEAN CORPUSCULAR HGB CONC 33.9 % (32.0-36.0); MEAN PLATELET VOLUME 8.5 FL (7.0-11.0); PLATELET COUNT 178 TH/MM3 (150-450); RED BLOOD COUNT 3.94 MIL/MM3 (4.50-5.90); RED CELL DISTRIBUTION WIDTH 17.4 % (11.6-17.2); WHITE BLOOD COUNT 18.5 TH/MM3 (4.0-11.0)
[2017-10-02 03:27] LABS: BICARBONATE 27.5 MEQ/L (21.0-32.0); CALCIUM 8.1 MG/DL (8.5-10.1); MAGNESIUM 2.4 MG/DL (1.5-2.5); PHOSPHORUS 3.5 MG/DL (2.5-4.9)
[2017-10-02] MEDS: LABETALOL HCL 100 MG/20 ML VIAL IV PUSH PRN (06:41)
--- NOTE | 2017-10-02 07:05 | HHI.CCPN ---
Subjective Remarks/Hospital Course The patient is a 76-year-old male with a past medical history of atrial fibrillation with previous cardioversion, ETOH abuse and bronchial asthma. The patient was admitted on September 11 for signs of generalized weakness. He had a CT scan of the chest on September 14 which showed small nodular areas of airspace disease in the lingula and left lung base. He was admitted to ICU for alcohol withdrawal and was placed on CIWA protocol. During his hospital course, the patient was seen by pulmonary and GI services. Due to altered mental status, he had a CT scan of the brain on September 22 which showed no acute intracranial findings. Critical care medicine was consulted for hypotension earlier today as the patient was found to have systolic blood pressure in the 70s to 80s. He responded to fluid resuscitation and with current blood pressure 148/64 with a pulse of 72. ABG was performed on room air which showed a pH of 7.48, CO2 37, pAO2 72, bicarb of 27 and saturation 93% . He also had an MRI of the brain this afternoon which showed diffuse atrophy, otherwise, no acute intracranial findings. The patient failed speech evaluation and NG tube was inserted where nutrition support was provided via tube feeds. His laboratory data today showed worsening leukocytosis with WBC increased to 21.1 from 10.9. In addition, the patient is hypernatremic with a sodium level of 148 and increased creatinine level of 1.30 from 1.1. His ammonia level measured less than 10. Most of the history was obtained from reviewing the medical records as patient is a poor historian. He had a positive flu antigen on September 06. 09/24: Currently afebrile. Intubated for obvious aspiration. Central line placed due to very poor IV access. Will start TPN if unable to tolerate tube feeding. Currently resting in bed 09/25: Afebrile. Currently resting in bed will strictly intubated. Was previously on Apixaban but currently hold since yesterday. Tube feeds will be restarted today. 09/26 Patient remains sedated and intubated. On Levophed 2 mics. s/p LP earlier today showed clear CSF, 0 WBC 09/27: Afebrile. MAXIMUM TEMPERATURE 99.1. Tube feeds currently at 30 cc an hour. Lumbar puncture essentially is negative except for protein elevated at 70.1 mg/dL. Glucose 122/glucose was elevated in a.m. BMP. 09/28: Extubated today without complication. Weaning off dexmedetomidine drip. Speech therapy to evaluate and treat currently. Maintain NG tube encased tube feeds are needed. Nodding head and answering simple questions appropriately. 2/2: Resting in bed in no acute distress. On nasal cannula. Afebrile. Somewhat tachycardic. 3 bowel movements. Interactive and more appropriate. On dexmedetomidine drip at 1.1 mcg/kg per minute SUBJECTIVE: 2/3: Resting comfortably in bed in no acute distress on room air. Currently on dexmedetomidine drip at 0.9 g per kilo per minute. Interactive and more appropriate. Family meeting. Reviewed imaging with 2 family members at bedside. 10/01: TMAX 99.1 Pt awake, responding to questions alert to name, confused with place and time. Patient following commands, appears ICAM positive. The patient continues on low-dose dexmedetomidine 0.5 mcgs/kg/hr. agents had episodes of diarrhea over the last 24 hours, bowel regimen placed on hold, Reglan discontinued. 10/02: Overnight the patient rested for approximately 4 hours after institution of 5 mg of melatonin, and 5 mg of Ambien. Continued maintenance of sleep wake cycle. Pending recommendations by neurology and neuropsychologist. Concern for postoperative cognitive dysfunction, unknown exact time of onset, versus ICU delirium. Patient noted to have low potassium level with repletion at this time. Objective Vital Signs Date Time Temp Pulse Resp B/P (MAP) Pulse Ox O2 Delivery O2 Flow Rate FiO2 10/02/17 06:01 110 18 149/78 (101) 95 10/02/17 04:00 98.1 10/01/17 22:15 21 10/01/17 19:00 Room Air 09/29/17 19:45 2.00 Intake and Output 10/02/17 10/02/17 10/03/17 08:00 16:00 00:00 Intake Total 760 ml Output Total 1100 ml Balance -340 ml Result Diagram: 10/02/17 0232 10/02/17 0232 Imaging Last Impressions Brain MRI 09/27/17 0000 Signed Impressions: Service Date/Time: Wednesday, September 27, 2017 15:09 - CONCLUSION: 1. Nonspecific white matter changes. 2. Cerebral atrophy without acute intracranial abnormality. 3. No cortically based abnormality identified. Abhinav Allen MD Lumbar Puncture Fluoroscopy 09/26/17 1505 Signed Impressions: Service Date/Time: Tuesday, September 26, 2017 08:29 - CONCLUSION: Uncomplicated fluoroscopically guided lumbar puncture with pressures as above. Con Castillo Jr., MD Chest X-Ray 09/26/17 0600 Signed Impressions: Service Date/Time: Tuesday, September 26, 2017 05:55 - CONCLUSION: Endotracheal tube, left central line and nasogastric tube in good position. Minimal basal atelectasis. Terrance Murillo MD Liver Ultrasound 09/23/17 0000 Signed Impressions: Service Date/Time: Saturday, September 23, 2017 14:12 - CONCLUSION: Right upper quadrant abdominal ultrasound within normal limits. Vinod Pelletier MD Head CT 09/22/17 0000 Signed Impressions: Service Date/Time: Friday, September 22, 2017 21:31 - CONCLUSION: 1. No acute intracranial abnormalities. Terrance Murillo MD Abdomen X-Ray 09/17/17 0000 Signed Impressions: Service Date/Time: Sunday, September 17, 2017 22:34 - CONCLUSION: Nasogastric tube with tip coiled in stomach. Abhinav Allen MD Chest CT 09/14/17 0000 Signed Impressions: Service Date/Time: August 13:00 - CONCLUSION: Small nodular areas of airspace disease both in the lingula and the left lung base. Right lung is relatively clear. The mediastinum is unremarkable. Adrian Martinez MD Objective Remarks GENERAL: This is a 76-year-old male resting in bed in no acute distress attempting to answer questions SKIN: Warm and dry. No rash HEAD: Atraumatic. Normocephalic. EYES: Pupils equal and round. No scleral icterus. No injection or drainage. ENT: No nasal bleeding or discharge. Mucous membranes pink and moist. NG tube in left nare NECK: Trachea midline. No JVD. Left IJ CVL is clean dry and intact CARDIOVASCULAR: Regular rate and irregular rhythm. S1, S2. No S4. Without murmur RESPIRATORY: Transmitted upper airway sounds. Coarse crackles appreciated throughout all lung hester anterior and posteriorly.. Breath sounds equal bilaterally. GASTROINTESTINAL: Abdomen soft, non-tender, nondistended. Hypoactive bowel sounds are appreciated. MUSCULOSKELETAL: Extremities without significant peripheral edema. No obvious deformities. NEUROLOGICAL: ICAM positive, GCS 14. Moving all 4 extremities spontaneously and to commands. Unable to follow specific commands consistently. Answering questions appropriate. No obvious cranial nerve defects. Strength appears equal and symmetric. Date of Insertion: Sep 24, 2017 Line: Central Venous Catheter Side: Left Location: Internal, Jugular A/P Assessment and Plan Neuro/Psych: Subacute encephalopathy EtOH use Possible viral encephalitis Delirium Possible postoperative cognitive delirium PCOD Continue as needed dexmedetomidine drip which is currently at 0.9 mcg/kg per minute to maintain a RASS 0 Continue thiamine, folate and multivitamin daily Evaluated by neurology - Dr. Rojas. s/p LP 09/26- clear CSF, 0 WBC. Protein 70.1. Glucose 122. Gram stain negative MRI brain 09/23 revealed no acute intracranial findings. EEG 09/24 showing normal awake and asleep features. No epileptiform features present specifically. Continue to wean with dexmedetomidine. MRA brain repeated 09/27 negative ICAM positive F/U Neurology intermittently following Obtain Neuro Psych consult-consider recommendations Initiate and maintain sleep hygiene-continue melatonin 5 mg every at bedtime when necessary , if ineffective Ambien 5 mg daily at bedtime 10/01-repeat CT brain-no acute intracranial abnormality CV: Atrial fibrillation/rate controlled Seen by Dr. Mckay in the past. Status post failed cardioversion the past Currently on Dronedarone 400 mg BID Off all IV fluids As needed hydralazine/labetalol and enalaprilat for hypertension Resp: Acute respiratory failure secondary to aspiration-resolved Maintain saturation greater than equal to 92%. Currently on room air Incentive spirometry while awake On methylprednisolone succinate 40 mg IV every 12 hours wean daily today 09/30 Will discontinue Albuterol/ipratropium aerosols every 4 hours and continue with albuterol aerosols every 2 hours as needed Dyspnea Spontaneous breathing trials when clinically indicated Pulmonology - Dr. Naylor following GI: Elevated transaminases Hypoalbuminemia Resumed tube feeds- Jevity 1.5 goal 60 cc an hour and monitor for residuals. Currently at 40 cc an hour.. Advance Speech therapy evaluate and treat currently. failed swallow on 09/30 Discontinued 10/01 metoclopramide 5 mill grams IV every 8 hours Famotidine 20 mg twice a day for GI prophylaxis Docusate sodium twice daily 100 cc for bowel regimen on hold Liver ultrasound is within normal limits Normal ammonia Hepatitis panel negative : Lyons catheter has been placed for accurate I's and O's in a critically ill patient Endo: SSI with Novulin R with Accu-Cheks every 6 hours to maintain glycemia/low regimen Renal Acute kidney injury Off all the fluids Monitor urine output Accurate I's and O's Heme: Leukocytosis Normocytic anemia History of skin cancer Chronic apixaban use Continue iron sulfate 325 mg by mouth Monitor CBC daily. Follow trends Continue Apixaban 2.5 mg twice a day ID: Currently on piperacillin/tazobactam and vancomycin for aspiration pneumonia per infectious disease Levofloxacin discontinued 09/29 Pertinent cultures CSF 09/26 - Gram stain negative.AFB and fungal NGTD 09/24 - sputum - no growth 09/23 - blood cultures 2 - no growth 09/23 - urine cultures - no growth Influenza negative 09/11 - blood cultures 2 - no growth FEN: Electrolyte derangement Free water flushes 150 every 8 Replace per ICU electrolyte protocol. MSK: PT evaluate and treat Access - Left IJ CVL placed 09/24 - present Prophylaxis - GI - famotidine - DVT - SCD/ Apixaban held for lumbar puncture today Level 2 follow-up Telephoned daughter Keysha Orlando, [employer]IV[employer] and all questions answered. Physician Mary Monterroso MD Oct 02, 2017 07:05
[2017-10-02] MEDS: CHLORHEXIDINE 0.12% (ORAL KIT) 15 ML CUP MT SCH ×2 (08:00→20:00)
[2017-10-02] MEDS: INSULIN ASPART SUPPLEMENTAL SCALE SQ SCH ×4 (08:00→21:00)
[2017-10-02] MEDS: THIAMINE HCL 100 MG TAB PO SCH (09:00)
[2017-10-02] MEDS: MULTIVITAMIN TAB PO SCH (09:00)
[2017-10-02] MEDS: NYSTATIN SUSP 500,000 U/5 ML CUP SWISH-SWAL SCH ×4 (09:00→21:04)
[2017-10-02] MEDS: SODIUM CHLORIDE 0.9% FLUSH 10 ML FLUSH IV FLUSH SCH (09:00)
[2017-10-02] MEDS: APIXABAN 2.5 MG TABLET PO SCH ×2 (09:00→21:04)
[2017-10-02] MEDS: FOLIC ACID 1 MG TAB PO SCH (09:00)
[2017-10-02] MEDS: LACTOBACILLUS ACIDOPHILUS TAB PO SCH ×2 (09:00→21:04)
[2017-10-02] MEDS: DRONEDARONE 400 MG TAB PO SCH ×2 (09:00→21:04)
[2017-10-02] MEDS: methylPREDNISolone SOD SUCC 40 MG/1 ML VIAL IV PUSH SCH (09:00)
[2017-10-02] MEDS: FAMOTIDINE 40 MG/5 ML LIQ 50 ML BTL NG SCH ×2 (09:00→21:04)
[2017-10-02] MEDS: NYSTATIN 100,000 U/GM PWD 15 GM BTL TOPICAL SCH ×2 (09:00→21:00)
[2017-10-02] MEDS: VANCOMYCIN 1 GM/200 ML PREMIX IV SCH (11:00)
--- NOTE | 2017-10-02 18:20 | HHI.PR ---
Subjective Remarks More alert today, wants milk, per daughter was appropriate most of the day then became a little more restless at around 3pm Objective Vitals Vital Signs Date Time Temp Pulse Resp B/P (MAP) Pulse Ox O2 Delivery O2 Flow Rate FiO2 10/02/17 15:01 86 18 115/64 (81) 95 10/02/17 15:01 86 18 115/64 (81) 95 10/02/17 14:04 83 10/02/17 14:01 84 22 116/63 (80) 97 10/02/17 14:01 84 22 116/63 (80) 97 10/02/17 13:01 90 23 108/80 (89) 95 10/02/17 13:01 90 23 108/80 (89) 95 10/02/17 12:01 76 28 107/70 (82) 93 10/02/17 12:01 98.9 76 28 107/70 (82) 93 10/02/17 11:01 86 24 118/62 (80) 84 10/02/17 10:01 90 34 97/77 (84) 98 10/02/17 10:01 90 34 97/77 (84) 98 10/02/17 10:00 98 10/02/17 09:01 88 20 131/61 (84) 97 10/02/17 08:01 84 23 113/63 (80) 96 10/02/17 08:00 94 21 10/02/17 07:01 80 17 123/68 (86) 96 10/02/17 07:01 99.1 80 17 123/68 (86) 96 10/02/17 07:00 80 21 96 10/02/17 07:00 Room Air 10/02/17 07:00 80 21 96 10/02/17 06:01 110 18 149/78 (101) 95 10/02/17 06:00 114 10/02/17 05:00 90 25 154/73 (100) 99 10/02/17 04:00 98.1 92 25 147/75 (99) 96 10/02/17 04:00 92 10/02/17 03:00 100 22 133/65 (87) 98 10/02/17 02:00 88 22 130/64 (86) 97 10/02/17 02:00 88 10/02/17 01:00 76 21 108/78 (88) 98 10/02/17 00:00 98.7 70 21 101/61 (74) 100 10/02/17 00:00 70 10/01/17 23:00 80 21 105/61 (76) 94 10/01/17 22:28 82 26 105/75 (85) 92 10/01/17 22:15 94 21 10/01/17 22:00 88 10/01/17 20:00 88 10/01/17 20:00 98.7 88 21 112/63 (79) 96 10/01/17 19:00 Room Air 10/01/17 19:00 100 19 140/69 (92) 95 Result Diagram: 10/02/17 0232 10/02/17 0232 Imaging Last Impressions Chest X-Ray 09/14/17 0000 Signed Impressions: Service Date/Time: August 09:55 - CONCLUSION: Left lung density. Recommend CT chest for further evaluation Jayant Soto MD Chest CT 09/14/17 0000 Signed Impressions: Service Date/Time: August 13:00 - CONCLUSION: Small nodular areas of airspace disease both in the lingula and the left lung base. Right lung is relatively clear. The mediastinum is unremarkable. Adrian Martinez MD Last Impressions Chest X-Ray 09/11/17 1605 Signed Impressions: Service Date/Time: Monday, September 11, 2017 16:11 - CONCLUSION: No acute disease. No significant change has occurred. Gregory Campbell MD Objective Remarks In ICU bed sitting upright, alert, recognizes pictures of family members but a little repetitive asking for milk ng in place, left IJ coarse breath sounds rrr not tachycardic good bowel sounds moving all extremities Date of Insertion: Sep 24, 2017 Line: Central Venous Catheter Side: Left Location: Internal, Jugular A/P Problem List: (1) Asthma ICD Codes: J45.909 - Unspecified asthma, uncomplicated Status: Acute Plan: asthma followed by pulmonary, stable (2) Influenza ICD Codes: J11.1 - Influenza due to unidentified influenza virus with other respiratory manifestations Status: Resolved Plan: Influenza A with secondary pneumonia. No recent fever. was extubated 09/28 . last cxr was stable currently treated for possible aspiration (3) Alcohol withdrawal delirium ICD Codes: F10.231 - Alcohol dependence with withdrawal delirium Status: Resolved Plan: agitation improved NGT in place now. sedation med held at this point ams should not be due to alcohol withdrawal (4) Chronic alcohol abuse ICD Codes: F10.10 - Alcohol abuse, uncomplicated Status: Chronic Plan: will Discuss need for cessation once more alert. (5) Paroxysmal atrial fibrillation ICD Codes: I48.0 - Paroxysmal atrial fibrillation Status: Chronic Plan: apizaban restarted and is on dronedarone 400 bid (6) Hypotension ICD Codes: I95.9 - Hypotension, unspecified Status: Resolved Plan: ,Assistant Accounting Manager caring for patient hypotension resolved, (7) Respiratory failure ICD Codes: J96.90 - Respiratory failure, unspecified, unspecified whether with hypoxia or hypercapnia Status: Acute Plan: extubated 09/28 followed by hr administrative assistant and pulmonary (8) Leukocytosis ICD Codes: D72.829 - Elevated white blood cell count, unspecified Status: Acute Plan: on broad spectrum antibiotics ID consulted WBC count 18.5 diarrhea for last 2 days, monitor volume status on solumedrol Discharge Planning as per response to treatment Problem Qualifiers (1) Asthma: Qualified Codes: J45.901 - Unspecified asthma with (acute) exacerbation (2) Respiratory failure: Tari Ha MD Oct 02, 2017 18:20
--- NOTE | 2017-10-02 19:10 | HHI.IDPN ---
Subjective Subjective Remarks Patient more awake. No eating as mouth and tongue sore No fevers Family at bedside Antibiotics Vancomycin, Zosyn and Levofloxacin Lines RIGHT IJ Past Medical History Asthma, Alcoholism , Afib Allergies: Coded Allergies: No Known Allergies (Verified Adverse Reaction, Unknown, 09/11/17) Review of Systems Constitutional Constitutional Remarks No fevers Objective . Vital Signs Date Time Temp Pulse Resp B/P (MAP) Pulse Ox O2 Delivery O2 Flow Rate FiO2 10/02/17 18:01 108 24 139/79 (99) 97 10/02/17 17:30 98.3 88 23 124/73 (90) 96 10/02/17 16:01 80 28 120/66 (84) 95 10/02/17 15:01 86 18 115/64 (81) 95 10/02/17 15:01 86 18 115/64 (81) 95 10/02/17 14:04 83 10/02/17 14:01 84 22 116/63 (80) 97 10/02/17 14:01 84 22 116/63 (80) 97 10/02/17 13:01 90 23 108/80 (89) 95 10/02/17 13:01 90 23 108/80 (89) 95 10/02/17 12:01 76 28 107/70 (82) 93 10/02/17 12:01 98.9 76 28 107/70 (82) 93 10/02/17 11:01 86 24 118/62 (80) 84 10/02/17 10:01 90 34 97/77 (84) 98 10/02/17 10:01 90 34 97/77 (84) 98 10/02/17 10:00 98 10/02/17 09:01 88 20 131/61 (84) 97 10/02/17 08:01 84 23 113/63 (80) 96 10/02/17 08:00 94 21 10/02/17 07:01 80 17 123/68 (86) 96 10/02/17 07:01 99.1 80 17 123/68 (86) 96 10/02/17 07:00 80 21 96 10/02/17 07:00 Room Air 10/02/17 07:00 80 21 96 10/02/17 06:01 110 18 149/78 (101) 95 10/02/17 06:00 114 10/02/17 05:00 90 25 154/73 (100) 99 10/02/17 04:00 98.1 92 25 147/75 (99) 96 10/02/17 04:00 92 10/02/17 03:00 100 22 133/65 (87) 98 10/02/17 02:00 88 22 130/64 (86) 97 10/02/17 02:00 88 10/02/17 01:00 76 21 108/78 (88) 98 10/02/17 00:00 98.7 70 21 101/61 (74) 100 10/02/17 00:00 70 10/01/17 23:00 80 21 105/61 (76) 94 10/01/17 22:28 82 26 105/75 (85) 92 10/01/17 22:15 94 21 10/01/17 22:00 88 10/01/17 20:00 88 10/01/17 20:00 98.7 88 21 112/63 (79) 96 10/02/17 10/02/17 10/03/17 15:00 23:00 07:00 Intake Total 1010 ml Output Total 1240 ml Balance -230 ml Intake Oral 120 ml IV Total 350 ml Tube Feeding 540 ml Output Urine Total 720 ml Stool Total 520 ml . Laboratory Tests Test 10/01/17 04:34 10/02/17 02:32 White Blood Count 16.7 TH/MM3 18.5 TH/MM3 Red Blood Count 4.06 MIL/MM3 3.94 MIL/MM3 Hemoglobin 11.3 GM/DL 11.7 GM/DL Hematocrit 35.0 % 34.4 % Mean Corpuscular Volume 86.3 FL 87.2 FL Mean Corpuscular Hemoglobin 27.9 PG 29.6 PG Mean Corpuscular Hemoglobin Concent 32.3 % 33.9 % Red Cell Distribution Width 17.7 % 17.4 % Platelet Count 196 TH/MM3 178 TH/MM3 Mean Platelet Volume 8.2 FL 8.5 FL Neutrophils (%) (Auto) 81.6 % Lymphocytes (%) (Auto) 9.5 % Monocytes (%) (Auto) 4.4 % Eosinophils (%) (Auto) 1.7 % Basophils (%) (Auto) 2.8 % Neutrophils # (Auto) 13.6 TH/MM3 Lymphocytes # (Auto) 1.6 TH/MM3 Monocytes # (Auto) 0.7 TH/MM3 Eosinophils # (Auto) 0.3 TH/MM3 Basophils # (Auto) 0.5 TH/MM3 CBC Comment AUTO DIFF Differential Comment AUTO DIFF CONFIRMED Platelet Estimate NORMAL Platelet Morphology Comment NORMAL Red Cell Morphology Comment NORMAL Laboratory Tests Test 10/01/17 04:34 10/01/17 10:30 10/02/17 02:32 Blood Urea Nitrogen 18 MG/DL 25 MG/DL Creatinine 1.00 MG/DL 1.00 MG/DL Random Glucose 84 MG/DL 105 MG/DL Total Protein 5.4 GM/DL Albumin 2.0 GM/DL Calcium Level 6.5 MG/DL 8.1 MG/DL Phosphorus Level 3.0 MG/DL 3.5 MG/DL Magnesium Level 2.2 MG/DL 2.4 MG/DL Alkaline Phosphatase 58 U/L Aspartate Amino Transf (AST/SGOT) 38 U/L Alanine Aminotransferase (ALT/SGPT) 162 U/L Total Bilirubin 0.6 MG/DL Sodium Level 140 MEQ/L 140 MEQ/L Potassium Level 4.0 MEQ/L 3.3 MEQ/L Chloride Level 106 MEQ/L 105 MEQ/L Carbon Dioxide Level 27.3 MEQ/L 27.5 MEQ/L Anion Gap 7 MEQ/L 8 MEQ/L Estimat Glomerular Filtration Rate 72 ML/MIN 72 ML/MIN Protein Corrected Calcium 7.3 MG/DL Random Cortisol 18.7 MCG/DL Ammonia LESS THAN 10 MCMOL/L Physical Exam General: Chronically ill - awake- answers appropriately Oral cavity: Tongue coated. Some mouth and lupillo oral ulcers Neck: Supple Chest: Breath sounds decreased Heart: S1S2 tachycardia Abdomen: Soft Non tender BS present Lower Extremities- No edema / Calf tenderness. Assessment & Plan Diagnosis: (1) Respiratory failure ICD Codes: J96.90 - Respiratory failure, unspecified, unspecified whether with hypoxia or hypercapnia Status: Acute Plan: On room air now (2) Leukocytosis ICD Codes: D72.829 - Elevated white blood cell count, unspecified Status: Acute Plan: Likely secondary to steroid use - improved Cultures all reviewed- negative so far Continue IV Zosyn Stop IV Vancomycin Taper steroids Patient with mouth ulcers- continue Nystatin . Add Acyclovir (3) Asthma ICD Codes: J45.909 - Unspecified asthma, uncomplicated Status: Acute (4) Paroxysmal atrial fibrillation ICD Codes: I48.0 - Paroxysmal atrial fibrillation Status: Chronic (5) Chronic alcohol abuse ICD Codes: F10.10 - Alcohol abuse, uncomplicated Status: Chronic Problem Qualifiers (1) Respiratory failure: (2) Asthma: Qualified Codes: J45.901 - Unspecified asthma with (acute) exacerbation Svetlana Balderrama MD Oct 02, 2017 19:10
[2017-10-02] MEDS: MELATONIN 5 MG TAB PO PRN (21:04)
[2017-10-02] MEDS: ACYCLOVIR 200 MG CAP PO SCH (21:04)
--- NOTE | 2017-10-02 21:37 | HHI.PR ---
Subjective Remarks 76 YOWM with Br Asthma, Flu, Pn, Aspiration No fever Off pressors Extubated 09/28 Weaned to RA family at Objective Vital Signs Vital Signs Date Time Temp Pulse Resp B/P (MAP) Pulse Ox O2 Delivery O2 Flow Rate FiO2 10/02/17 21:00 97 Nasal Cannula 2.00 10/02/17 19:01 84 20 154/68 (96) 95 10/02/17 19:00 94 Nasal Cannula 2.00 10/02/17 18:01 108 24 139/79 (99) 97 10/02/17 17:30 98.3 88 23 124/73 (90) 96 10/02/17 16:01 80 28 120/66 (84) 95 10/02/17 15:01 86 18 115/64 (81) 95 10/02/17 15:01 86 18 115/64 (81) 95 10/02/17 14:04 83 10/02/17 14:01 84 22 116/63 (80) 97 10/02/17 14:01 84 22 116/63 (80) 97 10/02/17 13:01 90 23 108/80 (89) 95 10/02/17 13:01 90 23 108/80 (89) 95 10/02/17 12:01 76 28 107/70 (82) 93 10/02/17 12:01 98.9 76 28 107/70 (82) 93 10/02/17 11:01 86 24 118/62 (80) 84 10/02/17 10:01 90 34 97/77 (84) 98 10/02/17 10:01 90 34 97/77 (84) 98 10/02/17 10:00 98 10/02/17 09:01 88 20 131/61 (84) 97 10/02/17 08:01 84 23 113/63 (80) 96 10/02/17 08:00 94 21 10/02/17 07:01 80 17 123/68 (86) 96 10/02/17 07:01 99.1 80 17 123/68 (86) 96 10/02/17 07:00 80 21 96 10/02/17 07:00 Room Air 10/02/17 07:00 80 21 96 10/02/17 06:01 110 18 149/78 (101) 95 10/02/17 06:00 114 10/02/17 05:00 90 25 154/73 (100) 99 10/02/17 04:00 98.1 92 25 147/75 (99) 96 10/02/17 04:00 92 10/02/17 03:00 100 22 133/65 (87) 98 10/02/17 02:00 88 22 130/64 (86) 97 10/02/17 02:00 88 10/02/17 01:00 76 21 108/78 (88) 98 10/02/17 00:00 98.7 70 21 101/61 (74) 100 10/02/17 00:00 70 10/01/17 23:00 80 21 105/61 (76) 94 10/01/17 22:28 82 26 105/75 (85) 92 10/01/17 22:15 94 21 10/01/17 22:00 88 I/O 10/01/17 10/01/17 10/01/17 10/02/17 10/02/17 10/02/17 07:00 15:00 23:00 07:00 15:00 23:00 Intake Total 426 ml 220 ml 836 ml 1000 ml 1010 ml Output Total 1300 ml 1300 ml 1100 ml 1240 ml Balance -874 ml 220 ml -464 ml -100 ml -230 ml Intake Oral 120 ml IV Total 426 ml 220 ml 300 ml 400 ml 350 ml Tube Feeding 536 ml 600 ml 540 ml Output Urine Total 1300 ml 1300 ml 1050 ml 720 ml Stool Total 50 ml 520 ml # Bowel Movements 4 5 Result Diagram: 10/02/172 10/02/17231 Objective Remarks GENERAL: Elderly male, mild sob, congested SKIN: Warm and dry. HEAD: Normocephalic. EYES: No scleral icterus. No injection or drainage. NECK: Supple, trachea midline. No JVD or lymphadenopathy. CARDIOVASCULAR: Regular rate and rhythm without murmurs, gallops, or rubs. RESPIRATORY: Breath sounds equal bilaterally. No accessory muscle use. Scattered coarse rhonchi GASTROINTESTINAL: Abdomen soft, non-tender, nondistended. MUSCULOSKELETAL: No cyanosis, or edema. BACK: Nontender without obvious deformity. No CVA tenderness. A/P Assessment and Plan VDRF, s/p extubation 09/28 Pneumonia Aspiration Bronchial asthma Alcohal withdrawl AF HTN PLAN: Cont Abx Aerosol nebs Stable on RA Encourage Beltran Corea MD Oct 02, 2017 21:37
[2017-10-03] VITALS (34 sets, daily range): BP systolic 105–171; BP diastolic 55–90; PULSE 70–114; RESP 18–36; TEMP 97.7–99; O2SAT 93–99
[2017-10-03] MEDS: PIPERACIL-TAZO 4.5 GM PREMIX 100 ML IV SCH ×4 (02:56→20:50)
[2017-10-03 05:54] LABS: AUTOMATED NEUTROPHIL # 9.4 TH/MM3 (1.8-7.7); BASOPHIL # 0.1 TH/MM3 (0-0.2); BASOPHIL % 1.1 % (0.0-2.0); EOSINOPHIL # 0.5 TH/MM3 (0-0.4); HEMATOCRIT 34.2 % (39.0-51.0); HEMOGLOBIN 10.9 GM/DL (13.0-17.0); LYMPH % 10.7 % (9.0-44.0); LYMPHOCYTE # 1.3 TH/MM3 (1.0-4.8); MEAN CELL VOLUME 87.6 FL (80.0-100.0); MEAN CORPUSCULAR HEMOGLOBIN 27.9 PG (27.0-34.0); MEAN CORPUSCULAR HGB CONC 31.9 % (32.0-36.0); MONOCYTE # 0.7 TH/MM3 (0-0.9); NEUT % 78.2 % (16.0-70.0); PLATELET COUNT 148 TH/MM3 (150-450); RED CELL DISTRIBUTION WIDTH 17.6 % (11.6-17.2)
[2017-10-03 06:15] LABS: CALCIUM 7.9 MG/DL (8.5-10.1)
[2017-10-03 06:16] LABS: BICARBONATE 29.1 MEQ/L (21.0-32.0); MAGNESIUM 2.4 MG/DL (1.5-2.5)
[2017-10-03 06:19] LABS: CREATININE 1.1 MG/DL (0.60-1.30); PHOSPHORUS 2.5 MG/DL (2.5-4.9)
[2017-10-03] MEDS: INSULIN ASPART SUPPLEMENTAL SCALE SQ SCH ×4 (08:00→20:50)
[2017-10-03] MEDS: SODIUM CHLORIDE 0.9% FLUSH 10 ML FLUSH IV FLUSH SCH (09:00)
[2017-10-03] MEDS: NYSTATIN SUSP 500,000 U/5 ML CUP SWISH-SWAL SCH ×4 (09:00→20:50)
[2017-10-03] MEDS: MULTIVITAMIN TAB PO SCH (09:00)
[2017-10-03] MEDS: NYSTATIN 100,000 U/GM PWD 15 GM BTL TOPICAL SCH ×2 (09:00→21:00)
[2017-10-03] MEDS: FOLIC ACID 1 MG TAB PO SCH (09:00)
[2017-10-03] MEDS: methylPREDNISolone SOD SUCC 40 MG/1 ML VIAL IV PUSH SCH (09:00)
[2017-10-03] MEDS: LACTOBACILLUS ACIDOPHILUS TAB PO SCH ×2 (09:00→20:50)
[2017-10-03] MEDS: APIXABAN 2.5 MG TABLET PO SCH ×2 (09:00→20:50)
[2017-10-03] MEDS: POTASSIUM CHLOR 40 MEQ PREMIX 100 ML IV-CENTRAL PRN ×2 (09:07→12:22)
[2017-10-03] MEDS: CHLORHEXIDINE 0.12% (ORAL KIT) 15 ML CUP MT SCH ×2 (09:09→20:00)
[2017-10-03] MEDS: ACYCLOVIR 200 MG CAP PO SCH ×2 (09:15→20:50)
[2017-10-03] MEDS: FAMOTIDINE 40 MG/5 ML LIQ 50 ML BTL NG SCH ×2 (09:15→20:50)
[2017-10-03] MEDS: DRONEDARONE 400 MG TAB PO SCH ×2 (09:15→20:50)
[2017-10-03] MEDS: THIAMINE HCL 100 MG TAB PO SCH (09:15)
[2017-10-03] MEDS ORDERED: VANCOMYCIN TROUGH ONE (10:45)
--- NOTE | 2017-10-03 12:37 | PD.HHIRBSE ---
Patient History Record/History Review Reason for Referral: The patient is a 76 year old right handed male who was in his usual state of good health until 09/11/2017, when he developed mental status changes following an initial diagnosis of influenza. He has remained hospitalized since this time. His head CT was within normal limits, and his recent WBC count was 12.0, with AST of 62, ALT of 32. Given his delirium state and agitation/restlessness , he was referred for baseline neurobehavioral status examination to assess cognitive, behavioral and emotional aspects of the injury and to provide treatment recommendations. Neuropsych Precautions: To be determined. Past Surgical/Medical History Past Surgery: Yes Major surgery in last 100 days: Unknown Hx Orthopedic Surgery: Yes (ORTHOSCOPIC RIGHT KNEE & REPLACEMENT) Hx Cardiac Surgery: No Hx Chest Surgery: No Hx Abdominal Surgery: No Hx Genitourinary Surgery: No Hx Endocrine Surgery: No Hx Eye Surgery: No Hx Ear Surgery: No Hx Oral Surgery: No History of Transplant: No Hx of Neuro Prob: Yes Hx Numbness: Yes (RT. HAND) Hx of Musculoskeletal Pro: Yes Hx Back Problem: Yes Hx of Cardiovascular Prob: Yes (atrial fibrillation) Hypertension (High Blood Press: Yes Hx of Respiratory Problem: Yes Hx Asthma: Yes Hx Chronic Obstructive Pulmona: No Hx Emphysema: No Hx Sleep Apnea: No Hx of GI Problems: Yes Hx Heartburn: Yes Hx Ulcer: No Hx Liver Disease: No Hx Gallbladder Disease: No Hx Inflammatory Bowel Disease: No Hx of Problems: No Hx Genital Problems: No Hx of Immuno Disor: No Hx of Endocrine Problems: No Hx of Eye Probl: Yes Hx of Cataracts: Bilateral Hx of Hearing or Ear Problems: Yes (HEARRING AIDES AT HOME) Hard of Hearing: Bilateral Hx Dental Problems: No Hx Blood Dyscrasias: No Hx Sickle Cell Disease: No Hx Thrombocytopenia: No Hx Hemophilia: No Hx of Heparin Induced Thr: No Hx of Body/Medical Devices: No Hx Internal Defibrillator: No Hx Joint Replacement: Yes (right knee ) Blood Transfusion History Will receive Blood /Blood prod: Yes Hx Blood Transfusions: No Medication Active Medications Acyclovir (Zovirax) 400 mg Q12HR PO Last administered on 10/03/17at 09:15; Admin Dose 400 MG; Start 10/02/17 at 21:00 Methylprednisolone Sodium Succinate (SoluMEDROL INJ) 20 mg DAILY IV PUSH Last administered on 10/03/17at 09:00; Admin Dose 20 MG; Start 10/03/17 at 09:00 Miscellaneous Information SPECIFIC LAB TO BE DRAWN:VANCOMY... ONCE ONCE .XX; Start 10/03/17 at 10:45; Stop 10/03/17 at 10:46; Status DC Mental Status Assessment Orientation: oriented to Self Mental Status: Impaired: Thought processing, Language/Interactions, Attention, Learning/Memory, Problem-Solving, Visuospatial/Construction, Self-regulation, Other Observation The patient is fluctuating in terms of his level of alertness, and oriented only to person. He is not presently oriented to place, time or circumstances surrounding the reason for hospitalization. In terms of attention skills, the patient was unable to remain on task or remember basic and complex instructions. In terms of memory functioning, the patient was unable to demonstrate adequate carryover at this time. The patient initiated spontaneous conversation. Speech was characterized by adequate prosody and grammar, but diminished articulation, volume and rate. Basic naming skills were deferred. Language repetition skills were deferred. The patients comprehensions for basic one- and two-stage commands were not intact. Basic verbal abstraction and problem-solving skills were not intact. The patient appears to posses poor insight and awareness into their situation and within the limits of this brief evaluation, poor judgment. Adjustment/Coping Assessment Adjustment/Coping: Not Assessed: Depression, Anxiety, Pain, Apathy, Awareness, Insight Observation The patients thought content appeared free from suicidal, homicidal or paranoid ideation, and the patients thought processes were tangential and bradyphrenic. The patients mood was restless, and the affect was labile. LTG Status: Deferred STG Status: Deferred Team Members: Neuropsychologist Behavior Assessment Agitation: Moderate Observation Behaviorally, the patient demonstrated signs of agitation, impulsivity and disinhibition. There was no remarkable evidence of a formal thought disorder or psychosis. LTG - Status: Deferred STG Status: Deferred Team Members: Neuropsychologist Diagnosis/Discharge Plan Impression This 76 year old man remains in delirium stemming from his illness leading to his hospital admission. Diagnosis: (1) Delirium due to another medical condition Maximizing acute care outcome Consider starting the Agitated Behavior Scale (requires physician order, write for "administer each nursing shift, score to the worst behavior during the 12 hour shift, do not discontinue without physician order), which will allow us to monitor the effectiveness of any intervention. I concur that managing his sleep wake cycle is of utmost importance, and should be aggressively treated. If the Ambien/melatonin combination is not working, consider Trazodone 50 HS, unless medically contraindicated. An additional suggestion would include Valproic Acid 250 BID to address brain-related agitation-restlessness, again unless medically contraindicated. At this point in the recovery process, the patient does not have cognitive capacity as the patient is unable to understand a situation and its likely consequences, nor is he able to manipulate information rationally. Cognitive capacity will be assessed throughout the recovery process. Discharge Planning Anticipated Problems Ongoing areas of concern will include behavioral impulsivity, lack of insight and judgment, which is expected to improve with time and treatment. Presently , the patient is oriented only to person. It is anticipated that this will improve with time and treatment. Treatment Plan This clinician will continue to follow with you throughout the course of this patients critical caretreatment, and I will be available to meet with the patients family/support system to facilitate their understanding and the ongoing care of their family member. The goals of neuropsychological intervention shall be both educational and supportive to the family/support system as is deemed clinically appropriate. Discharge Needs To be determined. Thank you Thank you for the opportunity to assist in this patients care. Hussein Craft, Ph.D., ABPP Board Certified in Clinical Neuropsychology [place] [employer] [place] Licensed Psychologist #[id number] Hussein Craft PhD Oct 03, 2017 12:37 pm
--- NOTE | 2017-10-03 17:26 | HHI.CCPN ---
Subjective Remarks/Hospital Course The patient is a 76-year-old male with a past medical history of atrial fibrillation with previous cardioversion, ETOH abuse and bronchial asthma. The patient was admitted on September 11 for signs of generalized weakness. He had a CT scan of the chest on September 14 which showed small nodular areas of airspace disease in the lingula and left lung base. He was admitted to ICU for alcohol withdrawal and was placed on CIWA protocol. During his hospital course, the patient was seen by pulmonary and GI services. Due to altered mental status, he had a CT scan of the brain on September 22 which showed no acute intracranial findings. Critical care medicine was consulted for hypotension earlier today as the patient was found to have systolic blood pressure in the 70s to 80s. He responded to fluid resuscitation and with current blood pressure 148/64 with a pulse of 72. ABG was performed on room air which showed a pH of 7.48, CO2 37, pAO2 72, bicarb of 27 and saturation 93% . He also had an MRI of the brain this afternoon which showed diffuse atrophy, otherwise, no acute intracranial findings. The patient failed speech evaluation and NG tube was inserted where nutrition support was provided via tube feeds. His laboratory data today showed worsening leukocytosis with WBC increased to 21.1 from 10.9. In addition, the patient is hypernatremic with a sodium level of 148 and increased creatinine level of 1.30 from 1.1. His ammonia level measured less than 10. Most of the history was obtained from reviewing the medical records as patient is a poor historian. He had a positive flu antigen on September 06. 09/24: Currently afebrile. Intubated for obvious aspiration. Central line placed due to very poor IV access. Will start TPN if unable to tolerate tube feeding. Currently resting in bed 09/25: Afebrile. Currently resting in bed will strictly intubated. Was previously on Apixaban but currently hold since yesterday. Tube feeds will be restarted today. 09/26 Patient remains sedated and intubated. On Levophed 2 mics. s/p LP earlier today showed clear CSF, 0 WBC 09/27: Afebrile. MAXIMUM TEMPERATURE 99.1. Tube feeds currently at 30 cc an hour. Lumbar puncture essentially is negative except for protein elevated at 70.1 mg/dL. Glucose 122/glucose was elevated in a.m. BMP. 09/28: Extubated today without complication. Weaning off dexmedetomidine drip. Speech therapy to evaluate and treat currently. Maintain NG tube encased tube feeds are needed. Nodding head and answering simple questions appropriately. 2/2: Resting in bed in no acute distress. On nasal cannula. Afebrile. Somewhat tachycardic. 3 bowel movements. Interactive and more appropriate. On dexmedetomidine drip at 1.1 mcg/kg per minute SUBJECTIVE: 2/3: Resting comfortably in bed in no acute distress on room air. Currently on dexmedetomidine drip at 0.9 g per kilo per minute. Interactive and more appropriate. Family meeting. Reviewed imaging with 2 family members at bedside. 10/01: TMAX 99.1 Pt awake, responding to questions alert to name, confused with place and time. Patient following commands, appears ICAM positive. The patient continues on low-dose dexmedetomidine 0.5 mcgs/kg/hr. agents had episodes of diarrhea over the last 24 hours, bowel regimen placed on hold, Reglan discontinued. 10/02: Overnight the patient rested for approximately 4 hours after institution of 5 mg of melatonin, and 5 mg of Ambien. Continued maintenance of sleep wake cycle. Pending recommendations by neurology and neuropsychologist. Concern for postoperative cognitive dysfunction, unknown exact time of onset, versus ICU delirium. Patient noted to have low potassium level with repletion at this time. 10/03: Patient only slept 4 hours last night Ambien and melatonin ineffective. Patient switched to trazodone for insomnia. Seen by neuropsychologist behavior agitation scale initiated every 12 hours. Case management also consulted for disposition for neurocognitive rehabilitation in conjunction with physical rehabilitation. Patient is tolerating diet however patient noted to have sores vesicles oropharyngeal, acyclovir initiated today. Objective Vital Signs Date Time Temp Pulse Resp B/P (MAP) Pulse Ox O2 Delivery O2 Flow Rate FiO2 10/03/17 14:00 93 10/03/17 13:01 98.2 25 137/67 (90) 97 10/03/17 07:53 21 10/03/17 07:00 Nasal Cannula 2.00 Intake and Output 10/03/17 10/03/17 10/04/17 08:00 16:00 00:00 Output Total 650 ml Balance -650 ml Result Diagram: 10/03/17 0545 10/03/17 0545 Imaging Last Impressions Brain MRI 09/27/17 0000 Signed Impressions: Service Date/Time: Wednesday, September 27, 2017 15:09 - CONCLUSION: 1. Nonspecific white matter changes. 2. Cerebral atrophy without acute intracranial abnormality. 3. No cortically based abnormality identified. Abhinav Allen MD Lumbar Puncture Fluoroscopy 09/26/17 1505 Signed Impressions: Service Date/Time: Tuesday, September 26, 2017 08:29 - CONCLUSION: Uncomplicated fluoroscopically guided lumbar puncture with pressures as above. Con Castillo Jr., MD Chest X-Ray 09/26/17 0600 Signed Impressions: Service Date/Time: Tuesday, September 26, 2017 05:55 - CONCLUSION: Endotracheal tube, left central line and nasogastric tube in good position. Minimal basal atelectasis. Terrance Murillo MD Liver Ultrasound 09/23/17 0000 Signed Impressions: Service Date/Time: Saturday, September 23, 2017 14:12 - CONCLUSION: Right upper quadrant abdominal ultrasound within normal limits. Vinod Pelletier MD Head CT 09/22/17 0000 Signed Impressions: Service Date/Time: Friday, September 22, 2017 21:31 - CONCLUSION: 1. No acute intracranial abnormalities. Terrance Murillo MD Abdomen X-Ray 09/17/17 0000 Signed Impressions: Service Date/Time: Sunday, September 17, 2017 22:34 - CONCLUSION: Nasogastric tube with tip coiled in stomach. Abhinav Allen MD Chest CT 09/14/17 0000 Signed Impressions: Service Date/Time: August 13:00 - CONCLUSION: Small nodular areas of airspace disease both in the lingula and the left lung base. Right lung is relatively clear. The mediastinum is unremarkable. Adrian Martinez MD Objective Remarks GENERAL: This is a 76-year-old male resting in bed in no acute distress attempting to answer questions SKIN: Warm and dry. No rash HEAD: Atraumatic. Normocephalic. EYES: Pupils equal and round. No scleral icterus. No injection or drainage. ENT: No nasal bleeding or discharge. Mucous membranes pink and moist. Circumoral lesions and noted vesicular lesions in the tongue and oropharynx NECK: Trachea midline. No JVD. Left IJ CVL is clean dry and intact CARDIOVASCULAR: Regular rate and irregular rhythm. S1, S2. No S4. Without murmur RESPIRATORY: Transmitted upper airway sounds. Coarse crackles appreciated throughout all lung hester anterior and posteriorly.. Breath sounds equal bilaterally. GASTROINTESTINAL: Abdomen soft, non-tender, nondistended. Hypoactive bowel sounds are appreciated. MUSCULOSKELETAL: Extremities without significant peripheral edema. No obvious deformities. NEUROLOGICAL: ICAM positive, GCS 14. Moving all 4 extremities spontaneously and to commands. Unable to follow specific commands consistently. Answering questions appropriate. No obvious cranial nerve defects. Strength appears equal and symmetric. Date of Insertion: Sep 24, 2017 Line: Central Venous Catheter Side: Left Location: Internal, Jugular A/P Assessment and Plan Neuro/Psych: Subacute encephalopathy EtOH use Possible viral encephalitis Delirium Possible postoperative cognitive delirium POCD Insomnia Continue as needed dexmedetomidine drip which is currently at 0.9 mcg/kg per minute to maintain a RASS 0 Continue thiamine, folate and multivitamin daily Evaluated by neurology - Dr. Rojas. s/p LP 09/26- clear CSF, 0 WBC. Protein 70.1. Glucose 122. Gram stain negative MRI brain 09/23 revealed no acute intracranial findings. EEG 09/24 showing normal awake and asleep features. No epileptiform features present specifically. Continue to wean with dexmedetomidine. MRA brain repeated 09/27 negative ICAM positive F/U Neurology intermittently following Neuro Psych following-behavior agitation scale initiated Trazodone 50 mg daily at bedtime 10/01-repeat CT brain-no acute intracranial abnormality CV: Atrial fibrillation/rate controlled Seen by Dr. Mckay in the past. Status post failed cardioversion the past Currently on Dronedarone 400 mg BID Off all IV fluids As needed hydralazine/labetalol and enalaprilat for hypertension Resp: Acute respiratory failure secondary to aspiration-resolved Maintain saturation greater than equal to 92%. Currently on room air Incentive spirometry while awake On methylprednisolone succinate 40 mg IV every 12 hours wean daily today 09/30 Will discontinue Albuterol/ipratropium aerosols every 4 hours and continue with albuterol aerosols every 2 hours as needed Dyspnea Spontaneous breathing trials when clinically indicated Pulmonology - Dr. Naylor following GI: Elevated transaminases Hypoalbuminemia Resumed tube feeds- Jevity 1.5 goal 60 cc an hour and monitor for residuals. Currently at 40 cc an hour.. Advance Speech therapy evaluate and treat currently. failed swallow on 09/30 Discontinued 10/01 metoclopramide 5 mill grams IV every 8 hours Famotidine 20 mg twice a day for GI prophylaxis Docusate sodium twice daily 100 cc for bowel regimen on hold Liver ultrasound is within normal limits Normal ammonia Hepatitis panel negative : Lyons catheter has been placed for accurate I's and O's in a critically ill patient Endo: SSI with Novulin R with Accu-Cheks every 6 hours to maintain glycemia/low regimen Renal Acute kidney injury Off all the fluids Monitor urine output Accurate I's and O's Heme: Leukocytosis Normocytic anemia History of skin cancer Chronic apixaban use Continue iron sulfate 325 mg by mouth Monitor CBC daily. Follow trends Continue Apixaban 2.5 mg twice a day ID: Currently on piperacillin/tazobactam and vancomycin for aspiration pneumonia per infectious disease Levofloxacin discontinued 09/29 Pertinent cultures CSF 09/26 - Gram stain negative.AFB and fungal NGTD 09/24 - sputum - no growth 09/23 - blood cultures 2 - no growth 09/23 - urine cultures - no growth Influenza negative 09/11 - blood cultures 2 - no growth FEN: Electrolyte derangement Free water flushes 150 every 8 Replace per ICU electrolyte protocol. MSK: PT evaluate and treat Access - Left IJ CVL placed 09/24 - present Prophylaxis - GI - famotidine - DVT - SCD Level 2 follow-up Provided medical update to daughter Keysha [place], and [employer] and all questions answered. Plan transfer to [facility] in a.m.. Case management consulted for disposition for rehabilitation both physical and neurocognitive. Physician Mary Monterroso MD Oct 03, 2017 17:26
--- NOTE | 2017-10-03 19:50 | HHI.PR ---
Subjective Remarks 76 YOWM with Br Asthma, Flu, Pn, Aspiration No fever Extubated 09/28 Weaned to RA family at More awake, confused Objective Vital Signs Vital Signs Date Time Temp Pulse Resp B/P (MAP) Pulse Ox O2 Delivery O2 Flow Rate FiO2 10/03/17 19:30 96 Nasal Cannula 2.00 10/03/17 18:00 98.4 88 26 142/88 (106) 97 10/03/17 18:00 73 10/03/17 17:00 86 29 132/83 (99) 96 10/03/17 16:00 70 22 128/79 (95) 98 10/03/17 16:00 88 10/03/17 15:00 74 26 119/82 (94) 99 10/03/17 14:00 93 10/03/17 13:01 98.2 80 25 137/67 (90) 97 10/03/17 12:01 76 20 140/83 (102) 98 10/03/17 12:00 87 10/03/17 11:01 84 34 131/69 (89) 97 10/03/17 10:01 98 26 132/63 (86) 97 10/03/17 10:01 98 26 132/63 (86) 97 10/03/17 09:01 96 24 124/72 (89) 98 10/03/17 08:01 114 32 148/77 (100) 97 10/03/17 07:53 97 21 10/03/17 07:01 98.5 94 22 126/80 (95) 97 10/03/17 07:00 Nasal Cannula 2.00 10/03/17 06:36 88 10/03/17 06:01 70 21 105/74 (84) 93 10/03/17 05:01 86 28 146/63 (90) 97 10/03/17 04:31 81 10/03/17 04:01 99.0 86 21 139/71 (93) 97 10/03/17 03:14 96 26 150/71 (97) 94 10/03/17 02:01 110 32 126/62 (83) 95 10/03/17 02:00 98 10/03/17 01:01 84 32 107/56 (73) 98 10/03/17 00:01 94 36 115/55 (75) 99 10/03/17 00:00 85 10/02/17 23:01 90 20 142/73 (96) 93 10/02/17 22:01 88 18 156/77 (103) 98 10/02/17 22:00 88 10/02/17 21:01 102 22 93/58 (70) 92 10/02/17 21:00 97 Nasal Cannula 2.00 10/02/17 20:01 102 33 140/70 (93) 95 10/02/17 20:00 90 I/O 10/02/17 10/02/17 10/02/17 10/03/17 10/03/17 10/03/17 07:00 15:00 23:00 07:00 15:00 23:00 Intake Total 1000 ml 1060 ml 340 ml 420 ml Output Total 1100 ml 1240 ml 650 ml 1440 ml Balance -100 ml -180 ml -650 ml 340 ml -1020 ml Intake Oral 120 ml 340 ml 80 ml IV Total 400 ml 400 ml 340 ml Tube Feeding 600 ml 540 ml Output Urine Total 1050 ml 720 ml 350 ml 1440 ml Stool Total 50 ml 520 ml 300 ml Result Diagram: 10/03/17 0545 10/03/17 0545 Objective Remarks GENERAL: Elderly male, mild sob, congested SKIN: Warm and dry. HEAD: Normocephalic. EYES: No scleral icterus. No injection or drainage. NECK: Supple, trachea midline. No JVD or lymphadenopathy. CARDIOVASCULAR: Regular rate and rhythm without murmurs, gallops, or rubs. RESPIRATORY: Breath sounds equal bilaterally. No accessory muscle use. Scattered coarse rhonchi GASTROINTESTINAL: Abdomen soft, non-tender, nondistended. MUSCULOSKELETAL: No cyanosis, or edema. BACK: Nontender without obvious deformity. No CVA tenderness. A/P Assessment and Plan VDRF, s/p extubation 09/28 Pneumonia Aspiration Bronchial asthma Alcohal withdrawl AF HTN PLAN: Cont Abx Aerosol nebs Stable on RA Encourage PO DW family at BS Beltran Naylor MD Oct 03, 2017 19:50
[2017-10-03] MEDS: traZODone HCL 50 MG TAB PO SCH (20:50)
[2017-10-04] VITALS (33 sets, daily range): BP systolic 121–172; BP diastolic 40–99; PULSE 75–114; RESP 16–43; TEMP 98–98.9; O2SAT 91–97
[2017-10-04] MEDS: PIPERACIL-TAZO 4.5 GM PREMIX 100 ML IV SCH ×3 (03:03→12:28)
[2017-10-04] MEDS: INSULIN ASPART SUPPLEMENTAL SCALE SQ SCH ×4 (08:00→21:00)
[2017-10-04] MEDS: CHLORHEXIDINE 0.12% (ORAL KIT) 15 ML CUP MT SCH ×2 (08:35→20:00)
[2017-10-04] MEDS: DRONEDARONE 400 MG TAB PO SCH ×2 (09:00→21:07)
[2017-10-04] MEDS: methylPREDNISolone SOD SUCC 40 MG/1 ML VIAL IV PUSH SCH (09:04)
[2017-10-04] MEDS: NYSTATIN SUSP 500,000 U/5 ML CUP SWISH-SWAL SCH ×4 (09:05→21:04)
[2017-10-04] MEDS: FAMOTIDINE 40 MG/5 ML LIQ 50 ML BTL NG SCH ×2 (09:05→21:07)
[2017-10-04] MEDS: SODIUM CHLORIDE 0.9% FLUSH 10 ML FLUSH IV FLUSH SCH ×2 (09:05→21:05)
[2017-10-04] MEDS: MULTIVITAMIN TAB PO SCH (09:23)
[2017-10-04] MEDS: LACTOBACILLUS ACIDOPHILUS TAB PO SCH ×2 (09:23→21:06)
[2017-10-04] MEDS: FOLIC ACID 1 MG TAB PO SCH (09:23)
[2017-10-04] MEDS: THIAMINE HCL 100 MG TAB PO SCH (09:23)
[2017-10-04] MEDS: ACYCLOVIR 200 MG CAP PO SCH ×2 (09:23→21:06)
[2017-10-04] MEDS: APIXABAN 2.5 MG TABLET PO SCH ×2 (09:23→21:03)
[2017-10-04] MEDS: NYSTATIN 100,000 U/GM PWD 15 GM BTL TOPICAL SCH ×2 (09:23→21:05)
--- NOTE | 2017-10-04 13:04 | HHI.PR ---
Subjective Remarks restless last night, more alert today, mouth hurts Objective Vitals Vital Signs Date Time Temp Pulse Resp B/P (MAP) Pulse Ox O2 Delivery O2 Flow Rate FiO2 10/04/17 11:12 96 35 140/95 (110) 91 10/04/17 10:01 88 20 121/68 (85) 97 10/04/17 10:00 75 10/04/17 09:01 84 22 126/73 (90) 97 10/04/17 08:01 98.0 84 16 129/62 (84) 95 10/04/17 08:00 96 21 10/04/17 08:00 83 10/04/17 07:01 88 29 160/91 (114) 95 10/04/17 07:00 94 Room Air 10/04/17 06:22 94 10/04/17 06:01 90 35 134/73 (93) 96 10/04/17 05:01 96 30 137/85 (102) 96 10/04/17 04:00 111 10/04/17 04:00 94 10/04/17 04:00 98.9 98 21 142/73 (96) 95 10/04/17 03:00 88 30 131/87 (102) 97 10/04/17 03:00 88 30 131/87 (102) 97 10/04/17 02:00 102 21 138/76 (96) 97 10/04/17 02:00 96 10/04/17 01:00 100 31 163/85 (111) 97 10/04/17 01:00 100 31 163/85 (111) 97 10/04/17 00:45 90 22 96 10/04/17 00:30 100 30 96 10/04/17 00:27 98 10/04/17 00:15 102 28 95 10/04/17 00:00 98.5 104 27 144/69 (94) 95 10/04/17 00:00 104 27 144/69 (94) 95 10/03/17 23:00 104 30 154/75 (101) 98 10/03/17 22:12 111 10/03/17 22:00 108 36 145/90 (108) 96 10/03/17 21:00 90 23 149/80 (103) 97 10/03/17 20:39 80 21 171/83 (112) 96 10/03/17 20:30 96 21 2/6/18 20:00 86 10/03/17 19:49 88 18 157/89 (111) 96 10/03/17 19:30 97.7 94 35 148/77 (100) 96 10/03/17 19:30 96 Nasal Cannula 2.00 10/03/17 18:00 98.4 88 26 142/88 (106) 97 10/03/17 18:00 73 10/03/17 17:00 86 29 132/83 (99) 96 10/03/17 16:00 70 22 128/79 (95) 98 10/03/17 16:00 88 10/03/17 15:00 74 26 119/82 (94) 99 10/03/17 14:00 93 10/03/17 13:01 98.2 80 25 137/67 (90) 97 10/04/17 10/04/17 10/05/17 14:59 22:59 06:59 Output Total 200 ml Balance -200 ml Output Urine Total 200 ml Result Diagram: 10/03/17 0545 10/03/17 0545 Imaging Last Impressions Chest X-Ray 09/14/17 0000 Signed Impressions: Service Date/Time: August 09:55 - CONCLUSION: Left lung density. Recommend CT chest for further evaluation Jayant Soto MD Chest CT 09/14/17 0000 Signed Impressions: Service Date/Time: August 13:00 - CONCLUSION: Small nodular areas of airspace disease both in the lingula and the left lung base. Right lung is relatively clear. The mediastinum is unremarkable. Adrian Martinez MD Last Impressions Chest X-Ray 09/11/17 1605 Signed Impressions: Service Date/Time: Monday, September 11, 2017 16:11 - CONCLUSION: No acute disease. No significant change has occurred. Gregory Campbell MD Objective Remarks sitting up in bed alert, follows simple commands mouth with ulcers and blisters, drying, left IJ lungs are clear heart regular, no murmur abdomen good bowel sounds, nontender moving all extremities singleton clear urine , Date of Insertion: Sep 24, 2017 Line: Central Venous Catheter Side: Left Location: Internal, Jugular A/P Problem List: (1) Asthma ICD Codes: J45.909 - Unspecified asthma, uncomplicated Status: Acute Plan: asthma stable, on nebulizer (2) Influenza ICD Codes: J11.1 - Influenza due to unidentified influenza virus with other respiratory manifestations Status: Resolved Plan: Influenza A with secondary pneumonia. (3) Alcohol withdrawal delirium ICD Codes: F10.231 - Alcohol dependence with withdrawal delirium Status: Resolved Plan: treated with protocol on initial presentation (4) Chronic alcohol abuse ICD Codes: F10.10 - Alcohol abuse, uncomplicated Status: Chronic Plan: will Discuss need for cessation once more alert. (5) Paroxysmal atrial fibrillation ICD Codes: I48.0 - Paroxysmal atrial fibrillation Status: Chronic Plan: apizaban restarted and is on dronedarone 400 bid (6) Hypotension ICD Codes: I95.9 - Hypotension, unspecified Status: Resolved (7) Respiratory failure ICD Codes: J96.90 - Respiratory failure, unspecified, unspecified whether with hypoxia or hypercapnia Status: Resolved Plan: extubated 2/ on room air (8) Leukocytosis ICD Codes: D72.829 - Elevated white blood cell count, unspecified Status: Acute Plan: currently only on zosyn, solumedrol may be contributing factor (9) Delirium due to another medical condition ICD Codes: F05 - Delirium due to known physiological condition Status: Acute Plan: seen by neuropsychologist, anticipate gradual improvement over time Discharge Planning as per response to treatment Problem Qualifiers (1) Asthma: Qualified Codes: J45.901 - Unspecified asthma with (acute) exacerbation (2) Respiratory failure: Tari Ha MD Oct 04, 2017 13:04
[2017-10-04 17:16] LABS: BICARBONATE 26.2 MEQ/L (21.0-32.0); CALCIUM 7.7 MG/DL (8.5-10.1)
--- NOTE | 2017-10-04 17:33 | HHI.IDPN ---
Subjective Subjective Remarks Patient more awake.But still some confusion restless restrained No eating as mouth and tongue sore No fevers Antibiotics , Zosyn and Levofloxacin Lines RIGHT IJ Past Medical History Asthma, Alcoholism , Afib Allergies: Coded Allergies: No Known Allergies (Verified Adverse Reaction, Unknown, 09/11/17) Objective . Vital Signs Date Time Temp Pulse Resp B/P (MAP) Pulse Ox O2 Delivery O2 Flow Rate FiO2 10/04/17 15:00 88 23 146/95 (112) 96 10/04/17 14:00 83 10/04/17 13:50 78 25 130/78 (95) 97 10/04/17 12:00 95 10/04/17 11:12 96 35 140/95 (110) 91 10/04/17 10:01 88 20 121/68 (85) 97 10/04/17 10:00 75 10/04/17 09:01 84 22 126/73 (90) 97 10/04/17 08:01 98.0 84 16 129/62 (84) 95 10/04/17 08:00 96 21 10/04/17 08:00 83 10/04/17 07:01 88 29 160/91 (114) 95 10/04/17 07:00 94 Room Air 10/04/17 06:22 94 10/04/17 06:01 90 35 134/73 (93) 96 10/04/17 05:01 96 30 137/85 (102) 96 10/04/17 04:00 111 10/04/17 04:00 94 10/04/17 04:00 98.9 98 21 142/73 (96) 95 10/04/17 03:00 88 30 131/87 (102) 97 10/04/17 03:00 88 30 131/87 (102) 97 10/04/17 02:00 102 21 138/76 (96) 97 10/04/17 02:00 96 10/04/17 01:00 100 31 163/85 (111) 97 10/04/17 01:00 100 31 163/85 (111) 97 10/04/17 00:45 90 22 96 10/04/17 00:30 100 30 96 10/04/17 00:27 98 10/04/17 00:15 102 28 95 10/04/17 00:00 98.5 104 27 144/69 (94) 95 10/04/17 00:00 104 27 144/69 (94) 95 10/03/17 23:00 104 30 154/75 (101) 98 10/03/17 22:12 111 10/03/17 22:00 108 36 145/90 (108) 96 10/03/17 21:00 90 23 149/80 (103) 97 10/03/17 20:39 80 21 171/83 (112) 96 10/03/17 20:30 96 21 10/03/17 20:00 86 10/03/17 19:49 88 18 157/89 (111) 96 10/03/17 19:30 97.7 94 35 148/77 (100) 96 10/03/17 19:30 96 Nasal Cannula 2.00 10/03/17 18:00 98.4 88 26 142/88 (106) 97 10/03/17 18:00 73 10/04/17 10/04/17 10/05/17 15:00 23:00 07:00 Output Total 200 ml Balance -200 ml Output Urine Total 200 ml . Laboratory Tests Test 10/03/17 05:45 White Blood Count 12.0 TH/MM3 Red Blood Count 3.90 MIL/MM3 Hemoglobin 10.9 GM/DL Hematocrit 34.2 % Mean Corpuscular Volume 87.6 FL Mean Corpuscular Hemoglobin 27.9 PG Mean Corpuscular Hemoglobin Concent 31.9 % Red Cell Distribution Width 17.6 % Platelet Count 148 TH/MM3 Mean Platelet Volume 8.0 FL Neutrophils (%) (Auto) 78.2 % Lymphocytes (%) (Auto) 10.7 % Monocytes (%) (Auto) 6.0 % Eosinophils (%) (Auto) 4.0 % Basophils (%) (Auto) 1.1 % Neutrophils # (Auto) 9.4 TH/MM3 Lymphocytes # (Auto) 1.3 TH/MM3 Monocytes # (Auto) 0.7 TH/MM3 Eosinophils # (Auto) 0.5 TH/MM3 Basophils # (Auto) 0.1 TH/MM3 CBC Comment AUTO DIFF Differential Comment AUTO DIFF CONFIRMED Laboratory Tests Test 10/03/17 05:45 10/04/17 15:16 Blood Urea Nitrogen 23 MG/DL 19 MG/DL Creatinine 1.10 MG/DL 1.00 MG/DL Random Glucose 76 MG/DL 97 MG/DL Calcium Level 7.9 MG/DL 7.7 MG/DL Phosphorus Level 2.5 MG/DL Magnesium Level 2.4 MG/DL Sodium Level 144 MEQ/L 134 MEQ/L Potassium Level 3.1 MEQ/L 3.6 MEQ/L Chloride Level 110 MEQ/L 101 MEQ/L Carbon Dioxide Level 29.1 MEQ/L 26.2 MEQ/L Anion Gap 5 MEQ/L 7 MEQ/L Estimat Glomerular Filtration Rate 65 ML/MIN 72 ML/MIN Physical Exam General: Chronically ill - awake- answers appropriately Oral cavity: Tongue coated. Some mouth and lupillo oral ulcers Neck: Supple Chest: Breath sounds decreased Heart: S1S2 tachycardia Abdomen: Soft Non tender BS present Lower Extremities- No edema / Calf tenderness. Assessment & Plan Diagnosis: (1) Influenza ICD Codes: J11.1 - Influenza due to unidentified influenza virus with other respiratory manifestations Status: Resolved (2) Alcohol withdrawal ICD Codes: F10.239 - Alcohol dependence with withdrawal, unspecified (3) Alcohol withdrawal delirium ICD Codes: F10.231 - Alcohol dependence with withdrawal delirium Status: Resolved Plan: stop zosyn change to augmentin x 7days will fu (4) Chronic alcohol abuse ICD Codes: F10.10 - Alcohol abuse, uncomplicated Status: Chronic Maeve Currie Oct 04, 2017 17:33
[2017-10-04] MEDS ORDERED: ZOLPIDEM TARTRATE 5 MG TAB PO PRN (20:30)
[2017-10-04] MEDS ORDERED: MELATONIN 5 MG TAB PO PRN (20:30)
--- NOTE | 2017-10-04 20:40 | HHI.PR ---
Subjective Remarks 76 YOWM with Br Asthma, Flu, Pn, Aspiration No fever Extubated 09/28 Weaned to RA Son at BS More awake, confused Better when family around Objective Vital Signs Vital Signs Date Time Temp Pulse Resp B/P (MAP) Pulse Ox O2 Delivery O2 Flow Rate FiO2 10/04/17 18:06 104 32 172/99 (123) 96 10/04/17 18:00 102 10/04/17 17:00 104 30 157/88 (111) 97 10/04/17 17:00 104 10/04/17 16:00 98 43 94 10/04/17 16:00 79 10/04/17 15:00 88 23 146/95 (112) 96 10/04/17 14:00 83 10/04/17 13:50 78 25 130/78 (95) 97 10/04/17 12:00 95 10/04/17 11:12 96 35 140/95 (110) 91 10/04/17 10:01 88 20 121/68 (85) 97 10/04/17 10:00 75 10/04/17 09:01 84 22 126/73 (90) 97 10/04/17 08:01 98.0 84 16 129/62 (84) 95 10/04/17 08:00 96 21 10/04/17 08:00 83 10/04/17 07:01 88 29 160/91 (114) 95 10/04/17 07:00 94 Room Air 10/04/17 06:22 94 10/04/17 06:01 90 35 134/73 (93) 96 10/04/17 05:01 96 30 137/85 (102) 96 10/04/17 04:00 111 10/04/17 04:00 94 10/04/17 04:00 98.9 98 21 142/73 (96) 95 10/04/17 03:00 88 30 131/87 (102) 97 10/04/17 03:00 88 30 131/87 (102) 97 10/04/17 02:00 102 21 138/76 (96) 97 10/04/17 02:00 96 10/04/17 01:00 100 31 163/85 (111) 97 10/04/17 01:00 100 31 163/85 (111) 97 10/04/17 00:45 90 22 96 10/04/17 00:30 100 30 96 10/04/17 00:27 98 10/04/17 00:15 102 28 95 10/04/17 00:00 98.5 104 27 144/69 (94) 95 10/04/17 00:00 104 27 144/69 (94) 95 10/03/17 23:00 104 30 154/75 (101) 98 10/03/17 22:12 111 10/03/17 22:00 108 36 145/90 (108) 96 10/03/17 21:00 90 23 149/80 (103) 97 I/O 10/03/17 10/03/17 10/03/17 10/04/17 10/04/17 10/04/17 07:00 15:00 23:00 07:00 15:00 23:00 Intake Total 340 ml 420 ml Output Total 650 ml 1440 ml 900 ml 200 ml 525 ml Balance -650 ml 340 ml -1020 ml -900 ml -200 ml -525 ml Intake Oral 340 ml 80 ml IV Total 340 ml Output Urine Total 350 ml 1440 ml 900 ml 200 ml 525 ml Stool Total 300 ml Result Diagram: 10/03/17 0545 10/04/17 1516 Objective Remarks GENERAL: Elderly male, mild sob, congested SKIN: Warm and dry. HEAD: Normocephalic. EYES: No scleral icterus. No injection or drainage. NECK: Supple, trachea midline. No JVD or lymphadenopathy. CARDIOVASCULAR: Regular rate and rhythm without murmurs, gallops, or rubs. RESPIRATORY: Breath sounds equal bilaterally. No accessory muscle use. Scattered coarse rhonchi GASTROINTESTINAL: Abdomen soft, non-tender, nondistended. MUSCULOSKELETAL: No cyanosis, or edema. BACK: Nontender without obvious deformity. No CVA tenderness. A/P Assessment and Plan VDRF, s/p extubation 2/ Pneumonia Aspiration Bronchial asthma Alcohal withdrawl AF HTN PLAN: Cont Abx Aerosol nebs Stable on RA Encourage PO DW family at [facility] N[facility] MD Oct 04, 2017 20:40
[2017-10-04] MEDS: traZODone HCL 50 MG TAB PO SCH (21:07)
[2017-10-04] MEDS: AMOXICIL-CLAVU 400 MG/5 ML LIQ 100 ML BTL PO SCH (21:08)
[2017-10-05] VITALS (15 sets, daily range): BP systolic 92–159; BP diastolic 54–92; PULSE 76–117; RESP 16–34; TEMP 98.1–98.6; O2SAT 93–96
[2017-10-05] MEDS: INSULIN ASPART SUPPLEMENTAL SCALE SQ SCH ×3 (08:00→16:10)
[2017-10-05] MEDS: LACTOBACILLUS ACIDOPHILUS TAB PO SCH (08:19)
[2017-10-05] MEDS: FOLIC ACID 1 MG TAB PO SCH (08:19)
[2017-10-05] MEDS: DRONEDARONE 400 MG TAB PO SCH (08:19)
[2017-10-05] MEDS: THIAMINE HCL 100 MG TAB PO SCH (08:19)
[2017-10-05] MEDS: ACYCLOVIR 200 MG CAP PO SCH (08:19)
[2017-10-05] MEDS: APIXABAN 2.5 MG TABLET PO SCH (08:19)
[2017-10-05] MEDS: MULTIVITAMIN TAB PO SCH (08:19)
[2017-10-05] MEDS: AMOXICIL-CLAVU 400 MG/5 ML LIQ 100 ML BTL PO SCH (08:20)
[2017-10-05] MEDS: FAMOTIDINE 40 MG/5 ML LIQ 50 ML BTL NG SCH (08:20)
[2017-10-05] MEDS: NYSTATIN SUSP 500,000 U/5 ML CUP SWISH-SWAL SCH ×3 (08:20→16:12)
[2017-10-05] MEDS: NYSTATIN 100,000 U/GM PWD 15 GM BTL TOPICAL SCH (08:20)
[2017-10-05] MEDS: CHLORHEXIDINE 0.12% (ORAL KIT) 15 ML CUP MT SCH (08:20)
[2017-10-05] MEDS ORDERED: ACETAMINOPHEN 325 MG TAB PO PRN (08:45)
[2017-10-05] MEDS ORDERED: predniSONE 20 MG TAB PO SCH (09:00)
[2017-10-05] MEDS ORDERED: PANTOPRAZOLE SOD 40 MG DELAYED RELEASE TAB PO SCH (10:00)
--- NOTE | 2017-10-05 10:16 | HHI.PR ---
Subjective Remarks apparently had ambien and melatonin for first time last night, tolerating augmentin Objective Vitals Vital Signs Date Time Temp Pulse Resp B/P (MAP) Pulse Ox O2 Delivery O2 Flow Rate FiO2 10/05/17 09:07 96 Room Air 10/05/17 09:01 92 16 115/74 (88) 96 10/05/17 09:00 117 10/05/17 08:46 98.1 86 18 99/59 (72) 96 10/05/17 07:00 79 10/05/17 06:00 117 10/05/17 04:00 82 10/05/17 04:00 98.3 82 18 96 10/05/17 02:00 105 10/05/17 00:00 89 10/05/17 00:00 98.4 89 27 159/92 (114) 96 10/04/17 23:07 98 32 159/92 (114) 95 10/04/17 22:40 96 21 10/04/17 22:00 96 24 142/86 (104) 97 10/04/17 22:00 96 10/04/17 21:00 114 23 167/97 (120) 97 10/04/17 20:00 98.2 88 30 151/90 (110) 96 10/04/17 20:00 103 10/04/17 19:00 108 25 152/40 (77) 96 10/04/17 19:00 97 Room Air 10/04/17 18:06 104 32 172/99 (123) 96 10/04/17 18:00 102 10/04/17 17:00 104 30 157/88 (111) 97 10/04/17 17:00 104 10/04/17 16:00 98 43 94 10/04/17 16:00 79 10/04/17 15:00 88 23 146/95 (112) 96 10/04/17 14:00 83 10/04/17 13:50 78 25 130/78 (95) 97 10/04/17 12:00 95 10/04/17 11:12 96 35 140/95 (110) 91 Result Diagram: 10/03/17 0545 10/04/17 1516 Imaging Last Impressions Chest X-Ray 09/14/17 0000 Signed Impressions: Service Date/Time: August 09:55 - CONCLUSION: Left lung density. Recommend CT chest for further evaluation Jayant Soto MD Chest CT 09/14/17 0000 Signed Impressions: Service Date/Time: August 13:00 - CONCLUSION: Small nodular areas of airspace disease both in the lingula and the left lung base. Right lung is relatively clear. The mediastinum is unremarkable. Adrian Martinez MD Last Impressions Chest X-Ray 09/11/17 1605 Signed Impressions: Service Date/Time: Monday, September 11, 2017 16:11 - CONCLUSION: No acute disease. No significant change has occurred. Gregory Campbell MD Objective Remarks lying in bed getting cleaned answers questions, follows commands, rambling a bit left IJ lungs cta heart rrr good bowel sounds moving all extremities well singleton in place Date of Insertion: Sep 24, 2017 Line: Central Venous Catheter Side: Left Location: Internal, Jugular A/P Problem List: (1) Asthma ICD Codes: J45.909 - Unspecified asthma, uncomplicated Status: Acute Plan: asthma stable, on nebulizer (2) Influenza ICD Codes: J11.1 - Influenza due to unidentified influenza virus with other respiratory manifestations Status: Resolved Plan: Influenza A with secondary pneumonia. (3) Alcohol withdrawal delirium ICD Codes: F10.231 - Alcohol dependence with withdrawal delirium Status: Resolved Plan: treated with protocol on initial presentation (4) Chronic alcohol abuse ICD Codes: F10.10 - Alcohol abuse, uncomplicated Status: Chronic Plan: will Discuss need for cessation once more alert. (5) Paroxysmal atrial fibrillation ICD Codes: I48.0 - Paroxysmal atrial fibrillation Status: Chronic Plan: apizaban restarted and is on dronedarone 400 bid (6) Hypotension ICD Codes: I95.9 - Hypotension, unspecified Status: Resolved (7) Respiratory failure ICD Codes: J96.90 - Respiratory failure, unspecified, unspecified whether with hypoxia or hypercapnia Status: Resolved Plan: extubated 09/28 on room air (8) Leukocytosis ICD Codes: D72.829 - Elevated white blood cell count, unspecified Status: Acute Plan: currently on prednisone, afebrile recheck cbc today treated for aspiration pneumonia off all IV antibiotics started on Augmentin yesterday to complete 7 days, on acyclovir for oral ulcers (9) Delirium due to another medical condition ICD Codes: F05 - Delirium due to known physiological condition Status: Acute Plan: seen by neuropsychologist, anticipate gradual improvement over time Discharge Planning waiting for response from [facility] in patient rehab Problem Qualifiers (1) Asthma: Qualified Codes: J45.901 - Unspecified asthma with (acute) exacerbation (2) Respiratory failure: Tari Ha MD Oct 05, 2017 10:16
[2017-10-05 10:35] LABS: BASOPHIL % 0.4 % (0.0-2.0); EOSINOPHIL # 0.3 TH/MM3 (0-0.4); EOSINOPHIL % 2.4 % (0.0-4.0); HEMATOCRIT 33.8 % (39.0-51.0); HEMOGLOBIN 10.8 GM/DL (13.0-17.0); LYMPH % 15.9 % (9.0-44.0); LYMPHOCYTE # 1.7 TH/MM3 (1.0-4.8); MEAN CELL VOLUME 85.7 FL (80.0-100.0); MEAN CORPUSCULAR HEMOGLOBIN 27.3 PG (27.0-34.0); MEAN CORPUSCULAR HGB CONC 31.8 % (32.0-36.0); MEAN PLATELET VOLUME 8.1 FL (7.0-11.0); MONO % 7.5 % (0.0-8.0); MONOCYTE # 0.8 TH/MM3 (0-0.9); NEUT % 73.8 % (16.0-70.0); PLATELET COUNT 197 TH/MM3 (150-450); RED BLOOD COUNT 3.95 MIL/MM3 (4.50-5.90); RED CELL DISTRIBUTION WIDTH 16.8 % (11.6-17.2); WHITE BLOOD COUNT 10.8 TH/MM3 (4.0-11.0)
== END 2017-10-05 16:23 | DRG 207 ==
LOC: PHEFT 14:55 → PHEDA 18:22 → PH3A 21:00 → OBSVTOIN 09-13 08:13 → PHICU 09-14 18:33
PROVIDERS: ADMIT Family Medicine; ATTEND Family Medicine
PROC: 3E0F7GC Introduction of Other Therapeutic Substance into Respiratory Tract, Via Natural or Artificial Opening (ICD-10-PCS; 2017-09-11)
PROC: 0D9670Z Drainage of Stomach with Drainage Device, Via Natural or Artificial Opening (ICD-10-PCS; 2017-09-17)
PROC: 5A1955Z Respiratory Ventilation, Greater than 96 Consecutive Hours (ICD-10-PCS; principal; 2017-09-24)
PROC: 05HN33Z Insertion of Infusion Device into Left Internal Jugular Vein, Percutaneous Approach (ICD-10-PCS; 2017-09-24)
PROC: 0BH17EZ Insertion of Endotracheal Airway into Trachea, Via Natural or Artificial Opening (ICD-10-PCS; 2017-09-24)
PROC: 009U3ZX Drainage of Spinal Canal, Percutaneous Approach, Diagnostic (ICD-10-PCS; 2017-09-26)
DX: J10.1 Influenza due to other identified influenza virus with other respiratory manifestations (principal); J96.00 Acute respiratory failure, unspecified whether with hypoxia or hypercapnia; G93.40 Encephalopathy, unspecified; N17.9 Acute kidney failure, unspecified; F10.231 Alcohol dependence with withdrawal delirium; I48.0 Paroxysmal atrial fibrillation; I95.9 Hypotension, unspecified; E87.0 Hyperosmolality and hypernatremia; E88.09 Other disorders of plasma-protein metabolism, not elsewhere classified; I48.2 Chronic atrial fibrillation; J45.901 Unspecified asthma with (acute) exacerbation; E87.1 Hypo-osmolality and hyponatremia; J69.0 Pneumonitis due to inhalation of food and vomit; I10 Essential (primary) hypertension; H91.93 Unspecified hearing loss, bilateral; Z79.01 Long term (current) use of anticoagulants; Z96.651 Presence of right artificial knee joint; Z87.891 Personal history of nicotine dependence; Z85.828 Personal history of other malignant neoplasm of skin; Z82.49 Family history of ischemic heart disease and other diseases of the circulatory system; Z83.6 Family history of other diseases of the respiratory system; Z78.1 Physical restraint status; E87.6 Hypokalemia; T17.920A Food in respiratory tract, part unspecified causing asphyxiation, initial encounter; G47.00 Insomnia, unspecified; K12.1 Other forms of stomatitis; E83.39 Other disorders of phosphorus metabolism; D64.9 Anemia, unspecified
CPT/HCPCS: 31500; 31645; 36556; 36600; 62270; 70450; 70551; 71045; 71250; 74018; 76705; 77003; 80048; 80053; 80074; 80076; 80202; 81001; 82040; 82042; 82140; 82150; 82533; 82550; 82607; 82746; 82784; 82805; 82945; 82948; 83605; 83615; 83690; 83735; 84100; 84132; 84155; 84157; 84484; 85025; 85027; 85384; 85610; 85730; 86403; 86592; 86618; 86780; 87015; 87040; 87070; 87086; 87102; 87116; 87205; 87206; 87252; 87476; 87493; 87497; 87498; 87529; 87804; 88108; 89051; 93005; 94002; 94003; 94150; 94640; 94664; 95819; 96361; 96365; 96366; 96375; 96376; G0378; J0360; J0610; J1630; J1650; J1956; J2060; J2405; J2543; J2765; J2920; J2997; J3010; J3370; J3480; J7030; J7040; J7050; J7512

== ENCOUNTER → 2017-10-09 | Outpatient (CLI) | payer MEDICARE ==
[~2017-10-09] MED LIST changes: +CO Q100C9 PO; +FOLI1TAB6 PO; +GETGO ROLLING W1 MI1; +LIDOCAINE HCL 1% PF 5 ML SYRINGE OTHER ONE; +PANT40TA3 PO; +PROPOFOL 200 MG/20 ML AMP IV ONE; +SERO25TA PO; +THERTAB15 PO; +THIA100 PO; +TRAZ50TA12 PO; -VITA100T54 PO; +WHEEMIS3; +ePHEDrine/NS 25 MG/5 ML SYRINGE IV ONE
[2017-10-09 12:22] VITALS: BP 102/55; PULSE 71; RESP 16; TEMP 96.9; O2SAT 96
--- NOTE | 2017-10-09 14:45 | PD.PROCEDR ---
GI Procedure PROCEDURE PERFORMED EGD with biopsy INDICATION FOR PROCEDURE Upper GI bleed PROCEDURE: The procedure, risks and benefits were discussed with Mr. Benedict and informed consent was obtained. Anesthesia sedated him with Diprivan. He was placed in the left lateral decubitus position. EGD: The Pentax videoscope was introduced through the oropharynx and advanced to the second portion of the duodenum under direct visualization. Retroflexion was performed in the stomach. FINDINGS: The esophagus this was grossly unremarkable except for what looked like a short segment of Guerra's at the distal and this was biopsied The stomach there was a small hiatal hernia otherwise gastric mucosa appeared to be unremarkable and within normal limits The duodenum this too was normal ESTIMATED BLOOD LOSS: None SPECIMENS REMOVED: Esophageal biopsies COMPLICATIONS: None IMPRESSION: Short segment Guerra's Hiatal hernia PLAN: Recommend PPI such as Protonix 40 mg daily Await biopsies Recommend EGD in 1 year Monitor labs No further action from a GI standpoint we will sign off Kenny Renner MD Oct 09, 2017 14:45
== END ==
LOC: HSDC 10:16
PROVIDERS: ATTEND Internal Medicine Gastroenterology
DX: K29.00 Acute gastritis without bleeding (principal); K44.9 Diaphragmatic hernia without obstruction or gangrene
CPT/HCPCS: 88305; 88312